=== PATIENT | female | born 1985 | race Caucasian/White ===

== ENCOUNTER 2017-02-27 21:19 | Emergency (ER) | payer OTHER, SELFPAY ==
[2017-02-27] MEDS ORDERED: TORAdol 30 mg Injection IM ONE (21:49)
[2017-02-27] MEDS ORDERED: TORAdol 30 mg Injection ONE (21:51)
[2017-02-27 22:20] VITALS: O2SAT 98
--- NOTE | 2017-02-27 22:25 | ERPHSYRPT ---
- History of Present Illness Time Seen by Provider: 02/27/17 22:00 Physician History: PATIENT WITH A HISTORY OF MIGRAINE HEADACHES FOR 20 YEARS COMPLAINS OF MIGRAINE HEADACHE FOR 4 WEEKS. DENIES BLURRED VISION, FEVER, NECK STIFFNESS. DENIES NAUSEA, EMESIS. Timing/Duration: week(s) Quality: aching Head Pain Location: temporal Severity of Pain-Max: moderate Severity of Pain-Current: moderate Recent Head Trauma: no recent headache/trauma Modifying Factors: Improves With: exposure to light Associated Symptoms: sensitive to light Previous symptoms: same symptoms as today Allergies/Adverse Reactions: latex Allergy (Verified 04/04/16 01:44) Sulfa (Sulfonamide Antibiotics) [Sulfa(Sulfonamide Antibiotics)] Allergy ( Verified 03/21/16 16:28) Hives NSAIDS (Non-Steroidal Anti-Inflamma Adverse Reaction (Verified 04/04/16 01:45) eggs Allergy (Uncoded 04/04/16 01:44) Home Medications: Bupropion HCl 150 mg Sr [Wellbutrin SR 150 MG] 150 mg PO BID 03/03/16 [ History] Escitalopram Oxalate 10 mg [Lexapro 10 MG] 20 mg PO DAILY 03/03/16 [History] Ferrous Sulfate [Iron] 325 mg PO DAILY 03/03/16 [History] Lorazepam [Ativan] 1 mg PO TID 03/03/16 [History] Pantoprazole Sodium [Protonix] 40 mg PO DAILY 03/03/16 [History] Norgestimate-Ethinyl Estradiol [Sprintec] 1 ea PO UD 03/11/16 [History] Hx Tetanus, Diphtheria Vaccination/Date Given: Yes (up top date) Hx Influenza Vaccination/Date Given: No Hx Pneumococcal Vaccination/Date Given: No - Review of Systems Constitutional: No Fever, No Chills Eyes: No Symptoms Ears, Nose, & Throat: No Symptoms Respiratory: No Symptoms, No Cough, No Dyspnea Cardiac: No Symptoms, No Chest Pain, No Edema, No Syncope Abdominal/Gastrointestinal: No Symptoms, No Abdominal Pain, No Nausea, No Vomiting, No Diarrhea Genitourinary Symptoms: No Symptoms, No Dysuria Musculoskeletal: No Back Pain, No Neck Pain Skin: No Rash Neurological: No Symptoms, No Dizziness, No Focal Weakness, No Sensory Changes Psychological: No Symptoms Endocrine: No Symptoms All Other Systems: Reviewed and Negative - Past Medical History Pertinent Past Medical History: Yes Neurological History: Migraines ENT History: No Pertinent History Cardiac History: No Pertinent History Respiratory History: No Pertinent History Endocrine Medical History: Hypothyroidism Musculoskeletal History: No Pertinent History GI Medical History: No Pertinent History, Other History: Other Psycho-Social History: No Pertinent History Female Reproductive Disorders: Abnormal Uterine Bleeding, Menstrual Problems Other Medical History: states "recurring UTI", "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 - Past Surgical History Past Surgical History: Yes Neuro Surgical History: No Pertinent History Cardiac: No Pertinent History Respiratory: No Pertinent History Gastrointestinal: Appendectomy, Cholecystectomy Genitourinary: No Pertinent History Female Surgical History: No Pertinent History Other Surgical History: gastric bypass, lap band placed and removed first, two D &C, EGD - 03/19/16 - results "stomach inflammed" - Social History Smoking Status: Current some day smoker Exposure to second hand smoke: No Drug Use: none Patient Lives Alone: No - Female History Hx Now: No - Nursing Vital Signs Nursing Vital Signs: Initial Vital Signs Pulse Rate 70 02/27/17 21:54 Respiratory Rate 18 02/27/17 21:54 Blood Pressure 131/83 02/27/17 21:54 O2 Sat by Pulse Oximetry 100 02/27/17 21:54 Pain Scale Pain Intensity 6 - Physical Exam General Appearance: no apparent distress Eye Exam: PERRL/EOMI Ears, Nose, Throat Exam: normal ENT inspection, moist mucous membranes Neck Exam: normal inspection, supple, full range of motion, No meningismus Respiratory Exam: normal breath sounds, lungs clear Cardiovascular Exam: regular rate/rhythm, normal heart sounds Gastrointestinal/Abdominal Exam: soft, No tenderness, No distention Back Exam: normal inspection, normal range of motion Mental Status Exam: alert, 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, cooperative healthcare technician Exam: normal speech, PERRL, No facial droop Coordination/Gait Exam: normal cerebellar function Motor/Sensory Exam: no motor deficit, no sensory deficit DTR Exam: bicep (R): 2+, bicep (L): 2+, tricep (R): 2+, tricep (L): 2+, knee (R) : 2+, knee (L): 2+, ankle (R): 2+ Skin Exam: normal color, warm, dry, No rash SpO2 Interpretation: normal SpO2: 98 Oxygen Delivery: Room Air Ordered Tests: Medication Summary Discontinued Medications Generic Name Dose Route Start Last Admin Trade Name Freq PRN Reason Stop Dose Admin Ketorolac Tromethamine 60 mg 02/27/17 21:49 02/27/17 21:53 Toradol 30 Mg Injection IM 02/27/17 21:50 60 mg STAT ONE Administration Ketorolac Tromethamine Confirm 02/27/17 21:51 Toradol 30 Mg Injection Administered 02/27/17 21:52 Dose 60 mg .ROUTE .STK-MED ONE - Progress Progress Note: 02/27/17 22:54 ADMINISTERED TORADOL 60MG IM Counseled pt/family regarding: diagnosis, need for follow-up - Departure Time of Disposition: 23:00 Departure Disposition: Home Clinical Impression: MIGRAINE CEPHALGIA Condition: Stable Critical Care Time: No Referrals: ADRIANO CROOKS [Primary Care Provider] - Additional Instructions: CALL YOUR PRIMARY CARE PROVIDER FOR APPOINTMENT EARLY NEXT WEEK AND REFERRAL TO NEUROLOGIST. ULTRAM 50MG EVERY 4 HOURS FOR PAIN. Prescriptions: Tramadol HCl 50 mg [Ultram 50 mg] 50 mg PO Q6H PRN PRN #12 tablet PRN Reason: Pain
[2017-02-27] MEDS ORDERED: ULTRAM 50 MG PO ONE (23:04)
[2017-02-27 23:06] VITALS: BP 137/95; PULSE 70
[2017-02-27] MEDS ORDERED: ULTRAM 50 MG ONE (23:07)
== END 2017-02-27 23:26 | disposition home or self-care (01) ==
LOC: ED 21:19
DX: G43.909 Migraine, unspecified, not intractable, without status migrainosus (principal)
CPT/HCPCS: 96372; 99284; J1885; A9270-GY

== ENCOUNTER 2017-09-27 21:03 | Emergency (ER) | payer OTHER ==
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
[2017-09-27] MEDS ORDERED: TORAdol 30 mg Injection IM ONE (22:22)
[2017-09-27] MEDS ORDERED: TORAdol 30 mg Injection ONE (22:24)
[2017-09-27 22:46] VITALS: BP 122/72; PULSE 82; O2SAT 96
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
== END 2017-09-27 22:45 | disposition home or self-care (01) ==
LOC: ED 21:03
DX: S16.1XXA Strain of muscle, fascia and tendon at neck level, initial encounter (principal); S39.012A Strain of muscle, fascia and tendon of lower back, initial encounter; M25.552 Pain in left hip; M25.551 Pain in right hip; V40.5XXA Car driver injured in collision with pedestrian or animal in traffic accident, initial encounter; Y93.9 Activity, unspecified; Z79.899 Other long term (current) drug therapy
CPT/HCPCS: 72040; 72100; 72170; 96372; 99284; J1885

== ENCOUNTER 2018-09-29 15:58 | Emergency (ER) | payer OTHER ==
[2018-09-29 16:13] VITALS: BP 127/93; PULSE 88; O2SAT 100
--- NOTE | 2018-09-29 16:36 | ERPHSYRPT ---
- History of Present Illness Time Seen by Provider: 09/29/18 16:25 Source: patient Exam Limitations: no limitations Patient Subjective Stated Complaint: Pt states "When I woke up I had a burning sensation in my left eye and I went to the eye doctor and he said I had a torn cornea and gave me two eye drops to use and now I have a migraine and I am vomiting." Triage Nursing Assessment: Pt presented alert and oriented X 3, skin pwd. PT ambulates with an upright steady gait, able to speak in clear full sentences. Pt in no apparent respiratory distress. Physician History: 33 y/o white female with h/o migraine headaches presents with a migraine headache after being dx earlier with a corneal abrasion of her eye. pt states pt given rx for eye drops but nothing for the pain. pt has assoc n/v and did not take her imitrex because she felt she could not hold down her meds. she also states she lost rx for eye drops from earlier today. headache is her typical migraine. Timing/Duration: today Quality: aching Head Pain Location: global Severity of Pain-Max: moderate Severity of Pain-Current: moderate Recent Head Trauma: no recent headache/trauma, chronic headaches Modifying Factors: Improves With: exposure to light, other (pt dx this am with corneal abrasion) Associated Symptoms: sensitive to light Allergies/Adverse Reactions: latex Allergy (Verified 09/27/17 21:33) Sulfa (Sulfonamide Antibiotics) [Sulfa(Sulfonamide Antibiotics)] Allergy ( Verified 09/27/17 21:33) Hives NSAIDS (Non-Steroidal Anti-Inflamma Adverse Reaction (Verified 09/27/17 21:33) can take IM but no oral med eggs Allergy (Uncoded 09/27/17 21:33) Home Medications: Bupropion HCl 150 mg Sr [Wellbutrin SR 150 MG] 150 mg PO BID 03/03/16 [ History] Pantoprazole Sodium [Protonix] 40 mg PO DAILY 03/03/16 [History] Sumatriptan Succinate 25 mg [Imitrex 25 MG] 25 mg SQ DAILY PRN 09/29/18 [History ] Topiramate [Topamax] 100 mg PO DAILY 09/29/18 [History] Hx Tetanus, Diphtheria Vaccination/Date Given: Yes Hx Influenza Vaccination/Date Given: No Hx Pneumococcal Vaccination/Date Given: No Immunizations Up to Date: Yes - Review of Systems Constitutional: No Symptoms Eyes: Eye Pain, Photophobia Ears, Nose, & Throat: No Symptoms Respiratory: No Symptoms Cardiac: No Symptoms Abdominal/Gastrointestinal: No Symptoms Genitourinary Symptoms: No Symptoms Musculoskeletal: No Symptoms Skin: No Symptoms Neurological: Headache Psychological: No Symptoms Endocrine: No Symptoms Hematologic/Lymphatic: No Symptoms Immunological/Allergic: No Symptoms All Other Systems: Reviewed and Negative - Past Medical History Pertinent Past Medical History: Yes Neurological History: Migraines ENT History: No Pertinent History Cardiac History: No Pertinent History Respiratory History: No Pertinent History Endocrine Medical History: Hypothyroidism Musculoskeletal History: No Pertinent History GI Medical History: No Pertinent History, Other History: Other Psycho-Social History: No Pertinent History Female Reproductive Disorders: Abnormal Uterine Bleeding, Menstrual Problems Other Medical History: states "recurring UTI", "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 - Past Surgical History Past Surgical History: Yes Neuro Surgical History: No Pertinent History Cardiac: No Pertinent History Respiratory: No Pertinent History Gastrointestinal: Appendectomy, Cholecystectomy Genitourinary: No Pertinent History Female Surgical History: No Pertinent History Other Surgical History: gastric bypass, lap band placed and removed first, two D &C, EGD - 03/19/16 - results "stomach inflammed" - Social History Smoking Status: Current every day smoker How long have you smoked: 2 years Exposure to second hand smoke: Yes Drug Use: none Patient Lives Alone: No - Female History Hx Last Menstrual Period: ablasion Hx Now: No - Nursing Vital Signs Nursing Vital Signs: Initial Vital Signs Temperature 98.8 F 09/29/18 16:06 Pulse Rate 88 09/29/18 16:06 Respiratory Rate 16 09/29/18 16:06 Blood Pressure 127/93 09/29/18 16:06 O2 Sat by Pulse Oximetry 100 09/29/18 16:06 Pain Scale Pain Intensity 8 - Physical Exam General Appearance: mild distress, alert, anxiety Eye Exam: PERRL/EOMI, photophobia Ears, Nose, Throat Exam: normal ENT inspection, moist mucous membranes Neck Exam: normal inspection, non-tender, supple, full range of motion Respiratory Exam: No chest tenderness, No respiratory distress Gastrointestinal/Abdominal Exam: No tenderness, No guarding, No rebound Back Exam: normal inspection, normal range of motion, No CVA tenderness, No vertebral tenderness Extremity Exam: normal inspection, normal range of motion, pelvis stable Mental Status Exam: alert, 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, cooperative facer operator Exam: normal hearing, normal speech, PERRL, tongue midline Coordination/Gait Exam: normal gait, normal cerebellar function Motor/Sensory Exam: no motor deficit, no sensory deficit Skin Exam: normal color, warm, dry Lymphatic Exam: No adenopathy SpO2 Interpretation: normal SpO2: 100 Ordered Tests: Medication Summary Discontinued Medications Generic Name Dose Route Start Last Admin Trade Name Freq PRN Reason Stop Dose Admin Hydromorphone HCl 1 mg 09/29/18 16:37 09/29/18 16:43 Hydromorphone 1 Mg/Ml Ampule IM 09/29/18 16:38 1 mg STAT ONE Administration Hydromorphone HCl Confirm 09/29/18 16:41 Hydromorphone 1 Mg/Ml Ampule Administered 09/29/18 16:42 Dose 1 mg .ROUTE .STK-MED ONE Ondansetron HCl 4 mg 09/29/18 16:37 09/29/18 16:43 Zofran Odt 4 Mg PO 09/29/18 16:38 4 mg STAT ONE Administration Ondansetron HCl Confirm 09/29/18 16:41 Zofran Odt 4 Mg Administered 09/29/18 16:42 Dose 4 mg .ROUTE .STK-MED ONE - Progress Progress: improved Air Movement: good Blood Culture(s) Obtained: No Antibiotics given: No Counseled pt/family regarding: diagnosis, need for follow-up - Departure Departure Disposition: Home Clinical Impression: Migraine, Vomiting Condition: Stable Critical Care Time: No Referrals: CHANTE PAGAN MD [Primary Care Provider] - Additional Instructions: drink plenty of fluids. follow up with eye doctor to call in your medication again. follow up with your primary doctor tomorrow for pain management. Prescriptions: Promethazine HCl 25 mg [Phenergan 25 mg] 25 mg PO Q8H PRN PRN #6 tablet MDD 3 PRN Reason: Nausea/Vomiting
[2018-09-29] MEDS ORDERED: Hydromorphone 1 mg/ml Ampule IM ONE (16:37)
[2018-09-29] MEDS ORDERED: ZOFRAN ODT 4 MG PO ONE (16:37)
[2018-09-29] MEDS ORDERED: Hydromorphone 1 mg/ml Ampule ONE (16:41)
[2018-09-29] MEDS ORDERED: ZOFRAN ODT 4 MG ONE (16:41)
== END 2018-09-29 17:25 | disposition home or self-care (01) ==
LOC: ED 15:58
DX: G43.909 Migraine, unspecified, not intractable, without status migrainosus (principal); R11.10 Vomiting, unspecified; F17.200 Nicotine dependence, unspecified, uncomplicated; Z79.899 Other long term (current) drug therapy
CPT/HCPCS: 96372; 99283; J1170; Q0162

== ENCOUNTER 2018-09-30 21:48 | Emergency (ER) | payer OTHER ==
[2018-09-30] MEDS ORDERED: ZOFRAN ODT 4 MG PO ONE (22:08)
[2018-09-30] MEDS ORDERED: TORAdol 30 mg Injection IM ONE (22:08)
[2018-09-30] MEDS ORDERED: TORAdol 30 mg Injection ONE (22:17)
[2018-09-30] MEDS ORDERED: ZOFRAN ODT 4 MG ONE (22:17)
--- NOTE | 2018-09-30 22:45 | ERPHSYRPT ---
- History of Present Illness Source: patient Exam Limitations: no limitations Patient Subjective Stated Complaint: pt states, "I was in ER here yesterday for laceration in my left eye and they gave me a pain shot. I went to see dr. Rojas today and saw Tanesha Ring NP instead. She gave me a shot of Toradol and a shot of Phenergan. Pt states, got some relief but not alot". Headache has came back with a vengenance. Triage Nursing Assessment: pt alert and oriented x3, pleasant. Pt c/o headache and lt eye burning, states, "I was in ER yesterday and have a laceration". Saw Tanesha Ring NP today and got a toradol and phenergan shot, not much relief. Lungs clear, heart tone reg, abd soft with active bs x4 quad,nontender. Lt eye sclera is pink, unable to see laceration with human eye. Physician History: Pt is a 33 y/o female with a h/o migraines, that presented to the ED with headache. Pt was in the ED yesterday and got Dilaudid and phenergan IV. She saw her PCP today and got Toradol and Phenergan IM. As she had a headache still , she came to the ER. Pt is taking Topamax and Imitrax, that is prescribed to her by her neurologist. Those meds do not help her. Pt denies F/C/S. She has photophobia. No SOB or cough. No sick contacts. No focality. Timing/Duration: day(s) Quality: throbbing Head Pain Location: frontal Severity of Pain-Max: moderate Severity of Pain-Current: moderate Recent Head Trauma: frequent headaches, chronic headaches Modifying Factors: Improves With: exposure to light Associated Symptoms: nausea/vomiting, sensitive to light Previous symptoms: same symptoms as today Allergies/Adverse Reactions: latex Allergy (Verified 09/27/17 21:33) Sulfa (Sulfonamide Antibiotics) [Sulfa(Sulfonamide Antibiotics)] Allergy ( Verified 09/27/17 21:33) Hives NSAIDS (Non-Steroidal Anti-Inflamma Adverse Reaction (Verified 09/27/17 21:33) can take IM but no oral med eggs Allergy (Uncoded 09/27/17 21:33) Home Medications: Pantoprazole Sodium [Protonix] 40 mg PO DAILY 03/03/16 [History] Sumatriptan Succinate 25 mg [Imitrex 25 MG] 25 mg PO Q4-6HPRN PRN 09/29/18 [ History] Topiramate [Topamax] 300 mg PO DAILY 09/29/18 [History] Ondansetron HCl [Zofran] 4 mg PO Q6H PRN PRN 09/30/18 [History] Rizatriptan Benzoate [Maxalt] 10 mg PO Q2H/PRN PRN 09/30/18 [History] Tobramycin Sulf/Dexamethasone [Tobradex Eye Ointment] 3.5 gm OP QID 09/30/18 [ History] Hx Tetanus, Diphtheria Vaccination/Date Given: Yes Hx Influenza Vaccination/Date Given: No Hx Pneumococcal Vaccination/Date Given: No Immunizations Up to Date: Yes - Review of Systems Constitutional: No Fever, No Chills Eyes: Eye Pain (on L from corneal abrasion two days ago) Ears, Nose, & Throat: No Symptoms Respiratory: No Cough, No Dyspnea Cardiac: No Chest Pain, No Edema, No Syncope Abdominal/Gastrointestinal: Nausea Genitourinary Symptoms: No Dysuria Musculoskeletal: No Back Pain, No Neck Pain Neurological: Headache Psychological: No Symptoms - Past Medical History Pertinent Past Medical History: Yes Neurological History: Migraines ENT History: No Pertinent History Cardiac History: No Pertinent History Respiratory History: No Pertinent History Endocrine Medical History: Hypothyroidism Musculoskeletal History: No Pertinent History GI Medical History: No Pertinent History, Other History: Other Psycho-Social History: No Pertinent History Female Reproductive Disorders: Abnormal Uterine Bleeding, Menstrual Problems Other Medical History: states "recurring UTI", "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 - Past Surgical History Past Surgical History: Yes Neuro Surgical History: No Pertinent History Cardiac: No Pertinent History Respiratory: No Pertinent History Gastrointestinal: Appendectomy, Cholecystectomy Genitourinary: No Pertinent History Female Surgical History: No Pertinent History Other Surgical History: gastric bypass, lap band placed and removed first, two D &C, EGD - 03/19/16 - results "stomach inflammed" - Social History Smoking Status: Former smoker How long have you smoked: 2 years Exposure to second hand smoke: No Drug Use: none Patient Lives Alone: No - Female History Hx Now: No - Nursing Vital Signs Nursing Vital Signs: Initial Vital Signs Temperature 98.2 F 09/30/18 22:04 Pulse Rate 88 09/30/18 22:04 Respiratory Rate 17 09/30/18 22:04 Blood Pressure 118/92 09/30/18 22:04 O2 Sat by Pulse Oximetry 100 09/30/18 22:04 Pain Scale Pain Intensity 5 - Physical Exam General Appearance: no apparent distress Eye Exam: PERRL/EOMI Ears, Nose, Throat Exam: normal ENT inspection, moist mucous membranes Neck Exam: normal inspection, supple, full range of motion, No meningismus Respiratory Exam: normal breath sounds, lungs clear Cardiovascular Exam: regular rate/rhythm, normal heart sounds Gastrointestinal/Abdominal Exam: soft, No tenderness, No distention Back Exam: normal inspection, normal range of motion Mental Status Exam: alert, 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, 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 Exam: normal speech, PERRL, No facial droop Coordination/Gait Exam: normal cerebellar function Motor/Sensory Exam: no motor deficit, no sensory deficit SpO2 Interpretation: normal SpO2: 100 O2 Delivery: Room Air - Course Nursing assessment & vital signs reviewed: Yes Ordered Tests: Medication Summary Discontinued Medications Generic Name Dose Route Start Last Admin Trade Name Rubén PRN Reason Stop Dose Admin Acetaminophen 1,000 mg 09/30/18 23:56 10/01/18 00:01 Tylenol Extra Strength 500 Mg PO 09/30/18 23:57 1,000 mg STAT STA Administration Acetaminophen Confirm 09/30/18 23:58 Tylenol Extra Strength 500 Mg Administered 09/30/18 23:59 Dose 1,000 mg .ROUTE .STK-MED ONE Ketorolac Tromethamine 60 mg 09/30/18 22:08 09/30/18 22:18 Toradol 30 Mg Injection IM 09/30/18 22:09 60 mg STAT ONE Administration Ketorolac Tromethamine Confirm 09/30/18 22:17 Toradol 30 Mg Injection Administered 09/30/18 22:18 Dose 60 mg .ROUTE .STK-MED ONE Ondansetron HCl 4 mg 09/30/18 22:08 09/30/18 22:21 Zofran Odt 4 Mg PO 09/30/18 22:09 4 mg STAT ONE Administration Ondansetron HCl Confirm 09/30/18 22:17 Zofran Odt 4 Mg Administered 09/30/18 22:18 Dose 4 mg .ROUTE .STK-MED ONE Tramadol HCl 100 mg 09/30/18 23:55 10/01/18 00:00 Ultram 50 Mg PO 09/30/18 23:56 100 mg STAT ONE Administration Tramadol HCl Confirm 09/30/18 23:59 Ultram 50 Mg Administered 10/01/18 00:00 Dose 100 mg .ROUTE .STK-MED ONE - Progress Progress: improved Air Movement: good Progress Note: 09/30/18 22:46 Pt was seen and examined. She got Toradol IM 60mg and Zofran ODT 4mg. I instructed the pt to f/u with her neurologist to adjust her preventative meds, and if needed, change meds. Pt was informed that her neurologist is the one she should contact for her frequent headaches. 10/01/18 01:35 Pt had still same headache post the meds. I gave her Tramadol 100mg and Tylenol 1gr PO. Pt's headache did improve and is now a 5/10. Pt is cleared for d/c to home. She should f/u with her Neurologist. Pt understands and will follow. Blood Culture(s) Obtained: No Antibiotics given: No Discussed with : Colt Will see patient in: office Counseled pt/family regarding: need for follow-up - Departure Departure Disposition: Home Clinical Impression: Migraine aura, persistent, intractable Condition: Stable Critical Care Time: No Referrals: CHANTE PAGAN MD [Primary Care Provider] - Additional Instructions: F/U with your PCP and Neurologist.
[2018-09-30] MEDS ORDERED: ULTRAM 50 MG PO ONE (23:55)
[2018-09-30] MEDS ORDERED: TYLENOL EXTRA STRENGTH 500 MG PO STA (23:56)
[2018-09-30] MEDS ORDERED: TYLENOL EXTRA STRENGTH 500 MG ONE (23:58)
[2018-09-30] MEDS ORDERED: ULTRAM 50 MG ONE (23:59)
[2018-10-01 01:52] VITALS: BP 97/55; PULSE 60; O2SAT 98
== END 2018-10-01 01:56 | disposition home or self-care (01) ==
LOC: ED 21:48
DX: G43.119 Migraine with aura, intractable, without status migrainosus (principal)
CPT/HCPCS: 96372; 99284; J1885; Q0162; A9270-GY

== ENCOUNTER 2019-05-16 05:34 | Observation (INO) | payer OTHER ==
--- NOTE | 2019-05-16 06:14 | ERPHSYRPT ---
- History of Present Illness Source: patient Exam Limitations: no limitations Patient Subjective Stated Complaint: pt states that she woke up at 3 with lower back pain, pt states that she began to cough deeply, pt states that she feels like she is going to pass out, pt states that she took her tempature and it was 105, pt states she had phenobarbitol block for migraines, pt states that she had some relief with heating pad but the heat made her cough Triage Nursing Assessment: pt ambulated into the er, axo x3, pale, tachycardic, hypotensive, febrile, unsteady gait, c/o of dizziness and light headed Timing/Duration: yesterday Severity: moderate Associated Symptoms: nausea, shortness of breath, cough, other (Back pain) Hx Tetanus, Diphtheria Vaccination/Date Given: Yes Hx Influenza Vaccination/Date Given: No Hx Pneumococcal Vaccination/Date Given: No <ROULA WEST - Last Filed: 05/16/19 06:40> <TEJAS ALCANTARA - Last Filed: 05/16/19 09:06> - History of Present Illness Time Seen by Provider: 05/16/19 06:13 Physician History: was seen yesterday. It does walk up this morning with CM with the back pain which was localized to ride to his scapular area. The patient said she coughed after that and not feeling well since then. Patient has a fever. The and looks pale. Blood pressure was low in the ER. (ROULA WEST) Allergies/Adverse Reactions: Fish Containing Products Allergy (Verified 05/16/19 05:56) latex Allergy (Verified 05/16/19 05:56) shellfish derived Allergy (Verified 05/16/19 05:56) Sulfa (Sulfonamide Antibiotics) [Sulfa(Sulfonamide Antibiotics)] Allergy ( Verified 05/16/19 05:56) Hives NSAIDS (Non-Steroidal Anti-Inflamma Adverse Reaction (Verified 05/16/19 05:56) can take IM but no oral med eggs Allergy (Uncoded 09/27/17 21:33) Home Medications: Pantoprazole Sodium [Protonix] 40 mg PO DAILY 03/03/16 [History] Topiramate [Topamax] 300 mg PO HS 09/29/18 [History] Baclofen 10 mg PO BID 05/16/19 [History] Gabapentin 900 mg PO HS 05/16/19 [History] Galcanezumab-Gnlm [Emgality Pen] 120 mg SQ UD 05/16/19 [History] OXcarbazepine [Oxcarbazepine] 300 mg PO TID 05/16/19 [History] Venlafaxine HCl [Effexor] 100 mg PO TID 05/16/19 [History] clonazePAM [Clonazepam] 0.5 mg PO TID 05/16/19 [History] - Review of Systems Constitutional: Fever, Chills Eyes: No Symptoms Ears, Nose, & Throat: No Symptoms Respiratory: Cough, No Dyspnea Cardiac: Other (Right Scapular area pain), No Chest Pain, No Edema, No Syncope Abdominal/Gastrointestinal: No Abdominal Pain, No Nausea, No Vomiting, No Diarrhea Genitourinary Symptoms: No Dysuria Musculoskeletal: No Back Pain, No Neck Pain Skin: No Rash Neurological: No Dizziness, No Focal Weakness, No Sensory Changes Psychological: No Symptoms Endocrine: No Symptoms All Other Systems: Reviewed and Negative <ROULA WEST - Last Filed: 05/16/19 06:40> - Past Medical History Pertinent Past Medical History: Yes Neurological History: Migraines ENT History: No Pertinent History Cardiac History: No Pertinent History Respiratory History: No Pertinent History Endocrine Medical History: Hypothyroidism Musculoskeletal History: No Pertinent History GI Medical History: No Pertinent History, Other History: Other Psycho-Social History: Depression Female Reproductive Disorders: Abnormal Uterine Bleeding, Menstrual Problems Other Medical History: states "recurring UTI", "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 - Past Surgical History Past Surgical History: Yes Neuro Surgical History: No Pertinent History Cardiac: No Pertinent History Respiratory: No Pertinent History Gastrointestinal: Appendectomy, Cholecystectomy Genitourinary: No Pertinent History Female Surgical History: Tubal Ligation, Other Other Surgical History: gastric bypass, lap band placed and removed first, two D &C, EGD - 03/19/16 - results "stomach inflammed" - Social History Smoking Status: Former smoker How long have you smoked: 2 years Exposure to second hand smoke: No Drug Use: none Patient Lives Alone: No - Female History Hx Now: No <ROULA WEST - Last Filed: 05/16/19 06:40> - Physical Exam General Appearance: no apparent distress, alert, other (Pale looking) Eye Exam: PERRL/EOMI, eyes nml inspection Ears, Nose, Throat Exam: normal ENT inspection, TMs normal, pharynx normal, moist mucous membranes Neck Exam: normal inspection, non-tender, supple, full range of motion Respiratory Exam: normal breath sounds, lungs clear, No respiratory distress Cardiovascular Exam: regular rate/rhythm, normal heart sounds, normal peripheral pulses Gastrointestinal/Abdomen Exam: soft, normal bowel sounds, No tenderness, No mass Back Exam: normal inspection, normal range of motion, other (Right Scapular area pain), No CVA tenderness, No vertebral tenderness Extremity Exam: normal inspection, normal range of motion, pelvis stable Neurologic Exam: alert, 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, cooperative, normal mood/affect, nml cerebellar function, nml station & gait, sensation nml, No motor deficits Skin Exam: normal color, warm, dry, No rash Lymphatic Exam: No adenopathy SpO2 Interpretation: normal SpO2: 96 O2 Delivery: Room Air <ROULA WEST - Last Filed: 05/16/19 06:40> - Nursing Vital Signs Nursing Vital Signs: Initial Vital Signs Temperature 100.2 F 05/16/19 05:40 Pulse Rate 122 H 05/16/19 05:40 Respiratory Rate 23 05/16/19 05:40 Blood Pressure 88/56 05/16/19 05:40 O2 Sat by Pulse Oximetry 96 05/16/19 05:40 Pain Scale Pain Intensity [Lower Back] 8 Pain Intensity 5 - Course Nursing assessment & vital signs reviewed: Yes <ROULA WEST Last Filed: 05/16/19 06:40> Ordered Tests: Active Orders 24 hr Category Date Time Status Analytics Director STAT Care 05/16/19 06:18 Active EKG-ER Only STAT Care 05/16/19 06:18 Active IV Insertion STAT Care 05/16/19 06:18 Active Pulse Oximetry (ED) STAT Care 05/16/19 06:18 Active CHEST 2 VIEWS (PA AND LAT) Stat Exams 05/16/19 06:19 Completed BLOOD CULTURE Stat Lab 05/16/19 06:45 Received CBC W DIFF Stat Lab 05/16/19 06:45 Completed CMP Stat Lab 05/16/19 06:45 Completed CULTURE,URINE Stat Lab 05/16/19 06:45 Received HCG QUALITATIVE,SERUM Stat Lab 05/16/19 06:45 Completed Lactic Acid Stat Lab 05/16/19 06:18 Completed PROTIME WITH INR Stat Lab 05/16/19 06:45 Completed PTT Stat Lab 05/16/19 06:45 Completed TROPONIN Stat Lab 05/16/19 06:45 Completed UA W/RFX UR CULTURE Stat Lab 05/16/19 06:45 Completed Urine Triage Profile Stat Lab 05/16/19 08:20 Completed Transfer Order Routine Transfer 05/16/19 Ordered Medication Summary Generic Name Dose Route Start Last Admin Trade Name Freq PRN Reason Stop Dose Admin Lactated Ringer's 1,000 mls @ 999 mls/hr 05/16/19 06:30 05/16/19 07:43 Lactated Ringers IV 05/16/19 09:30 Infused .Q1H1M ARMANDO Infusion Potassium Chloride 20 meq in 100 mls @ 50 mls/hr 05/16/19 07:10 05/16/19 07: 33 Potassium Chloride 20 Meq In Water 100ml IV 05/16/19 09:09 50 mls/hr STAT ONE Administration Discontinued Medications Generic Name Dose Route Start Last Admin Trade Name Freq PRN Reason Stop Dose Admin Acetaminophen 650 mg 05/16/19 06:20 05/16/19 06:35 Tylenol 325 Mg PO 05/16/19 06:21 650 mg STAT STA Administration Acetaminophen Confirm 05/16/19 06:32 Tylenol 325 Mg Administered 05/16/19 06:33 Dose 650 mg .ROUTE .STK-MED ONE Hydrocodone Bitart/Acetaminophen 1 tab 05/16/19 08:58 Parnell 5/325 Mg PO 05/16/19 08:59 STAT ONE Ceftriaxone Sodium/Dextrose 1 g in 50 mls @ 100 mls/hr 05/16/19 06:20 07:08 Rocephin 1 Gm-D5w 50 Ml Bag IV 05/16/19 06:49 Infused STAT STA Infusion Ceftriaxone Sodium/Dextrose Confirm 05/16/19 06:33 Rocephin 1 Gm-D5w 50 Ml Bag Administered 05/16/19 06:34 Dose 1 g in 50 mls @ ud IV .STK-MED ONE Sodium Chloride 1,000 mls @ 999 mls/hr 05/16/19 07:11 05/16/19 07:34 Sodium Chloride 0.9% 1000 Ml IV 05/16/19 08:11 999 mls/hr .Q1H1M STA Administration Sodium Chloride Confirm 05/16/19 07:27 Sodium Chloride 0.9% 1000 Ml Administered 05/16/19 07:28 Dose 1,000 mls @ ud .ROUTE .STK-MED ONE Potassium Chloride Confirm 05/16/19 07:27 Potassium Chloride 20 Meq In Water 100ml Administered 05/16/19 07:28 Dose 100 mls @ ud IV .STK-MED ONE Ondansetron HCl 4 mg 05/16/19 06:20 05/16/19 06:35 Zofran 4 Mg/2 Ml Vial IV 05/16/19 06:21 4 mg STAT ONE Administration Ondansetron HCl Confirm 05/16/19 06:32 Zofran 4 Mg/2 Ml Vial Administered 05/16/19 06:33 Dose 4 mg .ROUTE .STK-MED ONE Lab/Rad Data: Laboratory Result Diagrams 05/16/19 06:45 05/16/19 06:45 Laboratory Results 05/16/19 05/16/19 05/16/19 Range/Units 08:20 06:45 06:45 WBC (4.0-10.5) K/mm3 RBC (4.1-5.4) M/mm3 Hgb (12.0-16.0) gm/dl Hct (35-47) % MCV (78-100) fl MCH (26-32) pg MCHC (32-36) g/dl RDW (11.5-14.0) % Plt Count (150-450) K/mm3 MPV (7.5-11.0) fl Gran % (36.0-66.0) % Eos # (Auto) (0-0.5) Absolute Lymphs (auto) (1.0-4.6) Absolute Monos (auto) (0.0-1.3) Lymphocytes % (24.0-44.0) % Monocytes % (0.0-12.0) % Eosinophils % (0.00-5.0) % Basophils % (0.0-0.4) % Absolute Granulocytes (1.4-6.9) Basophils # (0-0.4) PT (9.95-12.35) SECONDS INR (0.8-3.0) APTT (25.3-37.0) SECONDS Sodium (137-145) mmol/L Potassium (3.5-5.1) mmol/L Chloride (98-107) mmol/L Carbon Dioxide (22-30) mmol/L Anion Gap (5-15) MEQ/L BUN (7-17) mg/dL Creatinine (0.52-1.04) mg/dL Estimated GFR ML/MIN Glucose (74-106) mg/dL Lactic Acid (0.4-2.0) Calcium (8.4-10.2) mg/dL Total Bilirubin (0.2-1.3) mg/dL AST (14-36) U/L ALT (0-35) U/L Alkaline Phosphatase (38-126) U/L Troponin I (0.000-0.034) ng/mL Serum Total Protein (6.3-8.2) g/dL Albumin (3.5-5.0) g/dL Serum , Qual (Negative) Urine Color YELLOW (YELLOW) Urine Appearance SLIGHTLY CLOUDY (CLEAR) Urine pH 5.0 (5-6) Ur Specific Irwin 1.013 (1.005-1.025) Urine Protein NEGATIVE (Negative) Urine Ketones NEGATIVE (NEGATIVE) Urine Blood NEGATIVE (0-5) Cas/ul Urine Nitrite NEGATIVE (NEGATIVE) Urine Bilirubin NEGATIVE (NEGATIVE) Urine Urobilinogen NEGATIVE (0-1) mg/dL Ur Leukocyte Esterase TRACE (NEGATIVE) Urine WBC (Auto) 3-5 (0-5) /HPF Urine RBC (Auto) 0-2 (0-2) /HPF U Epithel Cells (Auto) FEW (FEW) /HPF Urine Bacteria (Auto) MODERATE (NEGATIVE) /HPF Urine Mucus (Auto) SLIGHT (NEGATIVE) /HPF Urine Culture Reflexed YES (NO) Urine Glucose NEGATIVE (NEGATIVE) mg/dL Urine Opiates Level NEGATIVE (NEGATIVE) Ur Methadone NEGATIVE (NEGATIVE) Urine Barbiturates NEGATIVE (NEGATIVE) Ur Phencyclidine (PCP) NEGATIVE (NEGATIVE) Urine Amphetamine NEGATIVE (NEGATIVE) U Benzodiazepine Level NEGATIVE (NEGATIVE) Urine Cocaine NEGATIVE (NEGATIVE) Urine Marijuana (THC) NEGATIVE (NEGATIVE) Influenza Type A Ag NEGATIVE (NEGATIVE) Influenza Type B Ag NEGATIVE (NEGATIVE) RSV (PCR) NEGATIVE (Negative) Group A Strep Antibody NEGATIVE (NEGATIVE) 05/16/19 05/16/19 05/16/19 Range/Units 06:45 06:45 06:45 WBC (4.0-10.5) K/mm3 RBC (4.1-5.4) M/mm3 Hgb (12.0-16.0) gm/dl Hct (35-47) % MCV (78-100) fl MCH (26-32) pg MCHC (32-36) g/dl RDW (11.5-14.0) % Plt Count (150-450) K/mm3 MPV (7.5-11.0) fl Gran % (36.0-66.0) % Eos # (Auto) (0-0.5) Absolute Lymphs (auto) (1.0-4.6) Absolute Monos (auto) (0.0-1.3) Lymphocytes % (24.0-44.0) % Monocytes % (0.0-12.0) % Eosinophils % (0.00-5.0) % Basophils % (0.0-0.4) % Absolute Granulocytes (1.4-6.9) Basophils # (0-0.4) PT 14.1 H (9.95-12.35) SECONDS INR 1.24 (0.8-3.0) APTT 30.1 (25.3-37.0) SECONDS Sodium (137-145) mmol/L Potassium (3.5-5.1) mmol/L Chloride (98-107) mmol/L Carbon Dioxide (22-30) mmol/L Anion Gap (5-15) MEQ/L BUN (7-17) mg/dL Creatinine (0.52-1.04) mg/dL Estimated GFR ML/MIN Glucose (74-106) mg/dL Lactic Acid (0.4-2.0) Calcium (8.4-10.2) mg/dL Total Bilirubin (0.2-1.3) mg/dL AST (14-36) U/L ALT (0-35) U/L Alkaline Phosphatase (38-126) U/L Troponin I < 0.012 (0.000-0.034) ng/mL Serum Total Protein (6.3-8.2) g/dL Albumin (3.5-5.0) g/dL Serum , Qual NEGATIVE (Negative) Urine Color (YELLOW) Urine Appearance (CLEAR) Urine pH (5-6) Ur Specific Irwin (1.005-1.025) Urine Protein (Negative) Urine Ketones (NEGATIVE) Urine Blood (0-5) Cas/ul Urine Nitrite (NEGATIVE) Urine Bilirubin (NEGATIVE) Urine Urobilinogen (0-1) mg/dL Ur Leukocyte Esterase (NEGATIVE) Urine WBC (Auto) (0-5) /HPF Urine RBC (Auto) (0-2) /HPF U Epithel Cells (Auto) (FEW) /HPF Urine Bacteria (Auto) (NEGATIVE) /HPF Urine Mucus (Auto) (NEGATIVE) /HPF Urine Culture Reflexed (NO) Urine Glucose (NEGATIVE) mg/dL Urine Opiates Level (NEGATIVE) Ur Methadone (NEGATIVE) Urine Barbiturates (NEGATIVE) Ur Phencyclidine (PCP) (NEGATIVE) Urine Amphetamine (NEGATIVE) U Benzodiazepine Level (NEGATIVE) Urine Cocaine (NEGATIVE) Urine Marijuana (THC) (NEGATIVE) Influenza Type A Ag (NEGATIVE) Influenza Type B Ag (NEGATIVE) RSV (PCR) (Negative) Group A Strep Antibody (NEGATIVE) 05/16/19 05/16/19 05/16/19 Range/Units 06:45 06:45 06:18 WBC 13.4 H (4.0-10.5) K/mm3 RBC 3.41 L (4.1-5.4) M/mm3 Hgb 10.9 L (12.0-16.0) gm/dl Hct 32.7 L (35-47) % MCV 95.9 (78-100) fl MCH 32.0 (26-32) pg MCHC 33.3 (32-36) g/dl RDW 13.3 (11.5-14.0) % Plt Count 121 L (150-450) K/mm3 MPV 12.1 H (7.5-11.0) fl Gran % 86.9 H (36.0-66.0) % Eos # (Auto) 0.05 (0-0.5) Absolute Lymphs (auto) 0.98 L (1.0-4.6) Absolute Monos (auto) 0.71 (0.0-1.3) Lymphocytes % 7.3 L (24.0-44.0) % Monocytes % 5.3 (0.0-12.0) % Eosinophils % 0.4 (0.00-5.0) % Basophils % 0.1 (0.0-0.4) % Absolute Granulocytes 11.67 H (1.4-6.9) Basophils # 0.02 (0-0.4) PT (9.95-12.35) SECONDS INR (0.8-3.0) APTT (25.3-37.0) SECONDS Sodium 138 (137-145) mmol/L Potassium 2.9 L* (3.5-5.1) mmol/L Chloride 111 H (98-107) mmol/L Carbon Dioxide 21 L (22-30) mmol/L Anion Gap 8.6 (5-15) MEQ/L BUN 13 (7-17) mg/dL Creatinine 0.69 (0.52-1.04) mg/dL Estimated GFR > 60.0 ML/MIN Glucose 103 (74-106) mg/dL Lactic Acid 1.0 (0.4-2.0) Calcium 8.5 (8.4-10.2) mg/dL Total Bilirubin 0.50 (0.2-1.3) mg/dL AST 23 (14-36) U/L ALT 10 (0-35) U/L Alkaline Phosphatase 47 (38-126) U/L Troponin I (0.000-0.034) ng/mL Serum Total Protein 5.7 L (6.3-8.2) g/dL Albumin 3.2 L (3.5-5.0) g/dL Serum , Qual (Negative) Urine Color (YELLOW) Urine Appearance (CLEAR) Urine pH (5-6) Ur Specific Irwin (1.005-1.025) Urine Protein (Negative) Urine Ketones (NEGATIVE) Urine Blood (0-5) Cas/ul Urine Nitrite (NEGATIVE) Urine Bilirubin (NEGATIVE) Urine Urobilinogen (0-1) mg/dL Ur Leukocyte Esterase (NEGATIVE) Urine WBC (Auto) (0-5) /HPF Urine RBC (Auto) (0-2) /HPF U Epithel Cells (Auto) (FEW) /HPF Urine Bacteria (Auto) (NEGATIVE) /HPF Urine Mucus (Auto) (NEGATIVE) /HPF Urine Culture Reflexed (NO) Urine Glucose (NEGATIVE) mg/dL Urine Opiates Level (NEGATIVE) Ur Methadone (NEGATIVE) Urine Barbiturates (NEGATIVE) Ur Phencyclidine (PCP) (NEGATIVE) Urine Amphetamine (NEGATIVE) U Benzodiazepine Level (NEGATIVE) Urine Cocaine (NEGATIVE) Urine Marijuana (THC) (NEGATIVE) Influenza Type A Ag (NEGATIVE) Influenza Type B Ag (NEGATIVE) RSV (PCR) (Negative) Group A Strep Antibody (NEGATIVE) <ROULA WEST - Last Filed: 05/16/19 06:40> - Progress Progress: improved Counseled pt/family regarding: lab results, diagnosis, rad results <TEJAS ALCANTARA - Last Filed: 05/16/19 09:06> - Progress Progress Note: care of the patient transferred to Dr. Alcantara at 7 AM 05/16/19 (ROULA WEST) 05/16/19 08:59 cxr-no acute process spoke with dr. carrion. he agrees to place pt in obs. will give iv hydration, iv antibiotics and potassium (TEJAS ALCANTARA) <ROULA WEST - Last Filed: 05/16/19 06:40> - Departure Departure Disposition: Observation Critical Care Time: No <TEJAS ALCANTARA - Last Filed: 05/16/19 09:06> - Departure Clinical Impression: Hypokalemia, Leukocytosis, UTI (urinary tract infection), Hypotension Condition: Fair Referrals: CHANTE CARRION MD [Primary Care Provider] -
[2019-05-16] MEDS ORDERED: ROCEPHIN 1 Gm-D5w 50 ml Bag** 1 G/50 ML IVPB IV STA (06:20)
[2019-05-16] MEDS ORDERED: Zofran 4 MG/2 ML VIAL IV ONE (06:20)
[2019-05-16] MEDS ORDERED: TYLENOL 325 MG PO STA (06:20)
[2019-05-16] MEDS ORDERED: TYLENOL 325 MG ONE (06:32)
[2019-05-16] MEDS ORDERED: Lactated Ringers 1,000 ML IV ONE (06:32)
[2019-05-16] MEDS ORDERED: Zofran 4 MG/2 ML VIAL ONE (06:32)
[2019-05-16] MEDS ORDERED: ROCEPHIN 1 Gm-D5w 50 ml Bag** 1 G/50 ML IVPB IV ONE (06:33)
[2019-05-16] MEDS: Lactated Ringers 1,000 ML IV SCH ×2 (06:36→17:13)
[2019-05-16 06:52] LABS: Absolute Neutrophil Ct (ANC) 11.67 (1.4-6.9); BASOPHIL % 0.1 % (0.0-0.4); Basophil (Absolute #) 0.02 (0-0.4); Eosinophil % 0.4 % (0.00-5.0); Eosinophil (Absolute #) 0.05 (0-0.5); Hematocrit 32.7 % (35-47); Hemoglobin 10.9 gm/dl (12.0-16.0); Lymphocyte (Absolute #) 0.98 (1.0-4.6); Lymphocytes % 7.3 % (24.0-44.0); Mean Cell Volume 95.9 fl (78-100); Mean Corpuscular Hgb Concent. 33.3 g/dl (32-36); Mean Platelet Volume 12.1 fl (7.5-11.0); Monocyte (Absolute #) 0.71 (0.0-1.3); Monocytes % 5.3 % (0.0-12.0); Neutrophil % 86.9 % (36.0-66.0); Platelet Count 121 K/mm3 (150-450); Red Blood Count 3.41 M/mm3 (4.1-5.4); Red Cell Distribution Width 13.3 % (11.5-14.0); White Blood Count 13.4 K/mm3 (4.0-10.5)
[2019-05-16 07:00] LABS: INR 1.24 (0.8-3.0); PROTIME 14.1 SECONDS (9.95-12.35)
[2019-05-16 07:02] LABS: PTT 30.1 SECONDS (25.3-37.0)
[2019-05-16 07:04] LABS: ALBUMIN 3.2 g/dL (3.5-5.0); ALKALINE PHOSPHATASE 47 U/L (38-126); ANION GAP 8.6 MEQ/L (5-15); BLOOD UREA NITROGEN 13 mg/dL (7-17); CHLORIDE 111 mmol/L (98-107); Calcium 8.5 mg/dL (8.4-10.2); Carbon Dioxide 21 mmol/L (22-30); Creatinine 1 0.69 mg/dL (0.52-1.04); Glucose 103 mg/dL (74-106); SGOT/AST 23 U/L (14-36); SGPT/ALT 10 U/L (0-35); SODIUM 138 mmol/L (137-145); Total Protein 5.7 g/dL (6.3-8.2)
[2019-05-16 07:09] LABS: Potassium 2.9 mmol/L (3.5-5.1)
[2019-05-16 07:10] LABS: Appearance SLIGHTLY CLOUDY (CLEAR); Bacteria MODERATE /HPF (NEGATIVE); Bilirubin NEGATIVE (NEGATIVE); Blood NEGATIVE Ery/ul (0-5); Epithelial Cells FEW /HPF (FEW); Glucose NEGATIVE (NEGATIVE); Ketones NEGATIVE (NEGATIVE); Leukocyte Esterase TRACE (NEGATIVE); Mucus SLIGHT /HPF (NEGATIVE); Nitrite NEGATIVE (NEGATIVE); Protein,Urine Dip NEGATIVE (Negative); RBC 0-2 /HPF (0-2); Specific Gravity 1.013 (1.005-1.025); Urobilinogen NEGATIVE mg/dL (0-1)
[2019-05-16] MEDS ORDERED: POTASSIUM CHLORIDE 20 mEq IN WATER 100ML 20 MEQ/100 ML BAG IV ONE (07:10)
[2019-05-16] MEDS ORDERED: Sodium Chloride 0.9% 1000 ML 1,000 ML IV STA (07:11)
[2019-05-16 07:26] LABS: INFLUENZA A NEGATIVE (NEGATIVE); INFLUENZA B NEGATIVE (NEGATIVE); RESPIRATORY SYNCTIAL VIRUS NEGATIVE (Negative)
[2019-05-16] MEDS ORDERED: Sodium Chloride 0.9% 1000 ML 1,000 ML ONE (07:27)
[2019-05-16] MEDS ORDERED: POTASSIUM CHLORIDE 20 mEq IN WATER 100ML 100 ML IV ONE (07:27)
[2019-05-16 08:39] LABS: Amphetamine,Urine NEGATIVE (NEGATIVE); Barbiturate,Urine NEGATIVE (NEGATIVE); Benzodiazepine,Urine NEGATIVE (NEGATIVE); Cocaine,Urine NEGATIVE (NEGATIVE); Methadone,Urine NEGATIVE (NEGATIVE); Opiate,Urine NEGATIVE (NEGATIVE); PCP,Urine NEGATIVE (NEGATIVE); THC,Urine NEGATIVE (NEGATIVE)
[2019-05-16] MEDS ORDERED: NORCO 5/325 MG PO ONE (08:58)
--- NOTE | 2019-05-16 09:03 | XRAY ---
Indication: Fever, cough, congestion, and right chest pain. Comparison: February 24, 2010. PA/lateral chest demonstrates new right upper lobe infiltrate. Remaining heart, lungs, and bony thorax normal.
[2019-05-16] MEDS ORDERED: NORCO 5/325 MG ONE (09:10)
[2019-05-16] MEDS ORDERED: MORPHINE SULFATE 2 MG INJ IV PRN (10:14)
[2019-05-16] MEDS ORDERED: Sodium Chloride 0.9% 1000 ML 1,000 ML IV SCH (10:14)
[2019-05-16] MEDS: Klor Con 10 MEQ PO SCH ×2 (11:33→22:56)
[2019-05-16] MEDS: Zithromax 500 MG/ 250 ML NaCl Premix 500 MG/250 ML IVPB IV SCH (11:44)
[2019-05-16] MEDS ORDERED: Sodium Chloride 0.9% 500 ML 500 ML IV ONE ×2 (12:02→12:46)
[2019-05-16] MEDS: NORCO 5/325 MG PO PRN ×2 (13:37→19:58)
[2019-05-16] MEDS ORDERED: LIORESAL 10 MG PO SCH (14:00)
[2019-05-16] MEDS ORDERED: Protonix 40MG Tablet PO SCH (14:00)
[2019-05-16] MEDS ORDERED: MEDICATION INTERVENTION MC SCH (14:00)
[2019-05-16] MEDS: EFFEXOR 37.5 MG PO SCH ×2 (14:17→22:55)
[2019-05-16] MEDS: Klonopin 0.5 MG PO SCH ×2 (14:17→22:56)
[2019-05-16] MEDS: Trileptal 300 MG Tablet PO SCH ×2 (14:27→22:58)
--- NOTE | 2019-05-16 16:30 | PCM.HP ---
History of Present Illness - Chief Complaint Chief Complaint: hypokalemia, hypotension, pneumonia History of Present Illness: is a 34 year old female who arrived to the ER this morning, states she began feeling poorly last night, has cough, no known fever but felt very short of breath and felt pain in her right back radiating around to the front. She has had a headache and vomiting as well associated with her symptoms, has had an ulcer in the past but no blood in the stool or vomitus. - Review of Systems Constitutional: No Fever, No Chills Respiratory: Cough Cardiac: Chest Pain, No Edema, No Syncope Abdominal/Gastrointestinal: No Abdominal Pain, No Nausea, No Vomiting, No Diarrhea Genitourinary Symptoms: No Dysuria Skin: No Rash All Other Systems: Reviewed and Negative Medications & Allergies Home Medications: Home Medication List Pantoprazole Sodium [Protonix] 40 mg PO DAILY 03/03/16 [History Confirmed ] Promethazine HCl 25 mg [Phenergan 25 mg] 25 mg PO Q8H PRN PRN #6 tablet MDD 3 09/29/18 [Rx Confirmed 05/16/19] Topiramate [Topamax] 300 mg PO HS 09/29/18 [History Confirmed 05/16/19] Baclofen 10 mg PO BID 05/16/19 [History Confirmed 05/16/19] Brexpiprazole [Rexulti] 3 mg PO HS 05/16/19 [History Confirmed 05/16/19] OXcarbazepine [Oxcarbazepine] 300 mg PO TID 05/16/19 [History Confirmed 05/16/19 ] Venlafaxine HCl [Effexor] 100 mg PO TID 05/16/19 [History Confirmed 05/16/19] clonazePAM [Clonazepam] 0.5 mg PO TID 05/16/19 [History Confirmed 05/16/19] Allergies/Adverse Reactions: Allergies Allergy/AdvReac Type Severity Reaction Status Date / Time Fish Containing Products Allergy Verified 05/16/19 05:56 latex Allergy Verified 05/16/19 05:56 shellfish derived Allergy Verified 05/16/19 05:56 Sulfa (Sulfonamide Allergy Hives Verified 05/16/19 05:56 Antibiotics) [Sulfa(Sulfonamide Antibiotics)] NSAIDS (Non-Steroidal AdvReac Verified 05/16/19 05:56 Anti-Inflamma eggs Allergy Uncoded 09/27/17 21:33 - Past Medical History Past Medical History: Yes Neurological History: Migraines ENT History: No Pertinent History Cardiac History: No Pertinent History Respiratory History: No Pertinent History Endocrine Medical History: Hypothyroidism Musculoskelatal History: No Pertinent History GI Medical History: No Pertinent History, Other History: Other Pyscho-Social History: Depression Reproductive Disorders: Abnormal Uterine Bleeding, Menstrual Problems Comment: states "recurring UTI", "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 - Female History Hx Last Menstrual Period: 3 yrs ago Are you now?: No (tubal ligation and ablasion) - Past Surgical History Past Surgical History: Yes Neuro Surgical History: No Pertinent History Cardiac History: No Pertinent History Respiratory Surgery: No Pertinent History GI Surgical History: Appendectomy, Cholecystectomy Genitourinary Surgical Hx: No Pertinent History Female Surgical History: Tubal Ligation, Other Other Surgical History: gastric bypass, lap band placed and removed first, two D &C, EGD - 03/19/16 - results "stomach inflammed" - Social History Smoking Status: Former smoker How long have you smoked: 5 yrs Exposure to second hand smoke: No Alcohol: Occasionally Drug Use: none - Physical Exam Vital Signs: Vital Signs - 24 hr Temp Pulse Resp BP Pulse Ox 05/16/19 12:00 97.8 F 67 15 72/44 95 05/16/19 11:01 97 05/16/19 10:33 98.5 F 91 H 18 97/52 99 05/16/19 10:17 98.5 F 91 H 16 97/52 99 05/16/19 10:05 98.5 F 91 H 18 97/52 99 05/16/19 09:27 94 H 16 107/67 100 05/16/19 08:16 91 H 16 102/60 95 05/16/19 07:45 98 H 16 99/50 100 05/16/19 06:58 97 H 16 98/53 96 05/16/19 06:49 95 H 92/54 96 05/16/19 06:41 96 05/16/19 05:40 100.2 F 122 H 23 88/56 96 General Appearance: no apparent distress Neurologic Exam: alert, 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, cooperative Neck Exam: non-tender, supple, full range of motion Respiratory Exam: normal breath sounds, lungs clear, No respiratory distress Cardiovascular Exam: regular rate/rhythm, normal heart sounds, normal peripheral pulses Gastrointestinal/Abdomen Exam: soft, normal bowel sounds, No tenderness, No mass Extremity Exam: normal inspection, normal range of motion, pelvis stable Skin Exam: normal color, warm, dry, No rash Results - Labs Lab/Micro Results: Lab Results-Last 24 Hours 05/16/19 05/16/19 05/16/19 Range/Units 06:18 06:45 06:45 WBC 13.4 H (4.0-10.5) K/mm3 RBC 3.41 L (4.1-5.4) M/mm3 Hgb 10.9 L (12.0-16.0) gm/dl Hct 32.7 L (35-47) % MCV 95.9 (78-100) fl MCH 32.0 (26-32) pg MCHC 33.3 (32-36) g/dl RDW 13.3 (11.5-14.0) % Plt Count 121 L (150-450) K/mm3 MPV 12.1 H (7.5-11.0) fl Gran % 86.9 H (36.0-66.0) % Eos # (Auto) 0.05 (0-0.5) Absolute Lymphs (auto) 0.98 L (1.0-4.6) Absolute Monos (auto) 0.71 (0.0-1.3) Lymphocytes % 7.3 L (24.0-44.0) % Monocytes % 5.3 (0.0-12.0) % Eosinophils % 0.4 (0.00-5.0) % Basophils % 0.1 (0.0-0.4) % Absolute Granulocytes 11.67 H (1.4-6.9) Basophils # 0.02 (0-0.4) PT (9.95-12.35) SECONDS INR (0.8-3.0) APTT (25.3-37.0) SECONDS Sodium 138 (137-145) mmol/L Potassium 2.9 L* (3.5-5.1) mmol/L Chloride 111 H (98-107) mmol/L Carbon Dioxide 21 L (22-30) mmol/L Anion Gap 8.6 (5-15) MEQ/L BUN 13 (7-17) mg/dL Creatinine 0.69 (0.52-1.04) mg/dL Estimated GFR > 60.0 ML/MIN Glucose 103 (74-106) mg/dL Lactic Acid 1.0 (0.4-2.0) Calcium 8.5 (8.4-10.2) mg/dL Total Bilirubin 0.50 (0.2-1.3) mg/dL AST 23 (14-36) U/L ALT 10 (0-35) U/L Alkaline Phosphatase 47 (38-126) U/L Troponin I (0.000-0.034) ng/mL Serum Total Protein 5.7 L (6.3-8.2) g/dL Albumin 3.2 L (3.5-5.0) g/dL Serum , Qual (Negative) Urine Color (YELLOW) Urine Appearance (CLEAR) Urine pH (5-6) Ur Specific [place] (1.005-1.025) Urine Protein (Negative) Urine Ketones (NEGATIVE) Urine Blood (0-5) Cas/ul Urine Nitrite (NEGATIVE) Urine Bilirubin (NEGATIVE) Urine Urobilinogen (0-1) mg/dL Ur Leukocyte Esterase (NEGATIVE) Urine WBC (Auto) (0-5) /HPF Urine RBC (Auto) (0-2) /HPF U Epithel Cells (Auto) (FEW) /HPF Urine Bacteria (Auto) (NEGATIVE) /HPF Urine Mucus (Auto) (NEGATIVE) /HPF Urine Culture Reflexed (NO) Urine Glucose (NEGATIVE) mg/dL Urine Opiates Level (NEGATIVE) Ur Methadone (NEGATIVE) Urine Barbiturates (NEGATIVE) Ur Phencyclidine (PCP) (NEGATIVE) Urine Amphetamine (NEGATIVE) U Benzodiazepine Level (NEGATIVE) Urine Cocaine (NEGATIVE) Urine Marijuana (THC) (NEGATIVE) Influenza Type A Ag (NEGATIVE) Influenza Type B Ag (NEGATIVE) RSV (PCR) (Negative) Group A Strep Antibody (NEGATIVE) 05/16/19 05/16/19 05/16/19 Range/Units 06:45 06:45 06:45 WBC (4.0-10.5) K/mm3 RBC (4.1-5.4) M/mm3 Hgb (12.0-16.0) gm/dl Hct (35-47) % MCV (78-100) fl MCH (26-32) pg MCHC (32-36) g/dl RDW (11.5-14.0) % Plt Count (150-450) K/mm3 MPV (7.5-11.0) fl Gran % (36.0-66.0) % Eos # (Auto) (0-0.5) Absolute Lymphs (auto) (1.0-4.6) Absolute Monos (auto) (0.0-1.3) Lymphocytes % (24.0-44.0) % Monocytes % (0.0-12.0) % Eosinophils % (0.00-5.0) % Basophils % (0.0-0.4) % Absolute Granulocytes (1.4-6.9) Basophils # (0-0.4) PT 14.1 H (9.95-12.35) SECONDS INR 1.24 (0.8-3.0) APTT 30.1 (25.3-37.0) SECONDS Sodium (137-145) mmol/L Potassium (3.5-5.1) mmol/L Chloride (98-107) mmol/L Carbon Dioxide (22-30) mmol/L Anion Gap (5-15) MEQ/L BUN (7-17) mg/dL Creatinine (0.52-1.04) mg/dL Estimated GFR ML/MIN Glucose (74-106) mg/dL Lactic Acid (0.4-2.0) Calcium (8.4-10.2) mg/dL Total Bilirubin (0.2-1.3) mg/dL AST (14-36) U/L ALT (0-35) U/L Alkaline Phosphatase (38-126) U/L Troponin I < 0.012 (0.000-0.034) ng/mL Serum Total Protein (6.3-8.2) g/dL Albumin (3.5-5.0) g/dL Serum , Qual NEGATIVE (Negative) Urine Color (YELLOW) Urine Appearance (CLEAR) Urine pH (5-6) Ur Specific [place] (1.005-1.025) Urine Protein (Negative) Urine Ketones (NEGATIVE) Urine Blood (0-5) Cas/ul Urine Nitrite (NEGATIVE) Urine Bilirubin (NEGATIVE) Urine Urobilinogen (0-1) mg/dL Ur Leukocyte Esterase (NEGATIVE) Urine WBC (Auto) (0-5) /HPF Urine RBC (Auto) (0-2) /HPF U Epithel Cells (Auto) (FEW) /HPF Urine Bacteria (Auto) (NEGATIVE) /HPF Urine Mucus (Auto) (NEGATIVE) /HPF Urine Culture Reflexed (NO) Urine Glucose (NEGATIVE) mg/dL Urine Opiates Level (NEGATIVE) Ur Methadone (NEGATIVE) Urine Barbiturates (NEGATIVE) Ur Phencyclidine (PCP) (NEGATIVE) Urine Amphetamine (NEGATIVE) U Benzodiazepine Level (NEGATIVE) Urine Cocaine (NEGATIVE) Urine Marijuana (THC) (NEGATIVE) Influenza Type A Ag (NEGATIVE) Influenza Type B Ag (NEGATIVE) RSV (PCR) (Negative) Group A Strep Antibody (NEGATIVE) 05/16/19 05/16/19 05/16/19 Range/Units 06:45 06:45 08:20 WBC (4.0-10.5) K/mm3 RBC (4.1-5.4) M/mm3 Hgb (12.0-16.0) gm/dl Hct (35-47) % MCV (78-100) fl MCH (26-32) pg MCHC (32-36) g/dl RDW (11.5-14.0) % Plt Count (150-450) K/mm3 MPV (7.5-11.0) fl Gran % (36.0-66.0) % Eos # (Auto) (0-0.5) Absolute Lymphs (auto) (1.0-4.6) Absolute Monos (auto) (0.0-1.3) Lymphocytes % (24.0-44.0) % Monocytes % (0.0-12.0) % Eosinophils % (0.00-5.0) % Basophils % (0.0-0.4) % Absolute Granulocytes (1.4-6.9) Basophils # (0-0.4) PT (9.95-12.35) SECONDS INR (0.8-3.0) APTT (25.3-37.0) SECONDS Sodium (137-145) mmol/L Potassium (3.5-5.1) mmol/L Chloride (98-107) mmol/L Carbon Dioxide (22-30) mmol/L Anion Gap (5-15) MEQ/L BUN (7-17) mg/dL Creatinine (0.52-1.04) mg/dL Estimated GFR ML/MIN Glucose (74-106) mg/dL Lactic Acid (0.4-2.0) Calcium (8.4-10.2) mg/dL Total Bilirubin (0.2-1.3) mg/dL AST (14-36) U/L ALT (0-35) U/L Alkaline Phosphatase (38-126) U/L Troponin I (0.000-0.034) ng/mL Serum Total Protein (6.3-8.2) g/dL Albumin (3.5-5.0) g/dL Serum , Qual (Negative) Urine Color YELLOW (YELLOW) Urine Appearance SLIGHTLY CLOUDY (CLEAR) Urine pH 5.0 (5-6) Ur Specific [place] 1.013 (1.005-1.025) Urine Protein NEGATIVE (Negative) Urine Ketones NEGATIVE (NEGATIVE) Urine Blood NEGATIVE (0-5) Cas/ul Urine Nitrite NEGATIVE (NEGATIVE) Urine Bilirubin NEGATIVE (NEGATIVE) Urine Urobilinogen NEGATIVE (0-1) mg/dL Ur Leukocyte Esterase TRACE (NEGATIVE) Urine WBC (Auto) 3-5 (0-5) /HPF Urine RBC (Auto) 0-2 (0-2) /HPF U Epithel Cells (Auto) FEW (FEW) /HPF Urine Bacteria (Auto) MODERATE (NEGATIVE) /HPF Urine Mucus (Auto) SLIGHT (NEGATIVE) /HPF Urine Culture Reflexed YES (NO) Urine Glucose NEGATIVE (NEGATIVE) mg/dL Urine Opiates Level NEGATIVE (NEGATIVE) Ur Methadone NEGATIVE (NEGATIVE) Urine Barbiturates NEGATIVE (NEGATIVE) Ur Phencyclidine (PCP) NEGATIVE (NEGATIVE) Urine Amphetamine NEGATIVE (NEGATIVE) U Benzodiazepine Level NEGATIVE (NEGATIVE) Urine Cocaine NEGATIVE (NEGATIVE) Urine Marijuana (THC) NEGATIVE (NEGATIVE) Influenza Type A Ag NEGATIVE (NEGATIVE) Influenza Type B Ag NEGATIVE (NEGATIVE) RSV (PCR) NEGATIVE (Negative) Group A Strep Antibody NEGATIVE (NEGATIVE) - Radiology Impressions Radiology Exams & Impressions: Radiology Procedures Category Date Time Status CHEST 2 VIEWS (PA AND LAT) Stat Exams 05/16/19 06:19 Completed Assessment/Plan (1) Pneumonia Current Visit: Yes Status: Acute Assessment & Plan: on rocephin/zithromax, lactic acid normal but patient hypotensive, appears more volume related as opposed to sepsis Code(s): J18.9 - PNEUMONIA, UNSPECIFIED ORGANISM (2) Chest pain Current Visit: Yes Status: Acute Assessment & Plan: stat d-dimer ordered, need to r/o PE Code(s): R07.9 - CHEST PAIN, UNSPECIFIED (3) Hypotension Current Visit: Yes Status: Acute Assessment & Plan: replacing volume deficit Code(s): I95.9 - HYPOTENSION, UNSPECIFIED (4) Vomiting Current Visit: No Status: Acute Code(s): R11.10 - VOMITING, UNSPECIFIED
[2019-05-16] MEDS: PROTONIX 40 MG IV IV SCH (17:02)
[2019-05-16] MEDS: Sodium Chloride 0.9% W/ 20 mEq KCl/LITER 1,000 ML IV SCH (17:02)
[2019-05-16] MEDS: TYLENOL 325 MG PO PRN (17:11)
[2019-05-16] MEDS ORDERED: ENOXAPARIN SODIUM SQ ONE (19:29)
[2019-05-16] MEDS ORDERED: BREXPIPRAZOLE 3 MG PO SCH (22:00)
[2019-05-16] MEDS: TOPIRAMATE PO SCH (22:57)
[2019-05-17] MEDS: TYLENOL 325 MG PO PRN (00:38)
[2019-05-17] MEDS: Sodium Chloride 0.9% W/ 20 mEq KCl/LITER 1,000 ML IV SCH ×3 (00:44→16:19)
[2019-05-17] MEDS: NORCO 5/325 MG PO PRN (04:49)
[2019-05-17 04:55] LABS: Absolute Neutrophil Ct (ANC) 9.64 (1.4-6.9); BASOPHIL % 0.2 % (0.0-0.4); Basophil (Absolute #) 0.02 (0-0.4); Eosinophil % 0.8 % (0.00-5.0); Hematocrit 30.8 % (35-47); Hemoglobin 9.6 gm/dl (12.0-16.0); Lymphocyte (Absolute #) 2.39 (1.0-4.6); Lymphocytes % 18.8 % (24.0-44.0); Mean Cell Volume 99.4 fl (78-100); Mean Corpuscular Hgb Concent. 31.2 g/dl (32-36); Mean Platelet Volume 11.5 fl (7.5-11.0); Monocyte (Absolute #) 0.53 (0.0-1.3); Monocytes % 4.2 % (0.0-12.0); Platelet Count 97 K/mm3 (150-450); Red Cell Distribution Width 13.7 % (11.5-14.0); White Blood Count 12.7 K/mm3 (4.0-10.5)
[2019-05-17 05:16] LABS: ALBUMIN 2.7 g/dL (3.5-5.0); ALKALINE PHOSPHATASE 41 U/L (38-126); ANION GAP 8.2 MEQ/L (5-15); BLOOD UREA NITROGEN 11 mg/dL (7-17); CHLORIDE 115 mmol/L (98-107); Calcium 8.1 mg/dL (8.4-10.2); Carbon Dioxide 22 mmol/L (22-30); Creatinine 1 0.56 mg/dL (0.52-1.04); Glucose 96 mg/dL (74-106); Potassium 4.4 mmol/L (3.5-5.1); SGOT/AST 36 U/L (14-36); SGPT/ALT 23 U/L (0-35); SODIUM 141 mmol/L (137-145)
[2019-05-17 07:16] LABS: Slide Review 1 YES
[2019-05-17] MEDS ORDERED: ENOXAPARIN SODIUM SQ ONE (08:38)
[2019-05-17] MEDS ORDERED: BENADRYL 50 MG/ML IV ONE (08:39)
[2019-05-17] MEDS ORDERED: solu-MEDROL 40 MG IV ONE (08:39)
--- NOTE | 2019-05-17 08:43 | PCM.NOTE ---
Date and Time: 05/17/19 0840 Subjective Assessment: She is still c/o R mid back pain. Not feeling well. Says her shellfish allergy is rash. no anaphylaxis. - Review of Systems Constitutional: No Fever Respiratory: Cough, Short Of Breath Objective Exam General Appearance: mild distress, alert Neurologic Exam: 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, cooperative Skin Exam: normal color, warm, dry, No rash Ears, Nose, Throat Exam: moist mucous membranes Neck Exam: normal inspection Respiratory Exam: normal breath sounds, lungs clear, No crackles/rales, No rhonchi, No wheezing Cardiovascular Exam: regular rate/rhythm, normal heart sounds, No murmur Gastrointestinal/Abdomen Exam: soft, normal bowel sounds, No tenderness, No distention Extremity Exam: No pedal edema, No swelling Back Exam: normal inspection, No rash OBJECTIVE DATA Vital Signs: Vital Signs - 24 hr Temp Pulse Resp BP Pulse Ox 05/17/19 07:21 97.5 F 63 18 91/55 98 05/17/19 04:00 97.6 F 71 16 106/63 93 L 05/17/19 00:00 97.3 F 69 18 110/56 99 05/16/19 21:19 96 05/16/19 20:00 97.2 F 70 16 104/57 99 05/16/19 16:00 97.4 F 64 20 98/53 99 05/16/19 12:00 97.8 F 67 15 72/44 95 05/16/19 11:01 97 05/16/19 10:33 98.5 F 91 H 18 97/52 99 05/16/19 10:17 98.5 F 91 H 16 97/52 99 05/16/19 10:05 98.5 F 91 H 18 97/52 99 05/16/19 09:27 94 H 16 107/67 100 Pain Assessment - Last Documented Pain Intensity [Lower Back] 8 Pain Intensity 9 Pain Scale Used 0-10 Pain Scale Intake and Output: Intake & Output 05/14/19 05/15/19 05/16/19 05/17/19 11:59 11:59 11:59 11:59 Intake Total 4614 Output Total 725 Balance 3889 Weight 86.3 kg 86.5 kg Lab Results: Lab Results-Last 24 Hours 05/16/19 05/16/19 05/16/19 Range/Units 08:20 17:00 17:00 WBC (4.0-10.5) K/mm3 RBC (4.1-5.4) M/mm3 Hgb (12.0-16.0) gm/dl Hct (35-47) % MCV (78-100) fl MCH (26-32) pg MCHC (32-36) g/dl RDW (11.5-14.0) % Plt Count (150-450) K/mm3 MPV (7.5-11.0) fl Gran % (36.0-66.0) % Eos # (Auto) (0-0.5) Absolute Lymphs (auto) (1.0-4.6) Absolute Monos (auto) (0.0-1.3) Lymphocytes % (24.0-44.0) % Monocytes % (0.0-12.0) % Eosinophils % (0.00-5.0) % Basophils % (0.0-0.4) % Absolute Granulocytes (1.4-6.9) Basophils # (0-0.4) D-Dimer 799 H* (215-500) ng/mL Sodium (137-145) mmol/L Potassium 4.2 D (3.5-5.1) mmol/L Chloride (98-107) mmol/L Carbon Dioxide (22-30) mmol/L Anion Gap (5-15) MEQ/L BUN (7-17) mg/dL Creatinine (0.52-1.04) mg/dL Estimated GFR ML/MIN Glucose (74-106) mg/dL Calcium (8.4-10.2) mg/dL Total Bilirubin (0.2-1.3) mg/dL AST (14-36) U/L ALT (0-35) U/L Alkaline Phosphatase (38-126) U/L Serum Total Protein (6.3-8.2) g/dL Albumin (3.5-5.0) g/dL Urine Opiates Level NEGATIVE (NEGATIVE) Ur Methadone NEGATIVE (NEGATIVE) Urine Barbiturates NEGATIVE (NEGATIVE) Ur Phencyclidine (PCP) NEGATIVE (NEGATIVE) Urine Amphetamine NEGATIVE (NEGATIVE) U Benzodiazepine Level NEGATIVE (NEGATIVE) Urine Cocaine NEGATIVE (NEGATIVE) Urine Marijuana (THC) NEGATIVE (NEGATIVE) Slides for Path Review 01/28/20 01/28/20 Range/Units 04:40 04:40 WBC 12.7 H (4.0-10.5) K/mm3 RBC 3.10 L (4.1-5.4) M/mm3 Hgb 9.6 L (12.0-16.0) gm/dl Hct 30.8 L (35-47) % MCV 99.4 (78-100) fl MCH 31.0 (26-32) pg MCHC 31.2 L (32-36) g/dl RDW 13.7 (11.5-14.0) % Plt Count 97 L (150-450) K/mm3 MPV 11.5 H (7.5-11.0) fl Gran % 76.0 H (36.0-66.0) % Eos # (Auto) 0.10 (0-0.5) Absolute Lymphs (auto) 2.39 (1.0-4.6) Absolute Monos (auto) 0.53 (0.0-1.3) Lymphocytes % 18.8 L (24.0-44.0) % Monocytes % 4.2 (0.0-12.0) % Eosinophils % 0.8 (0.00-5.0) % Basophils % 0.2 (0.0-0.4) % Absolute Granulocytes 9.64 H (1.4-6.9) Basophils # 0.02 (0-0.4) D-Dimer (215-500) ng/mL Sodium 141 (137-145) mmol/L Potassium 4.4 (3.5-5.1) mmol/L Chloride 115 H (98-107) mmol/L Carbon Dioxide 22 (22-30) mmol/L Anion Gap 8.2 (5-15) MEQ/L BUN 11 (7-17) mg/dL Creatinine 0.56 (0.52-1.04) mg/dL Estimated GFR > 60.0 ML/MIN Glucose 96 (74-106) mg/dL Calcium 8.1 L (8.4-10.2) mg/dL Total Bilirubin 0.30 (0.2-1.3) mg/dL AST 36 (14-36) U/L ALT 23 (0-35) U/L Alkaline Phosphatase 41 (38-126) U/L Serum Total Protein 5.0 L (6.3-8.2) g/dL Albumin 2.7 L (3.5-5.0) g/dL Urine Opiates Level (NEGATIVE) Ur Methadone (NEGATIVE) Urine Barbiturates (NEGATIVE) Ur Phencyclidine (PCP) (NEGATIVE) Urine Amphetamine (NEGATIVE) U Benzodiazepine Level (NEGATIVE) Urine Cocaine (NEGATIVE) Urine Marijuana (THC) (NEGATIVE) Slides for Path Review YES Radiology Exams: Radiology Procedures Category Date Time Status CHEST 2 VIEWS (PA AND LAT) Stat Exams 05/16/19 06:19 Completed CHEST WITH CONTRAST [CT] Urgent Exams 05/17/19 08:39 Ordered Assessment/Plan (1) Pneumonia Current Visit: Yes Status: Acute Qualifiers: Pneumonia type: due to unspecified organism Laterality: right Lung location: upper lobe of lung Qualified Code(s): J18.9 - Pneumonia, unspecified organism Assessment & Plan: On rocephin and zithromax day #2 Code(s): J18.9 - PNEUMONIA, UNSPECIFIED ORGANISM (2) Chest pain Current Visit: Yes Status: Acute Qualifiers: Chest pain type: other chest pain Qualified Code(s): R07.89 - Other chest pain; R07.8 - Other chest pain Assessment & Plan: could be related to pneumonia but with elevated d-dimer will do ct chest after prep with steroid and benadryl to r/o pe. Code(s): R07.9 - CHEST PAIN, UNSPECIFIED (3) Hypotension Current Visit: Yes Status: Resolved Qualifiers: Hypotension type: hypotension due to hypovolemia Qualified Code(s): I95.89 - Other hypotension; E86.1 - Hypovolemia Code(s): I95.9 - HYPOTENSION, UNSPECIFIED (4) Thrombocytopenia Current Visit: Yes Status: Acute Assessment & Plan: recheck in a.m.
[2019-05-17] MEDS: Zofran 4 MG/2 ML VIAL IV PRN ×2 (09:53→22:34)
[2019-05-17] MEDS: ROCEPHIN 1 Gm-D5w 50 ml Bag** 1 G/50 ML IVPB IV SCH (10:01)
[2019-05-17] MEDS: EFFEXOR 37.5 MG PO SCH ×3 (10:04→21:44)
[2019-05-17] MEDS: Klor Con 10 MEQ PO SCH ×2 (10:04→21:45)
[2019-05-17] MEDS: Klonopin 0.5 MG PO SCH ×3 (10:04→21:45)
[2019-05-17] MEDS: Trileptal 300 MG Tablet PO SCH ×3 (10:07→21:50)
[2019-05-17] MEDS: Norco 10/325 MG Tablet PO PRN ×3 (10:57→22:31)
[2019-05-17] MEDS: Zithromax 500 MG/ 250 ML NaCl Premix 500 MG/250 ML IVPB IV SCH (11:00)
--- NOTE | 2019-05-17 12:00 | XRAY ---
Indication: Right-sided pain, fever, cough, short of breath. Elevated d-dimer. Multiple contiguous axial images obtained through the chest using 80 cc Isovue 370 contrast and PE protocol. Comparison: None There is good opacification of the pulmonary arteries to include the lobar and segmental branches. No filling defect or pulmonary embolus. Heart is not enlarged. Aorta is normal in course and caliber. Paratracheal/mediastinal/right hilar calcified lymph nodes. No pathologic mediastinal/hilar lymphadenopathy. Lungs demonstrates mild bilateral dependent atelectasis. Posterior right upper lobe and minimal right lower lobe demonstrates patchy airspace disease without effusion. Bony thorax intact. Limited upper abdomen demonstrates gastric bypass surgery, fatty liver, and 12 cm borderline splenomegaly. Impression: 1. Negative pulmonary embolus. 2. Right upper and lesser degree right lower lobe airspace disease. 3. Incidental fatty liver, borderline splenomegaly, and evidence for old granulomatous disease.
[2019-05-17] MEDS: PROTONIX 40 MG IV IV SCH (16:19)
[2019-05-17] MEDS ORDERED: DIFLUCAN PO SCH (16:30)
[2019-05-17] MEDS: TOPIRAMATE PO SCH (21:46)
[2019-05-17] MEDS: LIORESAL 10 MG PO SCH (21:46)
[2019-05-17] MEDS: PATIENT OWN MEDICATION PO SCH (21:48)
[2019-05-18] MEDS: Sodium Chloride 0.9% W/ 20 mEq KCl/LITER 1,000 ML IV SCH ×2 (00:35→09:38)
[2019-05-18] MEDS: Norco 10/325 MG Tablet PO PRN ×4 (03:52→21:34)
[2019-05-18 05:27] LABS: ANION GAP 7.9 MEQ/L (5-15); BLOOD UREA NITROGEN 7 mg/dL (7-17); CHLORIDE 117 mmol/L (98-107); Calcium 8.4 mg/dL (8.4-10.2); Carbon Dioxide 22 mmol/L (22-30); Creatinine 1 0.58 mg/dL (0.52-1.04); Glucose 100 mg/dL (74-106); SODIUM 141 mmol/L (137-145)
[2019-05-18 05:47] LABS: Hematocrit 30.8 % (35-47); Hemoglobin 9.7 gm/dl (12.0-16.0); Mean Cell Volume 101.7 fl (78-100); Mean Corpuscular Hgb Concent. 31.5 g/dl (32-36); Mean Platelet Volume 12.9 fl (7.5-11.0); Platelet Count 112 K/mm3 (150-450); Red Blood Count 3.03 M/mm3 (4.1-5.4); White Blood Count 9.7 K/mm3 (4.0-10.5)
[2019-05-18] MEDS: EFFEXOR 37.5 MG PO SCH ×3 (09:04→21:27)
[2019-05-18] MEDS: Klonopin 0.5 MG PO SCH ×3 (09:04→21:30)
[2019-05-18] MEDS: LIORESAL 10 MG PO SCH ×3 (09:04→21:31)
[2019-05-18] MEDS: PYRIDIUM 200 MG PO PRN ×3 (09:04→21:35)
[2019-05-18] MEDS: Trileptal 300 MG Tablet PO SCH ×3 (09:05→21:36)
[2019-05-18] MEDS: ROCEPHIN 1 Gm-D5w 50 ml Bag** 1 G/50 ML IVPB IV SCH (09:05)
[2019-05-18] MEDS: ENOXAPARIN SODIUM SQ SCH (09:06)
--- NOTE | 2019-05-18 09:06 | PCM.NOTE ---
Date and Time: 05/18/19904 Subjective Assessment: patient continues to complain of right chest wall pain, she is also still dizzy/ lightheaded with ambulation Objective Exam General Appearance: no apparent distress, other (flat affect) Respiratory Exam: normal breath sounds, lungs clear, No respiratory distress Cardiovascular Exam: regular rate/rhythm, normal heart sounds Gastrointestinal/Abdomen Exam: soft, No tenderness, No mass OBJECTIVE DATA Vital Signs: Vital Signs - 24 hr Temp Pulse Resp BP Pulse Ox 05/18/19 07:21 97.5 F 77 18 99/54 92 L 05/18/19 04:15 97.3 F 79 18 102/63 97 05/18/19 03:59 18 05/18/19 00:11 97.9 F 75 18 104/61 98 05/18/19 00:00 18 05/17/19 21:00 97.6 F 80 18 110/64 96 05/17/19 20:00 18 05/17/19 16:18 97.9 F 74 18 114/59 98 05/17/19 16:00 18 05/17/19 12:00 16 05/17/19 11:21 97.9 F 66 16 103/58 98 05/17/19 09:49 98/57 Pain Assessment - Last Documented Pain Intensity [Lower Back] 8 Pain Intensity 8 Pain Scale Used 0-10 Pain Scale Intake and Output: Intake & Output 05/15/19 05/16/19 05/17/19 05/18/19 11:59 11:59 11:59 11:59 Intake Total 5034 4490 Output Total 1225 2050 Balance 3809 2440 Weight 86.3 kg 86.5 kg 90.2 kg Lab Results: Lab Results-Last 24 Hours 05/18/19 05/18/19 Range/Units 04:56 04:56 WBC 9.7 (4.0-10.5) K/mm3 RBC 3.03 L (4.1-5.4) M/mm3 Hgb 9.7 L (12.0-16.0) gm/dl Hct 30.8 L (35-47) % MCV 101.7 H (78-100) fl MCH 32.0 (26-32) pg MCHC 31.5 L (32-36) g/dl RDW 14.0 (11.5-14.0) % Plt Count 112 L (150-450) K/mm3 MPV 12.9 H (7.5-11.0) fl Sodium 141 (137-145) mmol/L Potassium 5.0 (3.5-5.1) mmol/L Chloride 117 H (98-107) mmol/L Carbon Dioxide 22 (22-30) mmol/L Anion Gap 7.9 (5-15) MEQ/L BUN 7 (7-17) mg/dL Creatinine 0.58 (0.52-1.04) mg/dL Estimated GFR > 60.0 ML/MIN Glucose 100 (74-106) mg/dL Calcium 8.4 (8.4-10.2) mg/dL Radiology Exams: Radiology Procedures Category Date Time Status CHEST WITH CONTRAST [CT] Urgent Exams 05/17/19 08:39 Completed Multi-Disciplinary Progress Notes: Multi-Disciplinary Progress Notes 05/17/19 10:52 Case Management Note by Rosemarie Solitario NO CHANGE IN DC PLANS AT THIS TIME- PATIENT PLANS TO RETURN HOME TO HER PRIOR LEVEL OF FUNCTIONING. Initialized on 05/17/19 10:52 - END OF NOTE Assessment/Plan (1) Pneumonia Current Visit: Yes Status: Acute Qualifiers: Pneumonia type: due to unspecified organism Laterality: right Lung location: upper lobe of lung Qualified Code(s): J18.9 - Pneumonia, unspecified organism Assessment & Plan: on rocephin/zithromax, wbc normalized and bp has improved slightly Code(s): J18.9 - PNEUMONIA, UNSPECIFIED ORGANISM (2) Chest pain Current Visit: Yes Status: Acute Qualifiers: Chest pain type: other chest pain Qualified Code(s): R07.89 - Other chest pain; R07.8 - Other chest pain Code(s): R07.9 - CHEST PAIN, UNSPECIFIED (3) Hypotension Current Visit: Yes Status: Resolved Qualifiers: Hypotension type: hypotension due to hypovolemia Qualified Code(s): I95.89 - Other hypotension; E86.1 - Hypovolemia Assessment & Plan: improving, will encourage ambulation Code(s): I95.9 - HYPOTENSION, UNSPECIFIED (4) Vomiting Current Visit: No Status: Acute Code(s): R11.10 - VOMITING, UNSPECIFIED
[2019-05-18] MEDS: Zithromax 500 MG/ 250 ML NaCl Premix 500 MG/250 ML IVPB IV SCH (09:38)
[2019-05-18] MEDS: Klor Con 10 MEQ PO SCH ×2 (09:38→21:31)
[2019-05-18] MEDS: PROTONIX 40 MG IV IV SCH (17:16)
[2019-05-18] MEDS: PATIENT OWN MEDICATION PO SCH (21:31)
[2019-05-18] MEDS: TOPIRAMATE PO SCH (21:32)
[2019-05-19 05:16] LABS: Absolute Neutrophil Ct (ANC) 4.78 (1.4-6.9); BASOPHIL % 0.2 % (0.0-0.4); Basophil (Absolute #) 0.01 (0-0.4); Eosinophil % 1.4 % (0.00-5.0); Eosinophil (Absolute #) 0.09 (0-0.5); Hematocrit 29.8 % (35-47); Hemoglobin 9.1 gm/dl (12.0-16.0); Lymphocyte (Absolute #) 1.44 (1.0-4.6); Mean Cell Volume 102.4 fl (78-100); Mean Corpuscular Hemoglobin 31.3 pg (26-32); Mean Corpuscular Hgb Concent. 30.5 g/dl (32-36); Monocyte (Absolute #) 0.24 (0.0-1.3); Monocytes % 3.7 % (0.0-12.0); Neutrophil % 72.7 % (36.0-66.0); Platelet Count 110 K/mm3 (150-450); Red Blood Count 2.91 M/mm3 (4.1-5.4); Red Cell Distribution Width 14.3 % (11.5-14.0); White Blood Count 6.6 K/mm3 (4.0-10.5)
[2019-05-19 05:44] LABS: ALBUMIN 2.8 g/dL (3.5-5.0); ALKALINE PHOSPHATASE 58 U/L (38-126); ANION GAP 7.5 MEQ/L (5-15); BLOOD UREA NITROGEN 4 mg/dL (7-17); CHLORIDE 113 mmol/L (98-107); Calcium 8.3 mg/dL (8.4-10.2); Carbon Dioxide 23 mmol/L (22-30); Creatinine 1 0.56 mg/dL (0.52-1.04); Glucose 89 mg/dL (74-106); Potassium 4.2 mmol/L (3.5-5.1); SGOT/AST 42 U/L (14-36); SGPT/ALT 40 U/L (0-35); SODIUM 140 mmol/L (137-145); Total Protein 5.2 g/dL (6.3-8.2)
[2019-05-19] MEDS: Sodium Chloride 0.9% W/ 20 mEq KCl/LITER 1,000 ML IV SCH (08:22)
[2019-05-19] MEDS: Norco 10/325 MG Tablet PO PRN (08:27)
--- NOTE | 2019-05-19 08:40 | PCM.DS ---
Discharge Summary Date of Admission: 05/16/19 09:55 Admitting Physician: CHANTE PAGAN Primary Care Provider: CHANTE PAGAN Allergies Allergies Fish Containing Products Allergy (Verified 05/16/19 05:56) latex Allergy (Verified 05/16/19 05:56) shellfish derived Allergy (Verified 05/16/19 05:56) Sulfa (Sulfonamide Antibiotics) [Sulfa(Sulfonamide Antibiotics)] Allergy ( Verified 05/16/19 05:56) Hives NSAIDS (Non-Steroidal Anti-Inflamma Adverse Reaction (Verified 05/16/19 05:56) can take IM but no oral med eggs Allergy (Uncoded 09/27/17 21:33) Hospital Summary - Hospital Course Hospital Course: patient was admitted with pain in the right upper back region, had some mild cough. found to have a pneumonia and was treated with rocephin and zithromax. clinically improved but still feels dizzy, bp has been low at times. will start on florinef and send home on augmentin and zithromax. - Vitals & Intake/Output Vital Signs: Vital Signs Temperature 98.8 F 05/19/19 07:32 Pulse Rate 94 H 05/19/19 07:32 Respiratory Rate 16 05/19/19 07:32 Blood Pressure 110/56 05/19/19 07:32 O2 Sat by Pulse Oximetry 93 L 05/19/19 07:32 Intake & Output: Intake & Output 05/16/19 05/17/19 05/18/19 05/19/19 11:59 11:59 11:59 11:59 Intake Total 5038 4730 1699 Output Total 1220 4300 Balance 3809 2680 1699 Weight 86.3 kg 86.5 kg 90.2 kg 92.8 kg - Lab Result Diagrams: 05/19/19 05:14 05/19/19 05:14 Lab Results-Last 24 Hrs: Lab Results-Last 24 Hours 05/19/19 05/19/19 Range/Units 05:14 05:14 WBC 6.6 (4.0-10.5) K/mm3 RBC 2.91 L (4.1-5.4) M/mm3 Hgb 9.1 L (12.0-16.0) gm/dl Hct 29.8 L (35-47) % MCV 102.4 H (78-100) fl MCH 31.3 (26-32) pg MCHC 30.5 L (32-36) g/dl RDW 14.3 H (11.5-14.0) % Plt Count 110 L (150-450) K/mm3 MPV 12.0 H (7.5-11.0) fl Gran % 72.7 H (36.0-66.0) % Eos # (Auto) 0.09 (0-0.5) Absolute Lymphs (auto) 1.44 (1.0-4.6) Absolute Monos (auto) 0.24 (0.0-1.3) Lymphocytes % 22.0 L (24.0-44.0) % Monocytes % 3.7 (0.0-12.0) % Eosinophils % 1.4 (0.00-5.0) % Basophils % 0.2 (0.0-0.4) % Absolute Granulocytes 4.78 (1.4-6.9) Basophils # 0.01 (0-0.4) Sodium 140 (137-145) mmol/L Potassium 4.2 (3.5-5.1) mmol/L Chloride 113 H (98-107) mmol/L Carbon Dioxide 23 (22-30) mmol/L Anion Gap 7.5 (5-15) MEQ/L BUN 4 L (7-17) mg/dL Creatinine 0.56 (0.52-1.04) mg/dL Estimated GFR > 60.0 ML/MIN Glucose 89 (74-106) mg/dL Calcium 8.3 L (8.4-10.2) mg/dL Total Bilirubin 0.20 (0.2-1.3) mg/dL AST 42 H (14-36) U/L ALT 40 H (0-35) U/L Alkaline Phosphatase 58 (38-126) U/L Serum Total Protein 5.2 L (6.3-8.2) g/dL Albumin 2.8 L (3.5-5.0) g/dL Micro Results-Entire Visit: Microbiology 05/16/19 06:45 Blood Culture Gram Stain - Preliminary Blood Blood Culture - Preliminary NO GROWTH TO DATE 05/16/19 06:45 Blood Culture - Preliminary Blood NO GROWTH TO DATE 05/16/19 06:45 Urine Culture - Final Clean Catch Midstream NO GROWTH - Radiology Exams Ordered Rad Exams-Entire Visit: Radiology Procedures Category Date Time Status CHEST WITH CONTRAST [CT] Urgent Exams 05/17/19 08:39 Completed Discharge Exam General Appearance: no apparent distress, alert Respiratory Exam: normal breath sounds, lungs clear, No respiratory distress Cardiovascular Exam: regular rate/rhythm, normal heart sounds Gastrointestinal/Abdomen Exam: soft, No tenderness, No mass Extremity Exam: normal inspection, normal range of motion Skin Exam: normal color, warm, dry Final Diagnosis/Problem List - Final Discharge Diagnosis/Problem (1) Pneumonia Current Visit: Yes Status: Acute Assessment & Plan: improved, home on augmentin x 5 days and zithromax x 3 more days Code(s): J18.9 - PNEUMONIA, UNSPECIFIED ORGANISM (2) Chest pain Current Visit: Yes Status: Acute Assessment & Plan: r/t pneumonia Code(s): R07.9 - CHEST PAIN, UNSPECIFIED (3) Hypotension Current Visit: Yes Status: Resolved Assessment & Plan: blood cultures and urine cultures negative ,she does not have sepsis. will start on florinef, likely chronic with hx gastric bypass. encourage fluid intake Code(s): I95.9 - HYPOTENSION, UNSPECIFIED (4) Vomiting Current Visit: No Status: Acute Code(s): R11.10 - VOMITING, UNSPECIFIED - Discharge Disposition: Home, Self-Care Condition: Fair Prescriptions: New Amoxicillin/Potassium Clav [Augmentin 500-125 Tablet] 1 each PO TID #15 tablet Fludrocortisone Acetate [Florinef] 0.1 mg PO DAILY #30 tablet Codeine Phosphate/APAP #3 [Tylenol #3 Tablet] 1 tab PO Q6H PRN PRN #20 tablet PRN Reason: Pain Azithromycin 250 mg [Zithromax 250 MG TABLET] 250 mg PO DAILY #3 tablet Continue Pantoprazole Sodium [Protonix] 40 mg PO DAILY Topiramate [Topamax] 300 mg PO HS Promethazine HCl 25 mg [Phenergan 25 mg] 25 mg PO Q8H PRN PRN #6 tablet MDD 3 PRN Reason: Nausea/Vomiting Venlafaxine HCl [Effexor] 100 mg PO TID clonazePAM [Clonazepam] 0.5 mg PO TID OXcarbazepine [Oxcarbazepine] 300 mg PO TID Baclofen 10 mg PO BID Brexpiprazole [Rexulti] 3 mg PO HS Follow up with: CHANTE PAGAN MD [Primary Care Provider] - 1 Week
[2019-05-19] MEDS: LIORESAL 10 MG PO SCH (09:05)
[2019-05-19] MEDS: EFFEXOR 37.5 MG PO SCH (09:05)
[2019-05-19] MEDS: Klonopin 0.5 MG PO SCH (09:05)
[2019-05-19] MEDS: Klor Con 10 MEQ PO SCH (09:05)
[2019-05-19] MEDS: ENOXAPARIN SODIUM SQ SCH (09:05)
[2019-05-19] MEDS: ROCEPHIN 1 Gm-D5w 50 ml Bag** 1 G/50 ML IVPB IV SCH (09:06)
[2019-05-19] MEDS: Trileptal 300 MG Tablet PO SCH (09:06)
[2019-05-19 10:55] VITALS: BP 96/52; PULSE 89; O2SAT 94
== END 2019-05-19 13:30 | disposition home or self-care (01) ==
LOC: ED 05:34 → MED SURG 09:55 → ED 09:55
PROVIDERS: ADMIT Family Medicine; ATTEND Family Medicine
DX: J18.9 Pneumonia, unspecified organism (principal); R07.9 Chest pain, unspecified; I95.9 Hypotension, unspecified; R11.10 Vomiting, unspecified; R51 Headache; D69.6 Thrombocytopenia, unspecified; R42 Dizziness and giddiness; Z79.899 Other long term (current) drug therapy
CPT/HCPCS: 36000; 36415; 71046; 71260; 80048; 80053; 80307; 81001; 81025; 83605; 84132; 84484; 85025; 85027; 85379; 85610; 85730; 87040; 87077; 87086; 87631; 87651; 93005; 93041; 93268; 94760; 96360; 96361; 96365; 96366; 96374; 99285; G0378; J0456; J0696; J1200; J1650; J2405; J2920; J3480; A9270-GY

== ENCOUNTER 2019-07-12 07:33 | Inpatient (IN) | payer OTHER ==
[2019-07-12] MEDS ORDERED: Pepcid 20 MG VIAL IV ONE (07:55)
[2019-07-12] MEDS ORDERED: Reglan 10 MG/2 ML IV ONE (07:55)
[2019-07-12] MEDS ORDERED: Transderm Scop 1.5MG Patch TOP PRN (07:55)
[2019-07-12] MEDS ORDERED: Lactated Ringers 1,000 ML IV SCH (08:00)
[2019-07-12] MEDS ORDERED: CEFAZOLIN 2 GM-D5W BAG** 2 GM/50 ML ML IV ONE (08:16)
[2019-07-12 08:22] LABS: Hematocrit 35.3 % (35-47); Hemoglobin 11.3 gm/dl (12.0-16.0); Mean Cell Volume 94.9 fl (78-100); Mean Corpuscular Hemoglobin 30.4 pg (26-32); Platelet Count 212 K/mm3 (150-450); Red Blood Count 3.72 M/mm3 (4.1-5.4); Red Cell Distribution Width 13.5 % (11.5-14.0); White Blood Count 7.3 K/mm3 (4.0-10.5)
[2019-07-12] MEDS ORDERED: CEFAZOLIN 2 GM-D5W BAG** 2 GM/50 ML ML IV SCH (08:30)
[2019-07-12 08:56] LABS: ABO TYPING O; Antibody Screen NEGATIVE (NEGATIVE); RH TYPING POSITIVE
[2019-07-12] MEDS ORDERED: Sensorcaine 0.25% 10 ML ONE (09:23)
[2019-07-12] MEDS ORDERED: Lactated Ringers 1,000 ML IV ONE ×2 (09:23→12:42)
[2019-07-12] MEDS ORDERED: Zemuron 100 MG/10 ML ONE (09:40)
[2019-07-12] MEDS ORDERED: Decadron 4 MG INJ ONE ×2 (09:40→10:14)
[2019-07-12] MEDS ORDERED: DIPRIVAN 200 MG/20 ML IV ONE (09:40)
[2019-07-12] MEDS ORDERED: Zofran 4 MG/2 ML VIAL ONE ×2 (09:40→10:14)
[2019-07-12] MEDS ORDERED: SUBLIMAZE 250 MCG/5 ML ONE (09:40)
[2019-07-12] MEDS ORDERED: Versed 2 MG/2 ML Injection ONE (09:40)
[2019-07-12] MEDS ORDERED: Propofol 1000 mg/100 ml Bottle IV ONE (10:30)
[2019-07-12] MEDS ORDERED: Marcaine 0.5%/Epinephrine 10 ML ONE (11:10)
[2019-07-12] MEDS ORDERED: MARCAINE 0.5%-EPI 1:200,000 VL IJ ONE (11:10)
[2019-07-12] MEDS ORDERED: BRIDION 200MG/2ML IV ONE (11:34)
[2019-07-12] MEDS ORDERED: SUBLIMAZE 100 MCG/2 ML ONE (12:23)
[2019-07-12 12:46] LABS: Appearance CLEAR (CLEAR); Bilirubin NEGATIVE (NEGATIVE); Blood NEGATIVE Ery/ul (0-5); Epithelial Cells RARE /HPF (FEW); Glucose NEGATIVE (NEGATIVE); Ketones NEGATIVE (NEGATIVE); Leukocyte Esterase NEGATIVE (NEGATIVE); Mucus SLIGHT /HPF (NEGATIVE); Nitrite NEGATIVE (NEGATIVE); Protein,Urine Dip NEGATIVE (Negative); Specific Gravity 1.015 (1.005-1.025); Urobilinogen NEGATIVE mg/dL (0-1)
[2019-07-12] MEDS ORDERED: MORPHINE SULFATE 2 MG INJ IV PRN (14:07)
[2019-07-12] MEDS ORDERED: MORPHINE SULFATE 4 MG INJ IV PRN (14:07)
[2019-07-12] MEDS: Reglan 10 MG/2 ML IV SCH ×2 (14:24→22:24)
[2019-07-12] MEDS: Mylicon 80MG PO SCH ×2 (14:28→22:23)
[2019-07-12] MEDS: TYLENOL EXTRA STRENGTH 500 MG PO SCH ×2 (14:28→22:21)
[2019-07-12] MEDS ORDERED: HYDROXYZINE HCL 50 MG PO PRN (15:11)
[2019-07-12] MEDS ORDERED: PROVENTIL 2.5 MG/3 ML NEB IH PRN (15:11)
[2019-07-12] MEDS ORDERED: ATARAX 25 MG PO PRN (16:00)
[2019-07-12 18:20] LABS: Hematocrit 32.3 % (35-47); Hemoglobin 10.6 gm/dl (12.0-16.0); Mean Cell Volume 94.2 fl (78-100); Mean Corpuscular Hemoglobin 30.9 pg (26-32); Mean Corpuscular Hgb Concent. 32.8 g/dl (32-36); Mean Platelet Volume 11.3 fl (7.5-11.0); Platelet Count 190 K/mm3 (150-450); Red Blood Count 3.43 M/mm3 (4.1-5.4); Red Cell Distribution Width 13.2 % (11.5-14.0); White Blood Count 13.2 K/mm3 (4.0-10.5)
[2019-07-12] MEDS: Lactated Ringers 1,000 ML IV SCH (18:26)
[2019-07-12] MEDS: CEFAZOLIN 2 GM-D5W BAG** 2 GM/50 ML ML IV SCH (18:58)
[2019-07-12] MEDS: Zofran 4 MG/2 ML VIAL IV PRN (19:02)
[2019-07-12] MEDS: Valium 5 MG PO SCH ×2 (19:30→23:26)
[2019-07-12] MEDS: Zanaflex 4 MG PO SCH ×2 (19:30→23:26)
[2019-07-12] MEDS: MORPHINE SULFATE 4 MG INJ IV PRN (20:44)
[2019-07-12] MEDS ORDERED: TOPIRAMATE 300 MG PO SCH (22:00)
[2019-07-12] MEDS ORDERED: VENLAFAXINE HCL 300 MG PO SCH (22:00)
[2019-07-12] MEDS: COGENTIN 0.5 MG PO SCH (22:21)
[2019-07-12] MEDS: Colace 100 MG PO SCH (22:22)
[2019-07-12] MEDS: Effexor XR 75 MG PO SCH (22:22)
[2019-07-12] MEDS: zyPREXA 5MG TABLET PO SCH (22:22)
[2019-07-12] MEDS: TOPIRAMATE PO SCH (22:23)
[2019-07-12] MEDS ORDERED: ENOXAPARIN SODIUM SQ SCH (23:59)
[2019-07-13] MEDS: MORPHINE SULFATE 4 MG INJ IV PRN ×2 (00:37→06:06)
[2019-07-13] MEDS: Lactated Ringers 1,000 ML IV SCH (02:29)
[2019-07-13] MEDS: CEFAZOLIN 2 GM-D5W BAG** 2 GM/50 ML ML IV SCH (02:36)
[2019-07-13 05:21] LABS: Hematocrit 31.7 % (35-47); Mean Cell Volume 95.8 fl (78-100); Mean Corpuscular Hemoglobin 30.2 pg (26-32); Mean Corpuscular Hgb Concent. 31.5 g/dl (32-36); Mean Platelet Volume 11.8 fl (7.5-11.0); Platelet Count 207 K/mm3 (150-450); Red Blood Count 3.31 M/mm3 (4.1-5.4); Red Cell Distribution Width 13.4 % (11.5-14.0); White Blood Count 12.4 K/mm3 (4.0-10.5)
[2019-07-13 05:44] LABS: ALKALINE PHOSPHATASE 69 U/L (38-126); ANION GAP 9.2 MEQ/L (5-15); BLOOD UREA NITROGEN 9 mg/dL (7-17); CHLORIDE 114 mmol/L (98-107); Calcium 8.4 mg/dL (8.4-10.2); Carbon Dioxide 22 mmol/L (22-30); Creatinine 1 0.53 mg/dL (0.52-1.04); Glucose 66 mg/dL (74-106); Potassium 3.9 mmol/L (3.5-5.1); SGOT/AST 313 U/L (14-36); SGPT/ALT 186 U/L (0-35); SODIUM 141 mmol/L (137-145); Total Protein 5.5 g/dL (6.3-8.2)
[2019-07-13] MEDS: TYLENOL EXTRA STRENGTH 500 MG PO SCH (05:59)
[2019-07-13] MEDS: Mylicon 80MG PO SCH ×3 (05:59→21:42)
[2019-07-13] MEDS: Reglan 10 MG/2 ML IV SCH ×3 (06:00→21:43)
[2019-07-13] MEDS: Zofran 4 MG/2 ML VIAL IV PRN ×2 (07:49→20:16)
[2019-07-13] MEDS: Zanaflex 4 MG PO SCH ×3 (08:44→21:44)
--- NOTE | 2019-07-13 09:00 | OP ---
SURGERY DATE/TIME: 07/12/2019 1024 PREOPERATIVE DIAGNOSES: 1) Chronic pelvic pain. 2) Post-ablation syndrome. POSTOPERATIVE DIAGNOSES: 1) Chronic pelvic pain. 2) Post-ablation syndrome. 3) Right ovarian hemorrhagic cyst. PROCEDURES: 1) Laparotomy supracervical hysterectomy. 2) Drainage of right ovarian hemorrhagic cyst. SURGEON: Ray Rivas D.O. GIN CLERK: afshin Morrison tech. ANESTHESIA: General. ESTIMATED BLOOD LOSS: Minimal. COMPLICATIONS: None. INDICATIONS: The risks, benefits, indications and alternatives of the procedure were reviewed with the patient prior to procedure. The patient understood the risk of infection, bleeding, bowel injury, bladder injury, ureteral injury, uterine perforation, pelvic infection, thromboembolic disorder as well as decreased sex drive that can be associated with the surgery. However, desires to have this procedure as a possible need to alleviate her current medical condition. DESCRIPTION OF PROCEDURE AND FINDINGS: At this point the patient is taken to the operating room where she was placed in supine position, given general anesthesia, prepared and draped in usual sterile fashion. A Pfannenstiel incision was made approximately 2 cm above the symphysis pubis and extended sharply to the rectus fascia. The fascia was then incised bilaterally with curved Zamora scissors. The muscle of the anterior abdominal wall was in the midline by sharp and blunt dissection. The peritoneum was then grasped between two pickups elevated and entered sharply with Metzenbaum scissors. The pelvis is then examined and noted to have a small uterus approximately 10 week size. An O'Karson-O'Feng retractor was placed into the incision and bowel packed away with moist laparotomy sponges. Two Miguel clamps were placed and used for retraction. The round ligaments on both sides were clamped, transected and suture ligated with 0 Vicryl suture. The anterior lip of the broad ligament was then incised along the bladder reflection to the midline from both sides. The bladder was then gently dissected off the lower uterine segment and the cervix with a sponge stick. The utero-ovarian ligaments on both sides were doubly clamped, transected and suture ligated with 0 Vicryl suture. Again, hemostasis was visualized. The uterine arteries were skeletonized bilaterally, clamped with Rosa clamp, transected and suture ligated with 0 Vicryl suture. Again, hemostasis was assured. From this point the cautery was used to amputate the uterus from the endocervical stump region and was done so without complication. The cervical stump was closed with continuous stitch of 0 Vicryl suture. Hemostasis was obtained. The right adnexa and the right ovary appeared to have a small 2 x 2 cm what appeared to be a hemorrhagic cyst where cautery was used to incise along the surface of the cystic portion where bloody fluid is then removed. The remaining ovary appeared to be within normal limits. There appeared to be endometriotic implants located on the back surface of the uterus as well as bluish discoloration located on the right adnexa. From this point left adnexa appeared to be within normal limits. Again, the ovaries were not removed during the procedure. From this point the pelvis irrigated with copiously with warm normal saline. All sponge, lap, needle and instruments were then removed from the patient's abdomen and the fascia was closed with running 0 Vicryl. Hemostasis was assured. The skin was closed with absorbable called INSORB. Sponge, lap, needle and instrument counts were correct x2. The patient was then taken to the recovery room in stable condition.
[2019-07-13] MEDS: PATIENT OWN MEDICATION TOP SCH (09:25)
[2019-07-13] MEDS: Colace 100 MG PO SCH ×2 (09:25→21:41)
[2019-07-13] MEDS ORDERED: [UNRECOGNIZED DRUG - OTHER] SUBDERMAL SCH (10:00)
[2019-07-13] MEDS ORDERED: Protonix 40MG Tablet PO SCH (10:00)
[2019-07-13] MEDS: PERCOCET TABLET 5/325MG PO PRN ×3 (11:03→20:15)
[2019-07-13] MEDS: Valium 5 MG PO SCH ×3 (13:01→21:43)
[2019-07-13 18:56] LABS: ALBUMIN 3.1 g/dL (3.5-5.0); ALKALINE PHOSPHATASE 74 U/L (38-126); ANION GAP 9.8 MEQ/L (5-15); BLOOD UREA NITROGEN 9 mg/dL (7-17); CHLORIDE 116 mmol/L (98-107); Carbon Dioxide 20 mmol/L (22-30); Creatinine 1 0.44 mg/dL (0.52-1.04); Glucose 68 mg/dL (74-106); Potassium 3.4 mmol/L (3.5-5.1); SGOT/AST 152 U/L (14-36); SGPT/ALT 147 U/L (0-35); SODIUM 142 mmol/L (137-145); Total Protein 5.5 g/dL (6.3-8.2)
[2019-07-13] MEDS ORDERED: Klor Con 10 MEQ PO ONE (19:54)
[2019-07-13] MEDS: COGENTIN 0.5 MG PO SCH (21:41)
[2019-07-13] MEDS: Effexor XR 75 MG PO SCH (21:42)
[2019-07-13] MEDS: TOPIRAMATE PO SCH (21:43)
[2019-07-13] MEDS: zyPREXA 5MG TABLET PO SCH (21:44)
[2019-07-14] MEDS: PERCOCET TABLET 5/325MG PO PRN ×2 (03:38→08:05)
[2019-07-14 04:46] LABS: HEPATITIS A IGM Non Reactive (Non Reactive); HEPATITIS B VIRUS CORE TOT AB Non Reactive (Non Reactive); HEPATITIS C VIRUS ANTIBODY Non Reactive (Non Reactive); Hepatitis B Surface Ab.Quant. <3.50 mIU/mL (0.00-8.49); Hepatitis B Surface Antigen Non Reactive (Non Reactive)
[2019-07-14] MEDS: Reglan 10 MG/2 ML IV SCH (06:22)
[2019-07-14] MEDS: Mylicon 80MG PO SCH (06:22)
[2019-07-14 06:51] VITALS: PULSE 70; O2SAT 100
--- NOTE | 2019-07-14 08:15 | PCM.DS ---
Discharge Summary Date of Admission: 07/12/19 07:33 Date of Discharge: JULY 14, 2019 Admitting Physician: HELDER LINDSEY DO Primary Care Provider: CHANTE PAGAN ALIX Allergies Allergies Fish Containing Products Allergy (Intermediate, Verified 07/12/19 08:24) Nausea and Vomiting swelling everywhere shellfish derived Allergy (Intermediate, Verified 07/12/19 08:24) Nausea and Vomiting latex Allergy (Verified 07/12/19 08:24) Sulfa (Sulfonamide Antibiotics) [Sulfa(Sulfonamide Antibiotics)] Allergy ( Verified 07/12/19 08:24) Hives sulfamethoxazole [From Decra] Allergy (Verified 07/12/19 08:24) Rash trimethoprim [From ] Allergy (Verified 07/12/19 08:24) Rash NSAIDS (Non-Steroidal Anti-Inflamma Adverse Reaction (Verified 07/12/19 08:24) Rash can take IM but no oral med eggs Allergy (Uncoded 07/12/19 08:24) Rash nausea/vomiting Hospital Summary - Vitals & Intake/Output Vital Signs: Vital Signs Temperature 97.4 F 07/14/19 04:00 Pulse Rate 70 07/14/19 06:49 Respiratory Rate 16 07/14/19 06:49 Blood Pressure 104/63 07/14/19 04:00 O2 Sat by Pulse Oximetry 100 07/14/19 06:49 Intake & Output: Intake & Output 07/11/19 07/12/19 07/13/19 07/14/19 11:59 11:59 11:59 11:59 Intake Total 2519 1780 Output Total 1700 Balance 819 1780 Weight 81.5 kg 81.5 kg - Lab Result Diagrams: 07/13/19 04:50 07/13/19 18:20 Lab Results-Last 24 Hrs: Lab Results-Last 24 Hours 07/13/19 07/13/19 Range/Units 05:00 18:20 Sodium 142 (137-145) mmol/L Potassium 3.4 L (3.5-5.1) mmol/L Chloride 116 H (98-107) mmol/L Carbon Dioxide 20 L (22-30) mmol/L Anion Gap 9.8 (5-15) MEQ/L BUN 9 (7-17) mg/dL Creatinine 0.44 L (0.52-1.04) mg/dL Estimated GFR > 60.0 ML/MIN Glucose 68 L (74-106) mg/dL Calcium 8.0 L (8.4-10.2) mg/dL Total Bilirubin 0.40 (0.2-1.3) mg/dL AST 152 H (14-36) U/L ALT 147 H (0-35) U/L Alkaline Phosphatase 74 (38-126) U/L Serum Total Protein 5.5 L (6.3-8.2) g/dL Albumin 3.1 L (3.5-5.0) g/dL Hepatitis A IgM Ab Non Reactive (Non Reactive) Hep Bs Antigen Non Reactive (Non Reactive) Hep Bs Antibody, Quant <3.50 (0.00-8.49) mIU/mL Hep B Core Total Ab Non Reactive (Non Reactive) Hepatitis C Antibody Non Reactive (Non Reactive) Micro Results-Entire Visit: Microbiology 07/12/19 10:38 Urine Culture - Final Catherized NO GROWTH - Procedures and Test Procedures and Tests throughout Hospitalization: Therapy Orders & Screens 07/12/19 16:28 Incentive Spirometry TID Comment: Diagnosis: chronic pelvic pain, post ablation syndrome Respiratory Therapy Assessment DAILY Comment: Diagnosis: chronic pelvic pain, post ablation syndrome - Discharge Disposition: Home, Self-Care Condition: Stable Prescriptions: No Action Olanzapine 5 mg [zyPREXA 5MG TABLET] 10 mg PO HS Tizanidine HCl 4 mg [Zanaflex 4 MG] 4 mg PO UD Diazepam 5 mg [Valium 5 MG] 2.5 mg PO TID Topiramate [Topamax] 300 mg PO HS Venlafaxine HCl [Effexor] 300 mg PO HS PANTOPRAZOLE 40 mg Tablet [Protonix 40MG Tablet] 40 mg PO QAM hydrOXYzine HCL [Hydroxyzine HCl] 50 mg pe PO QID PRN PRN Reason: Anxiety Non-Formulary Drug [Non-Formulary Item] 1 unit SUBDERMAL DAILY Galcanezumab-Gnlm [Emgality] 120 mg SQ UD Cyanocobalamin 1000 Mcg/ml [Cyanocobalamin B-12 1000 MCG/ML] 1,000 mcg IJ UD Benztropine Mesylate 0.5 mg PO HS Albuterol 2.5 mg/3 ml Neb [Proventil 2.5 mg/3 ml Neb] 2.5 mg IH Q4H PRN PRN Reason: sob Follow up with: CHANTE PAGAN MD [Primary Care Provider] - 1 Week
[2019-07-14 09:22] VITALS: BP 103/61
[2019-07-14] MEDS: Colace 100 MG PO SCH (09:48)
[2019-07-14] MEDS: Valium 5 MG PO SCH (09:49)
[2019-07-14] MEDS: PATIENT OWN MEDICATION TOP SCH (09:50)
[2019-07-14] MEDS ORDERED: Klor Con 10 MEQ PO ONE (10:00)
[2019-07-14] MEDS: Zanaflex 4 MG PO SCH (10:52)
[2019-07-27] MEDS ORDERED: GALCANEZUMAB GNLM 120 MG SQ SCH (10:00)
[2019-08-10] MEDS ORDERED: Cyanocobalamin B-12 1000 MCG/ML IJ SCH (10:00)
== END 2019-07-14 10:25 | disposition home or self-care (01) | DRG 743 ==
LOC: MED SURG 07:33 → EDSTATUS 07:44
PROVIDERS: ADMIT Obstetrics & Gynecology; ATTEND Obstetrics & Gynecology
PROC: 0UT90ZL Resection of Uterus, Supracervical, Open Approach (ICD-10-PCS; principal; 2019-07-12)
PROC: 0U900ZZ Drainage of Right Ovary, Open Approach (ICD-10-PCS; 2019-07-12)
DX: N83.201 Unspecified ovarian cyst, right side (principal); R10.2 Pelvic and perineal pain; G89.29 Other chronic pain; Z79.899 Other long term (current) drug therapy
CPT/HCPCS: 36415; 58180; 58805; 64488; 76937; 76942; 80053; 80074; 81001; 84703; 85027; 86850; 86900; 86901; 87086; 94760; J0690; J1100; J1650; J2250; J2270; J2405; J2704; J3010; A9270-GY

== ENCOUNTER 2019-07-25 12:32 | Emergency (ER) | payer OTHER ==
[2019-07-25] MEDS ORDERED: Hydromorphone 1 mg/ml Ampule IV ONE (13:02)
[2019-07-25] MEDS ORDERED: Inapsine 5 MG/2 ML IV ONE (13:02)
[2019-07-25] MEDS ORDERED: Sodium Chloride 0.9% 1000 ML 1,000 ML IV STA (13:02)
[2019-07-25] MEDS ORDERED: BENADRYL 50 MG/ML IV ONE (13:04)
[2019-07-25] MEDS ORDERED: BENADRYL 50 MG/ML ONE (13:12)
[2019-07-25] MEDS ORDERED: Inapsine 5 MG/2 ML ONE (13:12)
--- NOTE | 2019-07-25 13:12 | ERPHSYRPT ---
- History of Present Illness Time Seen by Provider: 07/25/19 12:43 Historian: patient Exam Limitations: no limitations Patient Subjective Stated Complaint: pt here for abd pain to lower right side that radiates down leg, she states she has surgery on 07/12/19. for a partial hyster, Triage Nursing Assessment: pt alert, walked in , resp easy,skin w/d/p, abd soft , moves all ext well, she states b/b working well Physician History: Patient states that she had recent partial hysterectomy. She states that she had some continued right-sided abdominal pain. States that she has seen her injection operator. He does not know what is causing the pain. He sent her into the emergency department today. She has been taking Tylenol at home for the pain. Location: RLQ pain Quality: sharp Radiation: none Severity: moderate Duration: 2 weeks Timing: after surgery Modifying factors/associated signs and symptoms: none tried Allergies/Adverse Reactions: Fish Containing Products Allergy (Intermediate, Verified 07/25/19 13:06) Nausea and Vomiting swelling everywhere shellfish derived Allergy (Intermediate, Verified 07/25/19 13:06) Nausea and Vomiting latex Allergy (Verified 07/25/19 13:06) Sulfa (Sulfonamide Antibiotics) [Sulfa(Sulfonamide Antibiotics)] Allergy ( Verified 07/25/19 13:06) Hives sulfamethoxazole [From Septra] Allergy (Verified 07/25/19 13:06) Rash trimethoprim [From Septra] Allergy (Verified 07/25/19 13:06) Rash NSAIDS (Non-Steroidal Anti-Inflamma Adverse Reaction (Verified 07/25/19 13:06) Rash can take IM but no oral med eggs Allergy (Uncoded 07/25/19 13:06) Rash nausea/vomiting Home Medications: Diazepam 5 mg [Valium 5 MG] 2.5 mg PO TID 07/08/19 [History] Olanzapine 5 mg [zyPREXA 5MG TABLET] 10 mg PO HS 07/08/19 [History] Tizanidine HCl 4 mg [Zanaflex 4 MG] 4 mg PO UD 07/08/19 [History] Topiramate [Topamax] 300 mg PO HS 07/08/19 [History] Venlafaxine HCl [Effexor] 300 mg PO HS 07/08/19 [History] Albuterol 2.5 mg/3 ml Neb [Proventil 2.5 mg/3 ml Neb] 2.5 mg IH Q4H PRN [History] Benztropine Mesylate 0.5 mg PO HS 07/12/19 [History] Cyanocobalamin 1000 Mcg/ml [Cyanocobalamin B-12 1000 MCG/ML] 1,000 mcg IJ UD 07/12/19 [History] Galcanezumab-Gnlm [Emgality Pen] 120 mg SQ UD 07/12/19 [History] Non-Formulary Drug [Non-Formulary Item] 1 unit SUBDERMAL DAILY 07/12/19 [History ] PANTOPRAZOLE 40 mg Tablet [Protonix 40MG Tablet] 40 mg PO QAM 07/12/19 [ History] hydrOXYzine HCL [Hydroxyzine HCl] 50 mg pe PO QID PRN 07/12/19 [History] Hx Tetanus, Diphtheria Vaccination/Date Given: No Hx Influenza Vaccination/Date Given: No Hx Pneumococcal Vaccination/Date Given: No Immunizations Up to Date: Yes Travel Risk - International Travel Have you traveled outside of the country in past 3 weeks: No Have you or anyone close to you been diagnosed with or: No Do your reside in a community with a known COVID-19 case?: Yes If Yes where:: [place] - Coronavirus Screening Has patient experienced Coronavirus symptoms: No - Review of Systems Constitutional: No Fever, No Chills Eyes: No Symptoms Ears, Nose, & Throat: No Symptoms Respiratory: No Cough, No Dyspnea Cardiac: No Chest Pain, No Edema, No Syncope Abdominal/Gastrointestinal: Abdominal Pain, Nausea, No Vomiting, No Diarrhea Genitourinary Symptoms: No Dysuria Musculoskeletal: No Back Pain, No Neck Pain Skin: No Rash Neurological: No Dizziness, No Focal Weakness, No Sensory Changes Psychological: No Symptoms Endocrine: No Symptoms All Other Systems: Reviewed and Negative - Past Medical History Pertinent Past Medical History: Yes Neurological History: Migraines ENT History: No Pertinent History Cardiac History: No Pertinent History Respiratory History: No Pertinent History Endocrine Medical History: Hypothyroidism Musculoskeletal History: No Pertinent History GI Medical History: No Pertinent History, Other History: Other Psycho-Social History: Anxiety, Depression Female Reproductive Disorders: Abnormal Uterine Bleeding, Menstrual Problems Other Medical History: states "recurring UTI", "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 - Social History Smoking Status: Never smoker How long have you smoked: 3 years Exposure to second hand smoke: No Drug Use: none Patient Lives Alone: No - Female History Hx Last Menstrual Period: hyster Hx Now: No - Nursing Vital Signs Nursing Vital Signs: Initial Vital Signs Temperature 98.0 F 07/25/19 12:53 Pulse Rate 84 07/25/19 12:53 Respiratory Rate 18 07/25/19 12:53 Blood Pressure 97/67 07/25/19 12:53 O2 Sat by Pulse Oximetry 100 07/25/19 12:53 Pain Scale Pain Intensity 8 - Physical Exam General Appearance: no apparent distress, alert Eye Exam: PERRL/EOMI, eyes nml inspection Ears, Nose, Throat Exam: normal ENT inspection, pharynx normal, moist mucous membranes Neck Exam: normal inspection, non-tender, supple, full range of motion Respiratory Exam: normal breath sounds, lungs clear, No respiratory distress Cardiovascular Exam: regular rate/rhythm, normal heart sounds Gastrointestinal/Abdomen Exam: soft, tenderness (Right lower quadrant tenderness to palpation. No rebound no guarding. Surgical incision appears well. No redness or overlying skin changes.), No mass Back Exam: normal inspection, normal range of motion, No CVA tenderness, No vertebral tenderness Extremity Exam: normal inspection, normal range of motion, pelvis stable Neurologic Exam: alert, 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, cooperative, normal mood/affect, nml cerebellar function, sensation nml, No motor deficits Skin Exam: normal color, warm, dry SpO2: 100 Ordered Tests: Active Orders 24 hr Category Date Time Status IV Insertion STAT Care 07/25/19 13:02 Active Isolation, Initiate & Maintain Q4H Care 07/25/19 13:05 Active ABDOMEN AND PELVIS W CONTRAST [CT] Stat Exams 07/25/19 13:02 Completed CBC W DIFF Stat Lab 07/25/19 13:15 Completed CMP Stat Lab 07/25/19 13:15 Completed CULTURE,URINE Stat Lab 07/25/19 13:15 Received LIPASE Stat Lab 07/25/19 13:15 Completed Lactic Acid Stat Lab 07/25/19 14:04 Completed UA W/RFX UR CULTURE Stat Lab 07/25/19 13:15 Completed Medication Summary Discontinued Medications Generic Name Dose Route Start Last Admin Trade Name Freq PRN Reason Stop Dose Admin Dexamethasone Sodium Phosphate 10 mg 07/25/19 13:18 07/25/19 13:21 Decadron 10mg Inj. IV 07/25/19 13:19 10 mg STAT ONE Administration Dexamethasone Sodium Phosphate Confirm 07/25/19 13:19 Decadron 10mg Inj. Administered 07/25/19 13:20 Dose 10 mg .ROUTE .STK-MED ONE Diphenhydramine HCl 25 mg 07/25/19 13:04 07/25/19 13:15 Benadryl 50 Mg/Ml IV 07/25/19 13:05 25 mg STAT ONE Administration Diphenhydramine HCl Confirm 07/25/19 13:12 Benadryl 50 Mg/Ml Administered 07/25/19 13:13 Dose 50 mg .ROUTE .STK-MED ONE Droperidol 1.25 mg 07/25/19 13:02 07/25/19 13:15 Inapsine 5 Mg/2 Ml IV 07/25/19 13:03 1.25 mg STAT ONE Administration Droperidol Confirm 07/25/19 13:12 Inapsine 5 Mg/2 Ml Administered 07/25/19 13:13 Dose 5 mg .ROUTE .STK-MED ONE Hydromorphone HCl 1 mg 07/25/19 13:02 07/25/19 13:15 Hydromorphone 1 Mg/Ml Ampule IV 07/25/19 13:03 1 mg STAT ONE Administration Hydromorphone HCl Confirm 07/25/19 13:13 Hydromorphone 1 Mg/Ml Ampule Administered 07/25/19 13:14 Dose 1 mg .ROUTE .STK-MED ONE Sodium Chloride 1,000 mls @ 999 mls/hr 07/25/19 13:02 07/25/19 14:37 Sodium Chloride 0.9% 1000 Ml IV 07/25/19 14:02 Infused .Q1H1M STA Infusion Sodium Chloride Confirm 07/25/19 13:13 Sodium Chloride 0.9% 1000 Ml Administered 07/25/19 13:14 Dose 1,000 mls @ ud .ROUTE .STK-MED ONE Lab/Rad Data: Laboratory Result Diagrams 07/25/19 13:15 07/25/19 13:15 Laboratory Results 07/25/19 07/25/19 07/25/19 Range/Units 14:04 13:15 13:15 WBC (4.0-10.5) K/mm3 RBC (4.1-5.4) M/mm3 Hgb (12.0-16.0) gm/dl Hct (35-47) % MCV (78-100) fl MCH (26-32) pg MCHC (32-36) g/dl RDW (11.5-14.0) % Plt Count (150-450) K/mm3 MPV (7.5-11.0) fl Gran % (36.0-66.0) % Eos # (Auto) (0-0.5) Absolute Lymphs (auto) (1.0-4.6) Absolute Monos (auto) (0.0-1.3) Lymphocytes % (24.0-44.0) % Monocytes % (0.0-12.0) % Eosinophils % (0.00-5.0) % Basophils % (0.0-0.4) % Absolute Granulocytes (1.4-6.9) Basophils # (0-0.4) Sodium 143 (137-145) mmol/L Potassium 3.8 (3.5-5.1) mmol/L Chloride 111 H (98-107) mmol/L Carbon Dioxide 26 (22-30) mmol/L Anion Gap 10.2 (5-15) MEQ/L BUN 9 (7-17) mg/dL Creatinine 0.57 (0.52-1.04) mg/dL Estimated GFR > 60.0 ML/MIN Glucose 100 (74-106) mg/dL Lactic Acid 1.8 (0.4-2.0) Calcium 8.9 (8.4-10.2) mg/dL Total Bilirubin 0.50 (0.2-1.3) mg/dL AST 24 (14-36) U/L ALT 22 (0-35) U/L Alkaline Phosphatase 99 (38-126) U/L Serum Total Protein 6.8 (6.3-8.2) g/dL Albumin 3.9 (3.5-5.0) g/dL Lipase 125 (23-300) U/L Urine Color BETSY (YELLOW) Urine Appearance SLIGHTLY CLOUDY (CLEAR) Urine pH 6.0 (5-6) Ur Specific [place] 1.026 (1.005-1.025) Urine Protein NEGATIVE (Negative) Urine Ketones NEGATIVE (NEGATIVE) Urine Blood NEGATIVE (0-5) Cas/ul Urine Nitrite NEGATIVE (NEGATIVE) Urine Bilirubin NEGATIVE (NEGATIVE) Urine Urobilinogen 2 (0-1) mg/dL Ur Leukocyte Esterase TRACE (NEGATIVE) Urine WBC (Auto) 11-15 (0-5) /HPF Urine RBC (Auto) 6-10 (0-2) /HPF U Hyaline Cast (Auto) 0-2 (0-2) /LPF U Epithel Cells (Auto) RARE (FEW) /HPF Urine Bacteria (Auto) FEW (NEGATIVE) /HPF Urine Mucus (Auto) MANY (NEGATIVE) /HPF Urine Yeast (Budding) Moderate (NEGATIVE) /HPF Urine Culture Reflexed YES (NO) Urine Glucose NEGATIVE (NEGATIVE) mg/dL 07/25/19 Range/Units 13:15 WBC 10.1 (4.0-10.5) K/mm3 RBC 3.71 L (4.1-5.4) M/mm3 Hgb 11.3 L (12.0-16.0) gm/dl Hct 35.9 (35-47) % MCV 96.8 (78-100) fl MCH 30.5 (26-32) pg MCHC 31.5 L (32-36) g/dl RDW 13.7 (11.5-14.0) % Plt Count 253 (150-450) K/mm3 MPV 10.4 (7.5-11.0) fl Gran % 53.1 (36.0-66.0) % Eos # (Auto) 0.98 H (0-0.5) Absolute Lymphs (auto) 3.10 (1.0-4.6) Absolute Monos (auto) 0.53 (0.0-1.3) Lymphocytes % 30.7 (24.0-44.0) % Monocytes % 5.3 (0.0-12.0) % Eosinophils % 9.7 H (0.00-5.0) % Basophils % 1.2 (0.0-0.4) % Absolute Granulocytes 5.36 (1.4-6.9) Basophils # 0.12 (0-0.4) Sodium (137-145) mmol/L Potassium (3.5-5.1) mmol/L Chloride (98-107) mmol/L Carbon Dioxide (22-30) mmol/L Anion Gap (5-15) MEQ/L BUN (7-17) mg/dL Creatinine (0.52-1.04) mg/dL Estimated GFR ML/MIN Glucose (74-106) mg/dL Lactic Acid (0.4-2.0) Calcium (8.4-10.2) mg/dL Total Bilirubin (0.2-1.3) mg/dL AST (14-36) U/L ALT (0-35) U/L Alkaline Phosphatase (38-126) U/L Serum Total Protein (6.3-8.2) g/dL Albumin (3.5-5.0) g/dL Lipase (23-300) U/L Urine Color (YELLOW) Urine Appearance (CLEAR) Urine pH (5-6) Ur Specific [place] (1.005-1.025) Urine Protein (Negative) Urine Ketones (NEGATIVE) Urine Blood (0-5) Cas/ul Urine Nitrite (NEGATIVE) Urine Bilirubin (NEGATIVE) Urine Urobilinogen (0-1) mg/dL Ur Leukocyte Esterase (NEGATIVE) Urine WBC (Auto) (0-5) /HPF Urine RBC (Auto) (0-2) /HPF U Hyaline Cast (Auto) (0-2) /LPF U Epithel Cells (Auto) (FEW) /HPF Urine Bacteria (Auto) (NEGATIVE) /HPF Urine Mucus (Auto) (NEGATIVE) /HPF Urine Yeast (Budding) (NEGATIVE) /HPF Urine Culture Reflexed (NO) Urine Glucose (NEGATIVE) mg/dL - Progress Progress: improved Progress Note: 07/25/19 13:13 differential diagnosis includes kidney stone, compression fracture, infection, UTI, triple AAA, postop infection - basic labs including: CBC, lipase, CMP, UA - insert IV for fluids, pain meds, nausea control - consider imaging: CT ab/pelvis 07/25/19 14:49 Labs mostly unremarkable. Patient has no leukocytosis, UA does not appear overtly infected. Culture will be sent. CT scan demonstrated no obvious abscess, small bowel obstruction, other infection or issue dealing with her recent or previous gastric bypass. Patient feels improved with medication. She has no abdominal pain at this moment. I did reexamine her abdomen. This demonstrated no rebound or guarding. At this point time, we will discharge patient home. She will need abdominal reexam in 24 to 48 hours. She will return here for any new or changing symptoms. - Departure Departure Disposition: Home Clinical Impression: Postoperative pain Condition: Stable Critical Care Time: No Referrals: CHANTE PAGAN MD [Primary Care Provider] - Instructions: Acute Abdomen (Belly Pain), Adult (DC)
[2019-07-25] MEDS ORDERED: Sodium Chloride 0.9% 1000 ML 1,000 ML ONE (13:13)
[2019-07-25] MEDS ORDERED: Hydromorphone 1 mg/ml Ampule ONE (13:13)
[2019-07-25] MEDS ORDERED: DECADRON 10MG INJ. IV ONE (13:18)
[2019-07-25] MEDS ORDERED: DECADRON 10MG INJ. ONE (13:19)
[2019-07-25 13:27] LABS: Absolute Neutrophil Ct (ANC) 5.36 (1.4-6.9); BASOPHIL % 1.2 % (0.0-0.4); Basophil (Absolute #) 0.12 (0-0.4); Eosinophil % 9.7 % (0.00-5.0); Eosinophil (Absolute #) 0.98 (0-0.5); Hematocrit 35.9 % (35-47); Hemoglobin 11.3 gm/dl (12.0-16.0); Lymphocytes % 30.7 % (24.0-44.0); Mean Cell Volume 96.8 fl (78-100); Mean Corpuscular Hemoglobin 30.5 pg (26-32); Mean Corpuscular Hgb Concent. 31.5 g/dl (32-36); Mean Platelet Volume 10.4 fl (7.5-11.0); Monocyte (Absolute #) 0.53 (0.0-1.3); Monocytes % 5.3 % (0.0-12.0); Neutrophil % 53.1 % (36.0-66.0); Platelet Count 253 K/mm3 (150-450); Red Blood Count 3.71 M/mm3 (4.1-5.4); Red Cell Distribution Width 13.7 % (11.5-14.0); White Blood Count 10.1 K/mm3 (4.0-10.5)
[2019-07-25 13:33] LABS: Appearance SLIGHTLY CLOUDY (CLEAR); Bacteria FEW /HPF (NEGATIVE); Bilirubin NEGATIVE (NEGATIVE); Blood NEGATIVE Ery/ul (0-5); Epithelial Cells RARE /HPF (FEW); Glucose NEGATIVE (NEGATIVE); Hyaline Casts 0-2 /LPF (0-2); Ketones NEGATIVE (NEGATIVE); Leukocyte Esterase TRACE (NEGATIVE); Mucus MANY /HPF (NEGATIVE); Nitrite NEGATIVE (NEGATIVE); Protein,Urine Dip NEGATIVE (Negative); Specific Gravity 1.026 (1.005-1.025); Urobilinogen 2 mg/dL (0-1)
[2019-07-25 13:36] LABS: Budding Yeast Moderate /HPF (NEGATIVE)
[2019-07-25 13:39] LABS: ALBUMIN 3.9 g/dL (3.5-5.0); ALKALINE PHOSPHATASE 99 U/L (38-126); ANION GAP 10.2 MEQ/L (5-15); BLOOD UREA NITROGEN 9 mg/dL (7-17); CHLORIDE 111 mmol/L (98-107); Calcium 8.9 mg/dL (8.4-10.2); Carbon Dioxide 26 mmol/L (22-30); Creatinine 1 0.57 mg/dL (0.52-1.04); Glucose 100 mg/dL (74-106); LIPASE 125 U/L (23-300); Potassium 3.8 mmol/L (3.5-5.1); SGOT/AST 24 U/L (14-36); SGPT/ALT 22 U/L (0-35); SODIUM 143 mmol/L (137-145); Total Protein 6.8 g/dL (6.3-8.2)
--- NOTE | 2019-07-25 14:36 | XRAY ---
Indication: Abdomen pain and nausea. Status post partial hysterectomy July 12, 2019. Multiple contiguous axial images obtained through the abdomen and pelvis using 80 cc of Isovue-370 contrast only. Comparison: April 19, 2012. Lung bases demonstrates mild bibasilar dependent atelectasis. Stable right lower lobe calcified granuloma. Heart is not enlarged. Again previous gastric bypass surgery. Noncontrasted stomach and bowel loops appear nonobstructed. Uterus now surgically absent. There is now tiny pelvic free fluid presumed postoperative. No walled off fluid collection or free air. Again previous cholecystectomy. Remaining liver, pancreas, spleen, adrenal glands, kidneys, ureters, bladder, and aorta appear unremarkable. No pathologic retroperitoneal lymphadenopathy. Osseous structures intact. Abdominal wall at the level of the pelvis demonstrates cutaneous/subcutaneous postsurgical changes. Tiny 0.8 x 5.1 cm fluid collection anterior to rectus abdominous muscle presumed postoperative hematoma/seroma. Impression: 1. Status post partial hysterectomy with anterior abdominal wall postsurgical changes. Tiny abdominal wall and pelvic fluid presumed postoperative hematoma/seroma. 2. Stable gastric bypass surgery and right lower lobe calcified granuloma. 3. Remaining CT abdomen/pelvis with contrast exam is negative.
[2019-07-25 14:49] VITALS: BP 104/71; PULSE 76
[2019-07-25 14:50] VITALS: O2SAT 100
== END 2019-07-25 15:00 | disposition home or self-care (01) ==
LOC: ED 12:32
DX: G89.18 Other acute postprocedural pain (principal); F45.42 Pain disorder with related psychological factors
CPT/HCPCS: 36000; 36415; 74177; 80053; 81001; 83605; 83690; 85025; 87086; 96360; 96374; 96375; 99284; J1100; J1170; J1200

== ENCOUNTER 2019-07-30 21:28 | Emergency (ER) | payer OTHER ==
[2019-07-30 22:00] VITALS: O2SAT 100
[2019-07-30] MEDS ORDERED: SUBLIMAZE 100 MCG/2 ML IV ONE ×2 (22:02→23:37)
[2019-07-30] MEDS ORDERED: Sodium Chloride 0.9% 1000 ML 1,000 ML IV STA ×2 (22:02→23:47)
--- NOTE | 2019-07-30 22:15 | ERPHSYRPT ---
- History of Present Illness Time Seen by Provider: 07/30/19 22:13 Historian: patient Exam Limitations: no limitations Patient Subjective Stated Complaint: Patient states " I had a partial hysterectomy on 07/12/19. I have been having pretty bad pain in my lower ABD". Patient states " I have been having low back pain also". Patient states " My appetite and fluid intake has been poor last couple of days". Triage Nursing Assessment: Patient arrived to ER with her Dad driving. Patient A /O times 4. Patient answers questions appropriatley. Patient incision to lower ABD well approximated and appears almost healed. No S/S of infection noted. Patient did state tenderness upon palpitation of ABD. Patient states she does have some burning and pain upon urination frequently. Attempted to collect urine and patient unable to urinate upon arrival to ER. Lungs clear bilateral throughout A/P. + BS times 4 quads. ABD soft round non-distended. Last BM . Patient states she has had some nausea but no vomiting. Patient states that is normal for her since she had gastric bypass surgery. Physician History: Patient states " I had a partial hysterectomy on 07/12/19. I have been having pretty bad pain in my lower ABD". Patient states " I have been having low back pain also". Patient states " My appetite and fluid intake has been poor last couple of days". she has had some nausea but no vomiting. Patient states that is normal for her since she had gastric bypass surgery. Timing/Duration: week(s) Activities at Onset: none Quality: aching, cramping Pain Radiation: no radiation Severity of Pain-Max: moderate Severity of Pain-Current: moderate Modifying Factors: Improves With: nothing Associated Symptoms: back, loss of appetite, nausea Allergies/Adverse Reactions: Fish Containing Products Allergy (Intermediate, Verified 07/25/19 13:06) Nausea and Vomiting swelling everywhere shellfish derived Allergy (Intermediate, Verified 07/25/19 13:06) Nausea and Vomiting latex Allergy (Verified 07/25/19 13:06) Sulfa (Sulfonamide Antibiotics) [Sulfa(Sulfonamide Antibiotics)] Allergy ( Verified 07/25/19 13:06) Hives sulfamethoxazole [From Decra] Allergy (Verified 07/25/19 13:06) Rash trimethoprim [From Decra] Allergy (Verified 07/25/19 13:06) Rash NSAIDS (Non-Steroidal Anti-Inflamma Adverse Reaction (Verified 07/25/19 13:06) Rash can take IM but no oral med eggs Allergy (Uncoded 07/25/19 13:06) Rash nausea/vomiting Home Medications: Diazepam 5 mg [Valium 5 MG] 2.5 mg PO TID 07/08/19 [History] Olanzapine 5 mg [zyPREXA 5MG TABLET] 10 mg PO HS 07/08/19 [History] Tizanidine HCl 4 mg [Zanaflex 4 MG] 4 mg PO UD 07/08/19 [History] Topiramate [Topamax] 300 mg PO HS 07/08/19 [History] Venlafaxine HCl [Effexor] 300 mg PO HS 07/08/19 [History] Albuterol 2.5 mg/3 ml Neb [Proventil 2.5 mg/3 ml Neb] 2.5 mg IH Q4H PRN [History] Benztropine Mesylate 0.5 mg PO HS 07/12/19 [History] Cyanocobalamin 1000 Mcg/ml [Cyanocobalamin B-12 1000 MCG/ML] 1,000 mcg IJ UD 07/12/19 [History] Galcanezumab-Gnlm [Emgality Pen] 120 mg SQ UD 07/12/19 [History] Non-Formulary Drug [Non-Formulary Item] 1 unit SUBDERMAL DAILY 07/12/19 [History ] PANTOPRAZOLE 40 mg Tablet [Protonix 40MG Tablet] 40 mg PO QAM 07/12/19 [ History] hydrOXYzine HCL [Hydroxyzine HCl] 50 mg pe PO QID PRN 07/12/19 [History] Hx Tetanus, Diphtheria Vaccination/Date Given: Yes Hx Influenza Vaccination/Date Given: No Hx Pneumococcal Vaccination/Date Given: No Immunizations Up to Date: Yes Travel Risk - International Travel Have you traveled outside of the country in past 3 weeks: No Have you or anyone close to you been diagnosed with or: No Do your reside in a community with a known COVID-19 case?: Yes If Yes where:: [facility] - Coronavirus Screening Has patient experienced Coronavirus symptoms: No - Review of Systems Constitutional: No Fever, No Chills Eyes: No Symptoms Ears, Nose, & Throat: No Symptoms Respiratory: No Cough, No Dyspnea Cardiac: No Chest Pain, No Edema, No Syncope Abdominal/Gastrointestinal: Nausea, No Abdominal Pain, No Vomiting, No Diarrhea Genitourinary Symptoms: No Dysuria Musculoskeletal: Back Pain, No Neck Pain Skin: No Rash Neurological: No Dizziness, No Focal Weakness, No Sensory Changes Psychological: No Symptoms Endocrine: No Symptoms All Other Systems: Reviewed and Negative - Past Medical History Pertinent Past Medical History: Yes Neurological History: Migraines ENT History: No Pertinent History Cardiac History: No Pertinent History Respiratory History: No Pertinent History Endocrine Medical History: Hypothyroidism Musculoskeletal History: No Pertinent History GI Medical History: No Pertinent History, Other History: Other Psycho-Social History: Anxiety, Depression Female Reproductive Disorders: Abnormal Uterine Bleeding, Menstrual Problems Other Medical History: states "recurring UTI", "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 - Past Surgical History Past Surgical History: Yes Neuro Surgical History: No Pertinent History Cardiac: No Pertinent History Respiratory: No Pertinent History Gastrointestinal: Appendectomy, Cholecystectomy Genitourinary: No Pertinent History Musculoskeletal: No Pertinent History Female Surgical History: Hysterectomy, Tubal Ligation, Other Other Surgical History: gastric bypass, lap band placed and removed first, two D &C, EGD - 03/19/16 - results "stomach inflammed" ablation. - Social History Smoking Status: Former smoker How long have you smoked: 3 years Exposure to second hand smoke: No Drug Use: none Patient Lives Alone: No - Female History Hx Last Menstrual Period: Hysterectomy Hx Now: No - Nursing Vital Signs Nursing Vital Signs: Initial Vital Signs Temperature 98.0 F 07/30/19 21:58 Pulse Rate 82 07/30/19 21:58 Respiratory Rate 18 07/30/19 21:58 Blood Pressure 121/68 07/30/19 21:58 O2 Sat by Pulse Oximetry 100 07/30/19 21:58 Pain Scale Pain Intensity [Abdomen] 7 Pain Intensity 6 - Physical Exam General Appearance: no apparent distress, alert Eye Exam: PERRL/EOMI, eyes nml inspection Ears, Nose, Throat Exam: normal ENT inspection, pharynx normal, moist mucous membranes Neck Exam: normal inspection, non-tender, supple, full range of motion Respiratory Exam: normal breath sounds, lungs clear, No respiratory distress Cardiovascular Exam: regular rate/rhythm, normal heart sounds Gastrointestinal/Abdomen Exam: soft, No tenderness, No mass Back Exam: normal inspection, normal range of motion, No CVA tenderness, No vertebral tenderness Extremity Exam: normal inspection, normal range of motion, pelvis stable Neurologic Exam: alert, 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, cooperative, normal mood/affect, nml cerebellar function, sensation nml, No motor deficits Skin Exam: normal color, warm, dry SpO2: 100 - Course Nursing assessment & vital signs reviewed: Yes Ordered Tests: Active Orders 24 hr Category Date Time Status Isolation, Initiate & Maintain Q4H Care 07/30/19 22:10 Active AMYLASE Stat Lab 07/30/19 22:34 Completed CBC W DIFF Stat Lab 07/30/19 22:34 Completed CMP Stat Lab 07/30/19 22:34 Completed CULTURE,URINE Stat Lab 07/30/19 23:32 Received LIPASE Stat Lab 07/30/19 22:34 Completed UA W/RFX UR CULTURE Stat Lab 07/30/19 23:32 Completed Medication Summary Generic Name Dose Route Start Last Admin Trade Name Freq PRN Reason Stop Dose Admin Sodium Chloride 1,000 mls @ 999 mls/hr 07/30/19 23:47 07/30/19 23:49 Sodium Chloride 0.9% 1000 Ml IV 07/31/19 00:47 999 mls/hr .Q1H1M STA Administration Ceftriaxone Sodium 1,000 mg/ 100 mls @ 100 mls/hr 07/30/19 23:55 Sodium Chloride IV 07/31/19 00:54 STAT ONE Discontinued Medications Generic Name Dose Route Start Last Admin Trade Name Freq PRN Reason Stop Dose Admin Fentanyl Citrate 50 mcg 07/30/19 22:02 07/30/19 22:22 Sublimaze 100 Mcg/2 Ml IV 07/30/19 22:03 50 mcg STAT ONE Administration Fentanyl Citrate Confirm 07/30/19 22:18 Sublimaze 100 Mcg/2 Ml Administered 07/30/19 22:19 Dose 100 mcg .ROUTE .STK-MED ONE Fentanyl Citrate 50 mcg 07/30/19 23:37 07/30/19 23:48 Sublimaze 100 Mcg/2 Ml IV 07/30/19 23:38 50 mcg STAT ONE Administration Fentanyl Citrate Confirm 07/30/19 23:39 Sublimaze 100 Mcg/2 Ml Administered 07/30/19 23:40 Dose 100 mcg .ROUTE .STK-MED ONE Sodium Chloride 1,000 mls @ 999 mls/hr 07/30/19 22:02 07/30/19 22:21 Sodium Chloride 0.9% 1000 Ml IV 07/30/19 23:02 999 mls/hr .Q1H1M STA Administration Sodium Chloride Confirm 07/30/19 22:19 Sodium Chloride 0.9% 1000 Ml Administered 07/30/19 22:20 Dose 1,000 mls @ ud .ROUTE .STK-MED ONE Sodium Chloride Confirm 07/30/19 23:34 Sodium Chloride 0.9% 1000 Ml Administered 07/30/19 23:35 Dose 1,000 mls @ ud .ROUTE .STK-MED ONE Lab/Rad Data: Laboratory Result Diagrams 07/30/19 22:34 07/30/19 22:34 Laboratory Results 07/30/19 07/30/19 07/30/19 Range/Units 23:32 22:34 22:34 WBC 8.2 (4.0-10.5) K/mm3 RBC 3.83 L (4.1-5.4) M/mm3 Hgb 11.6 L (12.0-16.0) gm/dl Hct 36.2 (35-47) % MCV 94.5 (78-100) fl MCH 30.3 (26-32) pg MCHC 32.0 (32-36) g/dl RDW 13.4 (11.5-14.0) % Plt Count 258 (150-450) K/mm3 MPV 11.1 H (7.5-11.0) fl Gran % 55.0 (36.0-66.0) % Eos # (Auto) 0.41 (0-0.5) Absolute Lymphs (auto) 2.68 (1.0-4.6) Absolute Monos (auto) 0.53 (0.0-1.3) Lymphocytes % 32.6 (24.0-44.0) % Monocytes % 6.4 (0.0-12.0) % Eosinophils % 5.0 (0.00-5.0) % Basophils % 1.0 (0.0-0.4) % Absolute Granulocytes 4.52 (1.4-6.9) Basophils # 0.08 (0-0.4) Sodium 143 (137-145) mmol/L Potassium 4.0 (3.5-5.1) mmol/L Chloride 111 H (98-107) mmol/L Carbon Dioxide 25 (22-30) mmol/L Anion Gap 10.4 (5-15) MEQ/L BUN 11 (7-17) mg/dL Creatinine 0.62 (0.52-1.04) mg/dL Estimated GFR > 60.0 ML/MIN Glucose 93 (74-106) mg/dL Calcium 9.3 (8.4-10.2) mg/dL Total Bilirubin 0.40 (0.2-1.3) mg/dL AST 17 (14-36) U/L ALT 13 (0-35) U/L Alkaline Phosphatase 85 (38-126) U/L Serum Total Protein 6.9 (6.3-8.2) g/dL Albumin 3.8 (3.5-5.0) g/dL Amylase 68 (30-110) U/L Lipase 65 (23-300) U/L Urine Color BETSY (YELLOW) Urine Appearance SLIGHTLY CLOUDY (CLEAR) Urine pH 5.0 (5-6) Ur Specific [place] 1.028 (1.005-1.025) Urine Protein NEGATIVE (Negative) Urine Ketones NEGATIVE (NEGATIVE) Urine Blood NEGATIVE (0-5) Cas/ul Urine Nitrite NEGATIVE (NEGATIVE) Urine Bilirubin NEGATIVE (NEGATIVE) Urine Urobilinogen 2 (0-1) mg/dL Ur Leukocyte Esterase TRACE (NEGATIVE) Urine WBC (Auto) 6-10 (0-5) /HPF Urine RBC (Auto) 6-10 (0-2) /HPF U Epithel Cells (Auto) FEW (FEW) /HPF Urine Bacteria (Auto) FEW (NEGATIVE) /HPF Urine Mucus (Auto) MANY (NEGATIVE) /HPF Urine Yeast (Budding) Moderate (NEGATIVE) /HPF Urine Culture Reflexed YES (NO) Urine Glucose NEGATIVE (NEGATIVE) mg/dL - Progress Progress: improved Counseled pt/family regarding: lab results, diagnosis, need for follow-up - Departure Departure Disposition: Home Clinical Impression: Dehydration UTI (urinary tract infection) Qualifiers: Urinary tract infection type: site unspecified Hematuria presence: without hematuria Qualified Code(s): N39.0 - Urinary tract infection, site not specified Condition: Stable Critical Care Time: No Referrals: CHANTE PAGAN MD [Primary Care Provider] - Instructions: Urinary Tract Infection, Adult (DC) Additional Instructions: VICKI MYRICK was seen on 07/30/19 n the Emergency Room. At that time you were treated for an emergent condition, during your visit Laboratory, Radiology and/or other procedures may have been ordered. It is very important that you follow-up with your Primary Care Physician CHANTE PAGAN within the next 24-48 hours to review your Emergency Room visit and the final results of testing that was ordered. Some test results such as Urine Cultures, Blood Cultures, and other cultures if ordered will not be finalized for 24-48 hours. If you do not have a Primary Care Provider please call the medical records department at [phone] ext [phone] to obtain a copy of your results or you may sign into our patient portal to obtain these results by visiting us @ [email or web address] and completing the following steps: 1. Click on the Patient Portal link 2. Click the Patient Self Enrollment Link to complete the enrollment form and entering your 3. Once the enrollment form is completed you will receive an email with a temporary ID and password at the email address you provided. 4. Next choose a user name and password. Your user name must be at least 4 characters long and your password must be at least 4 characters long. 5. Choose a security question from the list and provide your answer to the question. If you already have signed into the Health Portal you may access your Health Care Information 10/11 by the following steps: 1. Login to our website @ [email or web address] 2. Enter your original user name and password. FAQS The [facility] Health Portal is an online tool that contains your Lab Results, Radiology Reports, Visit History, Discharge Instructions and Health Summary Lab and Radiology Results will not be available for 72 hours on the portal. The Portal is a secure site, passwords are encryted and URLs are re-written so they cannot be copied and pasted. You and authorized family members are the only ones who can access your Portal. Also there is a timeout feature that protects your information if you leave the Portal page open. If you have technical difficulty please use the Contact Us link on the page this will allow you to submit any questions you have regarding the Portal or you may contact the Medical Record Department at [phone] ext [phone]. Prescriptions: Ciprofloxacin [Cipro 500 MG] 500 mg PO BIDAC #20 tablet
[2019-07-30] MEDS ORDERED: SUBLIMAZE 100 MCG/2 ML ONE ×2 (22:18→23:39)
[2019-07-30] MEDS ORDERED: Sodium Chloride 0.9% 1000 ML 1,000 ML ONE ×2 (22:19→23:34)
[2019-07-30 22:34] LABS: Absolute Neutrophil Ct (ANC) 4.52 (1.4-6.9); Basophil (Absolute #) 0.08 (0-0.4); Eosinophil (Absolute #) 0.41 (0-0.5); Hematocrit 36.2 % (35-47); Hemoglobin 11.6 gm/dl (12.0-16.0); Lymphocyte (Absolute #) 2.68 (1.0-4.6); Lymphocytes % 32.6 % (24.0-44.0); Mean Cell Volume 94.5 fl (78-100); Mean Corpuscular Hemoglobin 30.3 pg (26-32); Mean Platelet Volume 11.1 fl (7.5-11.0); Monocyte (Absolute #) 0.53 (0.0-1.3); Monocytes % 6.4 % (0.0-12.0); Platelet Count 258 K/mm3 (150-450); Red Blood Count 3.83 M/mm3 (4.1-5.4); Red Cell Distribution Width 13.4 % (11.5-14.0); White Blood Count 8.2 K/mm3 (4.0-10.5)
[2019-07-30 22:46] LABS: ALBUMIN 3.8 g/dL (3.5-5.0); ALKALINE PHOSPHATASE 85 U/L (38-126); AMYLASE 68 U/L (30-110); ANION GAP 10.4 MEQ/L (5-15); BLOOD UREA NITROGEN 11 mg/dL (7-17); CHLORIDE 111 mmol/L (98-107); Calcium 9.3 mg/dL (8.4-10.2); Carbon Dioxide 25 mmol/L (22-30); Creatinine 1 0.62 mg/dL (0.52-1.04); Glucose 93 mg/dL (74-106); LIPASE 65 U/L (23-300); SGOT/AST 17 U/L (14-36); SGPT/ALT 13 U/L (0-35); SODIUM 143 mmol/L (137-145); Total Protein 6.9 g/dL (6.3-8.2)
[2019-07-30 23:50] LABS: Appearance SLIGHTLY CLOUDY (CLEAR); Bacteria FEW /HPF (NEGATIVE); Bilirubin NEGATIVE (NEGATIVE); Blood NEGATIVE Ery/ul (0-5); Epithelial Cells FEW /HPF (FEW); Glucose NEGATIVE (NEGATIVE); Ketones NEGATIVE (NEGATIVE); Leukocyte Esterase TRACE (NEGATIVE); Mucus MANY /HPF (NEGATIVE); Nitrite NEGATIVE (NEGATIVE); Protein,Urine Dip NEGATIVE (Negative); Specific Gravity 1.028 (1.005-1.025); Urobilinogen 2 mg/dL (0-1)
[2019-07-30 23:51] LABS: Budding Yeast Moderate /HPF (NEGATIVE)
[2019-07-30] MEDS ORDERED: Rocephin 1000 MG INJ** 1,000 MG in Sodium Chloride 0.9% 100 ML IVPB 100 ML IV ONE (23:55)
[2019-07-31 00:08] VITALS: BP 118/78; PULSE 75
[2019-07-31] MEDS ORDERED: ROCEPHIN 1 Gm-D5w 50 ml Bag** 1 G/50 ML IVPB IV ONE (00:08)
== END 2019-07-31 00:41 | disposition home or self-care (01) ==
LOC: ED 21:28
DX: E86.0 Dehydration (principal); E03.9 Hypothyroidism, unspecified; F41.9 Anxiety disorder, unspecified; F32.9 Major depressive disorder, single episode, unspecified; Z79.899 Other long term (current) drug therapy
CPT/HCPCS: 36000; 36415; 80053; 81001; 82150; 83690; 85025; 87086; 96360; 96361; 96365; 96374; 96376; 99284; J0696; J3010

== ENCOUNTER 2019-10-06 14:55 | Inpatient (IN) | payer OTHER ==
[2019-10-06] MEDS ORDERED: Phenergan 25 MG INJ IV PRN (15:56)
[2019-10-06] MEDS ORDERED: Sodium Chloride 0.9% 1000 ML 1,000 ML IV STA (15:57)
[2019-10-06 16:06] LABS: Hematocrit 37.1 % (35-47); Hemoglobin 13.1 gm/dl (12.0-16.0); Mean Cell Volume 92.5 fl (78-100); Mean Corpuscular Hemoglobin 32.7 pg (26-32); Mean Corpuscular Hgb Concent. 35.3 g/dl (32-36); Mean Platelet Volume 12.6 fl (7.5-11.0); Platelet Count 163 K/mm3 (150-450); Red Blood Count 4.01 M/mm3 (4.1-5.4); Red Cell Distribution Width 13.7 % (11.5-14.0); White Blood Count 6.9 K/mm3 (4.0-10.5)
[2019-10-06] MEDS: Sodium Chloride 0.9% 1000 ML 1,000 ML IV SCH (16:14)
[2019-10-06] MEDS: TORAdol 30 mg Injection IV PRN (16:15)
[2019-10-06] MEDS ORDERED: PROVENTIL 2.5 MG/3 ML NEB IH PRN (16:23)
[2019-10-06] MEDS ORDERED: HYDROXYZINE HCL 50 MG PO PRN (16:23)
[2019-10-06] MEDS ORDERED: ATARAX 25 MG PO PRN (16:33)
[2019-10-06] MEDS: Klonopin 0.5 MG PO SCH ×2 (16:44→21:56)
[2019-10-06] MEDS ORDERED: MEDICATION INTERVENTION MC SCH (16:45)
[2019-10-06] MEDS: Zofran 4 MG/2 ML VIAL IV PRN (17:57)
[2019-10-06 18:50] LABS: ANION GAP 12.8 MEQ/L (5-15); BLOOD UREA NITROGEN 9 mg/dL (7-17); CHLORIDE 109 mmol/L (98-107); Calcium 9.1 mg/dL (8.4-10.2); Carbon Dioxide 22 mmol/L (22-30); Creatinine 1 0.68 mg/dL (0.52-1.04); Glucose 96 mg/dL (74-106); PREALBUMIN 13.73 mg/dL (17.6-36.0); Potassium 3.2 mmol/L (3.5-5.1); SODIUM 141 mmol/L (137-145)
[2019-10-06] MEDS: EFFEXOR 37.5 MG PO SCH (21:55)
[2019-10-06] MEDS: TOPIRAMATE PO SCH (21:56)
[2019-10-06] MEDS: Desyrel 150 MG PO SCH (21:56)
[2019-10-06] MEDS: Keppra 250 MG PO SCH (21:57)
[2019-10-06] MEDS: Zanaflex 4 MG PO SCH (21:57)
[2019-10-06] MEDS ORDERED: VENLAFAXINE HCL 100 MG PO SCH (22:00)
[2019-10-06] MEDS ORDERED: NON-FORMULARY ITEM (Trazodone Hcl [Trazodone Hcl] 100 MG) PO SCH (22:00)
[2019-10-06] MEDS ORDERED: NON-FORMULARY ITEM (Topiramate [Topamax] 200 MG) PO SCH (22:00)
[2019-10-06] MEDS ORDERED: Transderm Scop 1.5MG Patch TOP ONE (22:19)
--- NOTE | 2019-10-06 22:25 | PCM.NOTE ---
Date and Time: 10/06/192219 Subjective Assessment: Pt is 34 yo female with chronic N/V and headache, pt of Dr. Law, who was seen by him in office today for N/V and intractable FERRIS and admitted directly with likely dehydration. See his office note for full details. She had gastric sleeve surgery years ago, but says in the past year she has lost 100 lb. She c/o vaginal bleeding recently - she had a hysterectomy in June 2019. Pt is waiting for a PA in order to have botox with Dr. Pike. - Review of Systems Constitutional: No Fever Abdominal/Gastrointestinal: Nausea, Vomiting Neurological: Headache Objective Exam General Appearance: mild distress, alert Neurologic Exam: 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, cooperative Skin Exam: normal color, warm, dry, No rash Ears, Nose, Throat Exam: moist mucous membranes Neck Exam: normal inspection Respiratory Exam: normal breath sounds, lungs clear, No crackles/rales, No rhonchi, No wheezing Cardiovascular Exam: regular rate/rhythm, normal heart sounds, No murmur Gastrointestinal/Abdomen Exam: soft, normal bowel sounds Extremity Exam: normal inspection, No pedal edema, No swelling Back Exam: normal inspection, No rash OBJECTIVE DATA Vital Signs: Vital Signs - 24 hr Temp Pulse Resp BP BP Pulse Ox 10/06/19 20:00 97.8 F 66 18 102/63 127/84 98 10/06/19 15:21 98.8 F 98 H 18 127/84 100 10/06/19 15:18 98.8 F 98 H 18 127/84 100 10/06/19 15:07 98.8 F 98 H 18 127/84 100 Pain Assessment - Last Documented Pain Intensity 7 Pain Scale Used 0-10 Pain Scale Intake and Output: Intake & Output 10/04/19 10/05/19 10/06/19 10/07/19 11:59 11:59 11:59 11:59 Intake Total 480 Balance 480 Weight 74.5 kg Lab Results: Lab Results-Last 24 Hours 10/06/19 10/06/19 Range/Units 15:45 15:45 WBC 6.9 (4.0-10.5) K/mm3 RBC 4.01 L (4.1-5.4) M/mm3 Hgb 13.1 (12.0-16.0) gm/dl Hct 37.1 (35-47) % MCV 92.5 (78-100) fl MCH 32.7 H (26-32) pg MCHC 35.3 (32-36) g/dl RDW 13.7 (11.5-14.0) % Plt Count 163 (150-450) K/mm3 MPV 12.6 H (7.5-11.0) fl Sodium 141 (137-145) mmol/L Potassium 3.2 L (3.5-5.1) mmol/L Chloride 109 H (98-107) mmol/L Carbon Dioxide 22 (22-30) mmol/L Anion Gap 12.8 (5-15) MEQ/L BUN 9 (7-17) mg/dL Creatinine 0.68 (0.52-1.04) mg/dL Estimated GFR > 60.0 ML/MIN Glucose 96 (74-106) mg/dL Calcium 9.1 (8.4-10.2) mg/dL Prealbumin 13.73 L (17.6-36.0) mg/dL Assessment/Plan (1) Intractable headache Current Visit: Yes Status: Acute Qualifiers: Headache type: unspecified Headache chronicity pattern: chronic headache Qualified Code(s): R51 - Headache Assessment & Plan: Will try some O2 per NC (10L for 15 min). Code(s): R51 - HEADACHE (2) Hypokalemia Current Visit: No Status: Acute Code(s): E87.6 - HYPOKALEMIA (3) Vomiting Current Visit: No Status: Acute Qualifiers: Vomiting type: unspecified Vomiting Intractability: non-intractable Nausea presence: with nausea Qualified Code(s): R11.2 - Nausea with vomiting, unspecified Assessment & Plan: try scopolamine transdermal. Code(s): R11.10 - VOMITING, UNSPECIFIED
[2019-10-07] MEDS: TORAdol 30 mg Injection IV PRN (00:23)
[2019-10-07] MEDS ORDERED: MORPHINE SULFATE 4 MG INJ IV PRN (03:38)
[2019-10-07] MEDS: Zofran 4 MG/2 ML VIAL IV PRN ×4 (03:44→21:23)
[2019-10-07] MEDS: Sodium Chloride 0.9% 1000 ML 1,000 ML IV SCH ×2 (05:44→12:22)
[2019-10-07] MEDS ORDERED: SUBLIMAZE 100 MCG/2 ML IV ONE (07:35)
[2019-10-07] MEDS ORDERED: Sodium Chloride 0.9% 500 ML 500 ML IV ONE (07:36)
[2019-10-07] MEDS: Zanaflex 4 MG PO SCH (09:28)
[2019-10-07] MEDS: Klonopin 0.5 MG PO SCH ×3 (09:28→21:25)
[2019-10-07] MEDS: Protonix 40MG Tablet PO SCH (09:28)
[2019-10-07] MEDS: Keppra 250 MG PO SCH ×2 (09:29→21:25)
[2019-10-07] MEDS: EFFEXOR 37.5 MG PO SCH ×3 (09:29→21:37)
[2019-10-07] MEDS ORDERED: [UNRECOGNIZED DRUG - OTHER] SUBDERMAL SCH (10:00)
[2019-10-07] MEDS: SUBLIMAZE 100 MCG/2 ML IV PRN ×6 (10:07→21:21)
[2019-10-07] MEDS: TOPIRAMATE PO SCH ×2 (10:08→21:26)
[2019-10-07] MEDS: Zanaflex 4 MG PO PRN (14:56)
--- NOTE | 2019-10-07 15:07 | XRAY ---
Indication: Abdomen pain, headache, cramping, and vaginal bleeding. Multiple contiguous axial images obtained through the abdomen and pelvis using oral contrast only as ordered. Comparison: July 25, 2019. Lung bases clear with stable tiny right lower lobe calcified granuloma. Heart is not enlarged. Again previous gastric bypass surgery. Contrasted stomach and bowel loops appear nonobstructed. Jejunal bowel loops now demonstrates mild wall thickening, possible enteritis in the right clinical setting. Small free fluid in the pelvis may be related to enteritis. No walled off fluid collection or free air. Again appendectomy, cholecystectomy, and partial hysterectomy. Remaining liver, pancreas, spleen, adrenal glands, kidneys, ureters, bladder, and aorta appear unremarkable for noncontrast exam. Osseous structures intact. Previous lower abdominal wall postsurgical changes have resolved. Stable bilateral gluteal calcified injection granulomas. Impression: 1. Mild jejunal bowel wall thickening. Rule out enteritis. Small pelvic free fluid possibly reactive. 2. Stable gastric bypass surgery and right lung calcified granuloma. 3. Remaining CT abdomen/pelvis without contrast exam is negative.
[2019-10-07] MEDS: FLAGYL 500 MG IVPB 500 MG/100 ML BAG IV SCH ×2 (16:03→21:27)
[2019-10-07] MEDS: Levofloxacin 500MG/100ML D5W 500 MG/100 ML BAG IV SCH (16:29)
--- NOTE | 2019-10-07 18:55 | PCM.NOTE ---
Date and Time: 10/07/191850 Subjective Assessment: Pt seen this morning, when she c/o FERRIS (fentanyl single dose did not help). She was trying to eat in the a.m. C/o LLQ pain. Pt says she feels something firm in her abdomen; said she has had 2 CTs at [facility] this year. - Review of Systems Constitutional: No Fever Abdominal/Gastrointestinal: Abdominal Pain, Nausea Neurological: Headache Objective Exam General Appearance: mild distress, alert Neurologic Exam: 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, cooperative Skin Exam: normal color, warm, dry, No rash Ears, Nose, Throat Exam: moist mucous membranes Respiratory Exam: normal breath sounds, lungs clear, No crackles/rales, No rhonchi, No wheezing Gastrointestinal/Abdomen Exam: soft, tenderness (LLQ), No normal bowel sounds (hypoactive but present), No distention, No mass, No guarding, No rebound Extremity Exam: No swelling, No tenderness OBJECTIVE DATA Vital Signs: Vital Signs - 24 hr Temp Pulse Resp BP BP Pulse Ox 10/07/19 16:00 97.6 F 46 L 16 104/58 95 10/07/19 12:00 97.6 F 48 L 14 88/55 94 L 10/07/19 08:39 50 L 86/53 10/07/19 07:39 97.6 F 55 L 16 72/39 96 10/07/19 03:58 97.7 F 45 L 16 93/57 82/50 97 10/06/19 23:58 97.5 F 54 L 12 82/50 98 10/06/19 22:40 97 10/06/19 20:00 97.8 F 66 18 102/63 127/84 98 Pain Assessment - Last Documented Pain Intensity 9 Pain Scale Used 0-10 Pain Scale Intake and Output: Intake & Output 10/05/19 10/06/19 10/07/19 10/08/19 11:59 11:59 11:59 11:59 Intake Total 3045 2357 Output Total 200 60 Balance 2845 2297 Weight 74.5 kg Lab Results: Lab Results-Last 24 Hours 10/06/19 Range/Units 15:45 Sodium 141 (137-145) mmol/L Potassium 3.2 L (3.5-5.1) mmol/L Chloride 109 H (98-107) mmol/L Carbon Dioxide 22 (22-30) mmol/L Anion Gap 12.8 (5-15) MEQ/L BUN 9 (7-17) mg/dL Creatinine 0.68 (0.52-1.04) mg/dL Estimated GFR > 60.0 ML/MIN Glucose 96 (74-106) mg/dL Calcium 9.1 (8.4-10.2) mg/dL Prealbumin 13.73 L (17.6-36.0) mg/dL Radiology Exams: Radiology Procedures Category Date Time Status ABDOMEN AND PELVIS W/0 CONTRAS [CT] Routine Exams 10/07/19 11:02 Completed Multi-Disciplinary Progress Notes: Multi-Disciplinary Progress Notes 10/07/19 15:54 Pharmacy Note by Carlos Judge Please be aware of possible drug interaction with Levaquin and Trazodone. May prolong QT interval. Initialized on 10/07/19 15:54 - END OF NOTE Assessment/Plan (1) Intractable headache Current Visit: Yes Status: Acute Qualifiers: Headache type: unspecified Headache chronicity pattern: chronic headache Qualified Code(s): R51 - Headache Assessment & Plan: Tried O2 without relief. Has tried multiple medications; supposed to be getting botox soon. Try increasing frequency of fentanyl. Code(s): R51 - HEADACHE (2) Enteritis Current Visit: Yes Status: Acute Assessment & Plan: After I saw pt this morning, ordered CT abd/pelvis (pt not able to oscar po contrast, secondary to vomiting, and is allergic to shellfish re: IV contrast). It showed some thickening of the small bowel wall. Started pt on levaquin and flagyl IV. Code(s): K52.9 - NONINFECTIVE GASTROENTERITIS AND COLITIS, UNSPECIFIED (3) Hypokalemia Current Visit: No Status: Acute Code(s): E87.6 - HYPOKALEMIA (4) Vomiting Current Visit: No Status: Resolved Qualifiers: Vomiting type: unspecified Vomiting Intractability: non-intractable Nausea presence: with nausea Qualified Code(s): R11.2 - Nausea with vomiting, unspecified Assessment & Plan: better with scopolamine transdermal. Code(s): R11.10 - VOMITING, UNSPECIFIED
[2019-10-07] MEDS: Desyrel 150 MG PO SCH (21:46)
[2019-10-08] MEDS: SUBLIMAZE 100 MCG/2 ML IV PRN ×9 (00:54→23:42)
[2019-10-08] MEDS: Zofran 4 MG/2 ML VIAL IV PRN ×4 (02:40→20:50)
[2019-10-08] MEDS: Sodium Chloride 0.9% 1000 ML 1,000 ML IV SCH ×2 (02:40→15:24)
[2019-10-08 09:21] LABS: Appearance SLIGHTLY CLOUDY (CLEAR); Bilirubin NEGATIVE (NEGATIVE); Blood NEGATIVE Ery/ul (0-5); Glucose NEGATIVE (NEGATIVE); Ketones NEGATIVE (NEGATIVE); Leukocyte Esterase NEGATIVE (NEGATIVE); Nitrite NEGATIVE (NEGATIVE); Protein,Urine Dip NEGATIVE (Negative); Specific Gravity 1.026 (1.005-1.025); Urobilinogen NORMAL mg/dL (0-1)
[2019-10-08 09:22] LABS: Bacteria RARE /HPF (NEGATIVE); Epithelial Cells RARE /HPF (FEW); RBC NONE SEEN /HPF (0-2)
[2019-10-08] MEDS: EFFEXOR 37.5 MG PO SCH ×3 (09:33→21:43)
[2019-10-08] MEDS: TOPIRAMATE PO SCH ×2 (09:33→21:43)
[2019-10-08] MEDS: Keppra 250 MG PO SCH ×2 (09:34→21:42)
[2019-10-08] MEDS: FLAGYL 500 MG IVPB 500 MG/100 ML BAG IV SCH ×3 (09:34→21:42)
[2019-10-08] MEDS: Protonix 40MG Tablet PO SCH (09:34)
[2019-10-08] MEDS: Klonopin 0.5 MG PO SCH ×3 (09:34→21:43)
--- NOTE | 2019-10-08 09:57 | PCM.HP.ADD ---
Addendum to History & Physical - History & Physical Addendum Addendum to History & Physical: This certifies that the History & Physical in the electronic chart reflects the current health status of the patient. If there are changes in the H&P these changes/exceptions are listed as follows. (Office visit done by Dr. Law on day of admission)
[2019-10-08 11:57] LABS: Hematocrit 35.5 % (35-47); Hemoglobin 11.3 gm/dl (12.0-16.0); Mean Cell Volume 95.7 fl (78-100); Mean Corpuscular Hemoglobin 30.5 pg (26-32); Mean Corpuscular Hgb Concent. 31.8 g/dl (32-36); Mean Platelet Volume 12.9 fl (7.5-11.0); Platelet Count 134 K/mm3 (150-450); Red Blood Count 3.71 M/mm3 (4.1-5.4); Red Cell Distribution Width 13.8 % (11.5-14.0); White Blood Count 4.9 K/mm3 (4.0-10.5)
[2019-10-08 12:08] LABS: ANION GAP 11.2 MEQ/L (5-15); BLOOD UREA NITROGEN 6 mg/dL (7-17); CHLORIDE 112 mmol/L (98-107); Calcium 8.2 mg/dL (8.4-10.2); Carbon Dioxide 19 mmol/L (22-30); Creatinine 1 0.55 mg/dL (0.52-1.04); Glucose 83 mg/dL (74-106); Potassium 3.5 mmol/L (3.5-5.1); SODIUM 139 mmol/L (137-145)
[2019-10-08] MEDS: Levofloxacin 500MG/100ML D5W 500 MG/100 ML BAG IV SCH (17:00)
[2019-10-08] MEDS ORDERED: TORAdol 30 mg Injection IV PRN (17:17)
--- NOTE | 2019-10-08 17:17 | PCM.NOTE ---
Date and Time: 10/08/191711 Subjective Assessment: She is still not feeling well, still haveing FERRIS, abd pain, and not eating well. 8/10 pain, the pain med helps a little. She only had 1/2 a jello yesterday and 1/2 today as well. She was not urinating well so straight cath done with 400cc out so santiago was anchored. 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 She was supposed to have a surgery repeated but states she has not needed it. - Review of Systems Abdominal/Gastrointestinal: Abdominal Pain, Nausea Neurological: Headache Objective Exam General Appearance: mild distress, alert Neurologic Exam: 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, cooperative Skin Exam: warm, dry, pale, No rash Eye Exam: eyes nml inspection Ears, Nose, Throat Exam: moist mucous membranes Neck Exam: normal inspection Respiratory Exam: normal breath sounds, lungs clear, No crackles/rales, No rhonchi, No wheezing Cardiovascular Exam: normal heart sounds, bradycardia, No murmur Gastrointestinal/Abdomen Exam: soft, tenderness (periumbilical/LLQ), No normal bowel sounds (hypoactive but present), No distention, No mass, No guarding, No rebound Extremity Exam: No swelling, No tenderness OBJECTIVE DATA Vital Signs: Vital Signs - 24 hr Temp Pulse Resp BP BP Pulse Ox 10/08/19 12:00 97.7 F 42 L 12 116/79 93 L 10/08/19 08:00 97.6 F 46 L 10 L 116/76 97 10/08/19 07:30 96 10/08/19 04:00 97.7 F 52 L 12 108/68 88/55 93 L 10/08/19 00:00 98.1 F 42 L 15 109/72 94 L 10/07/19 20:00 97.5 F 44 L 17 113/79 96 Pain Assessment - Last Documented Pain Intensity 8 Pain Scale Used 0-10 Pain Scale Intake and Output: Intake & Output 10/06/19 10/07/19 10/08/19 10/09/19 11:59 11:59 11:59 11:59 Intake Total 3044 4223 240 Output Total 030 685 5835 Balance 2845 6439 -1560 Weight 74.5 kg Lab Results: Lab Results-Last 24 Hours 10/08/19 10/08/19 10/08/19 Range/Units 07:00 09:51 10:40 WBC 4.9 (4.0-10.5) K/mm3 RBC 3.71 L (4.1-5.4) M/mm3 Hgb 11.3 L (12.0-16.0) gm/dl Hct 35.5 (35-47) % MCV 95.7 (78-100) fl MCH 30.5 (26-32) pg MCHC 31.8 L (32-36) g/dl RDW 13.8 (11.5-14.0) % Plt Count 134 L (150-450) K/mm3 MPV 12.9 H (7.5-11.0) fl Sodium 139 (137-145) mmol/L Potassium 3.5 (3.5-5.1) mmol/L Chloride 112 H (98-107) mmol/L Carbon Dioxide 19 L (22-30) mmol/L Anion Gap 11.2 (5-15) MEQ/L BUN 6 L (7-17) mg/dL Creatinine 0.55 (0.52-1.04) mg/dL Estimated GFR > 60.0 ML/MIN Glucose 83 (74-106) mg/dL Calcium 8.2 L (8.4-10.2) mg/dL Urine Color BETSY (YELLOW) Urine Appearance SLIGHTLY CLOUDY (CLEAR) Urine pH 5.0 (5-6) Ur Specific [place] 1.026 (1.005-1.025) Urine Protein NEGATIVE (Negative) Urine Ketones NEGATIVE (NEGATIVE) Urine Blood NEGATIVE (0-5) Cas/ul Urine Nitrite NEGATIVE (NEGATIVE) Urine Bilirubin NEGATIVE (NEGATIVE) Urine Urobilinogen NORMAL (0-1) mg/dL Ur Leukocyte Esterase NEGATIVE (NEGATIVE) Urine WBC (Auto) 3-5 (0-5) /HPF Urine RBC (Auto) NONE SEEN (0-2) /HPF U Epithel Cells (Auto) RARE (FEW) /HPF Urine Bacteria (Auto) RARE (NEGATIVE) /HPF Urine Culture Reflexed ORDERED SEPARATELY (NO) Urine Glucose NEGATIVE (NEGATIVE) mg/dL Radiology Exams: Radiology Procedures Category Date Time Status ABDOMEN AND PELVIS W/0 CONTRAS [CT] Routine Exams 10/07/19 11:02 Completed Assessment/Plan (1) Intractable headache Current Visit: Yes Status: Acute Qualifiers: Headache type: unspecified Headache chronicity pattern: chronic headache Qualified Code(s): R51 - Headache Assessment & Plan: ON IV fentanyl. Would like to alternate with po meds but she is not able to, as she is not tolerating much po at all. May increase fentanyl. Cannot give dilaudid or morphine due to hypotension and bradycardia. Code(s): R51 - HEADACHE (2) Enteritis Current Visit: Yes Status: Acute Assessment & Plan: on levaquin and flagyl day #2. Code(s): K52.9 - NONINFECTIVE GASTROENTERITIS AND COLITIS, UNSPECIFIED (3) Hypokalemia Current Visit: No Status: Resolved Code(s): E87.6 - HYPOKALEMIA (4) Vomiting Current Visit: No Status: Resolved Qualifiers: Vomiting type: unspecified Vomiting Intractability: non-intractable Nausea presence: with nausea Qualified Code(s): R11.2 - Nausea with vomiting, unspecified Code(s): R11.10 - VOMITING, UNSPECIFIED
[2019-10-08] MEDS: Desyrel 150 MG PO SCH (21:50)
[2019-10-09] MEDS: SUBLIMAZE 100 MCG/2 ML IV PRN ×4 (02:08→10:34)
[2019-10-09] MEDS: Zofran 4 MG/2 ML VIAL IV PRN ×4 (02:09→22:08)
[2019-10-09] MEDS: Sodium Chloride 0.9% 1000 ML 1,000 ML IV SCH ×3 (05:04→15:39)
[2019-10-09 08:24] LABS: Hematocrit 34.9 % (35-47); Hemoglobin 11.2 gm/dl (12.0-16.0); Mean Cell Volume 94.6 fl (78-100); Mean Corpuscular Hemoglobin 30.4 pg (26-32); Mean Corpuscular Hgb Concent. 32.1 g/dl (32-36); Mean Platelet Volume 11.7 fl (7.5-11.0); Platelet Count 126 K/mm3 (150-450); Red Blood Count 3.69 M/mm3 (4.1-5.4); Red Cell Distribution Width 13.5 % (11.5-14.0); White Blood Count 5.6 K/mm3 (4.0-10.5)
[2019-10-09 08:57] LABS: ANION GAP 9.1 MEQ/L (5-15); BLOOD UREA NITROGEN 4 mg/dL (7-17); CHLORIDE 112 mmol/L (98-107); Calcium 8.2 mg/dL (8.4-10.2); Carbon Dioxide 21 mmol/L (22-30); Creatinine 1 0.58 mg/dL (0.52-1.04); Glucose 80 mg/dL (74-106); MAGNESIUM 1.8 mg/dL (1.6-2.3); Potassium 3.7 mmol/L (3.5-5.1); SODIUM 138 mmol/L (137-145)
[2019-10-09] MEDS: TOPIRAMATE PO SCH ×2 (09:00→22:09)
[2019-10-09] MEDS: FLAGYL 500 MG IVPB 500 MG/100 ML BAG IV SCH ×3 (09:01→22:08)
[2019-10-09] MEDS: Klonopin 0.5 MG PO SCH ×3 (09:01→22:10)
[2019-10-09] MEDS: Protonix 40MG Tablet PO SCH (09:01)
[2019-10-09] MEDS: Keppra 250 MG PO SCH ×2 (09:01→22:10)
[2019-10-09] MEDS: EFFEXOR 37.5 MG PO SCH ×3 (09:01→22:09)
[2019-10-09] MEDS: MORPHINE SULFATE 4 MG INJ IV PRN ×3 (13:43→22:08)
[2019-10-09] MEDS: Levofloxacin 500MG/100ML D5W 500 MG/100 ML BAG IV SCH (15:39)
--- NOTE | 2019-10-09 19:26 | PCM.NOTE ---
Date and Time: 10/09/191920 Subjective Assessment: Pt says the toradol is not helping much. Morphine helped the most, but was unable to have it for some time due to low blood pressures. Feels her abd symptoms are not improving. c/o throat pain x 2d garcia on the L. FERRIS 8-12/28, abd pain 10/27 - Review of Systems Constitutional: No Fever Abdominal/Gastrointestinal: Abdominal Pain, Nausea Objective Exam General Appearance: mild distress, alert Neurologic Exam: 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, cooperative Skin Exam: normal color, warm, dry, No rash Eye Exam: eyes nml inspection Ears, Nose, Throat Exam: moist mucous membranes, pharyngeal erythema Respiratory Exam: normal breath sounds, lungs clear, No crackles/rales, No rhonchi, No wheezing Cardiovascular Exam: regular rate/rhythm, normal heart sounds, No murmur Gastrointestinal/Abdomen Exam: soft, normal bowel sounds, tenderness (generalize d), No distention, No mass, No guarding Extremity Exam: normal inspection Back Exam: normal inspection, No rash OBJECTIVE DATA Vital Signs: Vital Signs - 24 hr Temp Pulse Resp BP Pulse Ox 10/09/19 16:00 97.8 F 54 L 14 135/89 91 L 10/09/19 12:00 98.5 F 53 L 14 128/83 93 L 10/09/19 08:00 98 F 55 L 16 123/78 95 10/09/19 07:56 95 10/09/19 04:00 97.8 F 41 L 16 120/77 99 10/09/19 00:00 97.7 F 42 L 18 143/71 96 10/08/19 21:28 91 L 10/08/19 20:00 97.8 F 42 L 16 131/82 99 Oxygen-Last 24 hours Oxygen Flowrate (L/min)-RT 2 Pain Assessment - Last Documented Pain Intensity 10 Pain Scale Used 0-10 Pain Scale Intake and Output: Intake & Output 10/07/19 10/08/19 10/09/19 10/10/19 11:59 11:59 11:59 11:59 Intake Total 3045 4288 2866 1710 Output Total 905 775 0639 900 Balance 2845 3559 -34 810 Weight 74.5 kg Lab Results: Lab Results-Last 24 Hours 06/21/20 06/21/20 06/21/20 Range/Units 08:15 08:15 16:50 WBC 5.6 (4.0-10.5) K/mm3 RBC 3.69 L (4.1-5.4) M/mm3 Hgb 11.2 L (12.0-16.0) gm/dl Hct 34.9 L (35-47) % MCV 94.6 (78-100) fl MCH 30.4 (26-32) pg MCHC 32.1 (32-36) g/dl RDW 13.5 (11.5-14.0) % Plt Count 126 L (150-450) K/mm3 MPV 11.7 H (7.5-11.0) fl Sodium 138 (137-145) mmol/L Potassium 3.7 (3.5-5.1) mmol/L Chloride 112 H (98-107) mmol/L Carbon Dioxide 21 L (22-30) mmol/L Anion Gap 9.1 (5-15) MEQ/L BUN 4 L (7-17) mg/dL Creatinine 0.58 (0.52-1.04) mg/dL Estimated GFR > 60.0 ML/MIN Glucose 80 (74-106) mg/dL Calcium 8.2 L (8.4-10.2) mg/dL Magnesium 1.8 (1.6-2.3) mg/dL Group A Strep Antibody NOT DETECTED (NEGATIVE) Assessment/Plan (1) Intractable headache Current Visit: Yes Status: Acute Qualifiers: Headache type: unspecified Headache chronicity pattern: chronic headache Qualified Code(s): R51 - Headache Code(s): R51 - HEADACHE (2) Enteritis Current Visit: Yes Status: Acute Code(s): K52.9 - NONINFECTIVE GASTROENTERITIS AND COLITIS, UNSPECIFIED (3) Hypokalemia Current Visit: No Status: Resolved Code(s): E87.6 - HYPOKALEMIA (4) Vomiting Current Visit: No Status: Resolved Qualifiers: Vomiting type: unspecified Vomiting Intractability: non-intractable Nausea presence: with nausea Qualified Code(s): R11.2 - Nausea with vomiting, unspecified Assessment & Plan: Will try advancing to bland diet - if no improvement may need to consult surgery for their opinion on further diagnosis (understand pt is nonsurgical). Code(s): R11.10 - VOMITING, UNSPECIFIED (5) Pharyngitis Current Visit: Yes Status: Acute Qualifiers: Pharyngitis/tonsillitis etiology: unspecified etiology Qualified Code(s): J02.9 - Acute pharyngitis, unspecified Assessment & Plan: screen for strep Code(s): J02.9 - ACUTE PHARYNGITIS, UNSPECIFIED
[2019-10-10] MEDS: Desyrel 150 MG PO SCH ×2 (01:39→21:57)
[2019-10-10] MEDS: MORPHINE SULFATE 4 MG INJ IV PRN ×3 (02:39→13:08)
[2019-10-10] MEDS: Zofran 4 MG/2 ML VIAL IV PRN ×4 (02:40→17:42)
[2019-10-10] MEDS: Sodium Chloride 0.9% 1000 ML 1,000 ML IV SCH ×4 (03:08→21:50)
[2019-10-10 05:38] LABS: ANION GAP 9.3 MEQ/L (5-15); CHLORIDE 112 mmol/L (98-107); Carbon Dioxide 21 mmol/L (22-30); Creatinine 1 0.53 mg/dL (0.52-1.04); Glucose 87 mg/dL (74-106); Potassium 3.5 mmol/L (3.5-5.1); SODIUM 138 mmol/L (137-145)
[2019-10-10 05:39] LABS: BLOOD UREA NITROGEN 2 mg/dL (7-17)
[2019-10-10] MEDS ORDERED: VITAMIN D2 PO SCH (10:00)
[2019-10-10] MEDS: Protonix 40MG Tablet PO SCH (10:13)
[2019-10-10] MEDS: TOPIRAMATE PO SCH ×2 (10:13→21:54)
[2019-10-10] MEDS: Keppra 250 MG PO SCH ×2 (10:13→21:54)
[2019-10-10] MEDS: Klonopin 0.5 MG PO SCH ×3 (10:13→21:54)
[2019-10-10] MEDS: EFFEXOR 37.5 MG PO SCH ×3 (10:14→21:55)
[2019-10-10] MEDS: FLAGYL 500 MG IVPB 500 MG/100 ML BAG IV SCH ×3 (10:14→21:54)
[2019-10-10] MEDS ORDERED: Ketamine HCl 50 MG/ML ONE (14:42)
[2019-10-10] MEDS ORDERED: DIPRIVAN 200 MG/20 ML IV ONE (14:42)
[2019-10-10] MEDS: Levofloxacin 500MG/100ML D5W 500 MG/100 ML BAG IV SCH (15:44)
[2019-10-10] MEDS: Zanaflex 4 MG PO PRN (18:33)
--- NOTE | 2019-10-10 20:32 | PCM.NOTE ---
Date and Time: 10/10/192025 Subjective Assessment: 34 yr old female seen and examined this am. Patient is a limited historian and appears to be overmedicated as her eyes were unable to focus and track well. Patient was able to answer questions in regards to her headaches. She reports she sees Dr Polanco from neuro who prescribed her migraine injectable. Patient reports in a months time period she is only headache free for 1 week. She reports sensitivity to light and sound. Patient reports that she has been nauseated and had self reported to the other physician a 100 pound weight loss unintentional over the past year. She had reported to the nursing staff that she had vomited multiple times over the past two days however when discussing vomiting she stated she had only vomited twice and that was prior to be given the emesis bag. She states that she has had a lot of dry heeves however. She reports that she had weight loss surgery approx 16 years ago. No other reported concerns at this time. - Review of Systems Constitutional: Weight Loss (self reported 100 pounds unintentional over the past year) Eyes: Photophobia Ears, Nose, & Throat: No Symptoms Respiratory: No Symptoms Cardiac: No Symptoms Abdominal/Gastrointestinal: Abdominal Pain, Nausea, Vomiting, No Diarrhea, No Constipation Genitourinary Symptoms: No Symptoms Musculoskeletal: No Symptoms Neurological: Headache All Other Systems: Unable due to condition (limited due to possible overmedicating) Objective Exam General Appearance: mild distress Neurologic Exam: alert, depressed mood/affect, other Skin Exam: normal color, warm, dry, No rash Eye Exam: other (Patient's eyes were not tracking well), No pale conjunctivae Ears, Nose, Throat Exam: moist mucous membranes Neck Exam: normal inspection Respiratory Exam: normal breath sounds, lungs clear, No chest tenderness, No respiratory distress Cardiovascular Exam: regular rate/rhythm, normal heart sounds, No murmur, No friction rub, No gallop, No edema Gastrointestinal/Abdomen Exam: soft, normal bowel sounds, tenderness, No distention Extremity Exam: normal inspection OBJECTIVE DATA Vital Signs: Vital Signs - 24 hr Temp Pulse Resp BP BP Pulse Ox 10/10/19 19:02 94 L 10/10/19 16:00 98 F 70 14 118/76 96 10/10/19 13:13 97.7 F 72 17 117/77 99 10/10/19 12:24 97.7 F 72 17 117/77 99 10/10/19 12:00 97.7 F 72 17 117/73 99 10/10/19 07:36 97.9 F 67 16 123/80 100 10/10/19 05:58 98 10/10/19 04:00 97.7 F 73 16 112/77 88/55 97 10/10/19 00:00 97.9 F 72 14 113/78 97 Oxygen-Last 24 hours Oxygen Flowrate (L/min)-RT 2 Oxygen Flowrate (L/min)-RT 2 Oxygen Flowrate (L/min)-RT 2 Pain Assessment - Last Documented Pain Intensity 10 Pain Scale Used 0-10 Pain Scale Intake and Output: Intake & Output 10/08/19 10/09/19 10/10/19 10/11/19 11:59 11:59 11:59 11:59 Intake Total 4240 2866 2877 1179 Output Total 710 2900 2100 1750 Balance 3559 -34 777 -571 Weight 74.5 kg Lab Results: Lab Results-Last 24 Hours 10/10/19 Range/Units 04:53 Sodium 138 (137-145) mmol/L Potassium 3.5 (3.5-5.1) mmol/L Chloride 112 H (98-107) mmol/L Carbon Dioxide 21 L (22-30) mmol/L Anion Gap 9.3 (5-15) MEQ/L BUN 2 L (7-17) mg/dL Creatinine 0.53 (0.52-1.04) mg/dL Estimated GFR > 60.0 ML/MIN Glucose 87 (74-106) mg/dL Calcium 8.0 L (8.4-10.2) mg/dL Assessment/Plan (1) Intractable headache Current Visit: Yes Status: Acute Qualifiers: Headache type: unspecified Headache chronicity pattern: chronic headache Qualified Code(s): R51 - Headache Assessment & Plan: Chronic in nature. Patient reports that she is only headache free a few days out of every month. She sees a neurologist and is on 3 reported medications including an injectable for headaches. Will plan for DC tomorrow to follow up with her PCP and neurologist for her routine chronic FERRIS care. Code(s): R51 - HEADACHE (2) Nausea Current Visit: Yes Status: Acute Assessment & Plan: Patient on zofran for nausea. Patient also had EGD which showed possible esophagitis. Surgery recommended patient follow up with her bariatric surgeon for evaluation of some narrowing that may be causing patient's symptoms. Will get patient referred for follow up. Patient is also on protonix. Code(s): R11.0 - NAUSEA (3) Enteritis Current Visit: Yes Status: Acute Assessment & Plan: Patient does not have a elevated white count or fever or other signs to indicate enteritis caused by infectious process. She was started on antibiotics during this admission. She had an EGD with biopsies performed with follow up to see if IBD is present. Code(s): K52.9 - NONINFECTIVE GASTROENTERITIS AND COLITIS, UNSPECIFIED
[2019-10-11 05:37] LABS: Absolute Neutrophil Ct (ANC) 4.15 (1.4-6.9); BASOPHIL % 0.5 % (0.0-0.4); Basophil (Absolute #) 0.03 (0-0.4); Eosinophil (Absolute #) 0.18 (0-0.5); Hematocrit 32.6 % (35-47); Hemoglobin 10.5 gm/dl (12.0-16.0); Lymphocyte (Absolute #) 1.28 (1.0-4.6); Lymphocytes % 21.3 % (24.0-44.0); Mean Cell Volume 93.7 fl (78-100); Mean Corpuscular Hemoglobin 30.2 pg (26-32); Mean Corpuscular Hgb Concent. 32.2 g/dl (32-36); Mean Platelet Volume 12.2 fl (7.5-11.0); Monocyte (Absolute #) 0.36 (0.0-1.3); Neutrophil % 69.2 % (36.0-66.0); Platelet Count 126 K/mm3 (150-450); Red Blood Count 3.48 M/mm3 (4.1-5.4); Red Cell Distribution Width 13.4 % (11.5-14.0)
[2019-10-11 06:08] LABS: ANION GAP 6.3 MEQ/L (5-15); CHLORIDE 114 mmol/L (98-107); Calcium 7.8 mg/dL (8.4-10.2); Carbon Dioxide 22 mmol/L (22-30); Creatinine 1 0.48 mg/dL (0.52-1.04); Glucose 103 mg/dL (74-106); Potassium 3.2 mmol/L (3.5-5.1); SODIUM 140 mmol/L (137-145)
[2019-10-11 06:25] LABS: BLOOD UREA NITROGEN < 2 mg/dL (7-17)
[2019-10-11 07:52] VITALS: O2SAT 95
[2019-10-11 08:21] VITALS: BP 110/67; PULSE 70
--- NOTE | 2019-10-11 08:27 | CONS ---
CONSULT DATE: 10/10/2019 This patient was seen for Dr. Lex Enriquez who is on for our group today. HISTORY: The patient had intractable nausea, some vague upper abdominal pain over the past four or five days. She had problems with migraines prior to that. I was asked to see. She had a CT scan that showed maybe some slightly thickened jejunal wall possible enteritis otherwise no acute process. She had prior gastric bypass. PAST MEDICAL HISTORY: Idiopathic hypersomnia. History of pneumonia in the past. Endometriosis. Polycystic ovarian syndrome. She had some obesity, had some diabetes, hypertension, depression, anxiety and some pelvic inflammatory disease in the past, some bronchitis in the past as well as history of migraines. Prior history of bleeding ulcer back in 2015. PAST SURGICAL HISTORY: She had some ureteral and bladder surgery in the past. She had cholecystectomy, appendectomy. She had a lap band and lap band reversed. She had rian-en-Y. She said she had D&C in the past. Last gastric bypass was eight or nine years ago. She had endoscopy several years ago. MEDICATIONS: She has been on Albuterol, venlafaxine, pantoprazole, tizanidine, Levetiracetam, trazodone, Clonazepam, testosterone, Protonix, Topamax. She said she did not have any blood thinners today as reported to nurses. ALLERGIES: SEPTRA. MACRODANTIN. SULFA. AMITRIPTYLINE. FISH, EGG PRODUCTS (NAUSEA AND VOMITING). LATEX. RED DYE. FAMILY HISTORY: Hypertension, hyperlipidemia, sleep apnea and some thyroid issues. She has a sister with cervical cancer and ovarian cancer. SOCIAL HISTORY: Former smoker. No alcohol abuse. REVIEW OF SYSTEMS: Fourteen systems reviewed per admission history and physical. No current chest pain or palpitations. Chronic nausea and vomiting reported. History of migraines reported. She reports 100 pound weight loss over the past year. PHYSICAL EXAMINATION: Vital signs stable. GENERAL: No acute distress. HEENT: Sclera nonicteric. NECK: No JVD. CHEST: Equal excursion, nonlabored breathing. CVS: Regular rate and rhythm. ABDOMEN: Soft, mild tenderness epigastrium. No peritoneal signs. EXTREMITIES: No cyanosis. NEURO: Alert, moving extremities grossly symmetrically. IMPRESSION: The patient is seen for my partner who is Dr. Burnett or Derek Enriquez who is ethnographic materials conservator for our group today. They asked that I see the patient here. Unclear etiology of her intractable nausea, vomiting, vague ache and abdominal pain. CT scan did not report any specific obstruction. She may have had some plus or minus vague enteritis. Question whether she had some marginal ulcer, gastritis or other etiology. I offered to evaluate with upper endoscopy for further evaluation to see if she has gastritis or marginal ulcer as possible etiology of her symptoms. Otherwise general risk of bleeding, infection, risk of bowel injury or perforation, risk of missed or nondiagnosis or inability to diagnose the etiology of her symptoms. She understands if she kept having problems she may very well need opinion from her bariatric surgeon or GI at the facility to see what their thoughts are. She understands as well as general risk of aspiration, risk of sedation, bowel injury or perforation but not limited to, will proceed with EGD possible biopsy if she is agreeable at this point when OR time available later today and will be NPO at this point. If it fails to elicit any obvious source of her issues she may follow up with her bariatric surgeon or GI opinion.
[2019-10-11] MEDS: Protonix 40MG Tablet PO SCH (08:57)
[2019-10-11] MEDS: TOPIRAMATE PO SCH (08:57)
[2019-10-11] MEDS: EFFEXOR 37.5 MG PO SCH (08:57)
[2019-10-11] MEDS: Klonopin 0.5 MG PO SCH (08:57)
[2019-10-11] MEDS: Keppra 250 MG PO SCH (08:58)
[2019-10-11] MEDS: FLAGYL 500 MG IVPB 500 MG/100 ML BAG IV SCH (08:58)
--- NOTE | 2019-10-11 10:00 | PCM.DS ---
Discharge Summary Date of Admission: 10/08/19 17:12 Admitting Physician: MARCO SALVADOR Consults: Consults on Case 10/09/19 19:22 Consult Surgery ROUTINE Primary Care Provider: MARCO SALVADOR Allergies Allergies Fish Containing Products Allergy (Intermediate, Verified 07/25/19 13:06) Nausea and Vomiting swelling everywhere shellfish derived Allergy (Intermediate, Verified 07/25/19 13:06) Nausea and Vomiting latex Allergy (Verified 07/25/19 13:06) Sulfa (Sulfonamide Antibiotics) [Sulfa(Sulfonamide Antibiotics)] Allergy (Verified 07/25/19 13:06) Hives sulfamethoxazole [From Septra] Allergy (Verified 07/25/19 13:06) Rash trimethoprim [From Septra] Allergy (Verified 07/25/19 13:06) Rash NSAIDS (Non-Steroidal Anti-Inflamma Adverse Reaction (Verified 07/25/19 13:06) Rash can take IM but no oral med eggs Allergy (Uncoded 07/25/19 13:06) Rash nausea/vomiting Hospital Summary - Hospital Course Hospital Course: Pt is 34 yo female with chronic N/V and headache, pt of Dr. Salvador, who was seen by him in office for N/V and intractable FERRIS and admitted directly with likely dehydration. She had gastric sleeve surgery years ago, but says in the past year she has lost 100 lb. She c/o vaginal bleeding recently - she had a hysterectomy in June 2019. Pt is waiting for a PA in order to have botox with Dr. Pike. Patient was started on IV fluids and pain medication. She continued to complain about headache. She was reporting to the nursing staff that she was vomiting but there was no emesis in the toilet or emesis bags. Her labs did not reflect intractable vomiting as her CO2 remained 19-22 and her chloride was high. She did state that she was mainly having dry heaves. The pain medication was not helping her headaches. Surgery did a EGD and recommendation was given for patient to follow up with her surgeon that did her gastric bypass as the opening to her stomach was maybe too tight. Patient was at her baseline for chronic headache and she was not having anymore vomiting so plan was for d ischarge to follow up with her PCP, surgeon and pain management. Of note patient has poor health literacy as she stated she had two partial hysterectomies. She had a tubal and she had a DC. She then had a hysterectomy. Patient did not allude to any vaginal bleeding when I saw her but she may need to follow up with whoever performed her hysterectomy. Patient reports a hx of endometriosis so unsure if she is having vaginal bleeding due to ectopic tissue. Patient also believed that dry heaving was vomiting. - Vitals & Intake/Output Vital Signs: Vital Signs Temperature 98.5 F 10/11/19 08:00 Pulse Rate 70 10/11/19 08:00 Respiratory Rate 20 10/11/19 08:00 Blood Pressure 110/67 10/11/19 08:00 O2 Sat by Pulse Oximetry 95 10/11/19 08:00 Intake & Output: Intake & Output 10/08/19 10/09/19 10/10/19 10/11/19 11:59 11:59 11:59 11:59 Intake Total 4220 2866 2877 2522 Output Total 710 2900 2100 2950 Balance 3559 34 857 428 Weight 74.5 kg - Lab Result Diagrams: 10/11/19 05:05 10/11/19 05:20 Lab Results-Last 24 Hrs: Lab Results-Last 24 Hours 10/11/19 10/11/19 Range/Units 05:05 05:20 WBC 6.0 (4.0-10.5) K/mm3 RBC 3.48 L (4.1-5.4) M/mm3 Hgb 10.5 L (12.0-16.0) gm/dl Hct 32.6 L (35-47) % MCV 93.7 (78-100) fl MCH 30.2 (26-32) pg MCHC 32.2 (32-36) g/dl RDW 13.4 (11.5-14.0) % Plt Count 126 L (150-450) K/mm3 MPV 12.2 H (7.5-11.0) fl Gran % 69.2 H (36.0-66.0) % Eos # (Auto) 0.18 (0-0.5) Absolute Lymphs (auto) 1.28 (1.0-4.6) Absolute Monos (auto) 0.36 (0.0-1.3) Lymphocytes % 21.3 L (24.0-44.0) % Monocytes % 6.0 (0.0-12.0) % Eosinophils % 3.0 (0.00-5.0) % Basophils % 0.5 (0.0-0.4) % Absolute Granulocytes 4.15 (1.4-6.9) Basophils # 0.03 (0-0.4) Sodium 140 (137-145) mmol/L Potassium 3.2 L (3.5-5.1) mmol/L Chloride 114 H (98-107) mmol/L Carbon Dioxide 22 (22-30) mmol/L Anion Gap 6.3 (5-15) MEQ/L BUN < 2 L (7-17) mg/dL Creatinine 0.48 L (0.52-1.04) mg/dL Estimated GFR > 60.0 ML/MIN Glucose 103 (74-106) mg/dL Calcium 7.8 L (8.4-10.2) mg/dL Micro Results-Entire Visit: Microbiology 10/08/19 07:00 Urine Culture - Final Catherized NO GROWTH - Procedures and Test Procedures and Tests throughout Hospitalization: Therapy Orders & Screens 10/06/19 22:25 Oxygen Nasal Cannula 6 lpm Comment: for 15 min Diagnosis: n/v, headache Discharge Exam General Appearance: mild distress, other (Patient has a flat affect and appears depressed.) Neurologic Exam: alert, 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, depressed mood/affect, No cooperative, No normal mood/affect, No disoriented, No confusion Eye Exam: eyes nml inspection Ears, Nose, Throat Exam: moist mucous membranes Respiratory Exam: normal breath sounds, lungs clear, No respiratory distress, No diminished breath sounds, No wheezing Cardiovascular Exam: regular rate/rhythm, normal heart sounds, No murmur, No friction rub, No gallop Gastrointestinal/Abdomen Exam: soft, normal bowel sounds, tenderness, No distention, No mass, No guarding, No rebound Extremity Exam: normal inspection, No pedal edema, No swelling Skin Exam: normal color, warm, dry, No rash Final Diagnosis/Problem List - Final Discharge Diagnosis/Problem (1) Intractable headache Status: Acute Assessment & Plan: This is chronic for the patient. She did not improve with her symptoms and was admitted to the hospital for a week with no change. She will need to follow up with her pcp and her pain specialist to attempt to get her FERRIS pain better controlled. This appears to be a work in progress as patient is progressing to injectables for these headaches. She has no focal deficits or stroke like symptoms. Patient doesnt appear to have HTN Code(s): R51 - HEADACHE (2) Nausea Status: Acute Assessment & Plan: Patient was evaluated by surgery with EGD who recommended patient follow up with her surgeon that did gastric bypass to see if her the connections done during her surgery could be loosened as they may be too tight causing some of her nausea. Code(s): R11.0 - NAUSEA (3) Enteritis Status: Acute Assessment & Plan: Noted on imaging. Patient had no fever or elevated wbc and no reported diarrhea so this was not treated as infectious. Patient was not discharged on antibiotics. Code(s): K52.9 - NONINFECTIVE GASTROENTERITIS AND COLITIS, UNSPECIFIED - Discharge Disposition: Home, Self-Care Condition: Stable Prescriptions: Continue Tizanidine HCl 4 mg [Zanaflex 4 MG] 4 mg PO QID PRN PRN Reason: muscle relaxer Topiramate [Topamax] 200 mg PO BID Venlafaxine HCl [Effexor] 100 mg PO TID PANTOPRAZOLE 40 mg Tablet [Protonix 40MG Tablet] 40 mg PO QAM hydrOXYzine HCL [Hydroxyzine HCl] 50 mg pe PO QID PRN PRN Reason: Anxiety Non-Formulary Drug [Non-Formulary Item] 1 unit SUBDERMAL DAILY Galcanezumab-Gnlm [Emgality Pen] 120 mg SQ UD Cyanocobalamin 1000 Mcg/ml [Cyanocobalamin B-12 1000 MCG/ML] 1,000 mcg SQ UD Albuterol 2.5 mg/3 ml Neb [Proventil 2.5 mg/3 ml Neb] 2.5 mg IH Q4H PRN PRN Reason: sob clonazePAM [Clonazepam] 0.5 mg PO TID Ergocalciferol (Vitamin D2) [Vitamin D2] 1 cap PO WEEKLY Trazodone HCl 100 - 300 mg PO HS levETIRAcetam [Levetiracetam] 250 mg PO BID Instructions: Dehydration, Adult (DC) Additional Instructions: Patient may need to follow up with obgyn as she is reporting vaginal bleeding a nd two partial hysterectomies Follow up with: [facility] [NON-STAFF PHY W/O PRIVILEGES] - 1 Week (CALL FOR AN APPOINTMENT JENNIE WITH GASTRO SURGEON.) MARCO SALVADOR MD [Primary Care Provider] - 10/18/19 2:45 pm (at [facility]) Forms: Discharge Instructions
--- NOTE | 2019-10-11 10:31 | OP ---
SURGERY DATE/TIME: 10/10/2019 1442 PREOPERATIVE DIAGNOSIS: Increasing nausea and vomiting, epigastric pain, history of prior bariatric surgery, question of possible enteritis on CT scan. POSTOPERATIVE DIAGNOSES: 1) Some minimal gastritis. 2) Short segment distal esophagitis gastroesophageal junction. 3) Narrowing of her gastrojejunal anastomotic site but patent. No gross ulceration. PROCEDURES: 1) Esophagogastroenteroscopy with cold biopsy of small bowel for path. 2) Cold biopsy of antrum for H. pylori. 3) Cold biopsy distal esophagus. SURGEON: Dr. Buck Mejía. ANESTHESIA: MAC. ESTIMATED BLOOD LOSS: Minimal. INDICATIONS: As noted above. Risks and benefits explained in detail and not limited to and consent obtained. DESCRIPTION OF PROCEDURE AND FINDINGS: The patient is taken to the operating room. MAC anesthesia introduced. After official time out and no disagreement with planned procedure, a bite block positioned. Video gastroscope easily passed down the esophagus through the gastroesophageal junction at 40 cm into the stomach pouch through the patent but a little bit narrowed gastrojejunal anastomotic site down the jejunum 25 to 30 cm. Cold biopsy taken of small bowel to evaluate for celiac sprue and to rule out other etiology. Scope pulled back to the anastomotic area. Again it was patent but there was no visible gross ulceration just seemed a little narrowed than the average anastomotic area. There was suture and staple material visible but no gross ulceration and had a little bit of stomach erythema. Cold biopsy taken for path. Otherwise, cold biopsy has been taken in the short segment of distal esophagitis that may have been from the patient's history of emesis. Gastroesophageal junction 40 cm. The remainder of the esophagus grossly unremarkable. No obvious mucosal lesions on withdrawal of the scope. The patient tolerated the procedure well. There were no immediate complications. Findings discussed with a family member out in the waiting area. It is felt she should continue proton pump inhibitor in short term and then ultimately she would likely benefit from opinion from a bariatric surgeon. Whether this narrowing should be treated locally or whether if it failed to improve she will need revision or bariatric procedure. She definitely needs opinion from her bariatric surgeon and/or the GI service at their facility.
[2019-10-16] MEDS ORDERED: Cyanocobalamin B-12 1000 MCG/ML SQ SCH (10:00)
[2019-10-22] MEDS ORDERED: GALCANEZUMAB GNLM 120 MG SQ SCH (10:00)
== END 2019-10-11 11:15 | disposition home or self-care (01) | DRG 103 ==
LOC: MED SURG 15:05 → OBSVTOIN 10-08 17:12
PROVIDERS: ADMIT General Practice; ATTEND Family Medicine
PROC: 0DD38ZX Extraction of Lower Esophagus, Via Natural or Artificial Opening Endoscopic, Diagnostic (ICD-10-PCS; principal; 2019-10-10)
DX: R51 Headache (principal); K29.70 Gastritis, unspecified, without bleeding; K52.9 Noninfective gastroenteritis and colitis, unspecified; R11.2 Nausea with vomiting, unspecified; E87.6 Hypokalemia; J02.9 Acute pharyngitis, unspecified; K20.9 Esophagitis, unspecified; Z98.84 Bariatric surgery status; Z79.899 Other long term (current) drug therapy
CPT/HCPCS: 36415; 74176; 80048; 81001; 83735; 84134; 85025; 85027; 87086; 87651; 93268; 94760; 94762; G0378; J1885; J1956; J2270; J2405; J2550; J2704; J3010; A9270-GY

== ENCOUNTER 2020-02-10 09:03 | Emergency (ER) | payer OTHER ==
[2020-02-10] MEDS ORDERED: Sodium Chloride 0.9% 1000 ML 1,000 ML IV STA ×3 (10:04→14:55)
[2020-02-10 10:13] LABS: Absolute Neutrophil Ct (ANC) 3.89 (1.4-6.9); BASOPHIL % 0.6 % (0.0-0.4); Basophil (Absolute #) 0.04 (0-0.4); Eosinophil % 2.1 % (0.00-5.0); Eosinophil (Absolute #) 0.15 (0-0.5); Hematocrit 42.4 % (35-47); Hemoglobin 13.8 gm/dl (12.0-16.0); Lymphocyte (Absolute #) 2.53 (1.0-4.6); Lymphocytes % 35.6 % (24.0-44.0); Mean Corpuscular Hemoglobin 31.6 pg (26-32); Mean Corpuscular Hgb Concent. 32.5 g/dl (32-36); Mean Platelet Volume 11.4 fl (7.5-11.0); Monocyte (Absolute #) 0.49 (0.0-1.3); Monocytes % 6.9 % (0.0-12.0); Neutrophil % 54.8 % (36.0-66.0); Platelet Count 194 K/mm3 (150-450); Red Blood Count 4.37 M/mm3 (4.1-5.4); Red Cell Distribution Width 14.1 % (11.5-14.0); White Blood Count 7.1 K/mm3 (4.0-10.5)
[2020-02-10 10:14] LABS: INR 1.18 (0.8-3.0); PROTIME 13.3 SECONDS (9.95-12.35)
[2020-02-10 10:19] LABS: ALBUMIN 3.8 g/dL (3.5-5.0); ALKALINE PHOSPHATASE 84 U/L (38-126); ANION GAP 7.4 MEQ/L (5-15); BLOOD UREA NITROGEN 9 mg/dL (7-17); CHLORIDE 104 mmol/L (98-107); Calcium 9.2 mg/dL (8.4-10.2); Carbon Dioxide 30 mmol/L (22-30); Creatinine 1 0.51 mg/dL (0.52-1.04); EST GLOMERULAR FILTRATION RATE > 60.0 ML/MIN; Glucose 96 mg/dL (74-106); Potassium 3.7 mmol/L (3.5-5.1); SGOT/AST 35 U/L (14-36); SGPT/ALT 40 U/L (0-35); SODIUM 138 mmol/L (137-145); Total Protein 6.2 g/dL (6.3-8.2)
[2020-02-10 10:32] LABS: ETHYL ALCOHOL < 10 mg/dL (0-10)
[2020-02-10] MEDS ORDERED: Zofran 4 MG/2 ML VIAL IV ONE ×2 (10:59→16:28)
[2020-02-10] MEDS ORDERED: Sodium Chloride 0.9% 1000 ML 1,000 ML ONE ×3 (11:08→15:57)
[2020-02-10] MEDS ORDERED: Zofran 4 MG/2 ML VIAL ONE ×2 (11:12→16:29)
--- NOTE | 2020-02-10 12:44 | XRAY ---
Indication: Pain following fall. Comparison: May 16, 2019. PA/lateral chest demonstrates normal heart, lungs, and bony thorax with incidental hilar calcified nodes.
--- NOTE | 2020-02-10 12:46 | XRAY ---
Indication: Pain following fall. Comparison: None 3 view left shoulder obtained. No bony, articular, or soft tissue abnormalities.
--- NOTE | 2020-02-10 12:46 | XRAY ---
Indication: Pain following fall. Comparison: None 3 view sacrum/coccyx demonstrates mild bilateral lumbosacral junction degenerative facet arthropathy and right mid abdomen suture material. No other bony, articular, or soft tissue abnormalities.
--- NOTE | 2020-02-10 12:49 | XRAY ---
Indication: Left head injury following fall. Multiple contiguous axial images obtained through the head without contrast. Comparison: None Normal appearing brain parenchyma, ventricles, and bony calvarium. Visualized paranasal sinuses and mastoid air cells are clear. Impression: Normal CT head without contrast exam.
--- NOTE | 2020-02-10 12:51 | XRAY ---
Indication: Neck pain following fall. Multiple contiguous axial images obtained through the cervical spine. Sagittal and coronal reformatted images obtained. Comparison: None Axial images negative for acute fracture, suspicious bony lesions, or spinal canal stenosis. Sagittal and coronal reformatted images demonstrates normal alignment with vertebral body heights/disc spaces maintained. No acute compression fracture, subluxation, or jumped facet. Normal appearing craniocervical junction. Visualized noncontrasted soft tissues including lung apices are unremarkable. Impression: Normal CT cervical spine.
[2020-02-10 12:52] VITALS: O2SAT 98
[2020-02-10 13:38] LABS: Amphetamine,Urine NEGATIVE (NEGATIVE); Barbiturate,Urine NEGATIVE (NEGATIVE); Benzodiazepine,Urine POSITIVE (NEGATIVE); Cocaine,Urine NEGATIVE (NEGATIVE); Methadone,Urine NEGATIVE (NEGATIVE); Opiate,Urine NEGATIVE (NEGATIVE); PCP,Urine NEGATIVE (NEGATIVE); THC,Urine NEGATIVE (NEGATIVE)
[2020-02-10 13:57] LABS: Appearance CLOUDY (CLEAR); Bacteria FEW /HPF (NEGATIVE); Bilirubin NEGATIVE (NEGATIVE); Blood SMALL Ery/ul (0-5); Epithelial Cells FEW /HPF (FEW); Glucose NEGATIVE (NEGATIVE); Ketones NEGATIVE (NEGATIVE); Leukocyte Esterase MODERATE (NEGATIVE); Mucus MANY /HPF (NEGATIVE); Nitrite NEGATIVE (NEGATIVE); Protein,Urine Dip NEGATIVE (Negative); Specific Gravity 1.017 (1.005-1.025); Urobilinogen NEGATIVE mg/dL (0-1)
[2020-02-10] MEDS ORDERED: KEFLEX 500 MG PO ONE (14:07)
--- NOTE | 2020-02-10 14:19 | ERPHSYRPT ---
- History of Present Illness Source: patient Exam Limitations: no limitations Patient Subjective Stated Complaint: Pt states "I got dizzy this morning when I got up to get a glass of water and I woke up on the floor." Triage Nursing Assessment: Pt presented alert and oriente X 3, skin pwd Pt ambulates with a slow shakey gait, able to speak in clear full sentnces. Pt extr aneta pale, no apparent respiratory distress. PT had gastric bypass in 2010 and a revision in november, pt still has feeding tube in place. Witnessed: unwitnessed Prior Episodes: single episode today, recent history Timing/Duration: week(s) (3), intermittent Precipitating Factors: none Context: standing Loss of Consciousness: prolonged (minutes) Charcter of event(s): collapsed Allergies/Adverse Reactions: Fish Containing Products Allergy (Intermediate, Verified 07/25/19 13:06) Nausea and Vomiting swelling everywhere shellfish derived Allergy (Intermediate, Verified 07/25/19 13:06) Nausea and Vomiting latex Allergy (Verified 07/25/19 13:06) Sulfa (Sulfonamide Antibiotics) [Sulfa(Sulfonamide Antibiotics)] Allergy (Verified 07/25/19 13:06) Hives sulfamethoxazole [From Septra] Allergy (Verified 07/25/19 13:06) Rash trimethoprim [From Septra] Allergy (Verified 07/25/19 13:06) Rash NSAIDS (Non-Steroidal Anti-Inflamma Adverse Reaction (Verified 07/25/19 13:06) Rash can take IM but no oral med eggs Allergy (Uncoded 07/25/19 13:06) Rash nausea/vomiting Home Medications: Tizanidine HCl 4 mg [Zanaflex 4 MG] 4 mg PO QID PRN 07/08/19 [History] Topiramate [Topamax] 200 mg PO BID 07/08/19 [History] Venlafaxine HCl [Effexor] 150 mg PO BID 07/08/19 [History] Albuterol 2.5 mg/3 ml Neb [Proventil 2.5 mg/3 ml Neb] 2.5 mg IH Q4H PRN 07/12/19 [History] Cyanocobalamin 1000 Mcg/ml [Cyanocobalamin B-12 1000 MCG/ML] 1,000 mcg SQ UD 07/12/19 [History] Non-Formulary Drug [Non-Formulary Item] 1 unit SUBDERMAL DAILY 07/12/19 [History] PANTOPRAZOLE 40 mg Tablet [Protonix 40MG Tablet] 40 mg PO QAM 07/12/19 [History] hydrOXYzine HCL [Hydroxyzine HCl] 50 mg pe PO QID PRN 07/12/19 [History] Ergocalciferol (Vitamin D2) [Vitamin D2] 1 cap PO WEEKLY 10/06/19 [History] levETIRAcetam [Levetiracetam] 250 mg PO BID 10/06/19 [History] Hx Tetanus, Diphtheria Vaccination/Date Given: Yes Hx Influenza Vaccination/Date Given: No Hx Pneumococcal Vaccination/Date Given: No Immunizations Up to Date: Yes Travel Risk - International Travel Have you traveled outside of the country in past 3 weeks: No - Coronavirus Screening Are you exhibiting any of the following symptoms?: No Close contact with a COVID-19 positive Pt in past 14-21 Days: No - Past Medical History Pertinent Past Medical History: Yes Neurological History: Migraines ENT History: No Pertinent History Cardiac History: No Pertinent History Respiratory History: No Pertinent History Endocrine Medical History: Hypothyroidism Musculoskeletal History: No Pertinent History GI Medical History: No Pertinent History, Other History: Other Psycho-Social History: Anxiety, Depression Female Reproductive Disorders: Abnormal Uterine Bleeding, Menstrual Problems Other Medical History: states "recurring UTI", "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 - Past Surgical History Past Surgical History: Yes Neuro Surgical History: No Pertinent History Cardiac: No Pertinent History Respiratory: No Pertinent History Gastrointestinal: Appendectomy, Cholecystectomy Genitourinary: No Pertinent History Musculoskeletal: No Pertinent History Female Surgical History: Hysterectomy, Tubal Ligation, Other Other Surgical History: gastric bypass, lap band placed and removed first, two D&C, EGD - 03/19/16 - results "stomach inflammed" ablation. - Social History Smoking Status: Former smoker How long have you smoked: 3 years Exposure to second hand smoke: No Drug Use: none Patient Lives Alone: No - Female History Hx Last Menstrual Period: hysterectomy Hx Now: No - Review of Systems Constitutional: Malaise, No Fever, No Chills Eyes: No Symptoms Ears, Nose, & Throat: No Symptoms Respiratory: No Cough, No Dyspnea Cardiac: No Chest Pain, No Edema, No Syncope Abdominal/Gastrointestinal: Nausea, No Abdominal Pain, No Vomiting, No Diarrhea Genitourinary Symptoms: No Dysuria Musculoskeletal: Back Pain, Joint Pain, No Neck Pain Skin: No Rash Neurological: Dizziness, Headache, No Focal Weakness, No Sensory Changes Psychological: No Symptoms Endocrine: No Symptoms All Other Systems: Reviewed and Negative Physical Exam - Nursing Vital Signs Nursing Vital Signs: Initial Vital Signs Temperature 98.2 F 02/10/20 09:12 Pulse Rate 118 H 02/10/20 09:12 Respiratory Rate 20 02/10/20 09:12 Blood Pressure 136/88 02/10/20 09:12 O2 Sat by Pulse Oximetry 100 02/10/20 09:12 Pain Scale Pain Intensity 10 - Radha Coma Scale Best Eye Response (Radha): (4) open spontaneously Best Verbal Response (Radha): (5) oriented Best Motor Response (Radha): (6) obeys commands Radha Total: 15 - Physical Exam General Appearance: no apparent distress, alert Eye Exam: bilateral eye: PERRL, EOMI Ears, Nose, Throat Exam: normal ENT inspection, pharynx normal, dry mucous membranes Neck Exam: normal inspection, non-tender, supple, full range of motion Respiratory: normal breath sounds, lungs clear, No chest tenderness, No respiratory distress Cardiovascular: regular rate/rhythm, capillary refill <2 sec, No murmur, No pulse deficit Gastrointestinal: soft, No tenderness, No distention, No mass Pelvic Exam: deferred Rectal Exam: deferred Back Exam: normal inspection, normal range of motion, vertebral tenderness (low er sacrum area.), No CVA tenderness Extremity Exam: normal inspection, normal range of motion, pelvis stable, tenderness (Diffuse left shoulder.) Mental Status: alert, 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, 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 Exam: normal speech, PERRL, No facial droop Coordination/Gait: normal finger to nose Motor/Sensory: no motor deficit, no sensory deficit, no pronator drift Skin Exam: normal color, warm, dry, No rash SpO2: 98 Ordered Tests: Active Orders 24 hr Category Date Time Status Dumper Bulk System STAT Care 02/10/20 10:07 Active EKG-ER Only STAT Care 02/10/20 09:05 Active Orthostatic Vital Signs STAT Care 02/10/20 10:09 Active CERVICAL SPINE WO CONTRAST [CT] Stat Exams 02/10/20 10:06 Completed CHEST 2 VIEWS (PA AND LAT) Stat Exams 02/10/20 12:24 Completed HEAD WITHOUT CONTRAST [CT] Stat Exams 02/10/20 10:07 Completed SACRUM AND COCCYX Stat Exams 02/10/20 12:25 Completed SHOULDER Stat Exams 02/10/20 12:26 Completed CBC W DIFF Stat Lab 02/10/20 10:00 Completed CMP Stat Lab 02/10/20 10:00 Completed CULTURE,URINE Stat Lab 02/10/20 13:15 Received ETHYL ALCOHOL Stat Lab 02/10/20 10:00 Completed HCG,QUALITATIVE URINE Stat Lab 02/10/20 13:15 Completed PROTIME WITH INR Stat Lab 02/10/20 10:00 Completed UA W/RFX UR CULTURE Stat Lab 02/10/20 13:15 Completed Urine Triage Profile Stat Lab 02/10/20 13:15 Completed Medication Summary Generic Name Dose Route Start Last Admin Trade Name Freq PRN Reason Stop Dose Admin Sodium Chloride 1,000 mls @ 999 mls/hr 02/10/20 14:55 Sodium Chloride 0.9% 1000 Ml IV 02/10/20 15:55 .Q1H1M STA Discontinued Medications Generic Name Dose Route Start Last Admin Trade Name Freq PRN Reason Stop Dose Admin Cephalexin HCl 500 mg 02/10/20 14:07 02/10/20 14:24 Keflex 500 Mg PO 02/10/20 14:08 500 mg STAT ONE Administration Cephalexin HCl Confirm 02/10/20 14:21 Keflex 500 Mg Administered 02/10/20 14:22 Dose 500 mg .ROUTE .STK-MED ONE Sodium Chloride 1,000 mls @ 999 mls/hr 02/10/20 10:04 02/10/20 12:20 Sodium Chloride 0.9% 1000 Ml IV 02/10/20 11:04 Infused .Q1H1M STA Infusion Sodium Chloride Confirm 02/10/20 11:08 Sodium Chloride 0.9% 1000 Ml Administered 02/10/20 11:09 Dose 1,000 mls @ ud .ROUTE .STK-MED ONE Sodium Chloride 1,000 mls @ 999 mls/hr 02/10/20 14:03 02/10/20 14:25 Sodium Chloride 0.9% 1000 Ml IV 02/10/20 15:03 999 mls/hr .Q1H1M STA Administration Sodium Chloride Confirm 02/10/20 14:22 Sodium Chloride 0.9% 1000 Ml Administered 02/10/20 14:23 Dose 1,000 mls @ ud .ROUTE .STK-MED ONE Morphine Sulfate 2 mg 02/10/20 14:42 02/10/20 14:50 Morphine Sulfate 2 Mg Inj IV 02/10/20 14:43 2 mg STAT ONE Administration Morphine Sulfate Confirm 02/10/20 14:49 Morphine Sulfate 2 Mg Inj Administered 02/10/20 14:50 Dose 2 mg .ROUTE .STK-MED ONE Ondansetron HCl 4 mg 02/10/20 10:59 02/10/20 11:13 Zofran 4 Mg/2 Ml Vial IV 02/10/20 11:00 4 mg STAT ONE Administration Ondansetron HCl Confirm 02/10/20 11:12 Zofran 4 Mg/2 Ml Vial Administered 02/10/20 11:13 Dose 4 mg .ROUTE .STK-MED ONE Lab/Rad Data: Laboratory Result Diagrams 02/10/20 10:00 02/10/20 10:00 Laboratory Results 02/10/20 02/10/20 02/10/20 Range/Units 13:15 13:15 13:15 WBC (4.0-10.5) K/mm3 RBC (4.1-5.4) M/mm3 Hgb (12.0-16.0) gm/dl Hct (35-47) % MCV (78-100) fl MCH (26-32) pg MCHC (32-36) g/dl RDW (11.5-14.0) % Plt Count (150-450) K/mm3 MPV (7.5-11.0) fl Gran % (36.0-66.0) % Eos # (Auto) (0-0.5) Absolute Lymphs (auto) (1.0-4.6) Absolute Monos (auto) (0.0-1.3) Lymphocytes % (24.0-44.0) % Monocytes % (0.0-12.0) % Eosinophils % (0.00-5.0) % Basophils % (0.0-0.4) % Absolute Granulocytes (1.4-6.9) Basophils # (0-0.4) PT (9.95-12.35) SECONDS INR (0.8-3.0) Sodium (137-145) mmol/L Potassium (3.5-5.1) mmol/L Chloride (98-107) mmol/L Carbon Dioxide (22-30) mmol/L Anion Gap (5-15) MEQ/L BUN (7-17) mg/dL Creatinine (0.52-1.04) mg/dL Estimated GFR ML/MIN Glucose (74-106) mg/dL Calcium (8.4-10.2) mg/dL Total Bilirubin (0.2-1.3) mg/dL AST (14-36) U/L ALT (0-35) U/L Alkaline Phosphatase (38-126) U/L Serum Total Protein (6.3-8.2) g/dL Albumin (3.5-5.0) g/dL Urine Color YELLOW (YELLOW) Urine Appearance CLOUDY (CLEAR) Urine pH 5.0 (5-6) Ur Specific [place] 1.017 (1.005-1.025) Urine Protein NEGATIVE (Negative) Urine Ketones NEGATIVE (NEGATIVE) Urine Blood SMALL (0-5) Cas/ul Urine Nitrite NEGATIVE (NEGATIVE) Urine Bilirubin NEGATIVE (NEGATIVE) Urine Urobilinogen NEGATIVE (0-1) mg/dL Ur Leukocyte Esterase MODERATE (NEGATIVE) Urine WBC (Auto) 11-15 (0-5) /HPF Urine RBC (Auto) 3-5 (0-2) /HPF U Epithel Cells (Auto) FEW (FEW) /HPF Urine Bacteria (Auto) FEW (NEGATIVE) /HPF Urine Mucus (Auto) MANY (NEGATIVE) /HPF Urine Culture Reflexed YES (NO) Urine Glucose NEGATIVE (NEGATIVE) mg/dL Urine HCG, Qual NEGATIVE (Negative) Urine Opiates Level NEGATIVE (NEGATIVE) Ur Methadone NEGATIVE (NEGATIVE) Urine Barbiturates NEGATIVE (NEGATIVE) Ur Phencyclidine (PCP) NEGATIVE (NEGATIVE) Urine Amphetamine NEGATIVE (NEGATIVE) U Benzodiazepine Level POSITIVE (NEGATIVE) Urine Cocaine NEGATIVE (NEGATIVE) Urine Marijuana (THC) NEGATIVE (NEGATIVE) Ethyl Alcohol (0-10) mg/dL 02/10/20 02/10/20 02/10/20 Range/Units 10:00 10:00 10:00 WBC 7.1 (4.0-10.5) K/mm3 RBC 4.37 (4.1-5.4) M/mm3 Hgb 13.8 (12.0-16.0) gm/dl Hct 42.4 (35-47) % MCV 97.0 (78-100) fl MCH 31.6 (26-32) pg MCHC 32.5 (32-36) g/dl RDW 14.1 H (11.5-14.0) % Plt Count 194 (150-450) K/mm3 MPV 11.4 H (7.5-11.0) fl Gran % 54.8 (36.0-66.0) % Eos # (Auto) 0.15 (0-0.5) Absolute Lymphs (auto) 2.53 (1.0-4.6) Absolute Monos (auto) 0.49 (0.0-1.3) Lymphocytes % 35.6 (24.0-44.0) % Monocytes % 6.9 (0.0-12.0) % Eosinophils % 2.1 (0.00-5.0) % Basophils % 0.6 (0.0-0.4) % Absolute Granulocytes 3.89 (1.4-6.9) Basophils # 0.04 (0-0.4) PT 13.3 H (9.95-12.35) SECONDS INR 1.18 (0.8-3.0) Sodium 138 (137-145) mmol/L Potassium 3.7 (3.5-5.1) mmol/L Chloride 104 (98-107) mmol/L Carbon Dioxide 30 (22-30) mmol/L Anion Gap 7.4 (5-15) MEQ/L BUN 9 (7-17) mg/dL Creatinine 0.51 L (0.52-1.04) mg/dL Estimated GFR > 60.0 ML/MIN Glucose 96 (74-106) mg/dL Calcium 9.2 (8.4-10.2) mg/dL Total Bilirubin 0.50 (0.2-1.3) mg/dL AST 35 (14-36) U/L ALT 40 H (0-35) U/L Alkaline Phosphatase 84 (38-126) U/L Serum Total Protein 6.2 L (6.3-8.2) g/dL Albumin 3.8 (3.5-5.0) g/dL Urine Color (YELLOW) Urine Appearance (CLEAR) Urine pH (5-6) Ur Specific [place] (1.005-1.025) Urine Protein (Negative) Urine Ketones (NEGATIVE) Urine Blood (0-5) Cas/ul Urine Nitrite (NEGATIVE) Urine Bilirubin (NEGATIVE) Urine Urobilinogen (0-1) mg/dL Ur Leukocyte Esterase (NEGATIVE) Urine WBC (Auto) (0-5) /HPF Urine RBC (Auto) (0-2) /HPF U Epithel Cells (Auto) (FEW) /HPF Urine Bacteria (Auto) (NEGATIVE) /HPF Urine Mucus (Auto) (NEGATIVE) /HPF Urine Culture Reflexed (NO) Urine Glucose (NEGATIVE) mg/dL Urine HCG, Qual (Negative) Urine Opiates Level (NEGATIVE) Ur Methadone (NEGATIVE) Urine Barbiturates (NEGATIVE) Ur Phencyclidine (PCP) (NEGATIVE) Urine Amphetamine (NEGATIVE) U Benzodiazepine Level (NEGATIVE) Urine Cocaine (NEGATIVE) Urine Marijuana (THC) (NEGATIVE) Ethyl Alcohol < 10 (0-10) mg/dL - Departure Departure Disposition: Home Clinical Impression: Dehydration, UTI (urinary tract infection) Condition: Stable Critical Care Time: No Referrals: MARCO SALVADOR MD [Primary Care Provider] - Instructions: Dehydration, Adult (DC) Additional Instructions: MOnitor closely Drink more water. Take meds as prescribed. Hold onto something when getting up from sitting or lying position Follow up with PCP for further care. Return to ER if worse. Prescriptions: Ondansetron ODT 4 MG [Zofran Odt 4 mg] 4 mg PO Q6H PRN PRN #10 tab.rapdis PRN Reason: Vomiting Cephalexin Mh 500 mg [Keflex 500 mg] 500 mg PO TID #21 capsule
[2020-02-10] MEDS ORDERED: KEFLEX 500 MG ONE (14:21)
[2020-02-10] MEDS ORDERED: MORPHINE SULFATE 2 MG INJ IV ONE (14:42)
[2020-02-10] MEDS ORDERED: MORPHINE SULFATE 2 MG INJ ONE (14:49)
[2020-02-10 16:19] VITALS: BP 106/62; PULSE 61
== END 2020-02-10 17:17 | disposition home or self-care (01) ==
LOC: ED 09:03
DX: E86.0 Dehydration (principal); N39.0 Urinary tract infection, site not specified
CPT/HCPCS: 36415; 70450; 71046; 72125; 72220; 73030; 80053; 80307; 81001; 84703; 85025; 85610; 87086; 93005; 93041; 96360; 96374; 96375; 99285; G0480; J2270; J2405; A9270-GY

== ENCOUNTER 2021-06-15 07:16 | Emergency (ER) | payer OTHER ==
[2021-06-15] MEDS ORDERED: Inapsine 5 MG/2 ML IV ONE (07:54)
[2021-06-15] MEDS ORDERED: Sodium Chloride 0.9% 1000 ML 1,000 ML IV STA (07:54)
[2021-06-15] MEDS ORDERED: SUBLIMAZE 100 MCG/2 ML IV ONE (07:54)
[2021-06-15] MEDS ORDERED: Inapsine 5 MG/2 ML ONE (08:00)
[2021-06-15] MEDS ORDERED: SUBLIMAZE 100 MCG/2 ML ONE (08:00)
[2021-06-15] MEDS ORDERED: Sodium Chloride 0.9% 1000 ML 1,000 ML ONE (08:01)
--- NOTE | 2021-06-15 08:01 | ERPHSYRPT ---
- History of Present Illness Time Seen by Provider: 06/15/21 07:58 Source: patient Exam Limitations: no limitations Patient Subjective Stated Complaint: headache Triage Nursing Assessment: Patient ambulated back to ED and transferred self to bed. Patient A+O X3. Patient's skin pink, warm and dry. Patient complains of headache for one week that has gotten worse. Patient states she has abrasion to chanel eyes and has seen eye dr 4 times with no answers. Patient complains of constant headache 7/10. Physician History: Patient complains of headache for one week that has gotten worse. Patient states she has abrasion to chanel eyes and has seen eye dr 4 times with no answers. Patient complains of constant headache 7/10. Patient states she has abrasion to chanel eyes and has seen eye dr 4 times with no answers. Patient complains of constant headache 7/10. Timing/Duration: week(s) (one week) Quality: burning, itchy Severity: moderate Possible Causes: no cause identified Modifying Factors: Improves With: antihistamine Associated Symptoms: headache, other (nausea) Allergies/Adverse Reactions: Fish Containing Products Allergy (Intermediate, Verified 06/15/21 07:34) Nausea and Vomiting swelling everywhere shellfish derived Allergy (Intermediate, Verified 06/15/21 07:34) Nausea and Vomiting latex Allergy (Verified 06/15/21 07:34) Sulfa (Sulfonamide Antibiotics) [Sulfa(Sulfonamide Antibiotics)] Allergy (Verified 06/15/21 07:34) Hives sulfamethoxazole [From Septra] Allergy (Verified 06/15/21 07:34) Rash trimethoprim [From Septra] Allergy (Verified 06/15/21 07:34) Rash NSAIDS (Non-Steroidal Anti-Inflamma Adverse Reaction (Verified 06/15/21 07:34) Rash can take IM but no oral med eggs Allergy (Uncoded 06/15/21 07:34) Rash nausea/vomiting Home Medications: Tizanidine HCl 4 mg [Zanaflex 4 MG] 4 mg PO QID PRN 07/08/19 [History] Topiramate [Topamax] 200 mg PO BID 07/08/19 [History] Venlafaxine HCl [Effexor] 150 mg PO BID 07/08/19 [History] Cyanocobalamin 1000 Mcg/ml [Cyanocobalamin B-12 1000 MCG/ML] 1,000 mcg SQ UD 07/12/19 [History] PANTOPRAZOLE 40 mg Tablet [Protonix 40MG Tablet] 40 mg PO QPM 07/12/19 [History] hydrOXYzine HCL [Hydroxyzine HCl] 50 mg pe PO QID PRN 07/12/19 [History] Ergocalciferol (Vitamin D2) [Vitamin D2] 1 cap PO WEEKLY 10/06/19 [History] levETIRAcetam [Levetiracetam] 250 mg PO BID 10/06/19 [History] Lorazepam 0.5 mg [Ativan 0.5 MG] 0.5 mg PO TID PRN 02/27/20 [History] Hx Tetanus, Diphtheria Vaccination/Date Given: Yes Hx Influenza Vaccination/Date Given: No Hx Pneumococcal Vaccination/Date Given: No Immunizations Up to Date: Yes Travel Risk - International Travel Have you traveled outside of the country in past 3 weeks: No - Coronavirus Screening Are you exhibiting any of the following symptoms?: No Close contact with a COVID-19 positive Pt in past 14-21 Days: No - Vaccine Status Have you recieved a Covid-19 vaccination: Yes [employer]: Moderna - Vaccination Dates Date of 2cond Vaccination (if applicable): September 2020 - Review of Systems Constitutional: Weakness, No Fever, No Chills Eyes: No Symptoms Ears, Nose, & Throat: No Symptoms Respiratory: No Cough, No Dyspnea Cardiac: No Chest Pain, No Edema, No Syncope Abdominal/Gastrointestinal: Nausea, No Abdominal Pain, No Vomiting, No Diarrhea Genitourinary Symptoms: No Dysuria Musculoskeletal: No Back Pain, No Neck Pain Skin: No Rash Neurological: Headache, No Dizziness, No Focal Weakness, No Sensory Changes Psychological: No Symptoms Endocrine: No Symptoms All Other Systems: Reviewed and Negative - Past Medical History Pertinent Past Medical History: Yes Neurological History: Migraines, Seizures ENT History: No Pertinent History Cardiac History: No Pertinent History Respiratory History: Asthma Endocrine Medical History: Hypothyroidism Musculoskeletal History: No Pertinent History GI Medical History: No Pertinent History, Other History: Other Psycho-Social History: Anxiety, Depression Female Reproductive Disorders: Abnormal Uterine Bleeding, Menstrual Problems Other Medical History: PMYX: GERD, ANEMIA, ANXIETY, DEPRESSION, GASTRIC ULCER,. SX HX: CHOLECYSTECTOMY, BLADDER AND URETER REPAIR, TONSEILLECTOMY, GASTRIC LAP BAND AND REVISION, HYSTERECTOMY, - Past Surgical History Past Surgical History: Yes Neuro Surgical History: No Pertinent History Cardiac: No Pertinent History Respiratory: No Pertinent History Gastrointestinal: Appendectomy, Cholecystectomy Genitourinary: No Pertinent History Musculoskeletal: No Pertinent History Female Surgical History: Hysterectomy, Tubal Ligation, Other Other Surgical History: gastric bypass, lap band placed and removed first, two D&C, EGD - 03/19/16 - results "stomach inflammed" ablation. november 2019 bleeding ulcer surgery - was told it was like a revision to the gastric bypass. g- tube placement. - Social History Smoking Status: Former smoker How long have you smoked: 3 years Exposure to second hand smoke: No Drug Use: none Patient Lives Alone: No - Female History Hx Last Menstrual Period: hysterectomy Hx Now: No - Nursing Vital Signs Nursing Vital Signs: Initial Vital Signs Temperature 98.1 F 06/15/21 07:36 Pulse Rate 51 L 06/15/21 07:36 Respiratory Rate 18 06/15/21 07:36 Blood Pressure 103/66 06/15/21 07:36 O2 Sat by Pulse Oximetry 100 06/15/21 07:36 Pain Scale Pain Intensity 7 - Physical Exam General Appearance: no apparent distress, alert Eye Exam: PERRL/EOMI, eyes nml inspection, pale conjunctivae Ears, Nose, Throat Exam: normal ENT inspection, pharynx normal, moist mucous membranes Neck Exam: normal inspection, non-tender, supple, full range of motion Respiratory Exam: normal breath sounds, lungs clear, No respiratory distress Cardiovascular Exam: regular rate/rhythm, normal heart sounds Gastrointestinal/Abdomen Exam: soft, mass, No tenderness Back Exam: normal inspection, normal range of motion, No CVA tenderness, No vertebral tenderness Extremity Exam: normal inspection, normal range of motion Neurologic Exam: alert, 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, cooperative, normal mood/affect, sensation nml, No motor deficits Skin Exam: normal color, warm, dry SpO2: 100 - Course Nursing assessment & vital signs reviewed: Yes Ordered Tests: Active Orders 24 hr Category Date Time Status CBC W DIFF Stat Lab 06/15/21 08:15 Completed CMP Stat Lab 06/15/21 08:15 Completed CULTURE,URINE Stat Lab 06/15/21 08:14 Received Erythrocyte Sedimentation Rate Stat Lab 06/15/21 08:15 Completed UA W/RFX UR CULTURE Stat Lab 06/15/21 08:14 Completed Medication Summary Discontinued Medications Generic Name Dose Route Start Last Admin Trade Name Rubén MARMOLEJON Reason Stop Dose Admin Droperidol 1.25 mg 06/15/21 07:54 06/15/21 08:06 Droperidol 5 Mg/2 Ml Vial IV 06/15/21 07:55 1.25 mg STAT ONE Administration Droperidol Confirm 06/15/21 08:00 Droperidol 5 Mg/2 Ml Vial Administered 06/15/21 08:01 Dose 5 mg .ROUTE .STK-MED ONE Fentanyl Citrate 75 mcg 06/15/21 07:54 06/15/21 08:04 Fentanyl Citrate 100 Mcg/2 Ml* Vial IV 06/15/21 07:55 75 mcg STAT ONE Administration Fentanyl Citrate Confirm 06/15/21 08:00 Fentanyl Citrate 100 Mcg/2 Ml* Vial Administered 06/15/21 08:01 Dose 100 mcg .ROUTE .STK-MED ONE Sodium Chloride 1,000 mls @ 999 mls/hr 06/15/21 07:54 06/15/21 09:10 Sodium Chloride 0.9% 1000 Ml IV 06/15/21 08:54 Infused .Q1H1M STA Infusion Sodium Chloride Confirm 06/15/21 08:01 Sodium Chloride 0.9% 1000 Ml Administered 06/15/21 08:02 Dose 1,000 mls @ ud .ROUTE .STK-MED ONE Ceftriaxone Sodium/Dextrose 1 g in 50 mls @ 100 mls/hr 06/15/21 08:38 08:54 Rocephin 1 Gm-D5w 50 Ml Bag IV 06/15/21 09:07 100 mls/hr STAT STA 100 mls/hr Administration Ceftriaxone Sodium/Dextrose Confirm 06/15/21 08:53 Rocephin 1 Gm-D5w 50 Ml Bag Administered 06/15/21 08:54 Dose 1 g in 50 mls @ ud IV .STK-MED ONE Lab/Rad Data: Laboratory Result Diagrams 06/15/21 08:15 06/15/21 08:15 Laboratory Results 06/15/21 06/15/21 06/15/21 Range/Units 08:15 08:15 08:14 WBC 7.4 (4.0-10.5) K/mm3 RBC 3.65 L (4.1-5.4) M/mm3 Hgb 12.3 (12.0-16.0) gm/dl Hct 37.8 (35-47) % MCV 103.6 H (78-100) fl MCH 33.7 H (26-32) pg MCHC 32.5 (32-36) g/dl RDW 12.3 (11.5-14.0) % Plt Count 150 (150-450) K/mm3 MPV 12.0 H (7.5-11.0) fl Gran % 62.1 (36.0-66.0) % Eos # (Auto) 0.34 (0-0.5) Absolute Lymphs (auto) 1.88 (1.0-4.6) Absolute Monos (auto) 0.52 (0.0-1.3) Lymphocytes % 25.5 (24.0-44.0) % Monocytes % 7.1 (0.0-12.0) % Eosinophils % 4.6 (0.00-5.0) % Basophils % 0.7 (0.0-0.4) % Absolute Granulocytes 4.58 (1.4-6.9) Basophils # 0.05 (0-0.4) ESR 3 (0-20) mm/hr Sodium 138 (137-145) mmol/L Potassium 3.5 (3.5-5.1) mmol/L Chloride 109 H (98-107) mmol/L Carbon Dioxide 20 L (22-30) mmol/L Anion Gap 11.8 (5-15) MEQ/L BUN 7 (7-17) mg/dL Creatinine 0.75 (0.52-1.04) mg/dL Estimated GFR > 60.0 ML/MIN Glucose 96 (74-106) mg/dL Calcium 8.7 (8.4-10.2) mg/dL Total Bilirubin 0.60 (0.2-1.3) mg/dL AST 16 (14-36) U/L ALT 8 (0-35) U/L Alkaline Phosphatase 44 (38-126) U/L Serum Total Protein 6.1 L (6.3-8.2) g/dL Albumin 3.7 (3.5-5.0) g/dL Urine Color BETSY (YELLOW) Urine Appearance SLIGHTLY CLOUDY (CLEAR) Urine pH 6.0 (5-6) Ur Specific [place] 1.020 (1.005-1.025) Urine Protein 30 (Negative) Urine Ketones NEGATIVE (NEGATIVE) Urine Blood NEGATIVE (0-5) Cas/ul Urine Nitrite POSITIVE (NEGATIVE) Urine Bilirubin SMALL (NEGATIVE) Urine Urobilinogen NEGATIVE (0-1) mg/dL Ur Leukocyte Esterase TRACE (NEGATIVE) Urine WBC (Auto) 6-10 (0-5) /HPF Urine RBC (Auto) 0-2 (0-2) /HPF U Hyaline Cast (Auto) 3-5 (0-2) /LPF U Epithel Cells (Auto) RARE (FEW) /HPF Urine Bacteria (Auto) FEW (NEGATIVE) /HPF Urine Mucus (Auto) MODERATE (NEGATIVE) /HPF Urine Culture Reflexed YES (NO) Urine Glucose NEGATIVE (NEGATIVE) mg/dL - Progress Progress: improved, pain not gone completely Counseled pt/family regarding: lab results, diagnosis, need for follow-up - Departure Departure Disposition: Home Clinical Impression: Dehydration UTI (urinary tract infection) Qualifiers: Urinary tract infection type: site unspecified Hematuria presence: without hematuria Qualified Code(s): N39.0 - Urinary tract infection, site not specified Intractable headache Qualifiers: Headache type: unspecified Headache chronicity pattern: chronic headache Qualified Code(s): R51.9 - Headache, unspecified Condition: Stable Critical Care Time: No Referrals: MARCO SALVADOR MD [Primary Care Provider] - Follow up/PCP as directed Instructions: Urinary Tract Infection, Adult (DC), Headache, Adult (DC) Additional Instructions: Discharge/Care Plan ELENJULIANVICIKJUAN DIEGO BOSS was seen on 06/15/21 in the Emergency Room. The patient was counseled regarding Diagnosis,Lab results, Imaging studies, need for follow up and when to return to the Emergency Room. Prescriptions given: Discharge Note I have spoken with the patient and/or caregivers. I have explained the patient's condition, diagnosis and treatment plan based on the information available to me at this time. I have answered the patient's and/or caregiver's questions and addressed any concerns. The patient and/or caregivers have as good understanding of the patient's diagnosis, condition and treatment plan as can be expected at this point. The vital signs have been stable. The patient's condition is stable and appropriate for discharge from the emergency department. The patient will pursue further outpatient evaluation with the primary care physician or other designated or consulting physician as outlined in the discharge instructions. The patient and/or caregivers are agreeable to this plan of care and follow-up instructions have been explained in detail. The patient and/or caregivers have received these instruction. The patient/and or caregivers are aware that any significant change in condition or worsening of symptoms should prompt an immediate return to this or the closest emergency department or call 911. JULIAN MYRICKJUAN DIEGO BOSS was seen on 06/15/21 n the Emergency Room. At that time you were treated for an emergent condition, during your visit Laboratory, Radiology and/or other procedures may have been ordered. It is very important that you follow-up with your Primary Care Physician MARCO SALVADOR within the next 24-48 hours to review your Emergency Room visit and the final results of testing that was ordered. Some test results such as Urine Cultures, Blood Cultures, and other cultures if ordered will not be finalized for 24-48 hours. If you do not have a Primary Care Provider please call the medical records department at [phone] ext [phone] to obtain a copy of your results or you may sign into our patient portal to obtain these results by visiting us @ [email or web address] and completing the following steps: 1. Click on the Patient Portal link 2. Click the Patient Self Enrollment Link to complete the enrollment form and entering your 3. Once the enrollment form is completed you will receive an email with a temporary ID and password at the email address you provided. 4. Next choose a user name and password. Your user name must be at least 4 characters long and your password must be at least 4 characters long. 5. Choose a security question from the list and provide your answer to the question. If you already have signed into the Health Portal you may access your Health Care Information 10/11 by the following steps: 1. Login to our website @ [email or web address] 2. Enter your original user name and password. FAQS The [facility] Health Portal is an online tool that contains your Lab Results, Radiology Reports, Visit History, Discharge Instructions and Health Summary Lab and Radiology Results will not be available for 72 hours on the portal. The Portal is a secure site, passwords are encryted and URLs are re-written so they cannot be copied and pasted. You and authorized family members are the only ones who can access your Portal. Also there is a timeout feature that protects your information if you leave the Portal page open. If you have technical difficulty please use the Contact Us link on the page this will allow you to submit any questions you have regarding the Portal or you may contact the Medical Record Department at [phone] ext [phone]. Prescriptions: Ciprofloxacin [Cipro 500 MG] 500 mg PO BIDAC #20 tablet Oxycodone HCl 5 mg Ir [Oxy-IR 5 MG] 5 mg PO QID PRN 5 Days #20 tab MDD max 4 PRN Reason: Headache
[2021-06-15 08:24] LABS: Absolute Neutrophil Ct (ANC) 4.58 (1.4-6.9); Basophil (Absolute #) 0.05 (0-0.4); Eosinophil % 4.6 % (0.00-5.0); Eosinophil (Absolute #) 0.34 (0-0.5); Hematocrit 37.8 % (35-47); Hemoglobin 12.3 gm/dl (12.0-16.0); Lymphocyte (Absolute #) 1.88 (1.0-4.6); Lymphocytes % 25.5 % (24.0-44.0); Mean Cell Volume 103.6 fl (78-100); Mean Corpuscular Hemoglobin 33.7 pg (26-32); Mean Corpuscular Hgb Concent. 32.5 g/dl (32-36); Monocyte (Absolute #) 0.52 (0.0-1.3); Monocytes % 7.1 % (0.0-12.0); Neutrophil % 62.1 % (36.0-66.0); Platelet Count 150 K/mm3 (150-450); Red Blood Count 3.65 M/mm3 (4.1-5.4); Red Cell Distribution Width 12.3 % (11.5-14.0); White Blood Count 7.4 K/mm3 (4.0-10.5)
[2021-06-15 08:30] LABS: ALBUMIN 3.7 g/dL (3.5-5.0); ALKALINE PHOSPHATASE 44 U/L (38-126); ANION GAP 11.8 MEQ/L (5-15); BLOOD UREA NITROGEN 7 mg/dL (7-17); CHLORIDE 109 mmol/L (98-107); Calcium 8.7 mg/dL (8.4-10.2); Carbon Dioxide 20 mmol/L (22-30); Creatinine 1 0.75 mg/dL (0.52-1.04); EST GLOMERULAR FILTRATION RATE > 60.0 ML/MIN; Glucose 96 mg/dL (74-106); Potassium 3.5 mmol/L (3.5-5.1); SGOT/AST 16 U/L (14-36); SGPT/ALT 8 U/L (0-35); SODIUM 138 mmol/L (137-145); Total Protein 6.1 g/dL (6.3-8.2)
[2021-06-15 08:31] LABS: Appearance SLIGHTLY CLOUDY (CLEAR); Bacteria FEW /HPF (NEGATIVE); Bilirubin SMALL (NEGATIVE); Blood NEGATIVE Ery/ul (0-5); Epithelial Cells RARE /HPF (FEW); Glucose NEGATIVE (NEGATIVE); Ketones NEGATIVE (NEGATIVE); Leukocyte Esterase TRACE (NEGATIVE); Mucus MODERATE /HPF (NEGATIVE); Nitrite POSITIVE (NEGATIVE); Protein,Urine Dip 30 (Negative); RBC 0-2 /HPF (0-2); Urobilinogen NEGATIVE mg/dL (0-1)
[2021-06-15] MEDS ORDERED: ROCEPHIN 1 Gm-D5w 50 ml Bag** 1 G/50 ML IVPB IV STA (08:38)
[2021-06-15 08:52] LABS: Erythrocyte Sedimentation Rate 3 mm/hr (0-20)
[2021-06-15] MEDS ORDERED: ROCEPHIN 1 Gm-D5w 50 ml Bag** 1 G/50 ML IVPB IV ONE (08:53)
[2021-06-15 09:23] VITALS: BP 94/63; PULSE 45
[2021-06-15 09:24] VITALS: O2SAT 100
== END 2021-06-15 09:31 | disposition home or self-care (01) ==
LOC: ED 07:16
DX: N39.0 Urinary tract infection, site not specified (principal); R51.9 Headache, unspecified; E86.0 Dehydration; R11.0 Nausea; K21.9 Gastro-esophageal reflux disease without esophagitis; F41.9 Anxiety disorder, unspecified; Z79.899 Other long term (current) drug therapy; Z79.891 Long term (current) use of opiate analgesic
CPT/HCPCS: 36000; 36415; 80053; 81001; 85025; 85652; 87077; 87086; 87186; 96360; 96374; 96375; 99284; J0696; J3010

== ENCOUNTER 2021-06-24 12:05 | Emergency (ER) | payer OTHER ==
--- NOTE | 2021-06-24 12:55 | ERPHSYRPT ---
- History of Present Illness Historian: patient Exam Limitations: no limitations Patient Subjective Stated Complaint: Pt has a gtube in abdomen and yesterday her son was on her lap and later she noticed that her shirt was wet and she had a blood soaked bandaged from her gtube, pt is having pain when she flushes the tube Triage Nursing Assessment: Pt drove self to the ER, vitals wnl, rates pain as 7/10, gtube flushes well but pt states that she has pain that starts at the opening of the tube and goes to the lower quadrants, pt states that she feels like she is going to vomit but isn't able to, gtube is not bleeding today, site appears good and clean, pt doesn't appear to be in any distress Physician History: 36 yo wf s/p gastric bypass surgery Apr 09 and subsequent G-tube placement complains of pain around her G-tube after son sat on her lap yesterday. G-tube is still flushing well. She denies Fever/N/V/melena/hematochezia. Timing/Duration: yesterday Activities at Onset: rest Quality: aching Abdominal Pain Onset Location: other (Around G-tube) Severity of Pain-Max: moderate Severity of Pain-Current: moderate Modifying Factors: Improves With: nothing Associated Symptoms: loss of appetite, No back, No chest pain, No diaphoresis, No diarrhea, No fever/chills, No fatigue, No headache, No heartburn, No nausea, No neck pain, No rash, No shortness of breath, No syncope, No vomiting, No weakness Previous symptoms: same symptoms as today Allergies/Adverse Reactions: Fish Containing Products Allergy (Intermediate, Verified 06/24/21 12:24) Nausea and Vomiting swelling everywhere shellfish derived Allergy (Intermediate, Verified 06/24/21 12:24) Nausea and Vomiting latex Allergy (Verified 06/24/21 12:24) Sulfa (Sulfonamide Antibiotics) [Sulfa(Sulfonamide Antibiotics)] Allergy (Verified 06/24/21 12:24) Hives sulfamethoxazole [From Septra] Allergy (Verified 06/24/21 12:24) Rash trimethoprim [From Decra] Allergy (Verified 06/24/21 12:24) Rash NSAIDS (Non-Steroidal Anti-Inflamma Adverse Reaction (Verified 06/24/21 12:24) Rash can take IM but no oral med eggs Allergy (Uncoded 06/24/21 12:24) Rash nausea/vomiting Home Medications: Tizanidine HCl 4 mg [Zanaflex 4 MG] 4 mg PO QID PRN 07/08/19 [History] Topiramate [Topamax] 200 mg PO BID 07/08/19 [History] Venlafaxine HCl [Effexor] 150 mg PO BID 07/08/19 [History] Cyanocobalamin 1000 Mcg/ml [Cyanocobalamin B-12 1000 MCG/ML] 1,000 mcg SQ UD 07/12/19 [History] PANTOPRAZOLE 40 mg Tablet [Protonix 40MG Tablet] 40 mg PO QPM 07/12/19 [History] hydrOXYzine HCL [Hydroxyzine HCl] 50 mg pe PO QID PRN 07/12/19 [History] Ergocalciferol (Vitamin D2) [Vitamin D2] 1 cap PO WEEKLY 10/06/19 [History] levETIRAcetam [Levetiracetam] 250 mg PO BID 10/06/19 [History] Lorazepam 0.5 mg [Ativan 0.5 MG] 0.5 mg PO TID PRN 02/27/20 [History] Hx Tetanus, Diphtheria Vaccination/Date Given: Yes Hx Influenza Vaccination/Date Given: No Hx Pneumococcal Vaccination/Date Given: No Travel Risk - International Travel Have you traveled outside of the country in past 3 weeks: No - Coronavirus Screening Are you exhibiting any of the following symptoms?: No Close contact with a COVID-19 positive Pt in past 14-21 Days: No - Vaccine Status Have you recieved a Covid-19 vaccination: Yes [employer]: Moderna - Vaccination Dates Date of 2cond Vaccination (if applicable): September 2020 - Review of Systems Constitutional: No Symptoms Eyes: No Symptoms Ears, Nose, & Throat: No Symptoms Respiratory: No Symptoms Cardiac: No Symptoms Abdominal/Gastrointestinal: Abdominal Pain Genitourinary Symptoms: No Symptoms Musculoskeletal: No Symptoms Skin: No Symptoms Neurological: No Symptoms Psychological: No Symptoms Endocrine: No Symptoms Hematologic/Lymphatic: No Symptoms Immunological/Allergic: No Symptoms - Past Medical History Pertinent Past Medical History: Yes Neurological History: Migraines, Seizures ENT History: No Pertinent History Cardiac History: No Pertinent History Respiratory History: Asthma Endocrine Medical History: Hypothyroidism Musculoskeletal History: No Pertinent History GI Medical History: No Pertinent History, Other History: Other Psycho-Social History: Anxiety, Depression Female Reproductive Disorders: Abnormal Uterine Bleeding, Menstrual Problems Other Medical History: PMYX: GERD, ANEMIA, ANXIETY, DEPRESSION, GASTRIC ULCER,. SX HX: CHOLECYSTECTOMY, BLADDER AND URETER REPAIR, TONSEILLECTOMY, GASTRIC LAP BAND AND REVISION, HYSTERECTOMY, - Past Surgical History Past Surgical History: Yes Neuro Surgical History: No Pertinent History Cardiac: No Pertinent History Respiratory: No Pertinent History Gastrointestinal: Appendectomy, Cholecystectomy Genitourinary: No Pertinent History Musculoskeletal: No Pertinent History Female Surgical History: Hysterectomy, Tubal Ligation, Other Other Surgical History: gastric bypass, lap band placed and removed first, two D&C, EGD - 03/19/16 - results "stomach inflammed" ablation. november 2019 bleeding ulcer surgery - was told it was like a revision to the gastric bypass. g- tube placement. - Social History Smoking Status: Former smoker How long have you smoked: 3 years Exposure to second hand smoke: No Drug Use: none Patient Lives Alone: No Significant Family History: no pertinent family hx - Female History Hx Now: No (partial hysterectomy) - Nursing Vital Signs Nursing Vital Signs: Initial Vital Signs Temperature 98.0 F 06/24/21 12:15 Pulse Rate 89 06/24/21 12:15 Blood Pressure 127/88 06/24/21 12:15 O2 Sat by Pulse Oximetry 99 06/24/21 12:15 Pain Scale Pain Intensity [] 7 Pain Intensity 7 WNL - Physical Exam General Appearance: no apparent distress Eye Exam: PERRL/EOMI, eyes nml inspection Ears, Nose, Throat Exam: normal ENT inspection, TMs normal, pharynx normal, moist mucous membranes Neck Exam: normal inspection, non-tender, supple, full range of motion, No meni ngismus, No mass, No Brudzinski, No Kernig's Respiratory Exam: normal breath sounds, lungs clear, airway intact, No respiratory distress, No diminished breath sounds Cardiovascular Exam: regular rate/rhythm, normal heart sounds, normal peripheral pulses, capillary refill <2 sec, No murmur Gastrointestinal/Abdomen Exam: soft (G-tube in place/Flushes per nursing/No erythema/Diffuse TTP around G-tube) Back Exam: normal inspection, normal range of motion, No CVA tenderness Extremity Exam: normal inspection, normal range of motion Neurologic Exam: alert, 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, cooperative, chrome polisher II-XII nml as tested, normal mood/affect, nml cerebellar function, nml station & gait, sensation nml, No motor deficits, No sensory deficit Skin Exam: normal color, warm, dry Lymphatic Exam: No adenopathy SpO2 Interpretation: normal SpO2: 99 O2 Delivery: Room Air - CT Exams Abdomen/Pelvis CT Interpretation: Discussed w/radiologist (G-tube in stomach/abdominal wall subcutaneous fatty induration-infectious vs inflammatory) Ordered Tests: Active Orders 24 hr Category Date Time Status ABDOMEN AND PELVIS W/0 CONTRAS [CT] Stat Exams 06/24/21 12:34 Completed CBC W DIFF Stat Lab 06/24/21 14:01 Completed Lactic Acid Stat Lab 06/24/21 14:01 Completed Lab/Rad Data: Laboratory Result Diagrams 06/24/21 14:01 Laboratory Results 06/24/21 06/24/21 Range/Units 14:01 14:01 WBC 9.2 (4.0-10.5) K/mm3 RBC 3.75 L (4.1-5.4) M/mm3 Hgb 12.6 (12.0-16.0) gm/dl Hct 39.7 (35-47) % MCV 105.9 H (78-100) fl MCH 33.6 H (26-32) pg MCHC 31.7 L (32-36) g/dl RDW 12.7 (11.5-14.0) % Plt Count 159 (150-450) K/mm3 MPV 11.6 H (7.5-11.0) fl Gran % 76.9 H (36.0-66.0) % Eos # (Auto) 0.14 (0-0.5) Absolute Lymphs (auto) 1.37 (1.0-4.6) Absolute Monos (auto) 0.54 (0.0-1.3) Lymphocytes % 15.0 L (24.0-44.0) % Monocytes % 5.9 (0.0-12.0) % Eosinophils % 1.5 (0.00-5.0) % Basophils % 0.7 (0.0-0.4) % Absolute Granulocytes 7.05 H (1.4-6.9) Basophils # 0.06 (0-0.4) Lactic Acid 0.7 (0.4-2.0) - Progress Progress Note: 06/24/21 14:17 Pt driving and allergic to NSAIDS, so unable to treat w narcotics Counseled pt/family regarding: lab results, diagnosis, need for follow-up, rad results - Departure Departure Disposition: Home Clinical Impression: G-tube site cellulitis Condition: Stable Critical Care Time: No Referrals: MARCO SALVADOR MD [Primary Care Provider] - Follow up/PCP as directed Instructions: Acute Abdomen (Belly Pain), Adult (DC), Cellulitis (Skin Infection), Adult (DC) Additional Instructions: Start Doxycycline twice a day Follow up with your surgeon JENNIE Prescriptions: Doxycycline Monohydrate 100 mg PO BID #20 Hydrocodone/Acetaminophen [Hydrocodone-Acetamin 10-325 mg] 1 each PO Q4-6HPRN PRN #6 tablet MDD 4 tABS PRN Reason: Pain
--- NOTE | 2021-06-24 13:32 | XRAY ---
Indication: Pain at PEG tube site. Multiple contiguous os images obtained through the abdomen and pelvis without contrast. Comparison: October 22, 2020. Lung bases remain clear again with incidental right lower lobe calcified granuloma. Heart not enlarged. Left mid abdomen demonstrates new PEG tube with balloon tip in gastric lumen. Subcutaneous fat at PEG tube insertion site appears moderately indurated presumed inflammatory/infectious. No walled off fluid collection or subcutaneous emphysema. Noncontrasted stomach and bowel loops remain nonobstructed again with gastric bypass surgery. Again appendectomy, cholecystectomy, and hysterectomy. No free fluid/air. Remaining liver, pancreas, spleen, adrenal glands, kidneys, ureters, bladder, and aorta are unremarkable for noncontrast exam. Osseous structures intact. No ventral or inguinal hernias. Impression: 1. New PEG tube with balloon tip in stomach lumen. Abdominal wall subcutaneous fatty induration at PEG tube insertion presumed inflammatory/infectious. 2. Stable right lower lobe calcified granuloma and bariatric surgery. 3. Remaining CT abdomen/pelvis without contrast exam is negative.
[2021-06-24 14:08] VITALS: BP 100/65; PULSE 67
[2021-06-24 14:10] LABS: Absolute Neutrophil Ct (ANC) 7.05 (1.4-6.9); Basophil (Absolute #) 0.06 (0-0.4); Eosinophil % 1.5 % (0.00-5.0); Eosinophil (Absolute #) 0.14 (0-0.5); Hematocrit 39.7 % (35-47); Hemoglobin 12.6 gm/dl (12.0-16.0); Lymphocyte (Absolute #) 1.37 (1.0-4.6); Mean Cell Volume 105.9 fl (78-100); Mean Corpuscular Hemoglobin 33.6 pg (26-32); Mean Corpuscular Hgb Concent. 31.7 g/dl (32-36); Mean Platelet Volume 11.6 fl (7.5-11.0); Monocyte (Absolute #) 0.54 (0.0-1.3); Monocytes % 5.9 % (0.0-12.0); Neutrophil % 76.9 % (36.0-66.0); Platelet Count 159 K/mm3 (150-450); Red Blood Count 3.75 M/mm3 (4.1-5.4); Red Cell Distribution Width 12.7 % (11.5-14.0); White Blood Count 9.2 K/mm3 (4.0-10.5)
[2021-06-24 14:25] VITALS: O2SAT 99
== END 2021-06-24 14:24 | disposition home or self-care (01) ==
LOC: ED 12:05
DX: T85.79XA Infection and inflammatory reaction due to other internal prosthetic devices, implants and grafts, initial encounter (principal); K94.22 Gastrostomy infection; L03.311 Cellulitis of abdominal wall; K21.9 Gastro-esophageal reflux disease without esophagitis; Z98.84 Bariatric surgery status; Z79.891 Long term (current) use of opiate analgesic; Z79.899 Other long term (current) drug therapy
CPT/HCPCS: 36415; 74176; 83605; 85025; 99284

== ENCOUNTER 2021-07-13 14:52 | Emergency (ER) | payer OTHER ==
[2021-07-13] MEDS ORDERED: Hydromorphone 1 mg/ml Injection IV ONE (15:11)
[2021-07-13] MEDS ORDERED: Sodium Chloride 0.9% 1000 ML 1,000 ML IV STA (15:11)
[2021-07-13 15:30] VITALS: BP 127/77
[2021-07-13] MEDS ORDERED: Hydromorphone 1 mg/ml Injection ONE (15:30)
[2021-07-13] MEDS ORDERED: Sodium Chloride 0.9% 1000 ML 0 ML ONE (15:30)
[2021-07-13 15:33] LABS: Absolute Neutrophil Ct (ANC) 6.58 (1.4-6.9); Basophil (Absolute #) 0.04 (0-0.4); Eosinophil % 2.1 % (0.00-5.0); Eosinophil (Absolute #) 0.19 (0-0.5); Hematocrit 41.5 % (35-47); Hemoglobin 13.6 gm/dl (12.0-16.0); Lymphocyte (Absolute #) 1.67 (1.0-4.6); Lymphocytes % 18.6 % (24.0-44.0); Mean Cell Volume 103.2 fl (78-100); Mean Corpuscular Hemoglobin 33.8 pg (26-32); Mean Corpuscular Hgb Concent. 32.8 g/dl (32-36); Mean Platelet Volume 11.5 fl (7.5-11.0); Monocyte (Absolute #) 0.48 (0.0-1.3); Monocytes % 5.4 % (0.0-12.0); Neutrophil % 73.5 % (36.0-66.0); Platelet Count 192 K/mm3 (150-450); Red Blood Count 4.02 M/mm3 (4.1-5.4); Red Cell Distribution Width 12.7 % (11.5-14.0)
[2021-07-13 15:43] LABS: ALBUMIN 4.7 g/dL (3.5-5.0); ALKALINE PHOSPHATASE 58 U/L (38-126); ANION GAP 15.6 MEQ/L (5-15); BLOOD UREA NITROGEN 7 mg/dL (7-17); CHLORIDE 106 mmol/L (98-107); Calcium 9.4 mg/dL (8.4-10.2); Carbon Dioxide 21 mmol/L (22-30); Creatinine 1 0.58 mg/dL (0.52-1.04); EST GLOMERULAR FILTRATION RATE > 60.0 ML/MIN; Glucose 90 mg/dL (74-106); LIPASE 191 U/L (23-300); Potassium 3.4 mmol/L (3.5-5.1); SGOT/AST 19 U/L (14-36); SGPT/ALT 8 U/L (0-35); SODIUM 139 mmol/L (137-145); Total Protein 7.6 g/dL (6.3-8.2)
--- NOTE | 2021-07-13 15:55 | ERPHSYRPT ---
- History of Present Illness Time Seen by Provider: 07/13/21 15:52 Historian: patient Exam Limitations: no limitations Patient Subjective Stated Complaint: Abdominal pain Triage Nursing Assessment: Patient ambulated back to ED and transferred self to bed. Patient A+O X.3 Patient's skin pink, warm and dry. Patient complains of abdominal pain around her g tube site internally. Patient complains of pain 10/10. Patient's abdomen soft and round with BS. X 4. Patient complains of nausea, but denies vomiting or diarrhea. Physician History: Patient is 36-year-old female with significant past medical history of gastric bariatric surgery with complication for which patient has multiple times placement of the G-tube G-tube. She was recently placed another enteric tube and she started having some problem around the insertion site associated with abdominal pain and nausea. Timing/Duration: today Abdominal Pain Onset Location: generalized abdomen Severity of Pain-Max: moderate Severity of Pain-Current: moderate Modifying Factors: Improves With: nothing Associated Symptoms: denies symptoms Previous symptoms: different symptoms Allergies/Adverse Reactions: Fish Containing Products Allergy (Intermediate, Verified 07/13/21 15:10) Nausea and Vomiting swelling everywhere shellfish derived Allergy (Intermediate, Verified 07/13/21 15:10) Nausea and Vomiting latex Allergy (Verified 07/13/21 15:10) Sulfa (Sulfonamide Antibiotics) [Sulfa(Sulfonamide Antibiotics)] Allergy (Verified 07/13/21 15:10) Hives sulfamethoxazole [From Septra] Allergy (Verified 07/13/21 15:10) Rash trimethoprim [From Decra] Allergy (Verified 07/13/21 15:10) Rash NSAIDS (Non-Steroidal Anti-Inflamma Adverse Reaction (Verified 07/13/21 15:10) Rash can take IM but no oral med eggs Allergy (Uncoded 07/13/21 15:10) Rash nausea/vomiting Home Medications: Tizanidine HCl 4 mg [Zanaflex 4 MG] 4 mg PO QID PRN 07/08/19 [History] Topiramate [Topamax] 200 mg PO BID 07/08/19 [History] Venlafaxine HCl [Effexor] 150 mg PO BID 07/08/19 [History] Cyanocobalamin 1000 Mcg/ml [Cyanocobalamin B-12 1000 MCG/ML] 1,000 mcg SQ UD 07/12/19 [History] PANTOPRAZOLE 40 mg Tablet [Protonix 40MG Tablet] 40 mg PO QPM 07/12/19 [History] hydrOXYzine HCL [Hydroxyzine HCl] 50 mg pe PO QID PRN 07/12/19 [History] Ergocalciferol (Vitamin D2) [Vitamin D2] 1 cap PO WEEKLY 10/06/19 [History] levETIRAcetam [Levetiracetam] 250 mg PO BID 10/06/19 [History] Lorazepam 0.5 mg [Ativan 0.5 MG] 0.5 mg PO TID PRN 02/27/20 [History] Hx Tetanus, Diphtheria Vaccination/Date Given: Yes Hx Influenza Vaccination/Date Given: No Hx Pneumococcal Vaccination/Date Given: No Immunizations Up to Date: Yes Travel Risk - International Travel Have you traveled outside of the country in past 3 weeks: No (N) If Yes, where;: N - Coronavirus Screening Close contact with a COVID-19 positive Pt in past 14-21 Days: No - Vaccine Status Have you recieved a Covid-19 vaccination: Yes Crossing Tender: Moderna - Vaccination Dates Date of 2cond Vaccination (if applicable): September 2020 - Review of Systems Constitutional: No Fever, No Chills Eyes: No Symptoms Ears, Nose, & Throat: No Symptoms Respiratory: No Cough, No Dyspnea Cardiac: No Chest Pain, No Edema, No Syncope Abdominal/Gastrointestinal: Abdominal Pain, No Nausea, No Vomiting, No Diarrhea Genitourinary Symptoms: No Dysuria Musculoskeletal: No Back Pain, No Neck Pain Skin: No Rash Neurological: No Dizziness, No Focal Weakness, No Sensory Changes Psychological: No Symptoms Endocrine: No Symptoms All Other Systems: Reviewed and Negative - Past Medical History Pertinent Past Medical History: Yes Neurological History: Migraines, Seizures ENT History: No Pertinent History Cardiac History: No Pertinent History Respiratory History: Asthma Endocrine Medical History: Hypothyroidism Musculoskeletal History: No Pertinent History GI Medical History: No Pertinent History, Other History: Other Psycho-Social History: Anxiety, Depression Female Reproductive Disorders: Abnormal Uterine Bleeding, Menstrual Problems Other Medical History: PMYX: GERD, ANEMIA, ANXIETY, DEPRESSION, GASTRIC ULCER,. SX HX: CHOLECYSTECTOMY, BLADDER AND URETER REPAIR, TONSEILLECTOMY, GASTRIC LAP BAND AND REVISION, HYSTERECTOMY, - Past Surgical History Past Surgical History: Yes Neuro Surgical History: No Pertinent History Cardiac: No Pertinent History Respiratory: No Pertinent History Gastrointestinal: Appendectomy, Cholecystectomy Genitourinary: No Pertinent History Musculoskeletal: No Pertinent History Female Surgical History: Hysterectomy, Tubal Ligation, Other Other Surgical History: gastric bypass, lap band placed and removed first, two D&C, EGD - 03/19/16 - results "stomach inflammed" ablation. november 2019 bleeding ulcer surgery - was told it was like a revision to the gastric bypass. g- tube placement. - Social History Smoking Status: Former smoker How long have you smoked: 3 years Exposure to second hand smoke: No Drug Use: none Patient Lives Alone: No Significant Family History: no pertinent family hx - Female History Hx Last Menstrual Period: 2 partial hysterectomy Hx Now: No - Nursing Vital Signs Nursing Vital Signs: Initial Vital Signs Temperature 97.9 F 07/13/21 15:10 Blood Pressure 127/77 07/13/21 15:10 Pain Scale Pain Intensity 10 - Physical Exam General Appearance: no apparent distress, alert Eye Exam: PERRL/EOMI, eyes nml inspection Ears, Nose, Throat Exam: normal ENT inspection, pharynx normal, moist mucous membranes Neck Exam: normal inspection, non-tender, supple, full range of motion Respiratory Exam: normal breath sounds, lungs clear, No respiratory distress Cardiovascular Exam: regular rate/rhythm, normal heart sounds Gastrointestinal/Abdomen Exam: soft, tenderness (around G tube site), No mass Back Exam: normal inspection, normal range of motion, No CVA tenderness, No vertebral tenderness Extremity Exam: normal inspection, normal range of motion, pelvis stable Neurologic Exam: alert, 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, cooperative, normal mood/affect, nml cerebellar function, sensation nml, No motor deficits Skin Exam: normal color, warm, dry - Course Nursing assessment & vital signs reviewed: Yes - CT Exams Abdomen/Pelvis CT Interpretation: Tele-radiologist Report Ordered Tests: Active Orders 24 hr Category Date Time Status ABDOMEN AND PELVIS W/0 CONTRAS [CT] Stat Exams 07/13/21 15:11 Taken CBC W DIFF Stat Lab 07/13/21 15:25 Completed CMP Stat Lab 07/13/21 15:25 Completed LIPASE Stat Lab 07/13/21 15:25 Completed Medication Summary Generic Name Dose Route Start Last Admin Trade Name Freq PRN Reason Stop Dose Admin Hydromorphone HCl 1 mg 07/13/21 16:40 07/13/21 16:42 Hydromorphone 1 Mg/1ml Inj 1 Mg/Ml Syringe IM 07/18/21 16:39 1 mg Q4H PRN PRN Administration PAIN Discontinued Medications Generic Name Dose Route Start Last Admin Trade Name Freq PRN Reason Stop Dose Admin Hydromorphone HCl 1 mg 07/13/21 15:11 07/13/21 16:44 Hydromorphone 1 Mg/1ml Inj 1 Mg/Ml Syringe IV 07/13/21 15:12 Not Given STAT ONE Hydromorphone HCl Confirm 07/13/21 15:30 Hydromorphone 1 Mg/1ml Inj 1 Mg/Ml Syringe Administered 07/13/21 15:31 Dose 1 mg .ROUTE .STK-MED ONE Sodium Chloride 1,000 mls @ 999 mls/hr 07/13/21 15:11 Sodium Chloride 0.9% 1000 Ml IV 07/13/21 16:11 .Q1H1M STA Sodium Chloride Confirm 07/13/21 15:30 Sodium Chloride 0.9% 1000 Ml Administered 07/13/21 15:31 Dose 1,000 mls @ ud .ROUTE .STK-MED ONE Lab/Rad Data: Laboratory Result Diagrams 07/13/21 15:25 07/13/21 15:25 Laboratory Results 07/13/21 07/13/21 Range/Units 15:25 15:25 WBC 9.0 (4.0-10.5) K/mm3 RBC 4.02 L (4.1-5.4) M/mm3 Hgb 13.6 (12.0-16.0) gm/dl Hct 41.5 (35-47) % MCV 103.2 H (78-100) fl MCH 33.8 H (26-32) pg MCHC 32.8 (32-36) g/dl RDW 12.7 (11.5-14.0) % Plt Count 192 (150-450) K/mm3 MPV 11.5 H (7.5-11.0) fl Gran % 73.5 H (36.0-66.0) % Eos # (Auto) 0.19 (0-0.5) Absolute Lymphs (auto) 1.67 (1.0-4.6) Absolute Monos (auto) 0.48 (0.0-1.3) Lymphocytes % 18.6 L (24.0-44.0) % Monocytes % 5.4 (0.0-12.0) % Eosinophils % 2.1 (0.00-5.0) % Basophils % 0.4 (0.0-0.4) % Absolute Granulocytes 6.58 (1.4-6.9) Basophils # 0.04 (0-0.4) Sodium 139 (137-145) mmol/L Potassium 3.4 L (3.5-5.1) mmol/L Chloride 106 (98-107) mmol/L Carbon Dioxide 21 L (22-30) mmol/L Anion Gap 15.6 H (5-15) MEQ/L BUN 7 (7-17) mg/dL Creatinine 0.58 (0.52-1.04) mg/dL Estimated GFR > 60.0 ML/MIN Glucose 90 (74-106) mg/dL Calcium 9.4 (8.4-10.2) mg/dL Total Bilirubin 0.70 (0.2-1.3) mg/dL AST 19 (14-36) U/L ALT 8 (0-35) U/L Alkaline Phosphatase 58 (38-126) U/L Serum Total Protein 7.6 (6.3-8.2) g/dL Albumin 4.7 (3.5-5.0) g/dL Lipase 191 (23-300) U/L - Departure Departure Disposition: Home Clinical Impression: G-tube site cellulitis Condition: Stable Critical Care Time: No Referrals: MARCO SALVADOR MD [Primary Care Provider] - Follow up/PCP as directed Instructions: Acute Abdomen (Belly Pain), Adult (DC) Additional Instructions: Discharge/Care Plan ELEN,VICKI BOSS was seen on 07/13/21 in the Emergency Room. The patient was counseled regarding Diagnosis,Lab results, Imaging studies, need for follow up and when to return to the Emergency Room. Prescriptions given: Discharge Note I have spoken with the patient and/or caregivers. I have explained the patient's condition, diagnosis and treatment plan based on the information available to me at this time. I have answered the patient's and/or caregiver's questions and addressed any concerns. The patient and/or caregivers have as good understanding of the patient's diagnosis, condition and treatment plan as can be expected at this point. The vital signs have been stable. The patient's condition is stable and appropriate for discharge from the emergency department. The patient will pursue further outpatient evaluation with the primary care physician or other designated or consulting physician as outlined in the discharge instructions. The patient and/or caregivers are agreeable to this plan of care and follow-up instructions have been explained in detail. The patient and/or caregivers have received these instruction. The patient/and or caregivers are aware that any significant change in condition or worsening of symptoms should prompt an immediate return to this or the closest emergency department or call 911. VICKI MYRICK GERA was seen on 07/13/21 n the Emergency Room. At that time you were treated for an emergent condition, during your visit Laboratory, Radiology and/or other procedures may have been ordered. It is very important that you follow-up with your Primary Care Physician MARCO SALVADOR within the next 24-48 hours to review your Emergency Room visit and the final results of testing that was ordered. Some test results such as Urine Cultures, Blood Cultures, and other cultures if ordered will not be finalized for 24-48 hours. If you do not have a Primary Care Provider please call the medical records department at [phone] to obtain a copy of your results or you may sign into our patient portal to obtain these results by visiting us @ [email or web address] and completing the following steps: 1. Click on the Patient Portal link 2. Click the Patient Self Enrollment Link to complete the enrollment form and entering your 3. Once the enrollment form is completed you will receive an email with a temporary ID and password at the email address you provided. 4. Next choose a user name and password. Your user name must be at least 4 characters long and your password must be at least 4 characters long. 5. Choose a security question from the list and provide your answer to the question. If you already have signed into the Health Portal you may access your Health Care Information 10/11 by the following steps: 1. Login to our website @ [email or web address] 2. Enter your original user name and password. FAQS The [facility] Health Portal is an online tool that contains your Lab Results, Ra diology Reports, Visit History, Discharge Instructions and Health Summary Lab and Radiology Results will not be available for 72 hours on the portal. The Portal is a secure site, passwords are encryted and URLs are re-written so they cannot be copied and pasted. You and authorized family members are the only ones who can access your Portal. Also there is a timeout feature that protects your information if you leave the Portal page open. If you have technical difficulty please use the Contact Us link on the page this will allow you to submit any questions you have regarding the Portal or you may contact the Medical Record Department at [phone] ext [phone]. Prescriptions: Cephalexin Mh 500 mg [Keflex 500 mg] 500 mg PO Q6H #40 cap Oxycodone / APAP 10/325 mg [Oxycodone-Acetaminophen 10-325] 1 each PO QID #20 tablet MDD 4
[2021-07-13] MEDS ORDERED: Hydromorphone 1 mg/ml Injection IM PRN (16:40)
[2021-07-13 17:38] VITALS: PULSE 72
--- NOTE | 2021-07-13 20:18 | XRAY ---
Indication: Pain around G-tube 5 days. Multiple contiguous axial images obtained through the abdomen and pelvis without contrast. Comparison: June 24, 2021. Lung bases remain clear again with incidental right infrahilar calcified nodes. Heart not enlarged. Again left midabdomen PEG tube with balloon tip in gastric lumen. The abdominal wall soft tissues around the PEG tube have markedly diminished in induration favoring healing process. There is now a few tiny air bubbles present that may represent gas-forming infection. Noncontrasted stomach and bowel loops remain nonobstructed again with bariatric surgery. Again hepatectomy and cholecystectomy. No free fluid/air. Remaining liver, pancreas, spleen, adrenal glands, kidneys, ureters, bladder, uterus, and aorta are unremarkable for noncontrast exam. Impression: 1. Again PEG tube in situ with interval diminished abdominal wall induration. New tiny subcutaneous emphysema concerning for gas-forming infection. 2. Remaining CT abdomen/pelvis without contrast exam is negative. Comment: Preliminary interpretation made by [facility]. No critical discrepancy.
== END 2021-07-13 17:38 | disposition home or self-care (01) ==
LOC: ED 14:52
DX: K94.29 Other complications of gastrostomy (principal); L03.311 Cellulitis of abdominal wall; R10.84 Generalized abdominal pain; R11.0 Nausea; Z98.84 Bariatric surgery status; K21.9 Gastro-esophageal reflux disease without esophagitis; Z79.899 Other long term (current) drug therapy; Z79.891 Long term (current) use of opiate analgesic
CPT/HCPCS: 36415; 74176; 80053; 83690; 85025; 96372; 99284; J1170

== ENCOUNTER 2021-08-15 12:30 | Emergency (ER) | payer OTHER ==
[2021-08-15] MEDS ORDERED: Zofran 4 MG/2 ML VIAL IV ONE (13:00)
[2021-08-15] MEDS ORDERED: Hydromorphone 1 mg/ml Injection IV ONE (13:00)
[2021-08-15] MEDS ORDERED: Sodium Chloride 0.9% 1000 ML 1,000 ML IV STA ×2 (13:00→13:50)
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
[2021-08-15 13:18] LABS: Absolute Neutrophil Ct (ANC) 3.31 (1.4-6.9); Basophil (Absolute #) 0.04 (0-0.4); Eosinophil % 2.4 % (0.00-5.0); Eosinophil (Absolute #) 0.13 (0-0.5); Hemoglobin 13.4 gm/dl (12.0-16.0); Lymphocytes % 29.9 % (24.0-44.0); Mean Cell Volume 104.7 fl (78-100); Mean Corpuscular Hemoglobin 35.1 pg (26-32); Mean Corpuscular Hgb Concent. 33.5 g/dl (32-36); Mean Platelet Volume 11.2 fl (7.5-11.0); Monocyte (Absolute #) 0.27 (0.0-1.3); Platelet Count 167 K/mm3 (150-450); Red Blood Count 3.82 M/mm3 (4.1-5.4); Red Cell Distribution Width 13.6 % (11.5-14.0); White Blood Count 5.4 K/mm3 (4.0-10.5)
[2021-08-15] MEDS ORDERED: Zofran 4 MG/2 ML VIAL ONE (13:19)
[2021-08-15] MEDS ORDERED: Sodium Chloride 0.9% 1000 ML 1,000 ML ONE ×3 (13:19→14:35)
[2021-08-15] MEDS ORDERED: Hydromorphone 1 mg/ml Injection ONE (13:19)
[2021-08-15 13:30] LABS: ALBUMIN 3.8 g/dL (3.5-5.0); ALKALINE PHOSPHATASE 39 U/L (38-126); AMYLASE 101 U/L (30-110); ANION GAP 12.2 MEQ/L (5-15); BLOOD UREA NITROGEN 10 mg/dL (7-17); CHLORIDE 108 mmol/L (98-107); Calcium 8.9 mg/dL (8.4-10.2); Carbon Dioxide 21 mmol/L (22-30); Creatinine 1 0.53 mg/dL (0.52-1.04); EST GLOMERULAR FILTRATION RATE > 60.0 ML/MIN; Glucose 91 mg/dL (74-106); LIPASE 159 U/L (23-300); Potassium 3.7 mmol/L (3.5-5.1); SGOT/AST 23 U/L (14-36); SGPT/ALT 13 U/L (0-35); SODIUM 138 mmol/L (137-145); Total Protein 6.1 g/dL (6.3-8.2)
--- NOTE | 2021-08-15 14:07 | XRAY ---
Indication: Suprapubic/vaginal pain. Multiple contiguous axial images obtained through the abdomen and pelvis without contrast. Comparison: July 13, 2021. Lung bases again demonstrates right lower lobe calcified granuloma. Heart not enlarged. Stable left midabdomen percutaneous J tube with balloon tip in the jejunal lumen. Noncontrasted stomach and bowel loops remain nonobstructed again with bariatric surgery. Again partial hysterectomy, appendectomy, and cholecystectomy. No free fluid/air. Remaining liver, pancreas, spleen, adrenal glands, kidneys, ureters, bladder, and aorta are unremarkable for noncontrast exam. Osseous structures intact. Impression: Continued negative CT abdomen/pelvis without contrast exam with again incidental bariatric surgery, percutaneous J tube, and old granulomatous disease.
[2021-08-15 15:55] LABS: Bacteria RARE /HPF (NEGATIVE); Epithelial Cells RARE /HPF (FEW); Mucus SLIGHT /HPF (NEGATIVE); RBC 0-2 /HPF (0-2); WBC 0-2 /HPF (0-5)
[2021-08-15 15:56] LABS: Appearance CLEAR (CLEAR); Bilirubin NEGATIVE (NEGATIVE); Glucose NEGATIVE (NEGATIVE)
[2021-08-15 15:57] LABS: Ketones NEGATIVE (NEGATIVE); Nitrite NEGATIVE (NEGATIVE); Protein,Urine Dip NEGATIVE (Negative); RBC NEGATIVE Ery/ul (0-5); Urine Cultured Indicated? NO; Urobilinogen 0.2 mg/dL (0-1)
[2021-08-15 16:01] LABS: Dipstick done @ ? MAIN LAB
[2021-08-15 16:20] VITALS: BP 109/59; PULSE 78; O2SAT 96
== END 2021-08-15 16:21 | disposition home or self-care (01) ==
LOC: ED 12:30
DX: R10.2 Pelvic and perineal pain (principal); R10.30 Lower abdominal pain, unspecified; R11.2 Nausea with vomiting, unspecified; K21.9 Gastro-esophageal reflux disease without esophagitis; F41.9 Anxiety disorder, unspecified; Z79.899 Other long term (current) drug therapy
CPT/HCPCS: 36000; 36415; 74176; 80053; 81015; 82150; 83605; 83690; 85025; 96360; 96361; 96374; 96375; 99284; J1170; J2405

== ENCOUNTER 2021-09-30 12:19 | Emergency (ER) | payer OTHER ==
[2021-09-30] MEDS ORDERED: Sodium Chloride 0.9% 1000 ML 1,000 ML IV STA ×2 (12:51→13:51)
[2021-09-30] MEDS ORDERED: Hydromorphone 1 mg/ml Injection IV ONE ×3 (12:51→15:14)
[2021-09-30] MEDS ORDERED: Zofran 4 MG/2 ML VIAL IV ONE (12:51)
[2021-09-30] MEDS ORDERED: Hydromorphone 1 mg/ml Injection ONE ×3 (12:56→15:15)
--- NOTE | 2021-09-30 12:57 | ERPHSYRPT ---
- History of Present Illness Time Seen by Provider: 09/30/21 12:45 Historian: patient, family Exam Limitations: no limitations Physician History: This is a thin 36-year-old white female who has had a gastric bypass in the past and several postoperative complications requiring gastric tube placement and bypass revision. His primary care physician is Dr. Salvador. Patient had her surgery performed in [place]. Yesterday, the patient was having mild left lower abdominal pain but also had fever and some left flank pain as well. Her fever as high as 103 F. Patient arrives to emergency department afebrile but with the history of the fever and vomiting as well as left lower abdominal pain, she will need intravenous fluids, antiemetic, intravenous pain medicine and a CAT scan of the abdomen and pelvis. Patient denies shortness of breath. She denies chest pain. Timing/Duration: yesterday Abdominal Pain Onset Location: LLQ Pain Radiation: no radiation Severity of Pain-Max: moderate Severity of Pain-Current: mild (To moderate) Modifying Factors: Improves With: vomiting Associated Symptoms: loss of appetite, nausea, vomiting Previous symptoms: same symptoms as today Allergies/Adverse Reactions: Fish Containing Products Allergy (Intermediate, Verified 09/30/21 12:54) Nausea and Vomiting swelling everywhere shellfish derived Allergy (Intermediate, Verified 09/30/21 12:54) Nausea and Vomiting latex Allergy (Verified 09/30/21 12:54) nitrofurantoin [From Macrobid] Allergy (Verified 09/30/21 12:54) Sulfa (Sulfonamide Antibiotics) [Sulfa(Sulfonamide Antibiotics)] Allergy (Verified 09/30/21 12:54) Hives sulfamethoxazole [From Septra] Allergy (Verified 09/30/21 12:54) Rash trimethoprim [From Septra] Allergy (Verified 09/30/21 12:54) Rash NSAIDS (Non-Steroidal Anti-Inflamma Adverse Reaction (Verified 09/30/21 12:54) Rash can take IM but no oral med eggs Allergy (Uncoded 09/30/21 12:54) Rash nausea/vomiting Home Medications: Tizanidine HCl 4 mg [Zanaflex 4 MG] 4 mg PO TID 07/08/19 [History] Topiramate [Topamax] 200 mg PO BID 07/08/19 [History] Venlafaxine HCl [Effexor] 100 mg PO BID 07/08/19 [History] Cyanocobalamin 1000 Mcg/ml [Cyanocobalamin B-12 1000 MCG/ML] 1,000 mcg SQ UD 07/12/19 [History] PANTOPRAZOLE 40 mg Tablet [Protonix 40MG Tablet] 40 mg PO QPM 07/12/19 [History] hydrOXYzine HCL [Hydroxyzine HCl] 50 mg pe PO QID PRN 07/12/19 [History] Ergocalciferol (Vitamin D2) [Vitamin D2] 1 cap PO WEEKLY 10/06/19 [History] levETIRAcetam [Levetiracetam] 250 mg PO BID 10/06/19 [History] Lorazepam 0.5 mg [Ativan 0.5 MG] 1 mg PO TID PRN 02/27/20 [History] Hx Tetanus, Diphtheria Vaccination/Date Given: Yes Hx Influenza Vaccination/Date Given: No Hx Pneumococcal Vaccination/Date Given: No Travel Risk - International Travel Have you traveled outside of the country in past 3 weeks: No - Coronavirus Screening Are you exhibiting any of the following symptoms?: No Close contact with a COVID-19 positive Pt in past 14-21 Days: No - Vaccine Status Have you recieved a Covid-19 vaccination: Yes [employer]: Moderna - Vaccination Dates Date of 2cond Vaccination (if applicable): September 2020 - Review of Systems Constitutional: Fever Eyes: No Symptoms Ears, Nose, & Throat: No Symptoms Respiratory: No Symptoms Cardiac: No Symptoms Abdominal/Gastrointestinal: No Symptoms, Abdominal Pain (Left side), Nausea, Vomiting Genitourinary Symptoms: Flank Pain (Left) Musculoskeletal: No Symptoms Skin: No Symptoms Neurological: No Symptoms Psychological: No Symptoms Endocrine: No Symptoms Hematologic/Lymphatic: No Symptoms Immunological/Allergic: No Symptoms All Other Systems: Reviewed and Negative - Past Medical History Pertinent Past Medical History: Yes Neurological History: Migraines, Seizures ENT History: No Pertinent History Cardiac History: No Pertinent History Respiratory History: Asthma Endocrine Medical History: Hypothyroidism Musculoskeletal History: No Pertinent History GI Medical History: No Pertinent History, Other History: Other Psycho-Social History: Anxiety, Depression Female Reproductive Disorders: Abnormal Uterine Bleeding, Menstrual Problems Other Medical History: PMYX: GERD, ANEMIA, ANXIETY, DEPRESSION, GASTRIC ULCER,. SX HX: CHOLECYSTECTOMY, BLADDER AND URETER REPAIR, TONSEILLECTOMY, GASTRIC LAP BAND AND REVISION, HYSTERECTOMY, - Past Surgical History Past Surgical History: Yes Neuro Surgical History: No Pertinent History Cardiac: No Pertinent History Respiratory: No Pertinent History Gastrointestinal: Appendectomy, Cholecystectomy Genitourinary: No Pertinent History Musculoskeletal: No Pertinent History Female Surgical History: Hysterectomy, Tubal Ligation, Other Other Surgical History: gastric bypass, lap band placed and removed first, two D&C, EGD - 03/19/16 - results "stomach inflammed" ablation. november 2019 bleeding ulcer surgery - was told it was like a revision to the gastric bypass. g- tube placement. - Social History Smoking Status: Former smoker How long have you smoked: 3 years Exposure to second hand smoke: No Drug Use: none Patient Lives Alone: No Significant Family History: no pertinent family hx - Female History Hx Now: No - Nursing Vital Signs Nursing Vital Signs: Initial Vital Signs Pulse Rate 147 H 09/30/21 12:39 Respiratory Rate 18 09/30/21 12:39 Blood Pressure 141/91 09/30/21 12:39 O2 Sat by Pulse Oximetry 96 09/30/21 12:39 Pain Scale Pain Intensity 7 - Physical Exam General Appearance: no apparent distress, alert, anxiety, thin Eye Exam: PERRL/EOMI, eyes nml inspection Ears, Nose, Throat Exam: normal ENT inspection, moist mucous membranes Neck Exam: normal inspection, non-tender, supple, full range of motion Respiratory Exam: normal breath sounds, lungs clear, airway intact, No chest tenderness, No respiratory distress Cardiovascular Exam: tachycardia Gastrointestinal/Abdomen Exam: soft, normal bowel sounds, tenderness (Left-sided tenderness to palpation), guarding, No rebound Pelvic Exam: not done Rectal Exam: not done Back Exam: normal inspection, normal range of motion, No CVA tenderness, No vertebral tenderness Extremity Exam: normal inspection, normal range of motion, pelvis stable Neurologic Exam: alert, 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, cooperative, shirt closer II-XII nml as tested, normal mood/affect, nml cerebellar function, nml station & gait, sensation nml Skin Exam: normal color, warm, dry Lymphatic Exam: No adenopathy SpO2 Interpretation: normal SpO2: 96 O2 Delivery: Room Air - Course Nursing assessment & vital signs reviewed: Yes Ordered Tests: Active Orders 24 hr Category Date Time Status IV Insertion STAT Care 09/30/21 12:51 Active ABDOMEN AND PELVIS W/0 CONTRAS [CT] Stat Exams 09/30/21 12:51 Completed AMYLASE Stat Lab 09/30/21 12:51 Completed BLOOD CULTURE Stat Lab 09/30/21 13:10 Received CBC W DIFF Stat Lab 09/30/21 12:51 Completed CMP Stat Lab 09/30/21 12:51 Completed LIPASE Stat Lab 09/30/21 12:51 Completed Lactic Acid Stat Lab 09/30/21 13:13 Completed UA W/RFX CULTURE Stat Lab 09/30/21 13:20 Completed Medication Summary Generic Name Dose Route Start Last Admin Trade Name Freq PRN Reason Stop Dose Admin Sodium Chloride 1,000 mls @ 999 mls/hr 09/30/21 13:51 09/30/21 14:01 Sodium Chloride 0.9% 1000 Ml IV 09/30/21 14:51 999 mls/hr .Q1H1M STA Administration Discontinued Medications Generic Name Dose Route Start Last Admin Trade Name Freq PRN Reason Stop Dose Admin Hydromorphone HCl 0.5 mg 09/30/21 12:51 09/30/21 12:59 Hydromorphone 1 Mg/1ml Inj 1 Mg/Ml Syringe IV 09/30/21 12:52 0.5 mg STAT ONE Administration Hydromorphone HCl Confirm 09/30/21 12:56 Hydromorphone 1 Mg/1ml Inj 1 Mg/Ml Syringe Administered 09/30/21 12:57 Dose 1 mg .ROUTE .STK-MED ONE Hydromorphone HCl 1 mg 09/30/21 13:37 09/30/21 13:39 Hydromorphone 1 Mg/1ml Inj 1 Mg/Ml Syringe IV 09/30/21 13:38 1 mg STAT ONE Administration Hydromorphone HCl Confirm 09/30/21 13:38 Hydromorphone 1 Mg/1ml Inj 1 Mg/Ml Syringe Administered 09/30/21 13:39 Dose 1 mg .ROUTE .STK-MED ONE Sodium Chloride 1,000 mls @ 999 mls/hr 09/30/21 12:51 09/30/21 13:59 Sodium Chloride 0.9% 1000 Ml IV 09/30/21 13:51 Infused .Q1H1M STA Infusion Sodium Chloride Confirm 09/30/21 14:00 Sodium Chloride 0.9% 1000 Ml Administered 09/30/21 14:01 Dose 1,000 mls @ ud .ROUTE .STK-MED ONE Ondansetron HCl 4 mg 09/30/21 12:51 09/30/21 12:59 Ondansetron Hcl 4 Mg/2 Ml Vial IV 09/30/21 12:52 4 mg STAT ONE Administration Lab/Rad Data: Laboratory Result Diagrams 09/30/21 12:51 09/30/21 12:51 Laboratory Results 09/30/21 09/30/21 09/30/21 Range/Units 13:20 13:13 12:51 WBC (4.0-10.5) x10^3/uL RBC (4.1-5.4) x10^6/uL Hgb (12.0-16.0) g/dL Hct (35-47) % MCV (78-100) fL MCH (26-32) pg MCHC (32-36) g/dL RDW (11.5-14.0) % Plt Count (150-450) x10^3/uL MPV (7.5-11.0) fL Gran % (36.0-66.0) % Immature Gran % (Auto) (0.00-0.4) % Nucleat RBC Rel Count (0.00-0.1) % Eos # (Auto) (0-0.5) x10^3/uL Immature Gran # (Auto) (0.00-0.03) x10^3u/L Absolute Lymphs (auto) (1.0-4.6) x10^3/uL Absolute Monos (auto) (0.0-1.3) x10^3/uL Absolute Nucleated RBC (0.00-0.01) x10^3u/L Lymphocytes % (24.0-44.0) % Monocytes % (0.0-12.0) % Eosinophils % (0.00-5.0) % Basophils % (0.0-0.4) % Absolute Granulocytes (1.4-6.9) x10^3/uL Basophils # (0-0.4) x10^3/uL Sodium 137 (137-145) mmol/L Potassium 3.7 (3.5-5.1) mmol/L Chloride 106 (98-107) mmol/L Carbon Dioxide 19 L (22-30) mmol/L Anion Gap 16.6 H (5-15) MEQ/L BUN 7 (7-17) mg/dL Creatinine 0.56 (0.52-1.04) mg/dL Estimated GFR > 60.0 ML/MIN Glucose 101 (74-106) mg/dL Lactic Acid 1.1 (0.4-2.0) Calcium 8.9 (8.4-10.2) mg/dL Total Bilirubin 0.50 (0.2-1.3) mg/dL AST 20 (14-36) U/L ALT 10 (0-35) U/L Alkaline Phosphatase 65 (38-126) U/L Serum Total Protein 7.0 (6.3-8.2) g/dL Albumin 3.8 (3.5-5.0) g/dL Amylase 162 H (30-110) U/L Lipase 126 (23-300) U/L Urinalys Dipstick Clnc MAIN LAB Urine Color YELLOW (YELLOW) Urine Appearance CLEAR (CLEAR) Urine pH 7.0 (5-6) Ur Specific [place] 1.010 (1.005-1.025) POC Urine Protein Conf NEGATIVE (Negative) Urine Ketones NEGATIVE (NEGATIVE) Urine Nitrite NEGATIVE (NEGATIVE) Urine Bilirubin NEGATIVE (NEGATIVE) Urine Urobilinogen 0.2 (0-1) mg/dL Urine Leukocytes NEGATIVE (NEGATIVE) Urine WBC (Auto) 3-5 (0-5) /HPF Urine RBC (Auto) NONE SEEN (0-2) /HPF U Epithel Cells (Auto) RARE (FEW) /HPF Urine Bacteria (Auto) RARE (NEGATIVE) /HPF Urine RBC TRACE-LYSED (0-5) Cas/ul Urine Mucus (Auto) SLIGHT (NEGATIVE) /HPF Ur Culture Indicated? NO Urine Glucose NEGATIVE (NEGATIVE) mg/dL 09/30/21 Range/Units 12:51 WBC 8.3 (4.0-10.5) x10^3/uL RBC 4.11 (4.1-5.4) x10^6/uL Hgb 13.7 (12.0-16.0) g/dL Hct 41.3 (35-47) % MCV 100.5 H (78-100) fL MCH 33.3 H (26-32) pg MCHC 33.2 (32-36) g/dL RDW 13.1 (11.5-14.0) % Plt Count 200 (150-450) x10^3/uL MPV 10.9 (7.5-11.0) fL Gran % 64.8 (36.0-66.0) % Immature Gran % (Auto) 0.7 H (0.00-0.4) % Nucleat RBC Rel Count 0.0 (0.00-0.1) % Eos # (Auto) 0.23 (0-0.5) x10^3/uL Immature Gran # (Auto) 0.06 H (0.00-0.03) x10^3u/L Absolute Lymphs (auto) 1.95 (1.0-4.6) x10^3/uL Absolute Monos (auto) 0.65 (0.0-1.3) x10^3/uL Absolute Nucleated RBC 0.00 (0.00-0.01) x10^3u/L Lymphocytes % 23.4 L (24.0-44.0) % Monocytes % 7.8 (0.0-12.0) % Eosinophils % 2.8 (0.00-5.0) % Basophils % 0.5 (0.0-0.4) % Absolute Granulocytes 5.39 (1.4-6.9) x10^3/uL Basophils # 0.04 (0-0.4) x10^3/uL Sodium (137-145) mmol/L Potassium (3.5-5.1) mmol/L Chloride (98-107) mmol/L Carbon Dioxide (22-30) mmol/L Anion Gap (5-15) MEQ/L BUN (7-17) mg/dL Creatinine (0.52-1.04) mg/dL Estimated GFR ML/MIN Glucose (74-106) mg/dL Lactic Acid (0.4-2.0) Calcium (8.4-10.2) mg/dL Total Bilirubin (0.2-1.3) mg/dL AST (14-36) U/L ALT (0-35) U/L Alkaline Phosphatase (38-126) U/L Serum Total Protein (6.3-8.2) g/dL Albumin (3.5-5.0) g/dL Amylase (30-110) U/L Lipase (23-300) U/L Urinalys Dipstick Clnc Urine Color (YELLOW) Urine Appearance (CLEAR) Urine pH (5-6) Ur Specific [place] (1.005-1.025) POC Urine Protein Conf (Negative) Urine Ketones (NEGATIVE) Urine Nitrite (NEGATIVE) Urine Bilirubin (NEGATIVE) Urine Urobilinogen (0-1) mg/dL Urine Leukocytes (NEGATIVE) Urine WBC (Auto) (0-5) /HPF Urine RBC (Auto) (0-2) /HPF U Epithel Cells (Auto) (FEW) /HPF Urine Bacteria (Auto) (NEGATIVE) /HPF Urine RBC (0-5) Cas/ul Urine Mucus (Auto) (NEGATIVE) /HPF Ur Culture Indicated? Urine Glucose (NEGATIVE) mg/dL - Progress Progress: improved, pain not gone completely, re-examined Progress Note: 09/30/21 14:28 CAT scan of the abdomen and pelvis without contrast shows no acute intra-abd ominal or intrapelvic process. This is the fourth negative CAT scan without contrast of the abdomen and pelvis since June 24, 2021. Counseled pt/family regarding: lab results, diagnosis, need for follow-up, rad results - Departure Departure Disposition: Home Clinical Impression: Chronic abdominal pain, Vomiting Condition: Stable Critical Care Time: No Referrals: MARCO SALVADOR MD [Primary Care Provider] - Follow up/PCP as directed Additional Instructions: Drink plenty of clear liquids. Follow-up with your bariatric surgeon for further evaluation and management. Take your medication as prescribed Prescriptions: Ondansetron ODT 4 MG [Zofran Odt 4 mg] 4 mg PO Q6H PRN PRN #10 tablet PRN Reason: Vomiting
[2021-09-30 13:35] LABS: Absolute Neutrophil Ct (ANC) 5.39 x10^3/uL (1.4-6.9); Basophil (Absolute #) 0.04 x10^3/uL (0-0.4); Eosinophil % 2.8 % (0.00-5.0); Eosinophil (Absolute #) 0.23 x10^3/uL (0-0.5); Hematocrit 41.3 % (35-47); Hemoglobin 13.7 g/dL (12.0-16.0); Lymphocyte (Absolute #) 1.95 x10^3/uL (1.0-4.6); Lymphocytes % 23.4 % (24.0-44.0); Mean Cell Volume 100.5 fL (78-100); Mean Corpuscular Hemoglobin 33.3 pg (26-32); Mean Corpuscular Hgb Concent. 33.2 g/dL (32-36); Mean Platelet Volume 10.9 fL (7.5-11.0); Monocyte (Absolute #) 0.65 x10^3/uL (0.0-1.3); Monocytes % 7.8 % (0.0-12.0); Neutrophil % 64.8 % (36.0-66.0); Platelet Count 200 x10^3/uL (150-450); Red Blood Count 4.11 x10^6/uL (4.1-5.4); Red Cell Distribution Width 13.1 % (11.5-14.0); White Blood Count 8.3 x10^3/uL (4.0-10.5)
[2021-09-30 13:47] LABS: ALBUMIN 3.8 g/dL (3.5-5.0); ALKALINE PHOSPHATASE 65 U/L (38-126); AMYLASE 162 U/L (30-110); ANION GAP 16.6 MEQ/L (5-15); BLOOD UREA NITROGEN 7 mg/dL (7-17); CHLORIDE 106 mmol/L (98-107); Calcium 8.9 mg/dL (8.4-10.2); Carbon Dioxide 19 mmol/L (22-30); Creatinine 1 0.56 mg/dL (0.52-1.04); EST GLOMERULAR FILTRATION RATE > 60.0 ML/MIN; Glucose 101 mg/dL (74-106); LIPASE 126 U/L (23-300); Potassium 3.7 mmol/L (3.5-5.1); SGOT/AST 20 U/L (14-36); SGPT/ALT 10 U/L (0-35); SODIUM 137 mmol/L (137-145)
[2021-09-30 13:50] LABS: Bacteria RARE /HPF (NEGATIVE); Epithelial Cells RARE /HPF (FEW); Mucus SLIGHT /HPF (NEGATIVE)
[2021-09-30 14:00] LABS: Appearance CLEAR (CLEAR); Bilirubin NEGATIVE (NEGATIVE); Glucose NEGATIVE (NEGATIVE); Ketones NEGATIVE (NEGATIVE); RBC TRACE-LYSED Ery/ul (0-5)
[2021-09-30] MEDS ORDERED: Sodium Chloride 0.9% 1000 ML 1,000 ML ONE (14:00)
[2021-09-30 14:01] LABS: Dipstick done @ ? MAIN LAB; Nitrite NEGATIVE (NEGATIVE); Protein,Urine Dip NEGATIVE (Negative); Urobilinogen 0.2 mg/dL (0-1)
[2021-09-30 14:07] LABS: RBC NONE SEEN /HPF (0-2); Urine Cultured Indicated? NO
--- NOTE | 2021-09-30 14:26 | XRAY ---
Indication: Left abdomen pain 1 week. Multiple contiguous axial images obtained through the abdomen and pelvis without contrast. Comparison: August 15, 2021. Lung bases remain clear with incidental right base calcified granuloma. Heart not enlarged. Again bariatric surgery, left mid abdomen percutaneous J-tube with balloon tip in jejunal lumen, cholecystectomy, appendectomy, and hysterectomy. No free fluid/air. Noncontrasted stomach and bowel loops remain nonobstructed. Remaining liver, pancreas, spleen, adrenal glands, kidneys, ureters, bladder, and aorta appear unremarkable for noncontrast exam. Osseous structures intact. Impression: 1. Stable bariatric surgery, percutaneous J-tube in situ, and old granulomatous disease. 2. Continued negative CT abdomen/pelvis without contrast exam X 4 dating back to June 24, 2021.
[2021-09-30 15:01] VITALS: BP 109/69; PULSE 109; O2SAT 98
== END 2021-09-30 15:40 | disposition home or self-care (01) ==
LOC: ED 12:19
DX: G89.29 Other chronic pain (principal); R10.9 Unspecified abdominal pain; R11.2 Nausea with vomiting, unspecified; Z98.84 Bariatric surgery status; Z98.0 Intestinal bypass and anastomosis status; Z79.899 Other long term (current) drug therapy
CPT/HCPCS: 36000; 36415; 74176; 80053; 81015; 82150; 83605; 83690; 85025; 87040; 96374; 96375; 96376; 99284; J1170; J2405

== ENCOUNTER 2021-10-16 19:35 | Emergency (ER) | payer OTHER ==
--- NOTE | 2021-10-16 21:09 | ERPHSYRPT ---
- History of Present Illness Time Seen by Provider: 10/16/21 21:09 Historian: patient Exam Limitations: no limitations Physician History: This is a 36-year-old white female who has chronic recurring abdominal pain and presents to the emergency department because she was seen at outpatient [facility] who called her just before closing and told her that she needed to be seen because she has abnormal labs. Patient did not recall what labs they were except for iron storage levels, iron levels and vitamin D levels. She also had a CAT scan performed per her report. None of those test results do we have access to. Patient has been seen in our emergency department several times for similar complaints of abdominal pain. She has had 4 negative CAT scans of the abdomen pelvis since June 2021. She was just seen in approximately 2 weeks ago for similar symptoms. Patient has yet to see her gastric bypass surgeon and stated that she did try to call but they will call her once they have scheduled her surgery. Patient has history of seizure disorder, hypothyroidism, gastroesophageal reflux disease, anxiety issues, migraine headaches and asthma. She has a left lower quadrant ostomy in place. She has had several postoperative complications following a gastric bypass requiring gastric tube placement and bypass revision. She denies chest pain and she denies shortness of breath. Timing/Duration: other (Chronic recurrent) Activities at Onset: none Quality: aching Abdominal Pain Onset Location: generalized abdomen Pain Radiation: no radiation Severity of Pain-Max: moderate Severity of Pain-Current: mild Associated Symptoms: fatigue, No chest pain, No shortness of breath, No vomiting Previous symptoms: same symptoms as today, recently seen, recently treated Allergies/Adverse Reactions: Fish Containing Products Allergy (Intermediate, Verified 10/16/21 21:12) Nausea and Vomiting swelling everywhere shellfish derived Allergy (Intermediate, Verified 10/16/21 21:12) Nausea and Vomiting latex Allergy (Verified 10/16/21 21:12) nitrofurantoin [From Macrobid] Allergy (Verified 10/16/21 21:12) Sulfa (Sulfonamide Antibiotics) [Sulfa(Sulfonamide Antibiotics)] Allergy (Verified 10/16/21 21:12) Hives sulfamethoxazole [From Septra] Allergy (Verified 10/16/21 21:12) Rash trimethoprim [From Septra] Allergy (Verified 10/16/21 21:12) Rash NSAIDS (Non-Steroidal Anti-Inflamma Adverse Reaction (Verified 10/16/21 21:12) Rash can take IM but no oral med eggs Allergy (Uncoded 09/30/21 12:54) Rash nausea/vomiting Home Medications: Tizanidine HCl 4 mg [Zanaflex 4 MG] 4 mg PO TID 07/08/19 [History] Topiramate [Topamax] 200 mg PO BID 07/08/19 [History] Venlafaxine HCl [Effexor] 100 mg PO BID 07/08/19 [History] Cyanocobalamin 1000 Mcg/ml [Cyanocobalamin B-12 1000 MCG/ML] 1,000 mcg SQ UD 07/12/19 [History] PANTOPRAZOLE 40 mg Tablet [Protonix 40MG Tablet] 40 mg PO QPM 07/12/19 [History] hydrOXYzine HCL [Hydroxyzine HCl] 50 mg pe PO QID PRN 07/12/19 [History] Ergocalciferol (Vitamin D2) [Vitamin D2] 1 cap PO WEEKLY 10/06/19 [History] levETIRAcetam [Levetiracetam] 250 mg PO BID 10/06/19 [History] Lorazepam 0.5 mg [Ativan 0.5 MG] 1 mg PO TID PRN 02/27/20 [History] Hx Tetanus, Diphtheria Vaccination/Date Given: Yes Hx Influenza Vaccination/Date Given: No Hx Pneumococcal Vaccination/Date Given: No Travel Risk - International Travel Have you traveled outside of the country in past 3 weeks: No - Coronavirus Screening Are you exhibiting any of the following symptoms?: No Close contact with a COVID-19 positive Pt in past 14-21 Days: No - Vaccine Status Have you recieved a Covid-19 vaccination: Yes Survey Field Technician: Moderna - Vaccination Dates Date of 2cond Vaccination (if applicable): September 2020 - Review of Systems Constitutional: Fatigue Eyes: No Symptoms Ears, Nose, & Throat: No Symptoms Respiratory: No Symptoms Cardiac: No Symptoms Abdominal/Gastrointestinal: Abdominal Pain, No Nausea, No Vomiting, No Diarrhea Genitourinary Symptoms: No Symptoms Musculoskeletal: No Symptoms Skin: No Symptoms Neurological: No Symptoms Psychological: No Symptoms Endocrine: No Symptoms Hematologic/Lymphatic: No Symptoms Immunological/Allergic: No Symptoms All Other Systems: Reviewed and Negative - Past Medical History Pertinent Past Medical History: Yes Neurological History: Migraines, Seizures ENT History: No Pertinent History Cardiac History: No Pertinent History Respiratory History: Asthma Endocrine Medical History: Hypothyroidism Musculoskeletal History: No Pertinent History GI Medical History: No Pertinent History, Other History: Other Psycho-Social History: Anxiety, Depression Female Reproductive Disorders: Abnormal Uterine Bleeding, Menstrual Problems Other Medical History: PMYX: GERD, ANEMIA, ANXIETY, DEPRESSION, GASTRIC ULCER,. SX HX: CHOLECYSTECTOMY, BLADDER AND URETER REPAIR, TONSEILLECTOMY, GASTRIC LAP BAND AND REVISION, HYSTERECTOMY, - Past Surgical History Past Surgical History: Yes Neuro Surgical History: No Pertinent History Cardiac: No Pertinent History Respiratory: No Pertinent History Gastrointestinal: Appendectomy, Cholecystectomy Genitourinary: No Pertinent History Musculoskeletal: No Pertinent History Female Surgical History: Hysterectomy, Tubal Ligation, Other Other Surgical History: gastric bypass, lap band placed and removed first, two D&C, EGD - 03/19/16 - results "stomach inflammed" ablation. november 2019 bleeding ulcer surgery - was told it was like a revision to the gastric bypass. g- tube placement. - Social History Smoking Status: Former smoker How long have you smoked: 3 years Exposure to second hand smoke: No Drug Use: none Patient Lives Alone: No Significant Family History: no pertinent family hx - Nursing Vital Signs Nursing Vital Signs: Initial Vital Signs Temperature 98.7 F 10/16/21 21:16 Pulse Rate 121 H 10/16/21 21:16 Respiratory Rate 18 10/16/21 21:16 Blood Pressure 125/87 10/16/21 21:16 O2 Sat by Pulse Oximetry 100 10/16/21 21:16 Pain Scale Pain Intensity 8 - Physical Exam General Appearance: no apparent distress, alert, anxiety Eye Exam: PERRL/EOMI, eyes nml inspection Ears, Nose, Throat Exam: normal ENT inspection, moist mucous membranes Neck Exam: normal inspection, non-tender, supple, full range of motion Respiratory Exam: normal breath sounds, lungs clear, airway intact, No chest tenderness, No respiratory distress Cardiovascular Exam: tachycardia Gastrointestinal/Abdomen Exam: soft, normal bowel sounds, tenderness (Mild diffuse), No guarding, No rebound Pelvic Exam: not done Rectal Exam: not done Back Exam: normal inspection, normal range of motion, No CVA tenderness, No vertebral tenderness Extremity Exam: normal inspection, normal range of motion, pelvis stable Neurologic Exam: alert, 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, cooperative, electronic console display operator II-XII nml as tested, normal mood/affect, nml cerebellar function, nml station & gait, sensation nml Skin Exam: normal color, warm, dry Lymphatic Exam: No adenopathy SpO2 Interpretation: normal O2 Delivery: Room Air - Course Nursing assessment & vital signs reviewed: Yes Ordered Tests: Active Orders 24 hr Category Date Time Status IV Insertion STAT Care 10/16/21 21:45 Active AMYLASE Stat Lab 10/16/21 21:31 Completed CBC W DIFF Stat Lab 10/16/21 21:31 Completed CMP Stat Lab 10/16/21 21:31 Completed CULTURE,URINE Stat Lab 10/16/21 22:14 Received LIPASE Stat Lab 10/16/21 21:31 Completed Lactic Acid Stat Lab 10/16/21 22:02 Completed UA W/RFX CULTURE Stat Lab 10/16/21 22:14 Completed Medication Summary Discontinued Medications Generic Name Dose Route Start Last Admin Trade Name Freq PRN Reason Stop Dose Admin Hydrocodone Bitart/Acetaminophen 10 ml 10/16/21 22:41 Hydrocodone/Acetaminophen 5 Ml Udcup PO 10/16/21 22:42 STAT STA Hydromorphone HCl 1 mg 10/16/21 21:45 10/16/21 21:52 Hydromorphone 1 Mg/1ml Inj 1 Mg/Ml Syringe IV 10/16/21 21:46 1 mg STAT ONE Administration Hydromorphone HCl Confirm 10/16/21 21:50 Hydromorphone 1 Mg/1ml Inj 1 Mg/Ml Syringe Administered 10/16/21 21:51 Dose 1 mg .ROUTE .STK-MED ONE Sodium Chloride 1,000 mls @ 999 mls/hr 10/16/21 21:45 10/16/21 21:52 Sodium Chloride 0.9% 1000 Ml IV 10/16/21 22:45 999 mls/hr .Q1H1M STA Administration Sodium Chloride Confirm 10/16/21 21:51 Sodium Chloride 0.9% 1000 Ml Administered 10/16/21 21:52 Dose 1,000 mls @ ud .ROUTE .STK-MED ONE Ondansetron HCl 4 mg 10/16/21 21:45 10/16/21 21:52 Ondansetron Hcl 4 Mg/2 Ml Vial IV 10/16/21 21:46 4 mg STAT ONE Administration Ondansetron HCl Confirm 10/16/21 21:50 Ondansetron Hcl 4 Mg/2 Ml Vial Administered 10/16/21 21:51 Dose 4 mg .ROUTE .STK-MED ONE Lab/Rad Data: Laboratory Result Diagrams 10/16/21 21:31 10/16/21 21:31 Laboratory Results 10/16/21 10/16/21 10/16/21 Range/Units 22:14 22:02 21:31 WBC (4.0-10.5) x10^3/uL RBC (4.1-5.4) x10^6/uL Hgb (12.0-16.0) g/dL Hct (35-47) % MCV (78-100) fL MCH (26-32) pg MCHC (32-36) g/dL RDW (11.5-14.0) % Plt Count (150-450) x10^3/uL MPV (7.5-11.0) fL Gran % (36.0-66.0) % Immature Gran % (Auto) (0.00-0.4) % Nucleat RBC Rel Count (0.00-0.1) % Eos # (Auto) (0-0.5) x10^3/uL Immature Gran # (Auto) (0.00-0.03) x10^3u/L Absolute Lymphs (auto) (1.0-4.6) x10^3/uL Absolute Monos (auto) (0.0-1.3) x10^3/uL Absolute Nucleated RBC (0.00-0.01) x10^3u/L Lymphocytes % (24.0-44.0) % Monocytes % (0.0-12.0) % Eosinophils % (0.00-5.0) % Basophils % (0.0-0.4) % Absolute Granulocytes (1.4-6.9) x10^3/uL Basophils # (0-0.4) x10^3/uL Sodium 139 (137-145) mmol/L Potassium 4.9 (3.5-5.1) mmol/L Chloride 105 (98-107) mmol/L Carbon Dioxide 22 (22-30) mmol/L Anion Gap 16.5 H (5-15) MEQ/L BUN 11 (7-17) mg/dL Creatinine 0.60 (0.52-1.04) mg/dL Estimated GFR > 60.0 ML/MIN Glucose 88 (74-106) mg/dL Lactic Acid 1.5 (0.4-2.0) Calcium 8.8 (8.4-10.2) mg/dL Total Bilirubin 1.10 (0.2-1.3) mg/dL AST 32 (14-36) U/L ALT 10 (0-35) U/L Alkaline Phosphatase 84 (38-126) U/L Serum Total Protein 6.7 (6.3-8.2) g/dL Albumin 3.6 (3.5-5.0) g/dL Amylase 116 H (30-110) U/L Lipase 144 (23-300) U/L Urinalys Dipstick Clnc MAIN LAB Urine Color YELLOW (YELLOW) Urine Appearance SLIGHTLY CLOUDY (CLEAR) Urine pH 5.5 (5-6) Ur Specific [place] 1.025 (1.005-1.025) POC Urine Protein Conf NEGATIVE (Negative) Urine Ketones NEGATIVE (NEGATIVE) Urine Nitrite POSITIVE (NEGATIVE) Urine Bilirubin NEGATIVE (NEGATIVE) Urine Urobilinogen 0.2 (0-1) mg/dL Urine Leukocytes NEGATIVE (NEGATIVE) Urine WBC (Auto) 0-2 (0-5) /HPF Urine RBC (Auto) NONE (0-2) /HPF U Epithel Cells (Auto) NONE (FEW) /HPF Urine Bacteria (Auto) MANY (NEGATIVE) /HPF Urine RBC TRACE-INTACT (0-5) Cas/ul Urine Mucus (Auto) SLIGHT (NEGATIVE) /HPF Ur Culture Indicated? YES Urine Glucose NEGATIVE (NEGATIVE) mg/dL 10/16/21 Range/Units 21:31 WBC 11.5 H (4.0-10.5) x10^3/uL RBC 3.88 L (4.1-5.4) x10^6/uL Hgb 13.0 (12.0-16.0) g/dL Hct 41.8 (35-47) % MCV 107.7 H (78-100) fL MCH 33.5 H (26-32) pg MCHC 31.1 L (32-36) g/dL RDW 12.7 (11.5-14.0) % Plt Count 288 (150-450) x10^3/uL MPV 11.1 H (7.5-11.0) fL Gran % 69.6 H (36.0-66.0) % Immature Gran % (Auto) 1.0 H (0.00-0.4) % Nucleat RBC Rel Count 0.0 (0.00-0.1) % Eos # (Auto) 0.23 (0-0.5) x10^3/uL Immature Gran # (Auto) 0.12 H (0.00-0.03) x10^3u/L Absolute Lymphs (auto) 2.07 (1.0-4.6) x10^3/uL Absolute Monos (auto) 1.03 (0.0-1.3) x10^3/uL Absolute Nucleated RBC 0.00 (0.00-0.01) x10^3u/L Lymphocytes % 18.0 L (24.0-44.0) % Monocytes % 8.9 (0.0-12.0) % Eosinophils % 2.0 (0.00-5.0) % Basophils % 0.5 (0.0-0.4) % Absolute Granulocytes 8.00 H (1.4-6.9) x10^3/uL Basophils # 0.06 (0-0.4) x10^3/uL Sodium (137-145) mmol/L Potassium (3.5-5.1) mmol/L Chloride (98-107) mmol/L Carbon Dioxide (22-30) mmol/L Anion Gap (5-15) MEQ/L BUN (7-17) mg/dL Creatinine (0.52-1.04) mg/dL Estimated GFR ML/MIN Glucose (74-106) mg/dL Lactic Acid (0.4-2.0) Calcium (8.4-10.2) mg/dL Total Bilirubin (0.2-1.3) mg/dL AST (14-36) U/L ALT (0-35) U/L Alkaline Phosphatase (38-126) U/L Serum Total Protein (6.3-8.2) g/dL Albumin (3.5-5.0) g/dL Amylase (30-110) U/L Lipase (23-300) U/L Urinalys Dipstick Clnc Urine Color (YELLOW) Urine Appearance (CLEAR) Urine pH (5-6) Ur Specific [place] (1.005-1.025) POC Urine Protein Conf (Negative) Urine Ketones (NEGATIVE) Urine Nitrite (NEGATIVE) Urine Bilirubin (NEGATIVE) Urine Urobilinogen (0-1) mg/dL Urine Leukocytes (NEGATIVE) Urine WBC (Auto) (0-5) /HPF Urine RBC (Auto) (0-2) /HPF U Epithel Cells (Auto) (FEW) /HPF Urine Bacteria (Auto) (NEGATIVE) /HPF Urine RBC (0-5) Cas/ul Urine Mucus (Auto) (NEGATIVE) /HPF Ur Culture Indicated? Urine Glucose (NEGATIVE) mg/dL - Progress Progress: improved, pain not gone completely Counseled pt/family regarding: lab results, diagnosis, need for follow-up - Departure Departure Disposition: Home Clinical Impression: Chronic generalized abdominal pain Condition: Stable Critical Care Time: No Referrals: MARCO SALVADOR MD [Primary Care Provider] - Follow up/PCP as directed Additional Instructions: Drink plenty of clear liquids. Follow-up with your prescribing provider and your gastric bypass surgeon for further evaluation and management of your chronic abdominal pain issues.
[2021-10-16] MEDS ORDERED: Sodium Chloride 0.9% 1000 ML 1,000 ML IV STA (21:45)
[2021-10-16] MEDS ORDERED: Hydromorphone 1 mg/ml Injection IV ONE (21:45)
[2021-10-16] MEDS ORDERED: Zofran 4 MG/2 ML VIAL IV ONE (21:45)
[2021-10-16] MEDS ORDERED: Hydromorphone 1 mg/ml Injection ONE (21:50)
[2021-10-16] MEDS ORDERED: Zofran 4 MG/2 ML VIAL ONE (21:50)
[2021-10-16] MEDS ORDERED: Sodium Chloride 0.9% 1000 ML 1,000 ML ONE (21:51)
[2021-10-16 21:52] LABS: Basophil (Absolute #) 0.06 x10^3/uL (0-0.4); Eosinophil (Absolute #) 0.23 x10^3/uL (0-0.5); Hematocrit 41.8 % (35-47); Lymphocyte (Absolute #) 2.07 x10^3/uL (1.0-4.6); Mean Cell Volume 107.7 fL (78-100); Mean Corpuscular Hemoglobin 33.5 pg (26-32); Mean Corpuscular Hgb Concent. 31.1 g/dL (32-36); Mean Platelet Volume 11.1 fL (7.5-11.0); Monocyte (Absolute #) 1.03 x10^3/uL (0.0-1.3); Monocytes % 8.9 % (0.0-12.0); Neutrophil % 69.6 % (36.0-66.0); Platelet Count 288 x10^3/uL (150-450); Red Blood Count 3.88 x10^6/uL (4.1-5.4); Red Cell Distribution Width 12.7 % (11.5-14.0); White Blood Count 11.5 x10^3/uL (4.0-10.5)
[2021-10-16 22:01] LABS: ALBUMIN 3.6 g/dL (3.5-5.0); ALKALINE PHOSPHATASE 84 U/L (38-126); AMYLASE 116 U/L (30-110); ANION GAP 16.5 MEQ/L (5-15); BLOOD UREA NITROGEN 11 mg/dL (7-17); CHLORIDE 105 mmol/L (98-107); Calcium 8.8 mg/dL (8.4-10.2); Carbon Dioxide 22 mmol/L (22-30); EST GLOMERULAR FILTRATION RATE > 60.0 ML/MIN; Glucose 88 mg/dL (74-106); LIPASE 144 U/L (23-300); Potassium 4.9 mmol/L (3.5-5.1); SGOT/AST 32 U/L (14-36); SGPT/ALT 10 U/L (0-35); SODIUM 139 mmol/L (137-145); Total Protein 6.7 g/dL (6.3-8.2)
[2021-10-16 22:28] LABS: Appearance SLIGHTLY CLOUDY (CLEAR); Bilirubin NEGATIVE (NEGATIVE); Dipstick done @ ? MAIN LAB; Glucose NEGATIVE (NEGATIVE); Ketones NEGATIVE (NEGATIVE); Nitrite POSITIVE (NEGATIVE); Ph 5.5 (5-6); Protein,Urine Dip NEGATIVE (Negative); RBC TRACE-INTACT Ery/ul (0-5); Specific Gravity 1.025 (1.005-1.025); Urobilinogen 0.2 mg/dL (0-1)
[2021-10-16 22:31] LABS: Bacteria MANY /HPF (NEGATIVE); Mucus SLIGHT /HPF (NEGATIVE); WBC 0-2 /HPF (0-5)
[2021-10-16 22:33] LABS: Urine Cultured Indicated? YES
[2021-10-16] MEDS ORDERED: HYDROCODONE-ACETAMIN 2.5-108/5 ML SOLUTION PO STA (22:41)
[2021-10-16] MEDS ORDERED: HYDROCODONE-ACETAMIN 2.5-108/5 ML SOLUTION ONE (22:49)
[2021-10-16 23:20] VITALS: BP 127/76; PULSE 115; O2SAT 97
== END 2021-10-16 23:19 | disposition home or self-care (01) ==
LOC: ED 19:35
DX: G89.29 Other chronic pain (principal); R10.84 Generalized abdominal pain; Z98.84 Bariatric surgery status; Z98.0 Intestinal bypass and anastomosis status; Z79.899 Other long term (current) drug therapy
CPT/HCPCS: 36000; 36415; 80053; 81015; 82150; 83605; 83690; 85025; 87086; 96360; 96374; 96375; 99284; J1170; J2405; A9270-GY

== ENCOUNTER 2021-12-14 09:44 | Emergency (ER) | payer OTHER ==
[2021-12-14] MEDS ORDERED: Sodium Chloride 0.9% 1000 ML 1,000 ML IV STA (10:06)
[2021-12-14] MEDS ORDERED: Sodium Chloride 0.9% 1000 ML 1,000 ML ONE (10:09)
--- NOTE | 2021-12-14 10:10 | ERPHSYRPT ---
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 Patient Subjective Stated Complaint: Pt states that she thinks she is dehydrated and has been going on for about a month due to she has been getting dizzy, passed out, [place] when she urinates, bad smell in pelvic region, low abdominal pain, and night sweats Triage Nursing Assessment: Pt was brought to the ER by another person, hypotensive, bradycardic, rates abdominal pain as 5-6/10, pain in lower abdomen, nausea, feeding tube removed last month and lost 10 pounds, pulses normal, skin n/w/d Physician History: 36 years old female with history of bariatric surgery presented in the ER with chief complaint of lower abdominal pain with generalized weakness fatigue and tiredness. Patient has a little difficulty maintaining her weight and had feeding tube placed for a little while which was removed almost a month ago and since then she has lost almost 10 pounds. Patient reports she feels tired all the time and getting up/ambulating makes her feel dizzy lightheaded and has episodes when she is almost passed out with activities. She is also having night sweats. Reports dysuria on some suprapubic discomfort as well. No fever or sick contact. Timing/Duration: week(s) (4), intermittent, gradual onset, worse Quality: sharpness Abdominal Pain Onset Location: RLQ, LLQ, suprapubic Pain Radiation: no radiation Severity of Pain-Max: moderate Severity of Pain-Current: moderate Modifying Factors: Worsens With: movement, walking Associated Symptoms: fatigue, loss of appetite, weakness, No chest pain, No fever/chills, No neck pain Previous symptoms: same symptoms as today Allergies/Adverse Reactions: Fish Containing Products Allergy (Intermediate, Verified 12/14/21 10:05) Nausea and Vomiting swelling everywhere shellfish derived Allergy (Intermediate, Verified 12/14/21 10:05) Nausea and Vomiting latex Allergy (Verified 12/14/21 10:05) nitrofurantoin [From Macrobid] Allergy (Verified 12/14/21 10:05) Sulfa (Sulfonamide Antibiotics) [Sulfa(Sulfonamide Antibiotics)] Allergy (Verified 12/14/21 10:05) Hives sulfamethoxazole [From Septra] Allergy (Verified 12/14/21 10:05) Rash trimethoprim [From ] Allergy (Verified 12/14/21 10:05) Rash NSAIDS (Non-Steroidal Anti-Inflamma Adverse Reaction (Verified 12/14/21 10:05) Rash can take IM but no oral med eggs Allergy (Uncoded 12/14/21 10:05) Rash nausea/vomiting Home Medications: Tizanidine HCl 4 mg [Zanaflex 4 MG] 4 mg PO TID 07/08/19 [History] Topiramate [Topamax] 200 mg PO BID 07/08/19 [History] Venlafaxine HCl [Effexor] 100 mg PO BID 07/08/19 [History] Cyanocobalamin 1000 Mcg/ml [Cyanocobalamin B-12 1000 MCG/ML] 1,000 mcg SQ UD 07/12/19 [History] PANTOPRAZOLE 40 mg Tablet [Protonix 40MG Tablet] 40 mg PO QPM 07/12/19 [History] Ergocalciferol (Vitamin D2) [Vitamin D2] 1 cap PO WEEKLY 10/06/19 [History] Lorazepam 0.5 mg [Ativan 0.5 MG] 1 mg PO TID PRN 02/27/20 [History] Hx Tetanus, Diphtheria Vaccination/Date Given: Yes Hx Influenza Vaccination/Date Given: No Hx Pneumococcal Vaccination/Date Given: No Travel Risk - International Travel Have you traveled outside of the country in past 3 weeks: No - Coronavirus Screening Are you exhibiting any of the following symptoms?: No Close contact with a COVID-19 positive Pt in past 14-21 Days: No - Vaccine Status Have you recieved a Covid-19 vaccination: Yes Medical Scientific Officer: Moderna - Vaccination Dates Date of 2cond Vaccination (if applicable): September 2020 - Review of Systems Constitutional: Fatigue, Weakness Eyes: No Symptoms Ears, Nose, & Throat: No Symptoms Respiratory: No Symptoms Cardiac: No Symptoms Abdominal/Gastrointestinal: Abdominal Pain Genitourinary Symptoms: Dysuria Musculoskeletal: Myalgias Skin: No Symptoms Neurological: Dizziness Psychological: No Symptoms Endocrine: No Symptoms Hematologic/Lymphatic: No Symptoms Immunological/Allergic: No Symptoms - Past Medical History Pertinent Past Medical History: Yes Neurological History: Migraines, Seizures ENT History: No Pertinent History Cardiac History: No Pertinent History Respiratory History: Asthma Endocrine Medical History: Hypothyroidism Musculoskeletal History: No Pertinent History GI Medical History: No Pertinent History, Other History: Other Psycho-Social History: Anxiety, Depression Female Reproductive Disorders: Abnormal Uterine Bleeding, Menstrual Problems Other Medical History: PMYX: GERD, ANEMIA, ANXIETY, DEPRESSION, GASTRIC ULCER,. SX HX: CHOLECYSTECTOMY, BLADDER AND URETER REPAIR, TONSEILLECTOMY, GASTRIC LAP BAND AND REVISION, HYSTERECTOMY, - Past Surgical History Past Surgical History: Yes Neuro Surgical History: No Pertinent History Cardiac: No Pertinent History Respiratory: No Pertinent History Gastrointestinal: Appendectomy, Cholecystectomy Genitourinary: No Pertinent History Musculoskeletal: No Pertinent History Female Surgical History: Hysterectomy, Tubal Ligation, Other Other Surgical History: gastric bypass, lap band placed and removed first, two D&C, EGD - 03/19/16 - results "stomach inflammed" ablation. november 2019 bleeding ulcer surgery - was told it was like a revision to the gastric bypass. g- tube placement. - Social History Smoking Status: Former smoker How long have you smoked: 3 years Exposure to second hand smoke: No Drug Use: none Patient Lives Alone: No Significant Family History: no pertinent family hx - Female History Hx Now: No (partial hysterectomy) - Nursing Vital Signs Nursing Vital Signs: Initial Vital Signs Temperature 98.1 F 12/14/21 09:51 Pulse Rate 55 L 12/14/21 09:51 Blood Pressure 88/53 12/14/21 09:51 O2 Sat by Pulse Oximetry 97 12/14/21 09:51 Pain Scale Pain Intensity 6 - Physical Exam General Appearance: no apparent distress, alert Eye Exam: PERRL/EOMI Ears, Nose, Throat Exam: normal ENT inspection, pharynx normal Neck Exam: normal inspection, non-tender, supple, full range of motion Respiratory Exam: normal breath sounds, lungs clear Cardiovascular Exam: normal heart sounds, bradycardia Gastrointestinal/Abdomen Exam: soft, normal bowel sounds, tenderness (Lower abdomen bilaterally) Back Exam: normal inspection, normal range of motion Extremity Exam: normal inspection, normal range of motion Neurologic Exam: alert, 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, cooperative Skin Exam: normal color SpO2 Interpretation: normal SpO2: 97 O2 Delivery: Room Air Ordered Tests: Active Orders 24 hr Category Date Time Status IV Insertion STAT Care 12/14/21 10:05 Active NPO (ED) STAT Care 12/14/21 10:05 Active Orthostatic Vital Signs STAT Care 12/14/21 10:10 Active ABDOMEN AND PELVIS W/0 CONTRAS [CT] Stat Exams 12/14/21 10:06 Taken CBC W DIFF Stat Lab 12/14/21 10:19 Completed CMP Stat Lab 12/14/21 10:19 Completed CULTURE,URINE Stat Lab 12/14/21 11:25 Received LIPASE Stat Lab 12/14/21 10:19 Completed Lactic Acid Stat Lab 12/14/21 10:05 Completed MAGNESIUM Stat Lab 12/14/21 10:19 Completed UA W/RFX CULTURE Stat Lab 12/14/21 11:25 Completed Medication Summary Discontinued Medications Generic Name Dose Route Start Last Admin Trade Name Roryq PRN Reason Stop Dose Admin Sodium Chloride 1,000 mls @ 999 mls/hr 12/14/21 10:06 12/14/21 11:14 Sodium Chloride 0.9% 1000 Ml IV 12/14/21 11:06 Infused .Q1H1M STA Infusion Sodium Chloride Confirm 12/14/21 10:09 Sodium Chloride 0.9% 1000 Ml Administered 12/14/21 10:10 Dose 1,000 mls @ ud .ROUTE .STK-MED ONE Morphine Sulfate Confirm 12/14/21 11:30 Morphine Sulfate 2 Mg/Ml Inj Administered 12/14/21 11:31 Dose 2 mg .ROUTE .STK-MED ONE Morphine Sulfate 2 mg 12/14/21 11:36 12/14/21 11:46 Morphine Sulfate 2 Mg/Ml Inj IV 12/14/21 11:37 2 mg STAT ONE Administration Morphine Sulfate 2 mg 12/14/21 12:24 12/14/21 12:28 Morphine Sulfate 2 Mg/Ml Inj IV 12/14/21 12:25 2 mg STAT ONE Administration Morphine Sulfate Confirm 12/14/21 12:27 Morphine Sulfate 2 Mg/Ml Inj Administered 12/14/21 12:28 Dose 2 mg .ROUTE .STK-MED ONE Ondansetron HCl 4 mg 12/14/21 11:31 12/14/21 11:32 Ondansetron Hcl 4 Mg/2 Ml Vial IV 12/14/21 11:32 4 mg STAT ONE Administration Ondansetron HCl Confirm 12/14/21 11:30 Ondansetron Hcl 4 Mg/2 Ml Vial Administered 12/14/21 11:31 Dose 4 mg .ROUTE .STK-MED ONE Lab/Rad Data: Laboratory Result Diagrams 12/14/21 10:19 12/14/21 10:19 Laboratory Results 12/14/21 12/14/21 12/14/21 Range/Units 11:25 10:19 10:19 WBC (4.0-10.5) x10^3/uL RBC (4.1-5.4) x10^6/uL Hgb (12.0-16.0) g/dL Hct (35-47) % MCV (78-100) fL MCH (26-32) pg MCHC (32-36) g/dL RDW (11.5-14.0) % Plt Count (150-450) x10^3/uL MPV (7.5-11.0) fL Gran % (36.0-66.0) % Immature Gran % (Auto) (0.00-0.4) % Nucleat RBC Rel Count (0.00-0.1) % Eos # (Auto) (0-0.5) x10^3/uL Immature Gran # (Auto) (0.00-0.03) x10^3u/L Absolute Lymphs (auto) (1.0-4.6) x10^3/uL Absolute Monos (auto) (0.0-1.3) x10^3/uL Absolute Nucleated RBC (0.00-0.01) x10^3u/L Lymphocytes % (24.0-44.0) % Monocytes % (0.0-12.0) % Eosinophils % (0.00-5.0) % Basophils % (0.0-0.4) % Absolute Granulocytes (1.4-6.9) x10^3/uL Basophils # (0-0.4) x10^3/uL Sodium 138 (137-145) mmol/L Potassium 3.5 (3.5-5.1) mmol/L Chloride 111 H (98-107) mmol/L Carbon Dioxide 21 L (22-30) mmol/L Anion Gap 9.5 (5-15) MEQ/L BUN 6 L (7-17) mg/dL Creatinine 0.49 L (0.52-1.04) mg/dL Estimated GFR > 60.0 ML/MIN Glucose 97 (74-106) mg/dL Lactic Acid (0.4-2.0) Calcium 8.5 (8.4-10.2) mg/dL Magnesium 2.0 (1.6-2.3) mg/dL Total Bilirubin 0.40 (0.2-1.3) mg/dL AST 19 (14-36) U/L ALT 11 (0-35) U/L Alkaline Phosphatase 47 (38-126) U/L Serum Total Protein 5.7 L (6.3-8.2) g/dL Albumin 3.5 (3.5-5.0) g/dL Lipase 48 (23-300) U/L Urinalys Dipstick Clnc MAIN LAB Urine Color YELLOW (YELLOW) Urine Appearance CLEAR (CLEAR) Urine pH 6.0 (5-6) Ur Specific [place] 1.010 (1.005-1.025) POC Urine Protein Conf NEGATIVE (Negative) Urine Ketones NEGATIVE (NEGATIVE) Urine Nitrite POSITIVE (NEGATIVE) Urine Bilirubin NEGATIVE (NEGATIVE) Urine Urobilinogen 0.2 (0-1) mg/dL Urine Leukocytes NEGATIVE (NEGATIVE) Urine WBC (Auto) NONE (0-5) /HPF Urine RBC (Auto) NONE (0-2) /HPF U Epithel Cells (Auto) NONE (FEW) /HPF Urine Bacteria (Auto) RARE (NEGATIVE) /HPF Urine RBC NEGATIVE (0-5) Cas/ul Ur Culture Indicated? ORDERED SEPARATELY Urine Glucose NEGATIVE (NEGATIVE) mg/dL 12/14/21 12/14/21 Range/Units 10:19 10:05 WBC 4.4 (4.0-10.5) x10^3/uL RBC 3.50 L (4.1-5.4) x10^6/uL Hgb 11.8 L (12.0-16.0) g/dL Hct 36.0 (35-47) % MCV 102.9 H (78-100) fL MCH 33.7 H (26-32) pg MCHC 32.8 (32-36) g/dL RDW 14.2 H (11.5-14.0) % Plt Count 143 L (150-450) x10^3/uL MPV 11.6 H (7.5-11.0) fL Gran % 47.8 (36.0-66.0) % Immature Gran % (Auto) 0.2 (0.00-0.4) % Nucleat RBC Rel Count 0.0 (0.00-0.1) % Eos # (Auto) 0.17 (0-0.5) x10^3/uL Immature Gran # (Auto) 0.01 (0.00-0.03) x10^3u/L Absolute Lymphs (auto) 1.85 (1.0-4.6) x10^3/uL Absolute Monos (auto) 0.24 (0.0-1.3) x10^3/uL Absolute Nucleated RBC 0.00 (0.00-0.01) x10^3u/L Lymphocytes % 42.0 (24.0-44.0) % Monocytes % 5.4 (0.0-12.0) % Eosinophils % 3.9 (0.00-5.0) % Basophils % 0.7 (0.0-0.4) % Absolute Granulocytes 2.11 (1.4-6.9) x10^3/uL Basophils # 0.03 (0-0.4) x10^3/uL Sodium (137-145) mmol/L Potassium (3.5-5.1) mmol/L Chloride (98-107) mmol/L Carbon Dioxide (22-30) mmol/L Anion Gap (5-15) MEQ/L BUN (7-17) mg/dL Creatinine (0.52-1.04) mg/dL Estimated GFR ML/MIN Glucose (74-106) mg/dL Lactic Acid 0.8 (0.4-2.0) Calcium (8.4-10.2) mg/dL Magnesium (1.6-2.3) mg/dL Total Bilirubin (0.2-1.3) mg/dL AST (14-36) U/L ALT (0-35) U/L Alkaline Phosphatase (38-126) U/L Serum Total Protein (6.3-8.2) g/dL Albumin (3.5-5.0) g/dL Lipase (23-300) U/L Urinalys Dipstick Clnc Urine Color (YELLOW) Urine Appearance (CLEAR) Urine pH (5-6) Ur Specific [place] (1.005-1.025) POC Urine Protein Conf (Negative) Urine Ketones (NEGATIVE) Urine Nitrite (NEGATIVE) Urine Bilirubin (NEGATIVE) Urine Urobilinogen (0-1) mg/dL Urine Leukocytes (NEGATIVE) Urine WBC (Auto) (0-5) /HPF Urine RBC (Auto) (0-2) /HPF U Epithel Cells (Auto) (FEW) /HPF Urine Bacteria (Auto) (NEGATIVE) /HPF Urine RBC (0-5) Cas/ul Ur Culture Indicated? Urine Glucose (NEGATIVE) mg/dL - Progress Progress: improved, pain not gone completely, re-examined Progress Note: 12/14/21 13:22 36-year-old is evaluated for lower abdominal pain. She is given fluids and symptomatic treatment, on reevaluation feeling better but still not complete re solution of pain. She has a normal white count, no acute electrolyte imbalance, CT abdomen pelvis without contrast negative for any acute findings. No UTI. I do not know the exact cause of first pain but could be adhesions from previous multiple surgeries. No peritoneal signs on repeated evaluations. She is advised to follow-up with her primary care. Discussed signs symptoms of worsening needing return to ER which she seems understanding. Counseled pt/family regarding: lab results, diagnosis, need for follow-up, rad results - Departure Departure Disposition: Home Clinical Impression: Lower abdominal pain Condition: Stable Critical Care Time: No Referrals: MARCO SALVADOR MD [Primary Care Provider] - Follow up/PCP as directed (2 days for reevaluation) Instructions: Severe Abdominal Pain Additional Instructions: Take Tylenol as needed for pain. Follow-up with primary care for reevaluation. Return to ER for intractable pain/vomiting/fever chills etc.
[2021-12-14 10:28] LABS: Absolute Neutrophil Ct (ANC) 2.11 x10^3/uL (1.4-6.9); Basophil (Absolute #) 0.03 x10^3/uL (0-0.4); Eosinophil % 3.9 % (0.00-5.0); Eosinophil (Absolute #) 0.17 x10^3/uL (0-0.5); Hemoglobin 11.8 g/dL (12.0-16.0); Lymphocyte (Absolute #) 1.85 x10^3/uL (1.0-4.6); Mean Cell Volume 102.9 fL (78-100); Mean Corpuscular Hemoglobin 33.7 pg (26-32); Mean Corpuscular Hgb Concent. 32.8 g/dL (32-36); Mean Platelet Volume 11.6 fL (7.5-11.0); Monocyte (Absolute #) 0.24 x10^3/uL (0.0-1.3); Monocytes % 5.4 % (0.0-12.0); Neutrophil % 47.8 % (36.0-66.0); Platelet Count 143 x10^3/uL (150-450); Red Cell Distribution Width 14.2 % (11.5-14.0); White Blood Count 4.4 x10^3/uL (4.0-10.5)
[2021-12-14 11:16] LABS: ALBUMIN 3.5 g/dL (3.5-5.0); ALKALINE PHOSPHATASE 47 U/L (38-126); BLOOD UREA NITROGEN 6 mg/dL (7-17); CHLORIDE 111 mmol/L (98-107); Calcium 8.5 mg/dL (8.4-10.2); Carbon Dioxide 21 mmol/L (22-30); Creatinine 1 0.49 mg/dL (0.52-1.04); EST GLOMERULAR FILTRATION RATE > 60.0 ML/MIN; Glucose 97 mg/dL (74-106); Potassium 3.5 mmol/L (3.5-5.1); SGOT/AST 19 U/L (14-36); SGPT/ALT 11 U/L (0-35); SODIUM 138 mmol/L (137-145); Total Protein 5.7 g/dL (6.3-8.2)
[2021-12-14] MEDS ORDERED: Zofran 4 MG/2 ML VIAL ONE (11:30)
[2021-12-14] MEDS ORDERED: MORPHINE SULFATE 2 MG INJ ONE ×2 (11:30→12:27)
[2021-12-14] MEDS ORDERED: Zofran 4 MG/2 ML VIAL IV ONE (11:31)
[2021-12-14] MEDS ORDERED: MORPHINE SULFATE 2 MG INJ IV ONE ×2 (11:36→12:24)
[2021-12-14 11:39] LABS: ANION GAP 9.5 MEQ/L (5-15); LIPASE 48 U/L (23-300)
[2021-12-14 11:59] LABS: Appearance CLEAR (CLEAR); Bilirubin NEGATIVE (NEGATIVE); Glucose NEGATIVE (NEGATIVE); Ketones NEGATIVE (NEGATIVE); Nitrite POSITIVE (NEGATIVE); Protein,Urine Dip NEGATIVE (Negative); RBC NEGATIVE Ery/ul (0-5); Urobilinogen 0.2 mg/dL (0-1)
[2021-12-14 12:00] LABS: Dipstick done @ ? MAIN LAB
[2021-12-14 12:26] LABS: Bacteria RARE /HPF (NEGATIVE)
[2021-12-14 12:27] LABS: Urine Cultured Indicated? ORDERED SEPARATELY
[2021-12-14 13:23] VITALS: BP 106/72; PULSE 64
[2021-12-14 13:24] VITALS: O2SAT 97
--- NOTE | 2021-12-14 19:18 | XRAY ---
Indication: Abdomen pain 1 month. Nausea. Multiple contiguous axial images obtained through the abdomen and pelvis without contrast. Comparison: Multiple priors, most recent September 30, 2021. Lung bases remain clear again with incidental tiny right base calcified granuloma. Heart is not enlarged. Again bariatric surgery. Noncontrasted stomach and bowel loops appear nonobstructed. Previous percutaneous J-tube removed. Again cholecystectomy, appendectomy, and hysterotomy. No free fluid/air. Remaining liver, pancreas, spleen, adrenal glands, kidneys, ureters, bladder, uterus, and aorta are unremarkable for noncontrast exam. Impression: Again bariatric surgery and old granulomatous disease. Remaining CT abdomen/pelvis without contrast exam is again negative. Comment: Preliminary interpretation made by C. No critical discrepancy.
== END 2021-12-14 13:29 | disposition home or self-care (01) ==
LOC: ED 09:44
DX: R10.30 Lower abdominal pain, unspecified (principal); R53.1 Weakness; R53.83 Other fatigue; R42 Dizziness and giddiness; R30.0 Dysuria; Z98.84 Bariatric surgery status; Z79.899 Other long term (current) drug therapy
CPT/HCPCS: 36000; 36415; 74176; 80053; 81015; 83605; 83690; 83735; 85025; 87077; 87086; 87186; 96360; 96374; 96375; 99284; J2270; J2405

== ENCOUNTER 2021-12-15 19:58 | Emergency (ER) | payer OTHER ==
[2021-12-15 20:23] VITALS: O2SAT 100
[2021-12-15] MEDS ORDERED: ZOFRAN ODT 4 MG PO ONE (20:44)
[2021-12-15] MEDS ORDERED: ZOFRAN ODT 4 MG ONE (20:48)
--- NOTE | 2021-12-15 20:50 | ERPHSYRPT ---
- History of Present Illness Source: patient Exam Limitations: no limitations Patient Subjective Stated Complaint: pt states "I slid out of bed getting up from it and hit my R leg on the dresser." Triage Nursing Assessment: Pt presents to ED in wheelchair, pt c/o R lower leg pain from fall about an hour ago, pt denies hitting head or LOC, pt does have brusing on R lower leg, pt's bilateral pedal pulses +2, cap refill less than 2 seconds Physician History: 36 yo WF rolled out of bed injuring her R hip/R knee/R pre-tibail area. She denies head injury/LOC/C,T, or L-spine pain/chest pain/abdominal pain. She did hit her R humerus but states that pain is minimal and does not need an Xray. Occurred: just prior to arrival Reason for Fall: fell from standing pos (Rolled out of bed) Loss of Consciousness: no loss of consciousness Quality: sharpness Severity of Pain-Max: moderate Severity of Pain-Current: moderate Modifying Factors: Improves With: movement Associated Symptoms (Fall): extremity injury, trouble walking, No abdominal pain, No back pain, No confusion, No chest pain, No dizziness, No headache, No lightheadedness, No muscle spasms, No nausea, No neck pain, No ringing in ears, No seizures, No shortness of breath, No slurred speech, No vomiting, No vision changes Allergies/Adverse Reactions: Fish Containing Products Allergy (Intermediate, Verified 12/15/21 20:15) Nausea and Vomiting swelling everywhere shellfish derived Allergy (Intermediate, Verified 12/15/21 20:15) Nausea and Vomiting latex Allergy (Verified 12/15/21 20:15) nitrofurantoin [From Macrobid] Allergy (Verified 12/15/21 20:15) Sulfa (Sulfonamide Antibiotics) [Sulfa(Sulfonamide Antibiotics)] Allergy (Verified 12/15/21 20:15) Hives sulfamethoxazole [From Septra] Allergy (Verified 12/15/21 20:15) Rash trimethoprim [From Septra] Allergy (Verified 12/15/21 20:15) Rash NSAIDS (Non-Steroidal Anti-Inflamma Adverse Reaction (Verified 12/15/21 20:15) Rash can take IM but no oral med eggs Allergy (Uncoded 12/14/21 10:05) Rash nausea/vomiting Home Medications: Tizanidine HCl 4 mg [Zanaflex 4 MG] 4 mg PO TID 07/08/19 [History] Topiramate [Topamax] 200 mg PO BID 07/08/19 [History] Venlafaxine HCl [Effexor] 100 mg PO BID 07/08/19 [History] Cyanocobalamin 1000 Mcg/ml [Cyanocobalamin B-12 1000 MCG/ML] 1,000 mcg SQ UD 07/12/19 [History] PANTOPRAZOLE 40 mg Tablet [Protonix 40MG Tablet] 40 mg PO QPM 07/12/19 [History] Ergocalciferol (Vitamin D2) [Vitamin D2] 1 cap PO WEEKLY 10/06/19 [History] Lorazepam 0.5 mg [Ativan 0.5 MG] 1 mg PO TID PRN 02/27/20 [History] Hx Tetanus, Diphtheria Vaccination/Date Given: Yes Hx Influenza Vaccination/Date Given: No Hx Pneumococcal Vaccination/Date Given: No Immunizations Up to Date: Yes Travel Risk - International Travel Have you traveled outside of the country in past 3 weeks: No - Coronavirus Screening Are you exhibiting any of the following symptoms?: No Close contact with a COVID-19 positive Pt in past 14-21 Days: No - Vaccine Status Have you recieved a Covid-19 vaccination: Yes Mechanical Handyman: Moderna - Vaccination Dates Date of 2cond Vaccination (if applicable): September 2020 - Review of Systems Constitutional: No Symptoms Eyes: No Symptoms Ears, Nose, & Throat: No Symptoms Respiratory: No Symptoms Cardiac: No Symptoms Abdominal/Gastrointestinal: No Symptoms Genitourinary Symptoms: No Symptoms Musculoskeletal: No Symptoms, Arthralgias Skin: No Symptoms Neurological: No Symptoms Psychological: No Symptoms Endocrine: No Symptoms Hematologic/Lymphatic: No Symptoms Immunological/Allergic: No Symptoms - Past Medical History Pertinent Past Medical History: Yes Neurological History: Migraines, Seizures ENT History: No Pertinent History Cardiac History: No Pertinent History Respiratory History: Asthma Endocrine Medical History: Hypothyroidism Musculoskeletal History: No Pertinent History GI Medical History: No Pertinent History, Other History: Other Psycho-Social History: Anxiety, Depression Female Reproductive Disorders: Abnormal Uterine Bleeding, Menstrual Problems Other Medical History: PMYX: GERD, ANEMIA, ANXIETY, DEPRESSION, GASTRIC ULCER,. SX HX: CHOLECYSTECTOMY, BLADDER AND URETER REPAIR, TONSEILLECTOMY, GASTRIC LAP BAND AND REVISION, HYSTERECTOMY, - Past Surgical History Past Surgical History: Yes Neuro Surgical History: No Pertinent History Cardiac: No Pertinent History Respiratory: No Pertinent History Gastrointestinal: Appendectomy, Cholecystectomy Genitourinary: No Pertinent History Musculoskeletal: No Pertinent History Female Surgical History: Hysterectomy, Tubal Ligation, Other Other Surgical History: gastric bypass, lap band placed and removed first, two D&C, EGD - 03/19/16 - results "stomach inflammed" ablation. november 2019 bl eeding ulcer surgery - was told it was like a revision to the gastric bypass. g- tube placement. - Social History Smoking Status: Former smoker How long have you smoked: 3 years Exposure to second hand smoke: No Drug Use: none Patient Lives Alone: No Significant Family History: no pertinent family hx - Female History Hx Last Menstrual Period: patial hysterectomy Hx Now: No - Nursing Vital Signs Nursing Vital Signs: Initial Vital Signs Temperature 97.1 F 12/15/21 20:15 Pulse Rate 59 L 12/15/21 20:15 Respiratory Rate 18 12/15/21 20:15 Blood Pressure 92/60 12/15/21 20:15 O2 Sat by Pulse Oximetry 100 12/15/21 20:15 Pain Scale Pain Intensity 8 Borderline hypotension/Bradycardic - Tillson Coma Score Best Eye Response (Radha): (4) open spontaneously Best Verbal Response (Tillson): (5) oriented Best Motor Response (Tillson): (6) obeys commands Radha Total: 15 - Physical Exam General Appearance: no apparent distress Head Injury: no evidence of injury Eye Exam: PERRL/EOMI, eyes nml inspection ENT Exam: airway nml, No evidence of ENT injury, No dental injury, No clear fluid (ears), No clear fluid (nose), No hemotympanum Neck Exam: supple, trachea midline, full range of motion, normal inspection (C- spine NTTP) Respiratory/Chest Exam: chest tenderness, normal breath sounds, No respiratory distress Cardiovascular Exam: normal heart sounds, regular rate/rhythm, normal peripheral pulses, No murmur Gastrointestinal Exam: soft, normal bowel sounds, No tenderness Back Exam: normal inspection, normal range of motion, No CVA tenderness, No vertebral tenderness Extremity Exam: pelvis stable, other (TTP R greater trochanter area/TTP diffuse R knee/TTP R pre-tibial area/No deformities of RLE/Good pedal pulse, distal sensation, and capillary return), No deformities Neurologic Exam: alert, 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, cooperative, family resource coordinator II-XII nml as tested, normal mood/affect, sensation nml, No motor deficits, No sensory deficit Skin Exam: normal color, warm, dry SpO2 Interpretation: normal SpO2: 100 O2 Delivery: Room Air - Course Nursing assessment & vital signs reviewed: Yes - Radiology Exams Hip X-ray Interpretation: Interpreted by me (R hip neg per ER read/Frog leg somewhat inadequate, so CT of pelvis done) Knee X-ray Interpretation: Interpreted by me (R knee neg per ER read) Lower Leg X-ray Interpretation: Interpreted by me (R tib-fib neg per ER read) - CT Exams Pelvis CT Interpretation: Tele-radiologist Report (CT pelvis neg per telerad) Ordered Tests: Active Orders 24 hr Category Date Time Status [place] Bandage Application -[facility] STAT Care 12/15/21 22:51 Completed Crutches STAT Care 12/15/21 22:58 Completed HIP UNI (2V) INCL PEL IF DONE Stat Exams 12/15/21 21:15 Taken KNEE (3 VIEWS) Stat Exams 12/15/21 21:15 Taken LOWER LEG Stat Exams 12/15/21 21:15 Taken PELVIS WITHOUT CONTRAST [CT] Stat Exams 12/15/21 22:02 Taken Medication Summary Discontinued Medications Generic Name Dose Route Start Last Admin Trade Name Rubén PRN Reason Stop Dose Admin Hydrocodone Bitart/Acetaminophen 1 tablet 12/15/21 22:04 12/15/21 22:11 Hydrocodone/Acetamin 10-325 Mg Tablet PO 12/15/21 22:05 1 tablet STAT ONE Administration Hydrocodone Bitart/Acetaminophen 2 tab 12/15/21 22:58 12/15/21 23:02 Hydrocodone/Apap 5/325 Mg Tablet PO 12/15/21 22:59 2 tab SENT HOME W/ PATIENT ONE Administration Hydrocodone Bitart/Acetaminophen Confirm 12/15/21 22:59 Hydrocodone/Apap 5/325 Mg Tablet Administered 12/15/21 23:00 Dose 2 tab .ROUTE .STK-MED ONE Ondansetron HCl 4 mg 12/15/21 20:44 12/15/21 20:49 Zofran 4 Mg/Udtablet Orally Disintegrating PO 12/15/21 20:45 4 mg STAT ONE Administration Ondansetron HCl Confirm 12/15/21 20:48 Zofran 4 Mg/Udtablet Orally Disintegrating Administered 12/15/21 20:49 Dose 4 mg .ROUTE .STK-MED ONE - Progress Progress Note: 12/15/21 22:52 Norco10 po x1 Zofran 4mg ODT [place] wrap R knee per nursing/NVI 12/15/21 22:56 Inspect-90 1mg Ativan monthly/Oxycodone5 #15 11/16/21 12/15/21 22:58 Crutches/Teaching per nursing [id number] po take home x2 Counseled pt/family regarding: lab results, diagnosis, need for follow-up, rad results - Departure Departure Disposition: Home Clinical Impression: Contusion, hip, Contusion, knee, Contusion, lower leg Condition: Stable Critical Care Time: No Referrals: MARCO SALVADOR MD [Primary Care Provider] - Follow up/PCP as directed ORTHO - RAIZA WASSERMAN NP [NON-STAFF PHY W/O PRIVILEGES] - Follow up/PCP as directed Instructions: Hip Pain (DC), Knee Pain (DC) Additional Instructions: [place] wrap for 3-4 days Use crutches Follow up in Ortho clinic 8:00-10:00 tomorow Wash abrasions twice a day with soap/water Watch for signs of infection-redness/pain/pus/temperature greater than 100.5
[2021-12-15] MEDS ORDERED: HYDROCODONE-ACETAMIN 10-325 MG PO ONE (22:04)
[2021-12-15 22:08] VITALS: BP 100/68; PULSE 61
[2021-12-15] MEDS ORDERED: NORCO 5/325 MG PO ONE (22:58)
[2021-12-15] MEDS ORDERED: NORCO 5/325 MG ONE (22:59)
--- NOTE | 2021-12-16 08:46 | XRAY ---
Indication: Right hip pain following fall. Multiple contiguous axial images obtained through the pelvis with special attention to the osseous structures. Sagittal and coronal reformatted images obtained. Comparison: One day earlier Again no acute fracture, dislocation, or suspicious bony lesions. SI joints are bilaterally symmetric. Visualized noncontrasted soft tissues including bowel loops, bladder, and uterus are unremarkable. Major arteries and veins are normal in course and caliber. There remains numerous tiny subcutaneous gluteal calcified injection granulomas bilaterally. Impression: Continued negative CT pelvis without contrast exam compared to CT one day earlier. Comment: Preliminary interpretation made by [facility]. No critical discrepancy.
--- NOTE | 2021-12-16 08:47 | XRAY ---
Indication: Pain following fall. Comparison: None 2 view right hip demonstrates mild lower lumbar degenerative spondylosis and right gluteal calcified injection granulomas. No other bony, articular, or soft tissue abnormalities.
--- NOTE | 2021-12-16 08:48 | XRAY ---
Indication: Pain following fall. Comparison: None 2 view right lower leg demonstrates normal bones, articulation, and soft tissues. Knee reported separately.
--- NOTE | 2021-12-16 08:48 | XRAY ---
Indication: Pain following fall. Comparison: None 3 view right knee demonstrates tiny prepatella calcified granuloma. No other bony, articular, or soft tissue abnormalities.
== END 2021-12-15 23:13 | disposition home or self-care (01) ==
LOC: ED 19:58
DX: S80.01XA Contusion of right knee, initial encounter (principal); S70.01XA Contusion of right hip, initial encounter; S80.11XA Contusion of right lower leg, initial encounter; W06.XXXA Fall from bed, initial encounter; Y92.003 Bedroom of unspecified non-institutional (private) residence as the place of occurrence of the external cause; Z79.899 Other long term (current) drug therapy
CPT/HCPCS: 72192; 73502; 73562; 73590; 99284; Q0162; A9270-GY

== ENCOUNTER 2021-12-21 12:15 | Emergency (ER) | payer OTHER ==
--- NOTE | 2021-12-21 12:31 | ERPHSYRPT ---
- History of Present Illness Time Seen by Provider: 12/21/21 12:31 Source: patient Exam Limitations: no limitations Physician History: This is a 36-year-old white female patient of Dr. Salvador who presents with multiple complaints. She has persistent right lower extremity pain and bruising from a fall she sustained the end of November 2021. Patient has chronic nausea v omiting and dehydration issues. She feels she might be dehydrated because she been vomiting the last few days. Patient has had a gastric bypass procedure in the past. Patient also complains of some right elbow and right forearm pain from the fall that occurred several days ago. However, no x-rays were obtained that I can find. I reviewed the results of her radiographic studies. There is a negative right lower extremity venous Doppler performed on 12/19/2021. Patient had a negative CAT scan of the abdomen pelvis on 12/14/2021 without contrast. On [address] scan of the pelvis, negative right tib-fib x-ray, negative right knee x-ray and a negative right hip x-ray. Patient did follow-up in the interim between her last visit and today with her primary care physician and [facility] orthopedics. Occurred: days ago (8-10) Quality: aching Severity of Pain-Max: moderate Severity of Pain-Current: moderate Lower Extremities Pain: leg: right, knee: right, other: right (Now complains of right elbow and right forearm pain) Associated Symptoms: none Allergies/Adverse Reactions: Fish Containing Products Allergy (Intermediate, Verified 12/21/21 12:37) Nausea and Vomiting swelling everywhere shellfish derived Allergy (Intermediate, Verified 12/21/21 12:37) Nausea and Vomiting latex Allergy (Verified 12/21/21 12:37) nitrofurantoin [From Macrobid] Allergy (Verified 12/21/21 12:37) Sulfa (Sulfonamide Antibiotics) [Sulfa(Sulfonamide Antibiotics)] Allergy (Verified 12/21/21 12:37) Hives sulfamethoxazole [From Septra] Allergy (Verified 12/21/21 12:37) Rash trimethoprim [From Septra] Allergy (Verified 12/21/21 12:37) Rash NSAIDS (Non-Steroidal Anti-Inflamma Adverse Reaction (Verified 12/21/21 12:37) Rash can take IM but no oral med eggs Allergy (Uncoded 12/21/21 12:37) Rash nausea/vomiting Home Medications: Tizanidine HCl 4 mg [Zanaflex 4 MG] 4 mg PO TID 07/08/19 [History] Topiramate [Topamax] 200 mg PO BID 07/08/19 [History] Venlafaxine HCl [Effexor] 100 mg PO BID 07/08/19 [History] Cyanocobalamin 1000 Mcg/ml [Cyanocobalamin B-12 1000 MCG/ML] 1,000 mcg SQ UD 07/12/19 [History] PANTOPRAZOLE 40 mg Tablet [Protonix 40MG Tablet] 40 mg PO QPM 07/12/19 [History] Ergocalciferol (Vitamin D2) [Vitamin D2] 1 cap PO WEEKLY 10/06/19 [History] Lorazepam 0.5 mg [Ativan 0.5 MG] 1 mg PO TID PRN 02/27/20 [History] Hx Tetanus, Diphtheria Vaccination/Date Given: Yes Hx Influenza Vaccination/Date Given: No Hx Pneumococcal Vaccination/Date Given: No Travel Risk - International Travel Have you traveled outside of the country in past 3 weeks: No - Coronavirus Screening Are you exhibiting any of the following symptoms?: No Close contact with a COVID-19 positive Pt in past 14-21 Days: No - Vaccine Status Have you recieved a Covid-19 vaccination: Yes 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 - Vaccination Dates Date of 2cond Vaccination (if applicable): September 2020 - Review of Systems Constitutional: Weakness Eyes: No Symptoms Ears, Nose, & Throat: No Symptoms Respiratory: No Symptoms Cardiac: No Symptoms Abdominal/Gastrointestinal: Nausea, Vomiting Genitourinary Symptoms: No Symptoms Musculoskeletal: Fall, Injury (Right elbow and right forearm) Neurological: No Symptoms Psychological: No Symptoms Endocrine: No Symptoms Hematologic/Lymphatic: No Symptoms Immunological/Allergic: No Symptoms All Other Systems: Reviewed and Negative - Past Medical History Pertinent Past Medical History: Yes Neurological History: Migraines, Seizures ENT History: No Pertinent History Cardiac History: No Pertinent History Respiratory History: Asthma Endocrine Medical History: Hypothyroidism Musculoskeletal History: No Pertinent History GI Medical History: No Pertinent History, Other History: Other Psycho-Social History: Anxiety, Depression Female Reproductive Disorders: Abnormal Uterine Bleeding, Menstrual Problems Other Medical History: PMYX: GERD, ANEMIA, ANXIETY, DEPRESSION, GASTRIC ULCER,. SX HX: CHOLECYSTECTOMY, BLADDER AND URETER REPAIR, TONSEILLECTOMY, GASTRIC LAP BAND AND REVISION, HYSTERECTOMY, - Past Surgical History Past Surgical History: Yes Neuro Surgical History: No Pertinent History Cardiac: No Pertinent History Respiratory: No Pertinent History Gastrointestinal: Appendectomy, Cholecystectomy Genitourinary: No Pertinent History Musculoskeletal: No Pertinent History Female Surgical History: Hysterectomy, Tubal Ligation, Other Other Surgical History: gastric bypass, lap band placed and removed first, two D&C, EGD - 03/19/16 - results "stomach inflammed" ablation. november 2019 bleeding ulcer surgery - was told it was like a revision to the gastric bypass. g- tube placement. - Social History Smoking Status: Former smoker How long have you smoked: 3 years Exposure to second hand smoke: No Drug Use: none Patient Lives Alone: No Significant Family History: no pertinent family hx - Nursing Vital Signs Nursing Vital Signs: Initial Vital Signs Temperature 97.2 F 12/21/21 12:27 Pulse Rate 99 H 12/21/21 12:27 Blood Pressure 98/76 12/21/21 12:27 O2 Sat by Pulse Oximetry 100 12/21/21 12:27 Pain Scale Pain Intensity 4 - Physical Exam General Appearance: no apparent distress, alert, anxiety, thin Eyes, Ears, Nose, Throat Exam: normal ENT inspection, moist mucous membranes Neck Exam: normal inspection, non-tender, supple, full range of motion Cardiovascular/Respiratory Exam: chest non-tender, no respiratory distress Gastrointestinal/Abdominal Exam: non-tender Back Exam: normal inspection, normal range of motion, No CVA tenderness, No vertebral tenderness Hips Exam: bilateral: non-tender, normal inspection, normal range of motion, no evidence of injury Legs Exam: right leg: soft tissue tenderness, swelling (Right calf), left leg: non-tender, normal inspection, no evidence of injury, bilateral leg: normal range of motion Knees Exam: left knee: non-tender, bilateral knee: normal inspection, normal range of motion, no evidence of injury Ankle Exam: bilateral ankle: non-tender, normal inspection, normal range of motion, no evidence of injury Foot Exam: bilateral foot: non-tender, normal inspection, normal range of motion, no evidence of injury Neuro/Tendon Exam: normal sensation, normal motor functions, normal tendon functions Mental Status Exam: alert, 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, cooperative Skin Exam: pale (Chronic) SpO2 Interpretation: normal O2 Delivery: Room Air - Course Nursing assessment & vital signs reviewed: Yes Ordered Tests: Active Orders 24 hr Category Date Time Status IV Insertion STAT Care 12/21/21 12:48 Active ELBOW (MINIMUM 3 VIEWS) Stat Exams 12/21/21 12:50 Taken FOREARM Stat Exams 12/21/21 12:50 Taken BMP Stat Lab 12/21/21 13:00 Completed CBC W DIFF Stat Lab 12/21/21 13:00 Completed UA W/RFX CULTURE Stat Lab 12/21/21 14:46 Completed Medication Summary Discontinued Medications Generic Name Dose Route Start Last Admin Trade Name Freq PRN Reason Stop Dose Admin Hydromorphone HCl 1 mg 12/21/21 12:48 12/21/21 13:23 Hydromorphone 1 Mg/1ml Inj 1 Mg/Ml Syringe IV 12/21/21 12:49 1 mg STAT ONE Administration Hydromorphone HCl Confirm 12/21/21 13:17 Hydromorphone 1 Mg/1ml Inj 1 Mg/Ml Syringe Administered 12/21/21 13:18 Dose 1 mg .ROUTE .STK-MED ONE Sodium Chloride 1,000 mls @ 999 mls/hr 12/21/21 12:48 12/21/21 14:26 Sodium Chloride 0.9% 1000 Ml IV 12/21/21 13:48 Infused .Q1H1M STA Infusion Sodium Chloride Confirm 12/21/21 13:17 Sodium Chloride 0.9% 1000 Ml Administered 12/21/21 13:18 Dose 1,000 mls @ ud .ROUTE .STK-MED ONE Ondansetron HCl 4 mg 12/21/21 12:48 12/21/21 13:21 Ondansetron Hcl 4 Mg/2 Ml Vial IV 12/21/21 12:49 4 mg STAT ONE Administration Ondansetron HCl Confirm 12/21/21 13:16 Ondansetron Hcl 4 Mg/2 Ml Vial Administered 12/21/21 13:17 Dose 4 mg .ROUTE .STK-MED ONE Lab/Rad Data: Laboratory Result Diagrams 12/21/21 13:00 12/21/21 13:00 Laboratory Results 12/21/21 12/21/21 12/21/21 Range/Units 14:46 13:00 13:00 WBC 5.4 (4.0-10.5) x10^3/uL RBC 3.76 L (4.1-5.4) x10^6/uL Hgb 12.9 (12.0-16.0) g/dL Hct 39.8 (35-47) % MCV 105.9 H (78-100) fL MCH 34.3 H (26-32) pg MCHC 32.4 (32-36) g/dL RDW 14.2 H (11.5-14.0) % Plt Count 146 L (150-450) x10^3/uL MPV 11.1 H (7.5-11.0) fL Gran % 51.6 (36.0-66.0) % Immature Gran % (Auto) 0.4 (0.00-0.4) % Nucleat RBC Rel Count 0.0 (0.00-0.1) % Eos # (Auto) 0.16 (0-0.5) x10^3/uL Immature Gran # (Auto) 0.02 (0.00-0.03) x10^3u/L Absolute Lymphs (auto) 2.16 (1.0-4.6) x10^3/uL Absolute Monos (auto) 0.22 (0.0-1.3) x10^3/uL Absolute Nucleated RBC 0.00 (0.00-0.01) x10^3u/L Lymphocytes % 40.3 (24.0-44.0) % Monocytes % 4.1 (0.0-12.0) % Eosinophils % 3.0 (0.00-5.0) % Basophils % 0.6 (0.0-0.4) % Absolute Granulocytes 2.77 (1.4-6.9) x10^3/uL Basophils # 0.03 (0-0.4) x10^3/uL Sodium 140 (137-145) mmol/L Potassium 4.3 (3.5-5.1) mmol/L Chloride 112 H (98-107) mmol/L Carbon Dioxide 22 (22-30) mmol/L Anion Gap 10.4 (5-15) MEQ/L BUN 7 (7-17) mg/dL Creatinine 0.75 (0.52-1.04) mg/dL Estimated GFR > 60.0 ML/MIN Glucose 97 (74-106) mg/dL Calcium 8.3 L (8.4-10.2) mg/dL Urinalys Dipstick Clnc MAIN LAB Urine Color YELLOW (YELLOW) Urine Appearance CLEAR (CLEAR) Urine pH 7.0 (5-6) Ur Specific [place] 1.025 (1.005-1.025) POC Urine Protein Conf NEGATIVE (Negative) Urine Ketones NEGATIVE (NEGATIVE) Urine Nitrite NEGATIVE (NEGATIVE) Urine Bilirubin NEGATIVE (NEGATIVE) Urine Urobilinogen 0.2 (0-1) mg/dL Urine Leukocytes NEGATIVE (NEGATIVE) Urine WBC (Auto) 3-5 (0-5) /HPF Urine RBC (Auto) 0-2 (0-2) /HPF U Epithel Cells (Auto) RARE (FEW) /HPF Urine Bacteria (Auto) RARE (NEGATIVE) /HPF Urine RBC NEGATIVE (0-5) Cas/ul Urine Mucus (Auto) SLIGHT (NEGATIVE) /HPF Ur Culture Indicated? NO Urine Glucose NEGATIVE (NEGATIVE) mg/dL - Progress Progress: improved, pain not gone completely, re-examined Progress Note: 12/21/21 14:17 X-ray of right elbow shows no acute fracture or dislocation. X-ray of right forearm shows no acute fracture or dislocation. Counseled pt/family regarding: lab results, diagnosis, need for follow-up, rad results - Departure Departure Disposition: Home Clinical Impression: Pain of right upper extremity, Pain of right lower extremity, Chronic vomiting Condition: Stable Critical Care Time: No Referrals: MARCO SALVADOR MD [Primary Care Provider] - Follow up/PCP as directed Additional Instructions: Drink plenty of clear liquids. 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 You can always return return to the emergency department for reevaluation. However, there is no guarantee that you will receive pain medication other than nonsteroidal anti-inflammatory medications, Tylenol, or muscle relaxants (if indicated) to relieve your chronic pain.
[2021-12-21 12:37] VITALS: BP 98/76; PULSE 99; O2SAT 100
[2021-12-21] MEDS ORDERED: Zofran 4 MG/2 ML VIAL IV ONE (12:48)
[2021-12-21] MEDS ORDERED: Hydromorphone 1 mg/ml Injection IV ONE (12:48)
[2021-12-21] MEDS ORDERED: Sodium Chloride 0.9% 1000 ML 1,000 ML IV STA (12:48)
[2021-12-21 13:15] LABS: Absolute Neutrophil Ct (ANC) 2.77 x10^3/uL (1.4-6.9); Basophil (Absolute #) 0.03 x10^3/uL (0-0.4); Eosinophil (Absolute #) 0.16 x10^3/uL (0-0.5); Hematocrit 39.8 % (35-47); Hemoglobin 12.9 g/dL (12.0-16.0); Lymphocyte (Absolute #) 2.16 x10^3/uL (1.0-4.6); Lymphocytes % 40.3 % (24.0-44.0); Mean Cell Volume 105.9 fL (78-100); Mean Corpuscular Hemoglobin 34.3 pg (26-32); Mean Corpuscular Hgb Concent. 32.4 g/dL (32-36); Mean Platelet Volume 11.1 fL (7.5-11.0); Monocyte (Absolute #) 0.22 x10^3/uL (0.0-1.3); Monocytes % 4.1 % (0.0-12.0); Neutrophil % 51.6 % (36.0-66.0); Platelet Count 146 x10^3/uL (150-450); Red Blood Count 3.76 x10^6/uL (4.1-5.4); Red Cell Distribution Width 14.2 % (11.5-14.0); White Blood Count 5.4 x10^3/uL (4.0-10.5)
[2021-12-21] MEDS ORDERED: Zofran 4 MG/2 ML VIAL ONE (13:16)
[2021-12-21] MEDS ORDERED: Sodium Chloride 0.9% 1000 ML 1,000 ML ONE (13:17)
[2021-12-21] MEDS ORDERED: Hydromorphone 1 mg/ml Injection ONE (13:17)
[2021-12-21 13:50] LABS: ANION GAP 10.4 MEQ/L (5-15); BLOOD UREA NITROGEN 7 mg/dL (7-17); CHLORIDE 112 mmol/L (98-107); Calcium 8.3 mg/dL (8.4-10.2); Carbon Dioxide 22 mmol/L (22-30); Creatinine 1 0.75 mg/dL (0.52-1.04); EST GLOMERULAR FILTRATION RATE > 60.0 ML/MIN; Glucose 97 mg/dL (74-106); Potassium 4.3 mmol/L (3.5-5.1); SODIUM 140 mmol/L (137-145)
[2021-12-21 15:42] LABS: Bacteria RARE /HPF (NEGATIVE); Epithelial Cells RARE /HPF (FEW); Mucus SLIGHT /HPF (NEGATIVE); RBC 0-2 /HPF (0-2)
[2021-12-21 15:43] LABS: Appearance CLEAR (CLEAR); Bilirubin NEGATIVE (NEGATIVE); Glucose NEGATIVE (NEGATIVE); Ketones NEGATIVE (NEGATIVE); RBC NEGATIVE Ery/ul (0-5); Specific Gravity 1.025 (1.005-1.025)
[2021-12-21 15:44] LABS: Dipstick done @ ? MAIN LAB; Nitrite NEGATIVE (NEGATIVE); Protein,Urine Dip NEGATIVE (Negative); Urine Cultured Indicated? NO; Urobilinogen 0.2 mg/dL (0-1)
--- NOTE | 2021-12-21 21:37 | XRAY ---
Indication: Pain following fall 1 week ago. Comparison: March 22, 2016 2 view right forearm obtained. Again no bony, articular, or soft tissue abnormalities.
--- NOTE | 2021-12-21 21:39 | XRAY ---
Indication: Pain following fall 1 week ago. Comparison: None 3 view right elbow demonstrates normal bones, articulation, and soft tissues.
== END 2021-12-21 16:36 | disposition home or self-care (01) ==
LOC: ED 12:15
DX: M79.604 Pain in right leg (principal); M79.601 Pain in right arm; R11.2 Nausea with vomiting, unspecified; Z98.84 Bariatric surgery status; Z79.899 Other long term (current) drug therapy
CPT/HCPCS: 36415; 73080; 73090; 80048; 81015; 85025; 96360; 96374; 96375; 99284; J1170; J2405

== ENCOUNTER 2022-04-10 08:13 | Emergency (ER) | payer OTHER ==
[2022-04-10 08:29] VITALS: O2SAT 99
[2022-04-10] MEDS ORDERED: Zofran 4 MG/2 ML VIAL IV ONE (08:45)
[2022-04-10] MEDS ORDERED: MORPHINE SULFATE 4 MG INJ IV ONE (08:45)
[2022-04-10] MEDS ORDERED: Sodium Chloride 0.9% 1000 ML 1,000 ML IV STA (08:45)
[2022-04-10 09:08] LABS: Appearance SLIGHTLY (CLEAR); Bilirubin NEGATIVE (NEGATIVE); Dipstick done @ ? MAIN LAB; Glucose NEGATIVE (NEGATIVE); Ketones NEGATIVE (NEGATIVE); Nitrite POSITIVE (NEGATIVE); Ph 5.5 (5-6); Protein,Urine Dip NEGATIVE (Negative); RBC TRACE-LYSED Ery/ul (0-5); Specific Gravity 1.025 (1.005-1.025); Urobilinogen 0.2 mg/dL (0-1)
[2022-04-10] MEDS ORDERED: Zofran 4 MG/2 ML VIAL ONE (09:09)
[2022-04-10] MEDS ORDERED: MORPHINE SULFATE 4 MG INJ ONE (09:09)
[2022-04-10] MEDS ORDERED: Sodium Chloride 0.9% 1000 ML 1,000 ML ONE (09:09)
[2022-04-10 09:10] LABS: Bacteria FEW /HPF (NEGATIVE); Mucus SLIGHT /HPF (NEGATIVE); Urine Cultured Indicated? YES
[2022-04-10 09:11] LABS: Absolute Neutrophil Ct (ANC) 5.38 x10^3/uL (1.4-6.9); Basophil (Absolute #) 0.06 x10^3/uL (0-0.4); Eosinophil % 2.5 % (0.00-5.0); Eosinophil (Absolute #) 0.21 x10^3/uL (0-0.5); Hematocrit 41.6 % (35-47); Hemoglobin 13.5 g/dL (12.0-16.0); Lymphocyte (Absolute #) 2.28 x10^3/uL (1.0-4.6); Lymphocytes % 27.1 % (24.0-44.0); Mean Cell Volume 111.5 fL (78-100); Mean Corpuscular Hemoglobin 36.2 pg (26-32); Mean Corpuscular Hgb Concent. 32.5 g/dL (32-36); Mean Platelet Volume 11.1 fL (7.5-11.0); Monocyte (Absolute #) 0.46 x10^3/uL (0.0-1.3); Monocytes % 5.5 % (0.0-12.0); Neutrophil % 63.8 % (36.0-66.0); Platelet Count 169 x10^3/uL (150-450); Red Blood Count 3.73 x10^6/uL (4.1-5.4); Red Cell Distribution Width 12.4 % (11.5-14.0); White Blood Count 8.4 x10^3/uL (4.0-10.5)
--- NOTE | 2022-04-10 09:16 | ERPHSYRPT ---
- History of Present Illness Time Seen by Provider: 04/10/22 08:17 Historian: patient Exam Limitations: no limitations Patient Subjective Stated Complaint: sore throat- pain Triage Nursing Assessment: Patient ambulated back to ED and transferred self to bed. Patient A+O x3. Patient's skin pink, warm and dry. Patient complains of sore throat 10/27. Patient states she was dx with UTI and Strep yesterday by her Dr. Patient complains of pain and unable to eat or drink due to the pain. Physician History: 37 years old female with history of bariatric surgery with positive strep and UTI, started on Levaquin by yesterday presented in the ER with worsening pain lower abdomen, called primary care who recommended to be seen in the ER. Patient denies any fever or chills but because of sore throat she is not able to eat or drink anything. Abdominal pain is moderate to severe sharp without any significant aggravating or relieving factors. She is taking Tylenol which is not controlling her pain and wants some narcotic pain medications Timing/Duration: day(s) (3), constant, gradual onset, worse Activities at Onset: rest Quality: sharpness Abdominal Pain Onset Location: RLQ, LLQ, periumbilical, suprapubic Pain Radiation: back Severity of Pain-Max: severe Severity of Pain-Current: severe Modifying Factors: Improves With: nothing Associated Symptoms: nausea Previous symptoms: same symptoms as today Allergies/Adverse Reactions: Fish Containing Products Allergy (Intermediate, Verified 04/10/22 08:20) Nausea and Vomiting swelling everywhere shellfish derived Allergy (Intermediate, Verified 04/10/22 08:20) Nausea and Vomiting latex Allergy (Verified 04/10/22 08:20) nitrofurantoin [From Macrobid] Allergy (Verified 04/10/22 08:20) Sulfa (Sulfonamide Antibiotics) [Sulfa(Sulfonamide Antibiotics)] Allergy (Verified 04/10/22 08:20) Hives sulfamethoxazole [From Septra] Allergy (Verified 04/10/22 08:20) Rash trimethoprim [From Septra] Allergy (Verified 04/10/22 08:20) Rash furosemide [From Lasix] Adverse Reaction (Verified 04/10/22 08:20) Hives NSAIDS (Non-Steroidal Anti-Inflamma Adverse Reaction (Verified 04/10/22 08:20) Rash can take IM but no oral med eggs Allergy (Uncoded 04/10/22 08:20) Rash nausea/vomiting Home Medications: Tizanidine HCl 4 mg [Zanaflex 4 MG] 4 mg PO TID 07/08/19 [History] Topiramate [Topamax] 200 mg PO BID 07/08/19 [History] Venlafaxine HCl [Effexor] 100 mg PO BID 07/08/19 [History] Cyanocobalamin 1000 Mcg/ml [Cyanocobalamin B-12 1000 MCG/ML] 1,000 mcg SQ UD 07/12/19 [History] PANTOPRAZOLE 40 mg Tablet [Protonix 40MG Tablet] 40 mg PO QPM 07/12/19 [History] Ergocalciferol (Vitamin D2) [Vitamin D2] 1 cap PO WEEKLY 10/06/19 [History] Lorazepam 0.5 mg [Ativan 0.5 MG] 1 mg PO TID PRN 02/27/20 [History] Hx Tetanus, Diphtheria Vaccination/Date Given: Yes Hx Influenza Vaccination/Date Given: No Hx Pneumococcal Vaccination/Date Given: No Immunizations Up to Date: Yes Travel Risk - International Travel Have you traveled outside of the country in past 3 weeks: No - Coronavirus Screening Are you exhibiting any of the following symptoms?: No Close contact with a COVID-19 positive Pt in past 14-21 Days: No - Vaccine Status Have you recieved a Covid-19 vaccination: Yes Lifter/Driver: Moderna - Vaccination Dates Date of 2cond Vaccination (if applicable): September 2020 - Review of Systems Constitutional: Fatigue, Weakness Eyes: No Symptoms Ears, Nose, & Throat: Throat Pain, Throat Swelling Respiratory: No Symptoms Cardiac: No Symptoms Abdominal/Gastrointestinal: Abdominal Pain, Nausea Genitourinary Symptoms: No Symptoms Musculoskeletal: Back Pain Skin: No Symptoms Neurological: No Symptoms Psychological: No Symptoms Endocrine: No Symptoms Hematologic/Lymphatic: No Symptoms Immunological/Allergic: No Symptoms - Past Medical History Pertinent Past Medical History: Yes Neurological History: Migraines, Seizures ENT History: No Pertinent History Cardiac History: No Pertinent History Respiratory History: Asthma Endocrine Medical History: Hypothyroidism Musculoskeletal History: No Pertinent History GI Medical History: No Pertinent History, Other History: Other Psycho-Social History: Anxiety, Depression Female Reproductive Disorders: Abnormal Uterine Bleeding, Menstrual Problems Other Medical History: PMYX: GERD, ANEMIA, ANXIETY, DEPRESSION, GASTRIC ULCER,. SX HX: CHOLECYSTECTOMY, BLADDER AND URETER REPAIR, TONSEILLECTOMY, GASTRIC LAP BAND AND REVISION, HYSTERECTOMY, - Past Surgical History Past Surgical History: Yes Neuro Surgical History: No Pertinent History Cardiac: No Pertinent History Respiratory: No Pertinent History Gastrointestinal: Appendectomy, Cholecystectomy Genitourinary: No Pertinent History Musculoskeletal: No Pertinent History Female Surgical History: Hysterectomy, Tubal Ligation, Other Other Surgical History: gastric bypass, lap band placed and removed first, two D&C, EGD - 03/19/16 - results "stomach inflammed" ablation. november 2019 bleeding ulcer surgery - was told it was like a revision to the gastric bypass. g- tube placement. - Social History Smoking Status: Former smoker How long have you smoked: 3 years Exposure to second hand smoke: No Drug Use: none Patient Lives Alone: No Significant Family History: no pertinent family hx - Female History Hx Last Menstrual Period: partial hysterectomy Hx Now: No - Nursing Vital Signs Nursing Vital Signs: Initial Vital Signs Temperature 98.5 F 04/10/22 08:20 Pulse Rate 91 H 04/10/22 08:20 Respiratory Rate 18 04/10/22 08:20 Blood Pressure 106/74 04/10/22 08:20 O2 Sat by Pulse Oximetry 99 04/10/22 08:20 Pain Scale Pain Intensity 5 - Physical Exam General Appearance: no apparent distress, alert Eye Exam: PERRL/EOMI Ears, Nose, Throat Exam: pharyngeal erythema Neck Exam: normal inspection, non-tender, supple, full range of motion Respiratory Exam: normal breath sounds, lungs clear Cardiovascular Exam: regular rate/rhythm, normal heart sounds Gastrointestinal/Abdomen Exam: soft, normal bowel sounds, tenderness (Lower abdomen bilaterally) Back Exam: normal inspection, normal range of motion Extremity Exam: normal inspection, normal range of motion Neurologic Exam: alert, 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, cooperative Skin Exam: normal color SpO2 Interpretation: normal SpO2: 99 O2 Delivery: Room Air Ordered Tests: Active Orders 24 hr Category Date Time Status IV Insertion STAT Care 04/10/22 08:45 Active NPO (ED) STAT Care 04/10/22 08:45 Active ABDOMEN AND PELVIS W/0 CONTRAS [CT] Stat Exams 04/10/22 08:46 Completed CBC W DIFF Stat Lab 04/10/22 09:00 Completed CMP Stat Lab 04/10/22 09:00 Completed CULTURE,URINE Stat Lab 04/10/22 09:04 Received LIPASE Stat Lab 04/10/22 09:00 Completed Lactic Acid Stat Lab 04/10/22 08:45 Completed UA W/RFX CULTURE Stat Lab 04/10/22 09:04 Completed Medication Summary Discontinued Medications Generic Name Dose Route Start Last Admin Trade Name Rubén PRN Reason Stop Dose Admin Sodium Chloride 1,000 mls @ 999 mls/hr 04/10/22 08:45 04/10/22 09:10 Sodium Chloride 0.9% 1000 Ml IV 04/10/22 09:45 999 mls/hr .Q1H1M STA Administration Sodium Chloride Confirm 04/10/22 09:09 Sodium Chloride 0.9% 1000 Ml Administered 04/10/22 09:10 Dose 1,000 mls @ ud .ROUTE .STK-MED ONE Morphine Sulfate 4 mg 04/10/22 08:45 04/10/22 09:10 Morphine Sulfate 4 Mg/Ml Injection IV 04/10/22 08:46 4 mg STAT ONE Administration Morphine Sulfate Confirm 04/10/22 09:09 Morphine Sulfate 4 Mg/Ml Injection Administered 04/10/22 09:10 Dose 4 mg .ROUTE .STK-MED ONE Ondansetron HCl 4 mg 04/10/22 08:45 04/10/22 09:10 Ondansetron Hcl 4 Mg/2 Ml Vial IV 04/10/22 08:46 4 mg STAT ONE Administration Ondansetron HCl Confirm 04/10/22 09:09 Ondansetron Hcl 4 Mg/2 Ml Vial Administered 04/10/22 09:10 Dose 4 mg .ROUTE .STK-MED ONE Lab/Rad Data: Laboratory Result Diagrams 04/10/22 09:00 04/10/22 09:00 Laboratory Results 04/10/22 04/10/22 04/10/22 Range/Units 09:04 09:00 09:00 WBC 8.4 (4.0-10.5) x10^3/uL RBC 3.73 L (4.1-5.4) x10^6/uL Hgb 13.5 (12.0-16.0) g/dL Hct 41.6 (35-47) % MCV 111.5 H (78-100) fL MCH 36.2 H (26-32) pg MCHC 32.5 (32-36) g/dL RDW 12.4 (11.5-14.0) % Plt Count 169 (150-450) x10^3/uL MPV 11.1 H (7.5-11.0) fL Gran % 63.8 (36.0-66.0) % Immature Gran % (Auto) 0.4 (0.00-0.4) % Nucleat RBC Rel Count 0.0 (0.00-0.1) % Eos # (Auto) 0.21 (0-0.5) x10^3/uL Immature Gran # (Auto) 0.03 (0.00-0.03) x10^3u/L Absolute Lymphs (auto) 2.28 (1.0-4.6) x10^3/uL Absolute Monos (auto) 0.46 (0.0-1.3) x10^3/uL Absolute Nucleated RBC 0.00 (0.00-0.01) x10^3u/L Lymphocytes % 27.1 (24.0-44.0) % Monocytes % 5.5 (0.0-12.0) % Eosinophils % 2.5 (0.00-5.0) % Basophils % 0.7 (0.0-0.4) % Absolute Granulocytes 5.38 (1.4-6.9) x10^3/uL Basophils # 0.06 (0-0.4) x10^3/uL Sodium 139 (137-145) mmol/L Potassium 4.1 (3.5-5.1) mmol/L Chloride 111 H (98-107) mmol/L Carbon Dioxide 22 (22-30) mmol/L Anion Gap 10.0 (5-15) MEQ/L BUN 12 (7-17) mg/dL Creatinine 0.55 (0.52-1.04) mg/dL Estimated GFR > 60.0 ML/MIN Glucose 97 (74-106) mg/dL Lactic Acid (0.4-2.0) Calcium 8.7 (8.4-10.2) mg/dL Total Bilirubin 0.40 (0.2-1.3) mg/dL AST 22 (14-36) U/L ALT 14 (0-35) U/L Alkaline Phosphatase 76 (38-126) U/L Serum Total Protein 7.1 (6.3-8.2) g/dL Albumin 4.5 (3.5-5.0) g/dL Lipase 99 (23-300) U/L Urinalys Dipstick Clnc MAIN LAB Urine Color YELLOW (YELLOW) Urine Appearance SLIGHTLY (CLEAR) Urine pH 5.5 (5-6) Ur Specific [place] 1.025 (1.005-1.025) POC Urine Protein Conf NEGATIVE (Negative) Urine Ketones NEGATIVE (NEGATIVE) Urine Nitrite POSITIVE A (NEGATIVE) Urine Bilirubin NEGATIVE (NEGATIVE) Urine Urobilinogen 0.2 (0-1) mg/dL Urine Leukocytes NEGATIVE (NEGATIVE) Urine WBC (Auto) NONE (0-5) /HPF Urine RBC (Auto) NONE (0-2) /HPF U Epithel Cells (Auto) NONE (FEW) /HPF Urine Bacteria (Auto) FEW A (NEGATIVE) /HPF Urine RBC TRACE-LYSED A (0-5) Cas/ul Urine Mucus (Auto) SLIGHT A (NEGATIVE) /HPF Ur Culture Indicated? YES Urine Glucose NEGATIVE (NEGATIVE) mg/dL 04/10/22 Range/Units 08:45 WBC (4.0-10.5) x10^3/uL RBC (4.1-5.4) x10^6/uL Hgb (12.0-16.0) g/dL Hct (35-47) % MCV (78-100) fL MCH (26-32) pg MCHC (32-36) g/dL RDW (11.5-14.0) % Plt Count (150-450) x10^3/uL MPV (7.5-11.0) fL Gran % (36.0-66.0) % Immature Gran % (Auto) (0.00-0.4) % Nucleat RBC Rel Count (0.00-0.1) % Eos # (Auto) (0-0.5) x10^3/uL Immature Gran # (Auto) (0.00-0.03) x10^3u/L Absolute Lymphs (auto) (1.0-4.6) x10^3/uL Absolute Monos (auto) (0.0-1.3) x10^3/uL Absolute Nucleated RBC (0.00-0.01) x10^3u/L Lymphocytes % (24.0-44.0) % Monocytes % (0.0-12.0) % Eosinophils % (0.00-5.0) % Basophils % (0.0-0.4) % Absolute Granulocytes (1.4-6.9) x10^3/uL Basophils # (0-0.4) x10^3/uL Sodium (137-145) mmol/L Potassium (3.5-5.1) mmol/L Chloride (98-107) mmol/L Carbon Dioxide (22-30) mmol/L Anion Gap (5-15) MEQ/L BUN (7-17) mg/dL Creatinine (0.52-1.04) mg/dL Estimated GFR ML/MIN Glucose (74-106) mg/dL Lactic Acid 1.0 (0.4-2.0) Calcium (8.4-10.2) mg/dL Total Bilirubin (0.2-1.3) mg/dL AST (14-36) U/L ALT (0-35) U/L Alkaline Phosphatase (38-126) U/L Serum Total Protein (6.3-8.2) g/dL Albumin (3.5-5.0) g/dL Lipase (23-300) U/L Urinalys Dipstick Clnc Urine Color (YELLOW) Urine Appearance (CLEAR) Urine pH (5-6) Ur Specific [place] (1.005-1.025) POC Urine Protein Conf (Negative) Urine Ketones (NEGATIVE) Urine Nitrite (NEGATIVE) Urine Bilirubin (NEGATIVE) Urine Urobilinogen (0-1) mg/dL Urine Leukocytes (NEGATIVE) Urine WBC (Auto) (0-5) /HPF Urine RBC (Auto) (0-2) /HPF U Epithel Cells (Auto) (FEW) /HPF Urine Bacteria (Auto) (NEGATIVE) /HPF Urine RBC (0-5) Cas/ul Urine Mucus (Auto) (NEGATIVE) /HPF Ur Culture Indicated? Urine Glucose (NEGATIVE) mg/dL - Progress Progress: improved Progress Note: 04/10/22 10:38 37 years old treated for abdominal pain, sore throat with questionable dehydration. She is given fluid bolus and symptomatic treatment for pain, on reevaluation feeling much better. Work-up showed normal white count, unr emarkable chemistries, does have UTI and is taking Levaquin. I have obtained CT abdomen pelvis which is negative for any acute findings. Patient has chronic issues with abdominal pain from previous surgeries. I have discussed with her primary care , do not think patient needs any other work-up in the ER on admission and recommended discharge to continue current management. I would not discharge any narcotic pain medications and have her follow-up with her primary care as patient problem is chronic. Discussed signs symptoms of worsening needing return to ER which she seems understanding. Stable for discharge. Discussed with Dr.: Aron Counseled pt/family regarding: lab results, diagnosis, need for follow-up, rad results - Departure Departure Disposition: Home Clinical Impression: Lower abdominal pain, UTI (urinary tract infection) Condition: Stable Critical Care Time: No Referrals: MARCO SALVADOR MD [Primary Care Provider] - Follow up/PCP as directed (1-2 days for reevaluation) Instructions: Severe Abdominal Pain, Adult (DC) Additional Instructions: Tylenol as needed. Follow-up with your primary care for reevaluation. Continue with antibiotic. Increase fluid intake. Return to ER for intractable pain, vomiting, fever chills Etc.
[2022-04-10 09:28] LABS: ALBUMIN 4.5 g/dL (3.5-5.0); ALKALINE PHOSPHATASE 76 U/L (38-126); BLOOD UREA NITROGEN 12 mg/dL (7-17); CHLORIDE 111 mmol/L (98-107); Calcium 8.7 mg/dL (8.4-10.2); Carbon Dioxide 22 mmol/L (22-30); Creatinine 1 0.55 mg/dL (0.52-1.04); EST GLOMERULAR FILTRATION RATE > 60.0 ML/MIN; Glucose 97 mg/dL (74-106); LIPASE 99 U/L (23-300); Potassium 4.1 mmol/L (3.5-5.1); SGOT/AST 22 U/L (14-36); SGPT/ALT 14 U/L (0-35); SODIUM 139 mmol/L (137-145); Total Protein 7.1 g/dL (6.3-8.2)
--- NOTE | 2022-04-10 09:48 | XRAY ---
Indication: Left flank pain 3 weeks. Multiple contiguous axial images obtained through the abdomen and pelvis without contrast using renal stone protocol. Comparison: December 14, 2021 Lung bases remain clear again with incidental tiny right base calcified granuloma. Heart not enlarged. New nonobstructing left lower renal punctate calculus. No other renal calculus or evidence for obstructive uropathy in either system. Again gastric bypass surgery, cholecystectomy, appendectomy, and hysterectomy. Noncontrasted stomach and bowel loops nonobstructed. No free fluid/air. There remains a few tiny hepatic calcified granulomas. Remaining liver, pancreas, spleen, adrenal glands, kidneys, ureters, bladder, uterus, and aorta are unremarkable for noncontrast exam. Osseous structures intact. Impression: 1. Nonobstructing left renal punctate calculus. 2. Again incidental old granulomatous disease. 3. Remaining CT abdomen/pelvis without contrast exam is again negative.
[2022-04-10 09:53] VITALS: BP 110/70; PULSE 84
== END 2022-04-10 11:21 | disposition home or self-care (01) ==
LOC: ED 08:13
DX: N39.0 Urinary tract infection, site not specified (principal); R10.30 Lower abdominal pain, unspecified; J02.9 Acute pharyngitis, unspecified; Z79.899 Other long term (current) drug therapy
CPT/HCPCS: 36000; 36415; 74176; 80053; 81015; 83605; 83690; 85025; 87077; 87086; 87186; 96374; 96375; 99284; J2270; J2405

== ENCOUNTER 2022-07-12 18:46 | Emergency (ER) | payer MEDICARE ==
--- NOTE | 2022-07-12 19:19 | ERPHSYRPT ---
- History of Present Illness Time Seen by Provider: 07/12/22 19:19 Historian: patient Exam Limitations: no limitations Patient Subjective Stated Complaint: C/O FLANK PAIN FOR WEEKS. It is getting increasingly worse. States she was on an antibiotic for UTI about a month ago and is unsure if it ever resolved. Triage Nursing Assessment: Patient ambulated back to ER without difficulties. NO SOB. She is alert and oriented. Skin is loose. WALKER WNL. Physician History: Patient presents w/ right sided flank pain that radiates to lower abdomen. Patient also reports a 1 day hx of dysuria and dark colored urine w/o bennett hematuria. She denies fever, chills, but has nausea w/o vomiting. Patient has a hx of gastric bypass, last normal BM 1 day ago. She denies CP, palpitations, SOB or swelling. No blood in stool reported. Timing/Duration: today Activities at Onset: rest Quality: sharpness, stabbing Abdominal Pain Onset Location: flank Pain Radiation: RLQ, LLQ Severity of Pain-Max: severe Severity of Pain-Current: severe Modifying Factors: Improves With: nothing. Worsens With: movement Associated Symptoms: back, diaphoresis, loss of appetite, nausea, No chest pain, No diarrhea, No fever/chills, No vomiting Previous symptoms: same symptoms as today Allergies/Adverse Reactions: Fish Containing Products Allergy (Intermediate, Verified 07/12/22 19:00) Nausea and Vomiting swelling everywhere shellfish derived Allergy (Intermediate, Verified 07/12/22 19:00) Nausea and Vomiting latex Allergy (Verified 07/12/22 19:00) nitrofurantoin [From Macrobid] Allergy (Verified 07/12/22 19:00) Sulfa (Sulfonamide Antibiotics) [Sulfa(Sulfonamide Antibiotics)] Allergy (Verified 07/12/22 19:00) Hives sulfamethoxazole [From Septra] Allergy (Verified 07/12/22 19:00) Rash trimethoprim [From Septra] Allergy (Verified 07/12/22 19:00) Rash furosemide [From Lasix] Adverse Reaction (Verified 07/12/22 19:00) Hives NSAIDS (Non-Steroidal Anti-Inflamma Adverse Reaction (Verified 07/12/22 19:00) Rash can take IM but no oral med eggs Allergy (Uncoded 07/12/22 19:00) Rash nausea/vomiting Home Medications: Tizanidine HCl 4 mg [Zanaflex 4 MG] 4 mg PO TID 07/08/19 [History] Topiramate [Topamax] 200 mg PO BID 07/08/19 [History] Venlafaxine HCl [Effexor] 100 mg PO BID 07/08/19 [History] Cyanocobalamin 1000 Mcg/ml [Cyanocobalamin B-12 1000 MCG/ML] 1,000 mcg SQ UD 07/12/19 [History] PANTOPRAZOLE 40 mg Tablet [Protonix 40MG Tablet] 40 mg PO QPM 07/12/19 [History] Ergocalciferol (Vitamin D2) [Vitamin D2] 1 cap PO WEEKLY 10/06/19 [History] Lorazepam 0.5 mg [Ativan 0.5 MG] 1 mg PO TID PRN 02/27/20 [History] Hx Tetanus, Diphtheria Vaccination/Date Given: Yes Hx Influenza Vaccination/Date Given: No (egg allergy) Hx Pneumococcal Vaccination/Date Given: No Immunizations Up to Date: Yes Travel Risk - International Travel Have you traveled outside of the country in past 3 weeks: No - Coronavirus Screening Are you exhibiting any of the following symptoms?: No Close contact with a COVID-19 positive Pt in past 14-21 Days: No - Vaccine Status Have you recieved a Covid-19 vaccination: Yes Bender Machine: Moderna - Vaccination Dates Date of 2cond Vaccination (if applicable): September 2020 - Review of Systems Constitutional: Weakness, No Fever, No Chills Eyes: No Symptoms Ears, Nose, & Throat: No Symptoms Respiratory: No Symptoms Cardiac: No Chest Pain, No Palpitations Abdominal/Gastrointestinal: Abdominal Pain, Nausea, Appetite Changes, No Vomiting, No Diarrhea, No Constipation, No Hematemesis, No Hematochezia, No Melena Genitourinary Symptoms: Dysuria, Urgency, Flank Pain, No Frequency, No Hematuria Musculoskeletal: No Symptoms Skin: No Symptoms Neurological: No Symptoms Psychological: No Symptoms Endocrine: No Symptoms Hematologic/Lymphatic: No Symptoms Immunological/Allergic: No Symptoms - Past Medical History Pertinent Past Medical History: Yes Neurological History: Migraines, Seizures ENT History: No Pertinent History Cardiac History: No Pertinent History Respiratory History: Asthma Endocrine Medical History: Hypothyroidism Musculoskeletal History: No Pertinent History GI Medical History: GERD, Gallbladder Disease, Other History: Other Psycho-Social History: Anxiety, Depression Female Reproductive Disorders: Abnormal Uterine Bleeding, Menstrual Problems Other Medical History: ANEMIA, GASTRIC ULCER, - Past Surgical History Past Surgical History: Yes Neuro Surgical History: No Pertinent History Cardiac: No Pertinent History Respiratory: No Pertinent History Gastrointestinal: Appendectomy, Cholecystectomy Genitourinary: No Pertinent History Musculoskeletal: No Pertinent History Female Surgical History: Hysterectomy, Tubal Ligation, Other Other Surgical History: gastric bypass, lap band placed and removed first, g- tube placement and removal, BLADDER AND URETER REPAIR - Social History Smoking Status: Former smoker How long have you smoked: 3 years Exposure to second hand smoke: No Drug Use: none Patient Lives Alone: No Significant Family History: no pertinent family hx - Female History Hx Now: No - Nursing Vital Signs Nursing Vital Signs: Initial Vital Signs Temperature 98 F 07/12/22 19:00 Pulse Rate 72 07/12/22 19:00 Respiratory Rate 18 07/12/22 19:00 Blood Pressure 125/77 07/12/22 19:00 O2 Sat by Pulse Oximetry 94 L 07/12/22 19:00 Pain Scale Pain Intensity 7 - Physical Exam General Appearance: mild distress Eye Exam: eyes nml inspection Ears, Nose, Throat Exam: normal ENT inspection Neck Exam: normal inspection, non-tender, supple, full range of motion Respiratory Exam: normal breath sounds, lungs clear, airway intact, No respiratory distress Cardiovascular Exam: regular rate/rhythm, normal heart sounds, capillary refill <2 sec, No edema Gastrointestinal/Abdomen Exam: soft, normal bowel sounds, tenderness (generalized), No distention, No mass, No guarding, No rebound Back Exam: CVA tenderness (right) Extremity Exam: normal inspection, No swelling, No tenderness Neurologic Exam: alert, 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, cooperative Skin Exam: warm, dry, pale SpO2 Interpretation: normal SpO2: 94 O2 Delivery: Room Air - Course Nursing assessment & vital signs reviewed: Yes - CT Exams Abdomen/Pelvis CT Interpretation: Tele-radiologist Report, Other (no abd/oelvic mass, no acute inflammation, s/p gastric bypass w/ no evidence of obstruction or leak) Ordered Tests: Active Orders 24 hr Category Date Time Status EKG-ER Only STAT Care 07/12/22 20:31 Active IV Insertion STAT Care 07/12/22 19:32 Active ABDOMEN AND PELVIS W CONTRAST [CT] Stat Exams 07/12/22 19:33 Taken CBC W DIFF Stat Lab 07/12/22 19:35 Completed CMP Routine Lab 07/12/22 21:14 Completed CULTURE,URINE Stat Lab 07/12/22 19:43 Received Direct Bilirubin Stat Lab 07/12/22 18:20 Completed FECAL OCCULT BLOOD - SCREENING Stat Lab 07/12/22 19:32 Ordered Folate (Folic Acid) Stat Lab 07/12/22 18:20 Received LIPASE Routine Lab 07/12/22 21:14 Completed Lactic Acid Stat Lab 07/12/22 19:45 Completed Lactic Acid Stat Lab 07/12/22 21:54 Received UA W/RFX UR CULTURE Stat Lab 07/12/22 19:35 Completed Vitamin B12 Stat Lab 07/12/22 18:20 Received Medication Summary Discontinued Medications Generic Name Dose Route Start Last Admin Trade Name Freq PRN Reason Stop Dose Admin Droperidol 1.25 mg 07/12/22 19:32 07/12/22 19:38 Droperidol 5 Mg/2 Ml Vial IV 07/12/22 19:33 1.25 mg STAT ONE Administration Droperidol Confirm 07/12/22 19:36 Droperidol 5 Mg/2 Ml Vial Administered 07/12/22 19:37 Dose 5 mg .ROUTE .STK-MED ONE Sodium Chloride 1,000 mls @ 999 mls/hr 07/12/22 19:32 07/12/22 20:39 Sodium Chloride 0.9% 1000 Ml IV 07/12/22 20:32 Infused .Q1H1M STA Infusion Sodium Chloride Confirm 07/12/22 19:36 Sodium Chloride 0.9% 1000 Ml Administered 07/12/22 19:37 Dose 1,000 mls @ ud .ROUTE .STK-MED ONE Ceftriaxone Sodium/Dextrose 1 g in 50 mls @ 100 mls/hr 07/12/22 20:15 07/12/22 20:49 Rocephin 1 Gm-D5w 50 Ml Bag IV 07/12/22 20:44 Infused STAT STA Infusion Ceftriaxone Sodium/Dextrose Confirm 07/12/22 20:15 Rocephin 1 Gm-D5w 50 Ml Bag Administered 07/12/22 20:16 Dose 1 g in 50 mls @ ud IV .STK-MED ONE Morphine Sulfate 2 mg 07/12/22 21:10 07/12/22 21:16 Morphine Sulfate 2 Mg/Ml Inj IV 07/12/22 21:11 2 mg STAT ONE Administration Morphine Sulfate Confirm 07/12/22 21:14 Morphine Sulfate 2 Mg/Ml Inj Administered 07/12/22 21:15 Dose 2 mg .ROUTE .STK-MED ONE Patiromer 16.8 gm 07/12/22 20:29 07/12/22 21:38 Patiromer Calcium Sorbitex 8.4 Gm Powd.Pack PO 07/12/22 20:30 Not Given STAT STA Lab/Rad Data: Laboratory Result Diagrams 07/12/22 19:35 07/12/22 21:14 Laboratory Results 07/12/22 07/12/22 07/12/22 Range/Units 21:14 19:45 19:35 WBC (4.0-10.5) x10^3/uL RBC (4.1-5.4) x10^6/uL Hgb (12.0-16.0) g/dL Hct (35-47) % MCV (78-100) fL MCH (26-32) pg MCHC (32-36) g/dL RDW (11.5-14.0) % Plt Count (150-450) x10^3/uL MPV (7.5-11.0) fL Gran % (36.0-66.0) % Immature Gran % (Auto) (0.00-0.4) % Nucleat RBC Rel Count (0.00-0.1) % Eos # (Auto) (0-0.5) x10^3/uL Immature Gran # (Auto) (0.00-0.03) x10^3u/L Absolute Lymphs (auto) (1.0-4.6) x10^3/uL Absolute Monos (auto) (0.0-1.3) x10^3/uL Absolute Nucleated RBC (0.00-0.01) x10^3u/L Lymphocytes % (24.0-44.0) % Monocytes % (0.0-12.0) % Eosinophils % (0.00-5.0) % Basophils % (0.0-0.4) % Absolute Granulocytes (1.4-6.9) x10^3/uL Basophils # (0-0.4) x10^3/uL Sodium 141 Cancelled Potassium 3.9 Cancelled Chloride 112 H Cancelled Carbon Dioxide 20 L Cancelled Anion Gap 11.8 Cancelled BUN 10 Cancelled Creatinine 0.49 L Cancelled Estimated GFR > 60.0 Cancelled Glucose 85 Cancelled Lactic Acid 2.0 (0.4-2.0) Calcium 8.2 L Cancelled Total Bilirubin 0.40 Cancelled Direct Bilirubin (0.0-0.4) mg/dL AST 16 Cancelled ALT 11 Cancelled Alkaline Phosphatase 64 Cancelled Serum Total Protein 5.5 L Cancelled Albumin 3.4 L Cancelled Lipase 66 Cancelled Urine Color (Yellow) Urine Appearance (Clear) Urine pH (4.6-8.0) Ur Specific [place] (1.005-1.030) Urine Protein (Negative) Urine Glucose (UA) (Negative) mg/dL Urine Ketones (Negative) Urine Blood (Negative) Urine Nitrite (Negative) Urine Bilirubin (Negative) Urine Urobilinogen (0.2) mg/dL Ur Leukocyte Esterase (Negative) U Hyaline Cast (Auto) (0-2) /LPF Urine Microscopic RBC (0-5) /HPF Urine Microscopic WBC (0-5) /HPF Ur Epithelial Cells (None Seen) /HPF Urine Bacteria (None Seen) /HPF Urine Culture Reflexed (NO) 07/12/22 07/12/22 07/12/22 Range/Units 19:35 19:35 18:20 WBC 9.4 (4.0-10.5) x10^3/uL RBC 3.87 L (4.1-5.4) x10^6/uL Hgb 13.5 (12.0-16.0) g/dL Hct 42.2 (35-47) % MCV 109.0 H (78-100) fL MCH 34.9 H (26-32) pg MCHC 32.0 (32-36) g/dL RDW 13.2 (11.5-14.0) % Plt Count 145 L (150-450) x10^3/uL MPV 11.6 H (7.5-11.0) fL Gran % 73.3 H (36.0-66.0) % Immature Gran % (Auto) 0.4 (0.00-0.4) % Nucleat RBC Rel Count 0.0 (0.00-0.1) % Eos # (Auto) 0.11 (0-0.5) x10^3/uL Immature Gran # (Auto) 0.04 H (0.00-0.03) x10^3u/L Absolute Lymphs (auto) 1.84 (1.0-4.6) x10^3/uL Absolute Monos (auto) 0.49 (0.0-1.3) x10^3/uL Absolute Nucleated RBC 0.00 (0.00-0.01) x10^3u/L Lymphocytes % 19.5 L (24.0-44.0) % Monocytes % 5.2 (0.0-12.0) % Eosinophils % 1.2 (0.00-5.0) % Basophils % 0.4 (0.0-0.4) % Absolute Granulocytes 6.90 (1.4-6.9) x10^3/uL Basophils # 0.04 (0-0.4) x10^3/uL Sodium Potassium Chloride Carbon Dioxide Anion Gap BUN Creatinine Estimated GFR Glucose Lactic Acid (0.4-2.0) Calcium Total Bilirubin Direct Bilirubin 0 (0.0-0.4) mg/dL AST ALT Alkaline Phosphatase Serum Total Protein Albumin Lipase Urine Color Yellow (Yellow) Urine Appearance Turbid A (Clear) Urine pH 5.5 (4.6-8.0) Ur Specific [place] 1.020 (1.005-1.030) Urine Protein Negative (Negative) Urine Glucose (UA) Negative (Negative) mg/dL Urine Ketones Negative (Negative) Urine Blood Negative (Negative) Urine Nitrite Positive A (Negative) Urine Bilirubin Negative (Negative) Urine Urobilinogen 1.0 A (0.2) mg/dL Ur Leukocyte Esterase Moderate A (Negative) U Hyaline Cast (Auto) NONE SEEN (0-2) /LPF Urine Microscopic RBC 3-5 (0-5) /HPF Urine Microscopic WBC 21-50 A (0-5) /HPF Ur Epithelial Cells Moderate A (None Seen) /HPF Urine Bacteria Many A (None Seen) /HPF Urine Culture Reflexed ORDERED SEPARATELY (NO) - Progress Progress: improved Progress Note: UA showed UTI, recent Ucx from 04/10 showed klebsiella sensitive to Rocephin, so Rocephin was started. Patient was given Droperidol and Morhpine for nausea and pain control. CT abd/pelvis neg for acute pathology. Will d/c home w/ Keflex and Pyridium. Counseled pt/family regarding: lab results, diagnosis, rad results Medical Desision Making - Diagnostic Testing Diagnostic test were ordered, analyzed, and reviewed by me: Yes Radiological Interpretation: Reviewed by me, Teleradiologist Report - Risk of complications The pt has a mod risk of morbidity or mortality based on: Need for prescription drug management - Departure Departure Disposition: Home Clinical Impression: UTI (urinary tract infection), Nausea, Lower abdominal pain Condition: Stable Critical Care Time: No Referrals: MARCO SALVADOR MD [Primary Care Provider] - Follow up/PCP as directed Instructions: Urinary Tract Infection, Adult (DC) Prescriptions: Cephalexin Mh 500 mg [Keflex 500 mg] 500 mg PO TID 7 Days #21 cap Phenazopyridine HCl [Pyridium] 200 mg PO TID 2 Days #6 tablet
[2022-07-12] MEDS ORDERED: Sodium Chloride 0.9% 1000 ML 1,000 ML IV STA (19:32)
[2022-07-12] MEDS ORDERED: Sodium Chloride 0.9% 1000 ML 1,000 ML ONE (19:36)
[2022-07-12 19:50] LABS: BASOPHIL % 0.4 % (0.0-0.4); Basophil (Absolute #) 0.04 x10^3/uL (0-0.4); Eosinophil % 1.2 % (0.00-5.0); Eosinophil (Absolute #) 0.11 x10^3/uL (0-0.5); Hematocrit 42.2 % (35-47); Hemoglobin 13.5 g/dL (12.0-16.0); IMMATURE GRAN # 0.04 x10^3u/L (0.00-0.03); IMMATURE GRAN % 0.4 % (0.00-0.4); Lymphocyte (Absolute #) 1.84 x10^3/uL (1.0-4.6); Lymphocytes % 19.5 % (24.0-44.0); Mean Corpuscular Hemoglobin 34.9 pg (26-32); Mean Platelet Volume 11.6 fL (7.5-11.0); Monocyte (Absolute #) 0.49 x10^3/uL (0.0-1.3); Monocytes % 5.2 % (0.0-12.0); Neutrophil % 73.3 % (36.0-66.0); Platelet Count 145 x10^3/uL (150-450); Red Blood Count 3.87 x10^6/uL (4.1-5.4); Red Cell Distribution Width 13.2 % (11.5-14.0); White Blood Count 9.4 x10^3/uL (4.0-10.5)
[2022-07-12 20:00] LABS: Appearance Turbid (Clear); Bacteria Many /HPF (None Seen); Bilirubin Negative (Negative); Blood Negative (Negative); Epithelial Cells Moderate /HPF (None Seen); Glucose, Urine Negative (Negative); Hyaline Casts NONE SEEN /LPF (0-2); Ketones Negative (Negative); Leukocyte Esterase Moderate (Negative); Nitrite Positive (Negative); Ph 5.5 (4.6-8.0); Protein,Urine Dip Negative (Negative); WBC 21-50 /HPF (0-5)
[2022-07-12 20:01] LABS: ADD URINE CULTURE? ORDERED SEPARATELY (NO)
[2022-07-12] MEDS ORDERED: ROCEPHIN 1 Gm-D5w 50 ml Bag** 1 G/50 ML IVPB IV STA (20:15)
[2022-07-12] MEDS ORDERED: ROCEPHIN 1 Gm-D5w 50 ml Bag** 1 G/50 ML IVPB IV ONE (20:15)
[2022-07-12] MEDS ORDERED: VELTASSA PO STA (20:29)
[2022-07-12] MEDS ORDERED: MORPHINE SULFATE 2 MG INJ IV ONE (21:10)
[2022-07-12] MEDS ORDERED: MORPHINE SULFATE 2 MG INJ ONE (21:14)
[2022-07-12 21:29] LABS: ALBUMIN 3.4 g/dL (3.5-5.0); ALKALINE PHOSPHATASE 64 U/L (38-126); ANION GAP 11.8 MEQ/L (5-15); BLOOD UREA NITROGEN 10 mg/dL (7-17); CHLORIDE 112 mmol/L (98-107); Calcium 8.2 mg/dL (8.4-10.2); Carbon Dioxide 20 mmol/L (22-30); Creatinine 1 0.49 mg/dL (0.52-1.04); EST GLOMERULAR FILTRATION RATE > 60.0 ML/MIN; Glucose 85 mg/dL (74-106); LIPASE 66 U/L (23-300); Potassium 3.9 mmol/L (3.5-5.1); SGOT/AST 16 U/L (14-36); SGPT/ALT 11 U/L (0-35); SODIUM 141 mmol/L (137-145); Total Protein 5.5 g/dL (6.3-8.2)
[2022-07-12 22:04] VITALS: BP 93/65; PULSE 72; O2SAT 100
[2022-07-12 22:32] LABS: Folate (Folic Acid) 3.45 ng/mL (2.76 - >20)
--- NOTE | 2022-07-13 08:16 | XRAY ---
Indication: Bilateral lower quadrant pain. Multiple contiguous axial images obtained through the abdomen and pelvis without contrast. Comparison: April 10, 2022 Lung bases again demonstrates right base calcified granuloma. No infiltrate or effusion. Heart not enlarged. Again gastric bypass surgery, cholecystectomy, appendectomy, and hysterectomy. Noncontrasted stomach and bowel loops nonobstructed. There is now mild diffuse scattered colonic fecal debris throughout including rectum. No free fluid/air. Remaining liver, pancreas, spleen, adrenal glands, kidneys, ureters, bladder, and aorta are unremarkable for noncontrast exam. Osseous structures intact. Impression: 1. New mild diffuse fecal stasis. 2. Again lung base calcified granuloma. 3. Remaining CT abdomen/pelvis without contrast exam is negative. Comment: Preliminary interpretation made by C. No critical discrepancy.
== END 2022-07-12 22:14 | disposition home or self-care (01) ==
LOC: ED 18:46
DX: N39.0 Urinary tract infection, site not specified (principal); R11.0 Nausea; R10.30 Lower abdominal pain, unspecified; R30.0 Dysuria; Z79.899 Other long term (current) drug therapy
CPT/HCPCS: 36000; 36415; 74177; 80053; 81001; 82248; 82607; 82746; 83605; 83690; 85025; 87077; 87086; 87186; 96374; 96375; 99284; J0696; J2270

== ENCOUNTER 2022-11-16 14:08 | Emergency (ER) | payer MEDICARE ==
[2022-11-16 14:44] VITALS: TEMP 98.5; O2SAT 100
[2022-11-16] MEDS ORDERED: Lactated Ringers 1,000 ML IV ONE ×2 (14:46→15:24)
--- NOTE | 2022-11-16 14:48 | ERPHSYRPT ---
- History of Present Illness Time Seen by Provider: 11/16/22 14:47 Source: patient Exam Limitations: no limitations Patient Subjective Stated Complaint: C/O hematuria and vomiting. States vomiting for a few days and hematuria started today. Triage Nursing Assessment: Patient ambulated back to ER. She is alert and oriented. No SOB. Indicates pain in right lower abdomen (cramping). Area is not tender. WALKER WNL. Physician History: C/O hematuria and vomiting. States vomiting for a few days and hematuria started today. Timing/Duration: today Associated Symptoms: nausea, vomiting, abdominal pain, loss of appetite, malaise, weakness, No shortness of breath, No heartburn, No cough, No chills, No chest pain, No fever, No syncope, No seizure Allergies/Adverse Reactions: Fish Containing Products Allergy (Intermediate, Verified 11/16/22 14:24) Nausea and Vomiting swelling everywhere shellfish derived Allergy (Intermediate, Verified 11/16/22 14:24) Nausea and Vomiting latex Allergy (Verified 11/16/22 14:24) nitrofurantoin [From Macrobid] Allergy (Verified 11/16/22 14:24) Sulfa (Sulfonamide Antibiotics) [Sulfa(Sulfonamide Antibiotics)] Allergy (Verified 11/16/22 14:24) Hives sulfamethoxazole [From Septra] Allergy (Verified 11/16/22 14:24) Rash trimethoprim [From Septra] Allergy (Verified 11/16/22 14:24) Rash furosemide [From Lasix] Adverse Reaction (Verified 11/16/22 14:24) Hives NSAIDS (Non-Steroidal Anti-Inflamma Adverse Reaction (Verified 11/16/22 14:24) Rash can take IM but no oral med eggs Allergy (Uncoded 11/16/22 14:24) Rash nausea/vomiting Home Medications: Tizanidine HCl 4 mg [Zanaflex 4 MG] 4 mg PO QID 07/08/19 [History] Topiramate [Topamax] 200 mg PO BID 07/08/19 [History] Cyanocobalamin 1000 Mcg/ml [Cyanocobalamin B-12 1000 MCG/ML] 1,000 mcg SQ UD 07/12/19 [History] PANTOPRAZOLE 40 mg Tablet [Protonix 40MG Tablet] 40 mg PO QPM 07/12/19 [History] Ergocalciferol (Vitamin D2) [Vitamin D2] 1 cap PO WEEKLY 10/06/19 [History] Mirtazapine 30 mg [Remeron 30 mg] 1 tab PO HS 11/16/22 [History] Prazosin HCl 1 cap PO HS 11/16/22 [History] Sertraline HCl [Zoloft] 1 tab PO DAILY 11/16/22 [History] clonazePAM [Klonopin] 1 tab PO BID PRN 11/16/22 [History] Hx Tetanus, Diphtheria Vaccination/Date Given: Yes Hx Influenza Vaccination/Date Given: No (egg allergy) Hx Pneumococcal Vaccination/Date Given: No Travel Risk - International Travel Have you traveled outside of the country in past 3 weeks: No - Coronavirus Screening Are you exhibiting any of the following symptoms?: No Close contact with a COVID-19 positive Pt in past 14-21 Days: No - Vaccine Status Have you recieved a Covid-19 vaccination: Yes [employer]: [employer] - Vaccination Dates Date of 2cond Vaccination (if applicable): September 2020 - Review of Systems Constitutional: Lethargy, Weakness, No Fever, No Chills Eyes: No Symptoms Ears, Nose, & Throat: No Symptoms Respiratory: No Cough, No Dyspnea Cardiac: No Chest Pain, No Edema, No Syncope Abdominal/Gastrointestinal: Abdominal Pain, No Nausea, No Vomiting, No Diarrhea Genitourinary Symptoms: Hematuria, No Dysuria Musculoskeletal: No Back Pain, No Neck Pain Skin: No Rash Neurological: No Dizziness, No Focal Weakness, No Sensory Changes Psychological: No Symptoms Endocrine: No Symptoms All Other Systems: Reviewed and Negative - Past Medical History Pertinent Past Medical History: Yes Neurological History: Migraines, Seizures ENT History: No Pertinent History Cardiac History: No Pertinent History Respiratory History: Asthma Endocrine Medical History: Hypothyroidism Musculoskeletal History: No Pertinent History GI Medical History: GERD, Gallbladder Disease, Other History: Other Psycho-Social History: Anxiety, Depression Female Reproductive Disorders: Abnormal Uterine Bleeding, Menstrual Problems Other Medical History: ANEMIA, GASTRIC ULCER, - Past Surgical History Past Surgical History: Yes Neuro Surgical History: No Pertinent History Cardiac: No Pertinent History Respiratory: No Pertinent History Gastrointestinal: Appendectomy, Cholecystectomy Genitourinary: No Pertinent History Musculoskeletal: No Pertinent History Female Surgical History: Hysterectomy, Tubal Ligation, Other Other Surgical History: gastric bypass, lap band placed and removed first, g- tube placement and removal, BLADDER AND URETER REPAIR - Social History Smoking Status: Former smoker How long have you smoked: 3 years Exposure to second hand smoke: No Drug Use: none Patient Lives Alone: No Significant Family History: no pertinent family hx - Female History Hx Last Menstrual Period: No longer has them Hx Now: No (partial hysterectomy) - Nursing Vital Signs Nursing Vital Signs: Initial Vital Signs Temperature 98.5 F 11/16/22 14:08 Pulse Rate 83 11/16/22 14:08 Respiratory Rate 17 11/16/22 14:08 Blood Pressure 104/73 11/16/22 14:08 O2 Sat by Pulse Oximetry 100 11/16/22 14:08 Pain Scale Pain Intensity 0 - Physical Exam General Appearance: no apparent distress, alert Eye Exam: PERRL/EOMI, eyes nml inspection Ears, Nose, Throat Exam: normal ENT inspection, TMs normal, pharynx normal, moist mucous membranes Neck Exam: normal inspection, non-tender, supple, full range of motion Respiratory Exam: normal breath sounds, lungs clear, No respiratory distress Cardiovascular Exam: regular rate/rhythm, normal heart sounds, normal peripheral pulses Gastrointestinal/Abdomen Exam: soft, normal bowel sounds, No tenderness, No mass Back Exam: normal inspection, normal range of motion, No CVA tenderness, No vertebral tenderness Extremity Exam: normal inspection, normal range of motion, pelvis stable Neurologic Exam: alert, 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, cooperative, normal mood/affect, nml cerebellar function, nml station & gait, sensation nml, No motor deficits Skin Exam: normal color, warm, dry, No rash Lymphatic Exam: No adenopathy SpO2: 100 - Course Nursing assessment & vital signs reviewed: Yes Ordered Tests: Active Orders 24 hr Category Date Time Status AMYLASE Stat Lab 11/16/22 14:55 Completed CBC W DIFF Stat Lab 11/16/22 14:55 Completed CMP Stat Lab 11/16/22 14:55 Completed CULTURE,URINE Stat Lab 11/16/22 16:51 Received LIPASE Stat Lab 11/16/22 14:55 Completed POCT GLUCOSE Stat Lab 11/16/22 15:38 Completed POCT GLUCOSE Stat Lab 11/16/22 16:52 Completed UA W/RFX UR CULTURE Stat Lab 11/16/22 16:51 Completed Medication Summary Generic Name Dose Route Start Last Admin Trade Name Freq PRN Reason Stop Dose Admin Hydromorphone HCl 1 mg 11/16/22 17:32 Hydromorphone 1 Mg/1ml Inj IV 11/16/22 17:33 STAT ONE Ceftriaxone Sodium/Dextrose 1 g in 50 mls @ 100 mls/hr 11/16/22 17:16 Rocephin 1 Gm-D5w 50 Ml Bag IV 11/16/22 17:45 STAT STA Discontinued Medications Generic Name Dose Route Start Last Admin Trade Name Rubén PRN Reason Stop Dose Admin Dextrose 50 ml 11/16/22 15:22 11/16/22 15:25 Dextrose 50%-Water 50 Ml Abboject IV 11/16/22 15:23 50 ml STAT ONE Administration Dextrose Confirm 11/16/22 15:25 Dextrose 50%-Water 50 Ml Abboject Administered 11/16/22 15:26 Dose 50 ml IV .STK-MED ONE Lactated Ringer's 1,000 mls @ 999 mls/hr 11/16/22 14:46 11/16/22 16:47 Lactated Ringers IV 11/16/22 15:46 Infused .Q1H1M ONE Infusion Lactated Ringer's Confirm 11/16/22 15:24 Lactated Ringers Administered 11/16/22 15:25 Dose 1,000 mls @ ud IV .STK-MED ONE Potassium Chloride 40 meq 11/16/22 16:51 Potassium Chloride Tab 10 Meq Tab PO 11/16/22 16:52 STAT ONE Lab/Rad Data: Laboratory Result Diagrams 11/16/22 14:55 11/16/22 14:55 Laboratory Results 11/16/22 11/16/22 11/16/22 Range/Units 16:52 16:51 15:38 WBC (4.0-10.5) x10^3/uL RBC (4.1-5.4) x10^6/uL Hgb (12.0-16.0) g/dL Hct (35-47) % MCV (78-100) fL MCH (26-32) pg MCHC (32-36) g/dL RDW (11.5-14.0) % Plt Count (150-450) x10^3/uL MPV (7.5-11.0) fL Gran % (36.0-66.0) % Immature Gran % (Auto) (0.00-0.4) % Nucleat RBC Rel Count (0.00-0.1) % Eos # (Auto) (0-0.5) x10^3/uL Immature Gran # (Auto) (0.00-0.03) x10^3u/L Absolute Lymphs (auto) (1.0-4.6) x10^3/uL Absolute Monos (auto) (0.0-1.3) x10^3/uL Absolute Nucleated RBC (0.00-0.01) x10^3u/L Lymphocytes % (24.0-44.0) % Monocytes % (0.0-12.0) % Eosinophils % (0.00-5.0) % Basophils % (0.0-0.4) % Absolute Granulocytes (1.4-6.9) x10^3/uL Basophils # (0-0.4) x10^3/uL Sodium (137-145) mmol/L Potassium (3.5-5.1) mmol/L Chloride (98-107) mmol/L Carbon Dioxide (22-30) mmol/L Anion Gap (5-15) MEQ/L BUN (7-17) mg/dL Creatinine (0.52-1.04) mg/dL Estimated GFR ML/MIN Glucose (74-106) mg/dL POC Glucometer 97 46 L* (50 to 500) mg/dL Calcium (8.4-10.2) mg/dL Total Bilirubin (0.2-1.3) mg/dL AST (14-36) U/L ALT (0-35) U/L Alkaline Phosphatase (38-126) U/L Serum Total Protein (6.3-8.2) g/dL Albumin (3.5-5.0) g/dL Amylase (30-110) U/L Lipase (23-300) U/L Urine Color Yellow (Yellow) Urine Appearance Cloudy A (Clear) Urine pH 6.5 (4.6-8.0) Ur Specific Shafer 1.025 (1.005-1.030) Urine Protein Negative (Negative) Urine Glucose (UA) 100 A (Negative) mg/dL Urine Ketones Trace A (Negative) Urine Blood Negative (Negative) Urine Nitrite Positive A (Negative) Urine Bilirubin Negative (Negative) Urine Urobilinogen 1.0 A (0.2) mg/dL Ur Leukocyte Esterase Trace A (Negative) U Hyaline Cast (Auto) NONE SEEN (0-2) /LPF Urine Microscopic RBC 3-5 (0-5) /HPF Urine Microscopic WBC 6-10 A (0-5) /HPF Ur Epithelial Cells Few (None Seen) /HPF Urine Bacteria Many A (None Seen) /HPF Urine Culture Reflexed YES (NO) 11/16/22 11/16/22 Range/Units 14:55 14:55 WBC 4.6 (4.0-10.5) x10^3/uL RBC 3.23 L (4.1-5.4) x10^6/uL Hgb 11.6 L (12.0-16.0) g/dL Hct 35.9 (35-47) % MCV 111.1 H (78-100) fL MCH 35.9 H (26-32) pg MCHC 32.3 (32-36) g/dL RDW 12.0 (11.5-14.0) % Plt Count 132 L (150-450) x10^3/uL MPV 11.0 (7.5-11.0) fL Gran % 51.3 (36.0-66.0) % Immature Gran % (Auto) 0.2 (0.00-0.4) % Nucleat RBC Rel Count 0.0 (0.00-0.1) % Eos # (Auto) 0.21 (0-0.5) x10^3/uL Immature Gran # (Auto) 0.01 (0.00-0.03) x10^3u/L Absolute Lymphs (auto) 1.74 (1.0-4.6) x10^3/uL Absolute Monos (auto) 0.28 (0.0-1.3) x10^3/uL Absolute Nucleated RBC 0.00 (0.00-0.01) x10^3u/L Lymphocytes % 37.6 (24.0-44.0) % Monocytes % 6.0 (0.0-12.0) % Eosinophils % 4.5 (0.00-5.0) % Basophils % 0.4 (0.0-0.4) % Absolute Granulocytes 2.37 (1.4-6.9) x10^3/uL Basophils # 0.02 (0-0.4) x10^3/uL Sodium 142 (137-145) mmol/L Potassium 3.3 L (3.5-5.1) mmol/L Chloride 115 H (98-107) mmol/L Carbon Dioxide 22 (22-30) mmol/L Anion Gap 8.6 (5-15) MEQ/L BUN 11 (7-17) mg/dL Creatinine 0.62 (0.52-1.04) mg/dL Estimated GFR > 60.0 ML/MIN Glucose 26 L* (74-106) mg/dL POC Glucometer (50 to 500) mg/dL Calcium 8.1 L (8.4-10.2) mg/dL Total Bilirubin 0.40 (0.2-1.3) mg/dL AST 22 (14-36) U/L ALT 15 (0-35) U/L Alkaline Phosphatase 51 (38-126) U/L Serum Total Protein 5.6 L (6.3-8.2) g/dL Albumin 3.3 L (3.5-5.0) g/dL Amylase 85 (30-110) U/L Lipase 57 (23-300) U/L Urine Color (Yellow) Urine Appearance (Clear) Urine pH (4.6-8.0) Ur Specific Shafer (1.005-1.030) Urine Protein (Negative) Urine Glucose (UA) (Negative) mg/dL Urine Ketones (Negative) Urine Blood (Negative) Urine Nitrite (Negative) Urine Bilirubin (Negative) Urine Urobilinogen (0.2) mg/dL Ur Leukocyte Esterase (Negative) U Hyaline Cast (Auto) (0-2) /LPF Urine Microscopic RBC (0-5) /HPF Urine Microscopic WBC (0-5) /HPF Ur Epithelial Cells (None Seen) /HPF Urine Bacteria (None Seen) /HPF Urine Culture Reflexed (NO) - Progress Progress: improved, pain not gone completely Counseled pt/family regarding: lab results, diagnosis, need for follow-up, rad results Medical Desision Making - Diagnostic Testing Diagnostic test were ordered, analyzed, and reviewed by me: Yes - Risk of complications Low Risk: Low risk of morbidity from additional dx testing or treatment - Departure Departure Disposition: Home Clinical Impression: UTI (urinary tract infection) Qualifiers: Urinary tract infection type: site unspecified Hematuria presence: with hematuria Qualified Code(s): N39.0 - Urinary tract infection, site not specified; R31.9 - Hematuria, unspecified Condition: Stable Critical Care Time: No Referrals: MARCO SALVADOR MD [Primary Care Provider] - Follow up/PCP as directed Instructions: Blood in the urine (hematuria) in adults, Urinary Tract Infection, Adult (DC) Additional Instructions: URINARY TRACT INFECTION 1. You will need to drink plenty of fluids in order to keep your urinary system flushed. These fluids should mainly consist of water and juices. 2. Take medications as directed. You need to completely finish any antiobiotic prescription given. 3. Try to avoid coffee, tea, alcohol, and seasoned foods as they may cause bladder irritation. 4. If signs and symptoms persist after 3-4 days, you will need to follow up with your family physician. 5. Female Patients: A. Avoid intercourse for 3-4 days. B. Empty bladder before and after intercourse to reduce risk of re- infection. C. After emptying bladder, wipe from front to back to reduce the risk of re-infection. Discharge/Care Plan ELENVICKI BOSS was seen on 11/16/22 in the Emergency Room. The patient was counseled regarding Diagnosis,Lab results, Imaging studies, need for follow up and when to return to the Emergency Room. Prescriptions given: Discharge Note I have spoken with the patient and/or caregivers. I have explained the patient's condition, diagnosis and treatment plan based on the information available to me at this time. I have answered the patient's and/or caregiver's questions and addressed any concerns. The patient and/or caregivers have as good understanding of the patient's diagnosis, condition and treatment plan as can be expected at this point. The vital signs have been stable. The patient's condition is stable and appropriate for discharge from the emergency department. The patient will pursue further outpatient evaluation with the primary care physician or other designated or consulting physician as outlined in the discharge instructions. The patient and/or caregivers are agreeable to this plan of care and follow-up instructions have been explained in detail. The patient and/or caregivers have received these instruction. The patient/and or caregivers are aware that any significant change in condition or worsening of symptoms should prompt an immediate return to this or the closest emergency department or call 911. VICKI MYRICK was seen on 11/16/22 n the Emergency Room. At that time you were treated for an emergent condition, during your visit Laboratory, Radiology and/or other procedures may have been ordered. It is very important that you follow-up with your Primary Care Physician MARCO SALVADOR within the next 24-48 hours to review your Emergency Room visit and the final results of testing that was ordered. Some test results such as Urine Cultures, Blood Cultures, and other cultures if ordered will not be finalized for 24-48 hours. If you do not have a Primary Care Provider please call the medical records department at [phone] ext [phone] to obtain a copy of your results or you may sign into our patient portal to obtain these results by visiting us @ [email or web address] and completing the following steps: 1. Click on the Patient Portal link 2. Click the Patient Self Enrollment Link to complete the enrollment form and entering your 3. Once the enrollment form is completed you will receive an email with a temporary ID and password at the email address you provided. 4. Next choose a user name and password. Your user name must be at least 4 characters long and your password must be at least 4 characters long. 5. Choose a security question from the list and provide your answer to the question. If you already have signed into the Health Portal you may access your Health Care Information 10/11 by the following steps: 1. Login to our website @ [email or web address] 2. Enter your original user name and password. FAQS The [facility] Health Portal is an online tool that contains your Lab Results, Radiology Reports, Visit History, Discharge Instructions and Health Summary Lab and Radiology Results will not be available for 72 hours on the portal. The Portal is a secure site, passwords are encryted and URLs are re-written so they cannot be copied and pasted. You and authorized family members are the only ones who can access your Portal. Also there is a timeout feature that protects your information if you leave the Portal page open. If you have technical difficulty please use the Contact Us link on the page this will allow you to submit any questions you have regarding the Portal or you may contact the Medical Record Department at [phone]. Prescriptions: Cephalexin Mh 500 mg [Keflex 500 mg] 500 mg PO Q6H #28 cap
[2022-11-16 15:03] LABS: Absolute Neutrophil Ct (ANC) 2.37 x10^3/uL (1.4-6.9); BASOPHIL % 0.4 % (0.0-0.4); Basophil (Absolute #) 0.02 x10^3/uL (0-0.4); Eosinophil % 4.5 % (0.00-5.0); Eosinophil (Absolute #) 0.21 x10^3/uL (0-0.5); Hematocrit 35.9 % (35-47); Hemoglobin 11.6 g/dL (12.0-16.0); IMMATURE GRAN # 0.01 x10^3u/L (0.00-0.03); IMMATURE GRAN % 0.2 % (0.00-0.4); Lymphocyte (Absolute #) 1.74 x10^3/uL (1.0-4.6); Lymphocytes % 37.6 % (24.0-44.0); Mean Cell Volume 111.1 fL (78-100); Mean Corpuscular Hemoglobin 35.9 pg (26-32); Mean Corpuscular Hgb Concent. 32.3 g/dL (32-36); Monocyte (Absolute #) 0.28 x10^3/uL (0.0-1.3); Neutrophil % 51.3 % (36.0-66.0); Platelet Count 132 x10^3/uL (150-450); Red Blood Count 3.23 x10^6/uL (4.1-5.4); White Blood Count 4.6 x10^3/uL (4.0-10.5)
[2022-11-16 15:13] LABS: ALBUMIN 3.3 g/dL (3.5-5.0); ALKALINE PHOSPHATASE 51 U/L (38-126); AMYLASE 85 U/L (30-110); ANION GAP 8.6 MEQ/L (5-15); BLOOD UREA NITROGEN 11 mg/dL (7-17); CHLORIDE 115 mmol/L (98-107); Calcium 8.1 mg/dL (8.4-10.2); Carbon Dioxide 22 mmol/L (22-30); Creatinine 1 0.62 mg/dL (0.52-1.04); EST GLOMERULAR FILTRATION RATE > 60.0 ML/MIN; LIPASE 57 U/L (23-300); Potassium 3.3 mmol/L (3.5-5.1); SGOT/AST 22 U/L (14-36); SGPT/ALT 15 U/L (0-35); SODIUM 142 mmol/L (137-145); Total Protein 5.6 g/dL (6.3-8.2)
[2022-11-16 15:21] LABS: Glucose 26 mg/dL (74-106)
[2022-11-16] MEDS ORDERED: D50W 50 ml Abboject IV ONE ×2 (15:22→15:25)
[2022-11-16] MEDS ORDERED: Klor Con PO ONE ×2 (16:51→17:36)
[2022-11-16 17:04] LABS: Appearance Cloudy (Clear); Bacteria Many /HPF (None Seen); Bilirubin Negative (Negative); Blood Negative (Negative); Epithelial Cells Few /HPF (None Seen); Glucose, Urine 100 mg/dL (Negative); Hyaline Casts NONE SEEN /LPF (0-2); Ketones Trace (Negative); Leukocyte Esterase Trace (Negative); Nitrite Positive (Negative); Ph 6.5 (4.6-8.0); Protein,Urine Dip Negative (Negative); Specific Gravity 1.025 (1.005-1.030)
[2022-11-16 17:09] LABS: ADD URINE CULTURE? YES (NO)
[2022-11-16] MEDS ORDERED: ROCEPHIN 1 Gm-D5w 50 ml Bag** 1 G/50 ML IVPB IV STA (17:16)
[2022-11-16] MEDS ORDERED: Hydromorphone 1 mg/ml Injection IV ONE (17:32)
[2022-11-16] MEDS ORDERED: Hydromorphone 1 mg/ml Injection ONE (17:36)
[2022-11-16] MEDS ORDERED: ROCEPHIN 1 Gm-D5w 50 ml Bag** 1 G/50 ML IVPB IV ONE (17:36)
[2022-11-16 17:52] VITALS: BP 97/69; PULSE 63; RESP 18
[2022-11-16] MEDS ORDERED: Zofran 4 MG/2 ML VIAL ONE (17:52)
[2022-11-16] MEDS ORDERED: Zofran 4 MG/2 ML VIAL IV ONE (17:56)
== END 2022-11-16 19:49 | disposition home or self-care (01) ==
LOC: ED 14:08
DX: N39.0 Urinary tract infection, site not specified (principal); R31.9 Hematuria, unspecified; R11.2 Nausea with vomiting, unspecified; Z79.899 Other long term (current) drug therapy
CPT/HCPCS: 36415; 80053; 81001; 82150; 82947; 83690; 85025; 87077; 87086; 87186; 96360; 96365; 96374; 96375; 99284; J0696; J1170; J2405; A9270-GY

== ENCOUNTER 2023-03-28 10:05 | Emergency (ER) | payer MEDICARE ==
[2023-03-28 10:39] VITALS: TEMP 97.1
[2023-03-28] MEDS ORDERED: Pepcid 20 MG VIAL IV ONE ×2 (10:41→10:50)
[2023-03-28] MEDS ORDERED: Sodium Chloride 0.9% 1000 ML 1,000 ML IV STA (10:41)
[2023-03-28] MEDS ORDERED: Zofran 4 MG/2 ML VIAL IV ONE (10:41)
[2023-03-28] MEDS ORDERED: Hydromorphone 1 mg/ml Injection IV ONE (10:41)
[2023-03-28 10:50] LABS: Absolute Neutrophil Ct (ANC) 3.28 x10^3/uL (1.4-6.9); BASOPHIL % 0.8 % (0.0-0.4); Basophil (Absolute #) 0.04 x10^3/uL (0-0.4); Eosinophil % 1.6 % (0.00-5.0); Eosinophil (Absolute #) 0.08 x10^3/uL (0-0.5); Hematocrit 35.7 % (35-47); Hemoglobin 11.5 g/dL (12.0-16.0); IMMATURE GRAN # 0.01 x10^3u/L (0.00-0.03); IMMATURE GRAN % 0.2 % (0.00-0.4); Lymphocyte (Absolute #) 1.39 x10^3/uL (1.0-4.6); Lymphocytes % 27.2 % (24.0-44.0); Mean Cell Volume 104.4 fL (78-100); Mean Corpuscular Hemoglobin 33.6 pg (26-32); Mean Corpuscular Hgb Concent. 32.2 g/dL (32-36); Mean Platelet Volume 10.9 fL (7.5-11.0); Monocyte (Absolute #) 0.31 x10^3/uL (0.0-1.3); Monocytes % 6.1 % (0.0-12.0); Neutrophil % 64.1 % (36.0-66.0); Platelet Count 132 x10^3/uL (150-450); Red Blood Count 3.42 x10^6/uL (4.1-5.4); White Blood Count 5.1 x10^3/uL (4.0-10.5)
[2023-03-28] MEDS ORDERED: Sodium Chloride 0.9% 1000 ML 1,000 ML ONE (10:50)
[2023-03-28] MEDS ORDERED: Hydromorphone 1 mg/ml Injection ONE ×2 (10:50→10:52)
[2023-03-28] MEDS ORDERED: Zofran 4 MG/2 ML VIAL ONE (10:50)
--- NOTE | 2023-03-28 11:03 | ERPHSYRPT ---
- History of Present Illness Time Seen by Provider: 03/28/23 10:58 Historian: patient Exam Limitations: no limitations Patient Subjective Stated Complaint: Pt c/o of a migraine for 4 days and left flank pain for 3 days with N&V Triage Nursing Assessment: Pt brought self to the ER, hypotensive, bradycardic, rates pain as 7/10, lethargic, pt reports burning when urinating and states that it is orange, pulses normal, skin pale/w/d, pt walked into the ER stumbling Physician History: Pt c/o of a migraine for 4 days and left flank pain for 3 days with N&V Patient is 37-year-old old female with multiple medical problems in the past including gastric bypass surgery afterwards multiple complication related to gastric bypass surgery including abdominal ideations anastomotic take ulcer at the gastric bypass incision site also end up with enterostomy tube for feeding purposes, also have a 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 Patient has a multiple ER visits for multiple different reason including multiple times with abdominal pain nausea and vomiting and migraine. Patient started having migraine for last 4 days and started having a left flank pain with nausea and vomiting for last 3 days. Timing/Duration: day(s) (3-4 days) Activities at Onset: none Quality: cramping Abdominal Pain Onset Location: flank (left flank) Pain Radiation: no radiation Severity of Pain-Max: moderate Severity of Pain-Current: moderate Associated Symptoms: headache, nausea, No fever/chills Allergies/Adverse Reactions: Fish Containing Products Allergy (Intermediate, Verified 03/28/23 10:38) Nausea and Vomiting swelling everywhere shellfish derived Allergy (Intermediate, Verified 03/28/23 10:38) Nausea and Vomiting latex Allergy (Verified 03/28/23 10:38) nitrofurantoin [From Macrobid] Allergy (Verified 03/28/23 10:38) Sulfa (Sulfonamide Antibiotics) [Sulfa(Sulfonamide Antibiotics)] Allergy (Verified 03/28/23 10:38) Hives sulfamethoxazole [From Septra] Allergy (Verified 03/28/23 10:38) Rash trimethoprim [From Septra] Allergy (Verified 03/28/23 10:38) Rash furosemide [From Lasix] Adverse Reaction (Verified 03/28/23 10:38) Hives NSAIDS (Non-Steroidal Anti-Inflamma Adverse Reaction (Verified 03/28/23 10:38) Rash can take IM but no oral med eggs Allergy (Uncoded 03/28/23 10:38) Rash nausea/vomiting Home Medications: Tizanidine HCl 4 mg [Zanaflex 4 MG] 4 mg PO QID 07/08/19 [History] Topiramate [Topamax] 200 mg PO BID 07/08/19 [History] Cyanocobalamin 1000 Mcg/ml [Cyanocobalamin B-12 1000 MCG/ML] 1,000 mcg SQ UD 07/12/19 [History] PANTOPRAZOLE 40 mg Tablet [Protonix 40MG Tablet] 40 mg PO QPM 07/12/19 [History] Ergocalciferol (Vitamin D2) [Vitamin D2] 1 cap PO WEEKLY 10/06/19 [History] Mirtazapine 30 mg [Remeron 30 mg] 1 tab PO HS 11/16/22 [History] Prazosin HCl 1 cap PO HS 11/16/22 [History] Sertraline HCl [Zoloft] 2 tab PO DAILY 11/16/22 [History] clonazePAM [Klonopin] 1 tab PO TID 11/16/22 [History] Hydroxyzine HCl 25 mg [Atarax 25 mg] 25 mg PO DAILY 03/28/23 [History] Levetiracetam 250 MG [Keppra 250 MG] 250 mg PO BID 03/28/23 [History] Levothyroxine Sodium 25 mcg PO DAILY 03/28/23 [History] Hx Tetanus, Diphtheria Vaccination/Date Given: Yes Hx Influenza Vaccination/Date Given: No (egg allergy) Hx Pneumococcal Vaccination/Date Given: No Travel Risk - International Travel Have you traveled outside of the country in past 3 weeks: No - Coronavirus Screening Are you exhibiting any of the following symptoms?: No Close contact with a COVID-19 positive Pt in past 14-21 Days: No - Vaccine Status Have you recieved a Covid-19 vaccination: Yes Web Applications Developer: Moderna - Vaccination Dates Date of 2cond Vaccination (if applicable): September 2020 - Review of Systems Constitutional: No Fever, No Chills Eyes: No Symptoms Ears, Nose, & Throat: No Symptoms Respiratory: No Cough, No Dyspnea Cardiac: No Chest Pain, No Edema, No Syncope Abdominal/Gastrointestinal: Abdominal Pain, No Nausea, No Vomiting, No Diarrhea Genitourinary Symptoms: No Dysuria Musculoskeletal: No Back Pain, No Neck Pain Skin: No Rash Neurological: Headache, No Dizziness, No Focal Weakness, No Sensory Changes Psychological: No Symptoms Endocrine: No Symptoms All Other Systems: Reviewed and Negative - Past Medical History Pertinent Past Medical History: Yes Neurological History: Migraines, Seizures ENT History: No Pertinent History Cardiac History: No Pertinent History Respiratory History: Asthma Endocrine Medical History: Hypothyroidism Musculoskeletal History: No Pertinent History GI Medical History: GERD, Gallbladder Disease, Other History: Other Psycho-Social History: Anxiety, Depression Female Reproductive Disorders: Abnormal Uterine Bleeding, Menstrual Problems Other Medical History: ANEMIA, GASTRIC ULCER, - Past Surgical History Past Surgical History: Yes Neuro Surgical History: No Pertinent History Cardiac: No Pertinent History Respiratory: No Pertinent History Gastrointestinal: Appendectomy, Cholecystectomy Genitourinary: No Pertinent History Musculoskeletal: No Pertinent History Female Surgical History: Hysterectomy, Tubal Ligation, Other Other Surgical History: gastric bypass, lap band placed and removed first, g- tube placement and removal, BLADDER AND URETER REPAIR - Social History Smoking Status: Former smoker How long have you smoked: 3 years Exposure to second hand smoke: No Drug Use: none Patient Lives Alone: No Significant Family History: no pertinent family hx - Female History Hx Now: No (2 partial hysterectomies) - Nursing Vital Signs Nursing Vital Signs: Initial Vital Signs Temperature 97.1 F 03/28/23 10:23 Pulse Rate 52 L 03/28/23 10:23 Blood Pressure 96/49 03/28/23 10:23 O2 Sat by Pulse Oximetry 96 03/28/23 10:23 Pain Scale Pain Intensity 7 - Physical Exam General Appearance: no apparent distress, alert Eye Exam: PERRL/EOMI, eyes nml inspection Ears, Nose, Throat Exam: normal ENT inspection, pharynx normal, moist mucous membranes Neck Exam: normal inspection, non-tender, supple, full range of motion Respiratory Exam: normal breath sounds, lungs clear, No respiratory distress Cardiovascular Exam: regular rate/rhythm, normal heart sounds Gastrointestinal/Abdomen Exam: soft, No tenderness, No mass Back Exam: normal inspection, normal range of motion, No CVA tenderness, No vertebral tenderness Extremity Exam: normal inspection, normal range of motion, pelvis stable Neurologic Exam: alert, 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, cooperative, normal mood/affect, nml cerebellar function, sensation nml, No motor deficits Skin Exam: normal color, warm, dry SpO2: 96 - Course Nursing assessment & vital signs reviewed: Yes - CT Exams Abdomen/Pelvis CT Interpretation: Tele-radiologist Report Ordered Tests: Active Orders 24 hr Category Date Time Status ABDOMEN AND PELVIS W/0 CONTRAS [CT] Stat Exams 03/28/23 10:41 Completed AMYLASE Stat Lab 03/28/23 10:40 Completed CBC W DIFF Stat Lab 03/28/23 10:40 Completed CMP Stat Lab 03/28/23 10:40 Completed LIPASE Stat Lab 03/28/23 10:40 Completed UA W/RFX UR CULTURE Stat Lab 03/28/23 10:41 Ordered Medication Summary Discontinued Medications Generic Name Dose Route Start Last Admin Trade Name Freq PRN Reason Stop Dose Admin Famotidine 20 mg 03/28/23 10:41 03/28/23 11:02 Famotidine 20 Mg/1 Vial IV 03/28/23 10:42 20 mg STAT ONE Administration Famotidine Confirm 03/28/23 10:50 Famotidine 20 Mg/1 Vial Administered 03/28/23 10:51 Dose 20 mg IV .STK-MED ONE Hydromorphone HCl 2 mg 03/28/23 10:41 03/28/23 11:02 Hydromorphone 1 Mg/1ml Inj IV 03/28/23 10:42 2 mg STAT ONE Administration Hydromorphone HCl Confirm 03/28/23 10:50 Hydromorphone 1 Mg/1ml Inj Administered 03/28/23 10:51 Dose 1 mg .ROUTE .STK-MED ONE Hydromorphone HCl Confirm 03/28/23 10:52 Hydromorphone 1 Mg/1ml Inj Administered 03/28/23 10:53 Dose 1 mg .ROUTE .STK-MED ONE Sodium Chloride 1,000 mls @ 999 mls/hr 03/28/23 10:41 03/28/23 12:09 Sodium Chloride 0.9% 1000 Ml IV 03/28/23 11:41 Infused .Q1H1M STA Infusion Sodium Chloride Confirm 03/28/23 10:50 Sodium Chloride 0.9% 1000 Ml Administered 03/28/23 10:51 Dose 1,000 mls @ ud .ROUTE .STK-MED ONE Ondansetron HCl 4 mg 03/28/23 10:41 03/28/23 11:01 Ondansetron Hcl 4 Mg/2 Ml Vial IV 03/28/23 10:42 4 mg STAT ONE Administration Ondansetron HCl Confirm 03/28/23 10:50 Ondansetron Hcl 4 Mg/2 Ml Vial Administered 03/28/23 10:51 Dose 4 mg .ROUTE .STK-MED ONE Lab/Rad Data: Laboratory Result Diagrams 03/28/23 10:40 03/28/23 10:40 Laboratory Results 03/28/23 03/28/23 Range/Units 10:40 10:40 WBC 5.1 (4.0-10.5) x10^3/uL RBC 3.42 L (4.1-5.4) x10^6/uL Hgb 11.5 L (12.0-16.0) g/dL Hct 35.7 (35-47) % MCV 104.4 H (78-100) fL MCH 33.6 H (26-32) pg MCHC 32.2 (32-36) g/dL RDW 13.0 (11.5-14.0) % Plt Count 132 L (150-450) x10^3/uL MPV 10.9 (7.5-11.0) fL Gran % 64.1 (36.0-66.0) % Immature Gran % (Auto) 0.2 (0.00-0.4) % Nucleat RBC Rel Count 0.0 (0.00-0.1) % Eos # (Auto) 0.08 (0-0.5) x10^3/uL Immature Gran # (Auto) 0.01 (0.00-0.03) x10^3u/L Absolute Lymphs (auto) 1.39 (1.0-4.6) x10^3/uL Absolute Monos (auto) 0.31 (0.0-1.3) x10^3/uL Absolute Nucleated RBC 0.00 (0.00-0.01) x10^3u/L Lymphocytes % 27.2 (24.0-44.0) % Monocytes % 6.1 (0.0-12.0) % Eosinophils % 1.6 (0.00-5.0) % Basophils % 0.8 (0.0-0.4) % Absolute Granulocytes 3.28 (1.4-6.9) x10^3/uL Basophils # 0.04 (0-0.4) x10^3/uL Sodium 138 (137-145) mmol/L Potassium 4.0 (3.5-5.1) mmol/L Chloride 110 H (98-107) mmol/L Carbon Dioxide 19 L (22-30) mmol/L Anion Gap 12.8 (5-15) MEQ/L BUN 14 (7-17) mg/dL Creatinine 0.59 (0.52-1.04) mg/dL Estimated GFR 119.7 ML/MIN Glucose 101 (74-106) mg/dL Calcium 8.2 L (8.4-10.2) mg/dL Total Bilirubin 0.50 (0.2-1.3) mg/dL AST 18 (14-36) U/L ALT 10 (0-35) U/L Alkaline Phosphatase 49 (38-126) U/L Serum Total Protein 5.7 L (6.3-8.2) g/dL Albumin 3.5 (3.5-5.0) g/dL Amylase 102 (30-110) U/L Lipase 57 (23-300) U/L CT/ABDOMEN AND PELVIS W/0 CONTRAS CLINICAL HISTORY:left flank pain COMPARISON:None TECHNIQUE:Direct contiguous axial CT images were acquired through the abdomen and pelvis without contrast using soft tissue and bone windows. Reformatted images were performed. FINDINGS: Limitations: Lack of intravenous contrast limits evaluation of solid viscera. Lack of oral contrast limits the evaluation of the bowel loops. Liver: Unremarkable size and contour. No evidence of mass. No evidence of dilated ducts. Gallbladder fossa: surgical verona status post-surgery. Spleen: Grossly unremarkable. Pancreas: Grossly unremarkable apart from mild atrophic changes. Adrenal glands: Grossly unremarkable in size, contour, and density. Kidneys: In anatomic position. Grossly unremarkable renal size, contour, and density. No renal or ureteral calculi. No hydronephrosis. Perinephric space is unremarkable. The bladder appears normal with no evident calculus. Retroperitoneum: No retroperitoneal lymphadenopathy. Unremarkable abdominal aorta. Peritoneal cavity: No evidence of free air or ascites. Gastrointestinal tract: Surgical verona noted in the upper left abdominal region representing previous intervention. No evidence of pneumoperitoneum. No evidence of obstruction. Appendix: Surgical verona are noted in the posterior to caecum consistent with history of appendectomy. Pelvis: Uterus appears unremarkable the left ovary is not visualized and two cysts are seen in the right adnexum measuring 5.0 x 4.6cm showing fluid-fluid level with another measures 2.4x2.1 cm seen posterior to the above-described cyst , differential include hemorrhagic or endometriotic cysts, would recommend MRI for further evaluation. Osseous structures: No acute or destructive bony process was identified. Injection granulomas are noted in bilateral gluteal regions. Soft tissue thickening is seen at the region of the umbilicus, likely post intervention changes. Lung bases: Small diffusely calcified nodule is noted in the right lung base measuring 5mm representing granuloma-benign finding. Rest of both lung bases are grossly clear. IMPRESSION: No obstructing calculus or hydronephrosis noted bilaterally. Two cysts are seen in the right adnexum measuring 5.0 x 4.6cm showing fluid-fluid level with another measures 2.4x2.1 cm seen posterior to the above-described cyst , differential include hemorrhagic or endometriotic cysts, would recommend MRI for further evaluation. Rest of the scan appears grossly unremarkable. - Progress Progress: pain not gone completely Counseled pt/family regarding: lab results, diagnosis, need for follow-up, rad results Medical Desision Making - Diagnostic Testing Diagnostic test were ordered, analyzed, and reviewed by me: Yes Radiological Interpretation: Reviewed by me - Risk of complications Low Risk: Low risk of morbidity from additional dx testing or treatment - Departure Departure Disposition: Home Clinical Impression: Chronic generalized abdominal pain Migraine headache Qualifiers: Migraine type: migraine (< 15 days per month) without aura Condition: Stable Critical Care Time: No Referrals: MARCO SALVADOR MD [Primary Care Provider] - Follow up/PCP as directed Instructions: Flank Pain, Migraines (DC) Additional Instructions: Discharge/Care Plan ELENVICKI BOSS was seen on 03/28/23 in the Emergency Room. The patient was counseled regarding Diagnosis,Lab results, Imaging studies, need for follow up and when to return to the Emergency Room. Prescriptions given: Discharge Note I have spoken with the patient and/or caregivers. I have explained the patient's condition, diagnosis and treatment plan based on the information available to me at this time. I have answered the patient's and/or caregiver's questions and addressed any concerns. The patient and/or caregivers have as good understanding of the patient's diagnosis, condition and treatment plan as can be expected at this point. The vital signs have been stable. The patient's condition is stable and appropriate for discharge from the emergency department. The patient will pursue further outpatient evaluation with the primary care physician or other designated or consulting physician as outlined in the discharge instructions. The patient and/or caregivers are agreeable to this plan of care and follow-up instructions have been explained in detail. The patient and/or caregivers have received these instruction. The patient/and or caregivers are aware that any significant change in condition or worsening of symptoms should prompt an immediate return to this or the closest emergency department or call 911. VICKI MYRICK GERA was seen on 03/28/23 n the Emergency Room. At that time you were treated for an emergent condition, during your visit Laboratory, Radiology and/or other procedures may have been ordered. It is very important that you follow-up with your Primary Care Physician MARCO SALVADOR within the next 24-48 hours to review your Emergency Room visit and the final results of testing that was ordered. Some test results such as Urine Cultures, Blood Cultures, and other cultures if ordered will not be finalized for 24-48 hours. If you do not have a Primary Care Provider please call the medical records department at [phone] to obtain a copy of your results or you may sign into our patient portal to obtain these results by visiting us @ [email or web address] and completing the following steps: 1. Click on the Patient Portal link 2. Click the Patient Self Enrollment Link to complete the enrollment form and entering your 3. Once the enrollment form is completed you will receive an email with a temporary ID and password at the email address you provided. 4. Next choose a user name and password. Your user name must be at least 4 characters long and your password must be at least 4 characters long. 5. Choose a security question from the list and provide your answer to the question. If you already have signed into the Health Portal you may access your Health Care Information 10/11 by the following steps: 1. Login to our website @ [email or web address] 2. Enter your original user name and password. FAQS The [facility] Health Portal is an online tool that contains your Lab Results, Radiology Reports, Visit History, Discharge Instructions and Health Summary Lab and Radiology Results will not be available for 72 hours on the portal. The Portal is a secure site, passwords are encryted and URLs are re-written so they cannot be copied and pasted. You and authorized family members are the only ones who can access your Portal. Also there is a timeout feature that protects your information if you leave the Portal page open. If you have technical difficulty please use the Contact Us link on the page this will allow you to submit any questions you have regarding the Portal or you may contact the Medical Record Department at [phone].
[2023-03-28 11:04] LABS: ALBUMIN 3.5 g/dL (3.5-5.0); ANION GAP 12.8 MEQ/L (5-15); BILIRUBIN,TOTAL 0.5 mg/dL (0.2-1.3); Calcium 8.2 mg/dL (8.4-10.2); Creatinine 1 0.59 mg/dL (0.52-1.04); EST GLOMERULAR FILTRATION RATE 119.7 ML/MIN; Total Protein 5.7 g/dL (6.3-8.2)
[2023-03-28 11:51] VITALS: PULSE 59
--- NOTE | 2023-03-28 12:05 | XRAY ---
CLINICAL HISTORY:left flank pain COMPARISON:None TECHNIQUE:Direct contiguous axial CT images were acquired through the abdomen and pelvis without contrast using soft tissue and bone windows. Reformatted images were performed. FINDINGS: Limitations: Lack of intravenous contrast limits evaluation of solid viscera. Lack of oral contrast limits the evaluation of the bowel loops. Liver: Unremarkable size and contour. No evidence of mass. No evidence of dilated ducts. Gallbladder fossa: surgical verona status post-surgery. Spleen: Grossly unremarkable. Pancreas: Grossly unremarkable apart from mild atrophic changes. Adrenal glands: Grossly unremarkable in size, contour, and density. Kidneys: In anatomic position. Grossly unremarkable renal size, contour, and density. No renal or ureteral calculi. No hydronephrosis. Perinephric space is unremarkable. The bladder appears normal with no evident calculus. Retroperitoneum: No retroperitoneal lymphadenopathy. Unremarkable abdominal aorta. Peritoneal cavity: No evidence of free air or ascites. Gastrointestinal tract: Surgical verona noted in the upper left abdominal region representing previous intervention. No evidence of pneumoperitoneum. No evidence of obstruction. Appendix: Surgical verona are noted in the posterior to caecum consistent with history of appendectomy. Pelvis: Uterus appears unremarkable the left ovary is not visualized and two cysts are seen in the right adnexum measuring 5.0 x 4.6cm showing fluid-fluid level with another measures 2.4x2.1 cm seen posterior to the above-described cyst , differential include hemorrhagic or endometriotic cysts, would recommend MRI for further evaluation. Osseous structures: No acute or destructive bony process was identified. Injection granulomas are noted in bilateral gluteal regions. Soft tissue thickening is seen at the region of the umbilicus, likely post intervention changes. Lung bases: Small diffusely calcified nodule is noted in the right lung base measuring 5mm representing granuloma-benign finding. Rest of both lung bases are grossly clear. IMPRESSION: No obstructing calculus or hydronephrosis noted bilaterally. Two cysts are seen in the right adnexum measuring 5.0 x 4.6cm showing fluid-fluid level with another measures 2.4x2.1 cm seen posterior to the above-described cyst , differential include hemorrhagic or endometriotic cysts, would recommend MRI for further evaluation. Rest of the scan appears grossly unremarkable. Electronically Signed by: Randy Gutierrez MD. (03/28/2023 12:00:53 EST)
[2023-03-28 12:18] VITALS: O2SAT 96
[2023-03-28 13:48] VITALS: BP 104/53
== END 2023-03-28 14:17 | disposition home or self-care (01) ==
LOC: ED 10:05
DX: G89.29 Other chronic pain (principal); R10.84 Generalized abdominal pain; G43.009 Migraine without aura, not intractable, without status migrainosus; R11.2 Nausea with vomiting, unspecified; Z79.899 Other long term (current) drug therapy
CPT/HCPCS: 36415; 74176; 80053; 82150; 83690; 85025; 96360; 96374; 96375; 99284; J1170; J2405

== ENCOUNTER 2023-03-28 22:50 | Emergency (ER) | payer MEDICARE ==
--- NOTE | 2023-03-28 22:59 | ERPHSYRPT ---
- History of Present Illness Time Seen by Provider: 03/28/23 22:58 Source: patient, family Exam Limitations: no limitations Physician History: Pt has re[ported Hx of migraines and was seen earlier today for this headache also here. No Hx trauma. No blood thinners. Pt has been worked up by Neuro for this and had recent MRI. Pt reports similar headache in characteristics and this is within her normal range for headache pain and not the worst or even at upper end today. Fundi benign. Normal neuro exam. Normal mental status. PERRL. Visual russell intact. EOM full . No facial assymetry. ENT normal without signs of infection. CHest clear . Ht reg without M. Abs soft nontender without peritoneal signs or masses. Discussed risks/benefits of testing including, CBC, Sed Rate, CMP, IVF , Decadron, Mag IV, Metaclopromide, Benadryl with pt and she wishes to proceed. Ordered and results later discussed. Timing/Duration: day(s) Quality: fullness, pressure, throbbing, tightness Head Pain Location: frontal, temporal Severity of Pain-Max: moderate Severity of Pain-Current: moderate Recent Head Trauma: no recent headache/trauma, frequent headaches, chronic headaches Modifying Factors: Improves With: medication Associated Symptoms: nausea/vomiting Previous symptoms: same symptoms as today, recently seen, recently treated Allergies/Adverse Reactions: Fish Containing Products Allergy (Intermediate, Verified 03/28/23 23:12) Nausea and Vomiting swelling everywhere shellfish derived Allergy (Intermediate, Verified 03/28/23 23:12) Nausea and Vomiting latex Allergy (Verified 03/28/23 23:12) nitrofurantoin [From Macrobid] Allergy (Verified 03/28/23 23:12) Sulfa (Sulfonamide Antibiotics) [Sulfa(Sulfonamide Antibiotics)] Allergy (Verified 03/28/23 23:12) Hives sulfamethoxazole [From Septra] Allergy (Verified 03/28/23 23:12) Rash trimethoprim [From Septra] Allergy (Verified 03/28/23 23:12) Rash furosemide [From Lasix] Adverse Reaction (Verified 03/28/23 23:12) Hives NSAIDS (Non-Steroidal Anti-Inflamma Adverse Reaction (Verified 03/28/23 23:12) Rash can take IM but no oral med eggs Allergy (Uncoded 03/28/23 23:12) Rash nausea/vomiting Home Medications: Tizanidine HCl 4 mg [Zanaflex 4 MG] 4 mg PO QID 07/08/19 [History] Topiramate [Topamax] 200 mg PO BID 07/08/19 [History] PANTOPRAZOLE 40 mg Tablet [Protonix 40MG Tablet] 40 mg PO QPM 07/12/19 [History] Ergocalciferol (Vitamin D2) [Vitamin D2] 1 cap PO WEEKLY 10/06/19 [History] Mirtazapine 30 mg [Remeron 30 mg] 1 tab PO HS 11/16/22 [History] Prazosin HCl 1 cap PO HS 11/16/22 [History] Sertraline HCl [Zoloft] 2 tab PO DAILY 11/16/22 [History] clonazePAM [Klonopin] 1 tab PO TID PRN 11/16/22 [History] Hydroxyzine HCl 25 mg [Atarax 25 mg] 25 mg PO DAILY 03/28/23 [History] Levetiracetam 250 MG [Keppra 250 MG] 250 mg PO BID 03/28/23 [History] Levothyroxine Sodium 25 mcg PO DAILY 03/28/23 [History] Hx Tetanus, Diphtheria Vaccination/Date Given: Yes Hx Influenza Vaccination/Date Given: No (egg allergy) Hx Pneumococcal Vaccination/Date Given: No Travel Risk - Vaccine Status Have you recieved a Covid-19 vaccination: Yes 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 - Vaccination Dates Date of 2cond Vaccination (if applicable): September 2020 - Review of Systems Constitutional: No Fever, No Chills Eyes: No Symptoms Ears, Nose, & Throat: No Symptoms Respiratory: No Cough, No Dyspnea Cardiac: No Chest Pain, No Edema, No Syncope Abdominal/Gastrointestinal: Nausea, Vomiting, No Abdominal Pain, No Diarrhea Genitourinary Symptoms: No Dysuria Musculoskeletal: No Back Pain, No Neck Pain Skin: No Rash Neurological: Headache, No Dizziness, No Focal Weakness, No Sensory Changes Psychological: No Symptoms Endocrine: No Symptoms Hematologic/Lymphatic: No Symptoms Immunological/Allergic: No Symptoms All Other Systems: Reviewed and Negative - Past Medical History Pertinent Past Medical History: Yes Neurological History: Migraines, Seizures ENT History: No Pertinent History Cardiac History: No Pertinent History Respiratory History: Asthma Endocrine Medical History: Hypothyroidism Musculoskeletal History: No Pertinent History GI Medical History: GERD, Gallbladder Disease, Other History: Other Psycho-Social History: Anxiety, Depression Female Reproductive Disorders: Abnormal Uterine Bleeding, Menstrual Problems Other Medical History: ANEMIA, GASTRIC ULCER, - Past Surgical History Past Surgical History: Yes Neuro Surgical History: No Pertinent History Cardiac: No Pertinent History Respiratory: No Pertinent History Gastrointestinal: Appendectomy, Cholecystectomy Genitourinary: No Pertinent History Musculoskeletal: No Pertinent History Female Surgical History: Hysterectomy, Tubal Ligation, Other Other Surgical History: gastric bypass, lap band placed and removed first, g- tube placement and removal, BLADDER AND URETER REPAIR - Social History Smoking Status: Former smoker How long have you smoked: 3 years Exposure to second hand smoke: No Drug Use: none Patient Lives Alone: No Significant Family History: no pertinent family hx - Nursing Vital Signs Nursing Vital Signs: Initial Vital Signs O2 Sat by Pulse Oximetry 98 03/28/23 23:02 Pain Scale Pain Intensity 4 - Physical Exam General Appearance: mild distress Eye Exam: PERRL/EOMI Ears, Nose, Throat Exam: normal ENT inspection, TMs normal, pharynx normal, moist mucous membranes Neck Exam: normal inspection, non-tender, supple, full range of motion, No meningismus Respiratory Exam: normal breath sounds, lungs clear, airway intact Cardiovascular Exam: regular rate/rhythm, normal heart sounds Gastrointestinal/Abdominal Exam: soft, No tenderness, No distention Back Exam: normal inspection, normal range of motion Extremity Exam: normal inspection, normal range of motion Mental Status Exam: alert, 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, 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 Exam: normal speech, PERRL, No facial droop Coordination/Gait Exam: normal cerebellar function Motor/Sensory Exam: no motor deficit, no sensory deficit, no pronator drift DTR Exam: bicep (R): 2+, bicep (L): 2+, tricep (R): 2+, tricep (L): 2+, knee (R): 2+, knee (L): 2+, ankle (R): 2+, ankle (L): 2+ Skin Exam: normal color, warm, dry, No rash SpO2 Interpretation: normal SpO2: 98 O2 Delivery: Room Air - Course Nursing assessment & vital signs reviewed: Yes Ordered Tests: Active Orders 24 hr Category Date Time Status EKG-ER Only STAT Care 03/29/23 03:47 Active IV Insertion STAT Care 03/28/23 23:02 Active Pulse Oximetry (ED) STAT Care 03/28/23 23:02 Active CBC W DIFF Stat Lab 03/28/23 23:50 Completed CMP Stat Lab 03/28/23 23:50 Completed Erythrocyte Sedimentation Rate Stat Lab 03/28/23 23:50 Completed Medication Summary Generic Name Dose Route Start Last Admin Trade Name Rubén PRN Reason Stop Dose Admin Magnesium Sulfate/Dextrose 100 mls @ 100 mls/hr 03/28/23 23:15 03/29/23 00:46 Magnesium 1 Gm / 100 Ml D5w IV 03/29/23 01:14 100 mls/hr Q1H ARMANDO Administration Discontinued Medications Generic Name Dose Route Start Last Admin Trade Name Rubén PRN Reason Stop Dose Admin Butorphanol Tartrate 1 mg 03/29/23 01:54 03/29/23 02:28 Butorphanol Tartrate 2 Mg/Ml Vial IV 03/29/23 01:55 1 mg STAT ONE Administration Butorphanol Tartrate Confirm 03/29/23 02:27 Butorphanol Tartrate 2 Mg/Ml Vial Administered 03/29/23 02:28 Dose 2 mg .ROUTE .STK-MED ONE Dexamethasone Sodium Phosphate 10 mg 03/28/23 23:05 03/28/23 23:32 Dexamethasone Sod Phosphate 10 Mg/Ml IV 03/28/23 23:06 10 mg STAT ONE Administration Dexamethasone Sodium Phosphate Confirm 03/28/23 23:15 Dexamethasone Sod Phosphate 10 Mg/Ml Administered 03/28/23 23:16 Dose 10 mg .ROUTE .STK-MED ONE Diphenhydramine HCl 25 mg 03/28/23 23:06 03/28/23 23:33 Diphenhydramine Hcl 50 Mg/Ml Vial IV 03/28/23 23:07 25 mg STAT ONE Administration Diphenhydramine HCl Confirm 03/28/23 23:15 Diphenhydramine Hcl 50 Mg/Ml Vial Administered 03/28/23 23:16 Dose 50 mg .ROUTE .STK-MED ONE Sodium Chloride 1,000 mls @ 999 mls/hr 03/28/23 23:02 03/29/23 02:07 Sodium Chloride 0.9% 1000 Ml IV 03/29/23 00:02 Infused .Q1H1M STA Infusion Sodium Chloride Confirm 03/28/23 23:16 Sodium Chloride 0.9% 1000 Ml Administered 03/28/23 23:17 Dose 1,000 mls @ ud .ROUTE .STK-MED ONE Ketamine HCl 7 mg 03/29/23 04:13 03/29/23 04:34 Ketamine Hcl 50 Mg/Ml IV 03/29/23 04:14 7 mg STAT ONE Administration Ketamine HCl Confirm 03/29/23 04:33 Ketamine Hcl 50 Mg/Ml Administered 03/29/23 04:34 Dose 50 mg .ROUTE .STK-MED ONE Metoclopramide HCl 5 mg 03/28/23 23:08 03/28/23 23:33 Metoclopramide Hcl 10 Mg/2 Ml Vial IV 03/28/23 23:09 5 mg STAT ONE Administration Metoclopramide HCl Confirm 03/28/23 23:15 Metoclopramide Hcl 10 Mg/2 Ml Vial Administered 03/28/23 23:16 Dose 10 mg .ROUTE .STK-MED ONE Lab/Rad Data: Laboratory Result Diagrams 03/28/23 23:50 03/28/23 23:50 Laboratory Results 03/28/23 03/28/23 Range/Units 23:50 23:50 WBC 5.1 (4.0-10.5) x10^3/uL RBC 3.17 L (4.1-5.4) x10^6/uL Hgb 10.9 L (12.0-16.0) g/dL Hct 33.7 L (35-47) % MCV 106.3 H (78-100) fL MCH 34.4 H (26-32) pg MCHC 32.3 (32-36) g/dL RDW 12.9 (11.5-14.0) % Plt Count 113 L (150-450) x10^3/uL MPV 11.9 H (7.5-11.0) fL Gran % 78.4 H (36.0-66.0) % Immature Gran % (Auto) 0.2 (0.00-0.4) % Nucleat RBC Rel Count 0.0 (0.00-0.1) % Eos # (Auto) 0.08 (0-0.5) x10^3/uL Immature Gran # (Auto) 0.01 (0.00-0.03) x10^3u/L Absolute Lymphs (auto) 0.73 L (1.0-4.6) x10^3/uL Absolute Monos (auto) 0.27 (0.0-1.3) x10^3/uL Absolute Nucleated RBC 0.00 (0.00-0.01) x10^3u/L Lymphocytes % 14.3 L (24.0-44.0) % Monocytes % 5.3 (0.0-12.0) % Eosinophils % 1.6 (0.00-5.0) % Basophils % 0.2 (0.0-0.4) % Absolute Granulocytes 4.01 (1.4-6.9) x10^3/uL Basophils # 0.01 (0-0.4) x10^3/uL ESR < 1 (0-20) mm/hr Sodium 136 L (137-145) mmol/L Potassium 3.9 (3.5-5.1) mmol/L Chloride 110 H (98-107) mmol/L Carbon Dioxide 20 L (22-30) mmol/L Anion Gap 9.7 (5-15) MEQ/L BUN 13 (7-17) mg/dL Creatinine 0.54 (0.52-1.04) mg/dL Estimated GFR 122.3 ML/MIN Glucose 122 H (74-106) mg/dL Calcium 8.3 L (8.4-10.2) mg/dL Total Bilirubin 0.60 (0.2-1.3) mg/dL AST 258 H (14-36) U/L ALT 157 H (0-35) U/L Alkaline Phosphatase 60 (38-126) U/L Serum Total Protein 5.5 L (6.3-8.2) g/dL Albumin 3.2 L (3.5-5.0) g/dL - Progress Progress: improved, re-examined Air Movement: good Progress Note: 03/29/23 02:39 pt improved but still having headache. neuro remains normal. discussed risks/benefits and pt wishes to try stadol. 03/29/23 03:32 pt feels better now as headache is resolving and wishes DC with oupt f/u rather than furhter Tx in ER or hospital after discussion of risks and benefits and that although the headahce appears as migraine there could be other pathology evolving undetected and has the capacity to make this choice. 03/29/23 03:48 The nurses confirm that the pt has a chronic bradycardia when she has been in the ER before. THis seems to be without symptoms. we will check EKG anyway to be sure. This confirms sinus ramesh , some low voltage but otherwise normal EKG in appearance. 03/29/23 04:14 Pt still has pain. SO we discussed risks/benefits of low dose ketamine in ER and she wishes to proceed and understands will have to have family member observe 24 hours and no transactions ro decisions. 03/29/23 05:18 Headache was improved after ketamine Blood Culture(s) Obtained: No Antibiotics given: No Counseled pt/family regarding: lab results, diagnosis, need for follow-up Medical Desision Making - Independent Historian Additional History obtained from: Mother - Discussion of managment Reviewed:: Test results, Need for additional workup Agreed on:: Treatment plan, need for follow-up - Diagnostic Testing Diagnostic test were ordered, analyzed, and reviewed by me: Yes Radiological Interpretation: Reviewed by me - Risk of complications The pt has a mod risk of morbidity or mortality based on: Need for prescription drug management The pt has a high risk of morbidity or mortality based on: Decision regarding hospitilization or escalation of hosp level of care - Departure Departure Disposition: Home Clinical Impression: Migraine headache, Headache, Intractable headache, sinus bradycardia assymptomatic, Elevated liver enzymes Condition: Good Critical Care Time: No Referrals: MARCO SALVADOR MD [Primary Care Provider] - Follow up/PCP as directed Instructions: Migraines (DC), Headache, Adult (DC) Additional Instructions: Followup with your Dr. for your headaches including your neurologist, and also for your anemia, low platelets, elevated liver tests, and low heart rate. return meantime if not improving or any additional symptoms of concern. Your insurance plan may be able to help you with referrals to a headache clinic as well. After the ketamine med we gave , you should have a relative stay with you and not make any decisions or transactions for 24 hours .
[2023-03-28] MEDS ORDERED: Sodium Chloride 0.9% 1000 ML 1,000 ML IV STA (23:02)
[2023-03-28] MEDS ORDERED: DECADRON 10MG INJ. IV ONE (23:05)
[2023-03-28] MEDS ORDERED: BENADRYL 50 MG/ML IV ONE (23:06)
[2023-03-28] MEDS ORDERED: Reglan 10 MG/2 ML IV ONE (23:08)
[2023-03-28 23:14] VITALS: TEMP 98.5
[2023-03-28] MEDS ORDERED: DECADRON 10MG INJ. ONE (23:15)
[2023-03-28] MEDS ORDERED: BENADRYL 50 MG/ML ONE (23:15)
[2023-03-28] MEDS ORDERED: Magnesium 1 Gm / 100 Ml D5W*** 100 ML IV ONE (23:15)
[2023-03-28] MEDS ORDERED: Reglan 10 MG/2 ML ONE (23:15)
[2023-03-28] MEDS ORDERED: Sodium Chloride 0.9% 1000 ML 1,000 ML ONE (23:16)
[2023-03-28] MEDS: Magnesium 1 Gm / 100 Ml D5W*** 100 ML IV SCH (23:33)
[2023-03-28 23:52] LABS: Absolute Neutrophil Ct (ANC) 4.01 x10^3/uL (1.4-6.9); BASOPHIL % 0.2 % (0.0-0.4); Basophil (Absolute #) 0.01 x10^3/uL (0-0.4); Eosinophil % 1.6 % (0.00-5.0); Eosinophil (Absolute #) 0.08 x10^3/uL (0-0.5); Hematocrit 33.7 % (35-47); Hemoglobin 10.9 g/dL (12.0-16.0); IMMATURE GRAN # 0.01 x10^3u/L (0.00-0.03); IMMATURE GRAN % 0.2 % (0.00-0.4); Lymphocyte (Absolute #) 0.73 x10^3/uL (1.0-4.6); Lymphocytes % 14.3 % (24.0-44.0); Mean Cell Volume 106.3 fL (78-100); Mean Corpuscular Hemoglobin 34.4 pg (26-32); Mean Corpuscular Hgb Concent. 32.3 g/dL (32-36); Mean Platelet Volume 11.9 fL (7.5-11.0); Monocyte (Absolute #) 0.27 x10^3/uL (0.0-1.3); Monocytes % 5.3 % (0.0-12.0); Neutrophil % 78.4 % (36.0-66.0); Platelet Count 113 x10^3/uL (150-450); Red Blood Count 3.17 x10^6/uL (4.1-5.4); Red Cell Distribution Width 12.9 % (11.5-14.0); White Blood Count 5.1 x10^3/uL (4.0-10.5)
[2023-03-29 00:04] LABS: Erythrocyte Sedimentation Rate < 1 mm/hr (0-20)
[2023-03-29 00:08] LABS: ALBUMIN 3.2 g/dL (3.5-5.0); ANION GAP 9.7 MEQ/L (5-15); BILIRUBIN,TOTAL 0.6 mg/dL (0.2-1.3); Calcium 8.3 mg/dL (8.4-10.2); Creatinine 1 0.54 mg/dL (0.52-1.04); EST GLOMERULAR FILTRATION RATE 122.3 ML/MIN; Potassium 3.9 mmol/L (3.5-5.1); Total Protein 5.5 g/dL (6.3-8.2)
[2023-03-29] MEDS ORDERED: Magnesium 1 Gm / 100 Ml D5W*** 100 ML IV ONE (00:36)
[2023-03-29] MEDS: Magnesium 1 Gm / 100 Ml D5W*** 100 ML IV SCH (00:46)
[2023-03-29] MEDS ORDERED: STADOL 2 MG IV ONE (01:54)
[2023-03-29] MEDS ORDERED: STADOL 2 MG ONE (02:27)
[2023-03-29] MEDS ORDERED: Ketamine HCl 50 MG/ML IV ONE (04:13)
[2023-03-29] MEDS ORDERED: Ketamine HCl 50 MG/ML ONE (04:33)
[2023-03-29 05:08] VITALS: BP 91/57; PULSE 54; RESP 17
[2023-03-29 05:21] VITALS: O2SAT 98
== END 2023-03-29 05:44 | disposition home or self-care (01) ==
LOC: ED 22:50
DX: G43.919 Migraine, unspecified, intractable, without status migrainosus (principal); R00.1 Bradycardia, unspecified; R74.8 Abnormal levels of other serum enzymes; Z79.899 Other long term (current) drug therapy
CPT/HCPCS: 36000; 36415; 80053; 85025; 85652; 93005; 94760; 96360; 96365; 96374; 96375; 99284; J0595; J1100; J1200; J3475

== ENCOUNTER 2023-04-04 14:51 | Emergency (ER) | payer MEDICARE ==
[2023-04-04 15:17] VITALS: BP 106/81; PULSE 63; RESP 18; TEMP 98; O2SAT 100
[2023-04-04] MEDS ORDERED: Ativan 1 MG PO ONE (15:50)
[2023-04-04] MEDS ORDERED: Ativan 1 MG ONE (16:28)
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
== END 2023-04-04 17:50 | disposition home or self-care (01) ==
LOC: ED 14:51
DX: F41.9 Anxiety disorder, unspecified (principal); Z79.899 Other long term (current) drug therapy
CPT/HCPCS: 99281; A9270-GY

== ENCOUNTER 2023-04-06 20:28 | Emergency (ER) | payer MEDICARE ==
--- NOTE | 2023-04-06 20:42 | ERPHSYRPT ---
- History of Present Illness Time Seen by Provider: 04/06/23 20:41 Source: patient Exam Limitations: no limitations Physician History: This is a 38-year-old white female patient who presents to the emergency department complaints of anxiety that is worsening since there was a change in her medication from Ativan to Klonopin at least 2 to 3 months ago. Approximately 2 weeks ago, the patient had a "trigger" that brought on PTSD and anxiety even worse. She missed an appointment with her psychiatrist/psychologist that she was not aware of. She was seen in our emerge ncy department on 04/04/2023 with the same symptoms as today. Patient also complains of a headache which she states that she has a history of migraines and that when her anxiety worsens she gets a headache. It is no different than usual migraine headaches. She denies trauma to her head. Patient has no chest pain. She denies shortness of breath. She has no abdominal pain. She has no fevers or chills. Patient has a history of hypothyroidism, migraine headaches, seizure disorder, asthma, PTSD, anxiety, depression and gastroesophageal reflux disease. Patient denies being suicidal. Patient denies being homicidal. Timing/Duration: week(s) (Symptoms worsening over the last several weeks), worse Severity of Symptoms-Max: mild (Moderate) Severity of Symptoms-Current: mild (To moderate) Context related to: other (Medical condition of PTSD and anxiety) Associated Symptoms: anxiety, depressed, other (PTSD), No angry, No agitated, No confused, No hallucinating, No impaired concentration, No insomnia, No paranoid, No suicidal ideation Previous symptoms: same symptoms as today, recently seen, recently treated Allergies/Adverse Reactions: Fish Containing Products Allergy (Intermediate, Verified 04/06/23 20:42) Nausea and Vomiting swelling everywhere shellfish derived Allergy (Intermediate, Verified 04/06/23 20:42) Nausea and Vomiting latex Allergy (Verified 04/06/23 20:42) nitrofurantoin [From Macrobid] Allergy (Verified 04/06/23 20:42) Sulfa (Sulfonamide Antibiotics) [Sulfa(Sulfonamide Antibiotics)] Allergy (Verified 04/06/23 20:42) Hives sulfamethoxazole [From Septra] Allergy (Verified 04/06/23 20:42) Rash trimethoprim [From Septra] Allergy (Verified 04/06/23 20:42) Rash furosemide [From Lasix] Adverse Reaction (Verified 04/06/23 20:42) Hives NSAIDS (Non-Steroidal Anti-Inflamma Adverse Reaction (Verified 04/06/23 20:42) Rash can take IM but no oral med eggs Allergy (Uncoded 04/06/23 20:42) Rash nausea/vomiting Home Medications: Tizanidine HCl 4 mg [Zanaflex 4 MG] 4 mg PO QID 07/08/19 [History] Topiramate [Topamax] 200 mg PO BID 07/08/19 [History] PANTOPRAZOLE 40 mg Tablet [Protonix 40MG Tablet] 40 mg PO QPM 07/12/19 [History] Ergocalciferol (Vitamin D2) [Vitamin D2] 1 cap PO WEEKLY 10/06/19 [History] Mirtazapine 30 mg [Remeron 30 mg] 1 tab PO HS 11/16/22 [History] Prazosin HCl 1 cap PO HS 11/16/22 [History] Sertraline HCl [Zoloft] 2 tab PO DAILY 11/16/22 [History] clonazePAM [Klonopin] 1 tab PO TID 11/16/22 [History] Hydroxyzine HCl 25 mg [Atarax 25 mg] 25 mg PO DAILY 03/28/23 [History] Levetiracetam 250 MG [Keppra 250 MG] 500 mg PO BID 03/28/23 [History] Levothyroxine Sodium 25 mcg PO DAILY 03/28/23 [History] Hydroxyzine HCl 25 mg [Atarax 25 mg] 1 tab PO TID PRN 04/04/23 [History] Hx Tetanus, Diphtheria Vaccination/Date Given: Yes Hx Influenza Vaccination/Date Given: No (egg allergy) Hx Pneumococcal Vaccination/Date Given: No Travel Risk - International Travel Have you traveled outside of the country in past 3 weeks: No - Coronavirus Screening Are you exhibiting any of the following symptoms?: No Close contact with a COVID-19 positive Pt in past 14-21 Days: No - Vaccine Status Have you recieved a Covid-19 vaccination: Yes Statistical Assistant: Moderna - Vaccination Dates Date of 2cond Vaccination (if applicable): September 2020 - Past Medical History Pertinent Past Medical History: Yes Neurological History: Migraines, Seizures ENT History: No Pertinent History Cardiac History: No Pertinent History Respiratory History: Asthma Endocrine Medical History: Hypothyroidism Musculoskeletal History: No Pertinent History GI Medical History: GERD, Gallbladder Disease, Other History: Other Psycho-Social History: Anxiety, Depression, Other Female Reproductive Disorders: Abnormal Uterine Bleeding, Menstrual Problems Other Medical History: ANEMIA, GASTRIC ULCER, PTSD - Past Surgical History Past Surgical History: Yes Neuro Surgical History: No Pertinent History Cardiac: No Pertinent History Respiratory: No Pertinent History Gastrointestinal: Appendectomy, Cholecystectomy Genitourinary: No Pertinent History Musculoskeletal: No Pertinent History Female Surgical History: Hysterectomy, Tubal Ligation, Other Other Surgical History: gastric bypass, lap band placed and removed first, g- tube placement and removal, BLADDER AND URETER REPAIR - Social History Smoking Status: Former smoker How long have you smoked: 3 years Exposure to second hand smoke: No Drug Use: none Patient Lives Alone: No Significant Family History: no pertinent family hx - Review of Systems Constitutional: No Symptoms Eyes: No Symptoms Ears, Nose, & Throat: No Symptoms Respiratory: No Symptoms Cardiac: No Symptoms Abdominal/Gastrointestinal: No Symptoms Genitourinary Symptoms: No Symptoms Musculoskeletal: No Symptoms Skin: No Symptoms Neurological: Headache (Mild neurolysed) Psychological: Anxiety, No Suicidal Ideations, No Homicidal Ideations, No Emotional Lability, No Hallucinations Endocrine: No Symptoms Hematologic/Lymphatic: No Symptoms Immunological/Allergic: No Symptoms All Other Systems: Reviewed and Negative - Nursing Vital Signs Nursing Vital Signs: Initial Vital Signs Temperature 98.0 F 04/06/23 20:45 Pulse Rate 65 04/06/23 20:45 Respiratory Rate 14 04/06/23 20:45 Blood Pressure 111/70 04/06/23 20:45 O2 Sat by Pulse Oximetry 100 04/06/23 20:45 Pain Scale Pain Intensity 6 - Physical Exam General Appearance: no apparent distress, alert, anxiety Eyes, Ears, Nose, Throat Exam: normal ENT inspection, moist mucous membranes Neck Exam: normal inspection, non-tender, supple, full range of motion Respiratory Exam: normal breath sounds, lungs clear, airway intact, No chest tenderness, No respiratory distress Cardiovascular Exam: regular rate/rhythm, normal heart sounds, normal peripheral pulses Gastrointestinal/Abdominal Exam: soft, normal bowel sounds, No tenderness Extremities Exam: normal inspection, normal range of motion, No evidence of injury Current Suicidality: denies suicide plan Neurological Exam: alert, normal mood/affect, director of epidemiology II-XII nml as tested, 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, anxious, depressed affect Appearance: appropriate appearance, appropriate insight, neat, no memory im pairment Behavior/Eye Contact/Speech: alert & cooperative, good eye contact Thoughts/Hallucinations: normal thought pattern, no apparent hallucination Skin Exam: normal color, warm, dry SpO2 Interpretation: normal O2 Delivery: Room Air - Course Nursing assessment & vital signs reviewed: Yes Ordered Tests: Active Orders 24 hr Category Date Time Status IV Insertion STAT Care 04/06/23 21:45 Active BMP Stat Lab 04/06/23 22:25 Completed CBC W DIFF Stat Lab 04/06/23 22:25 Completed CULTURE,URINE Stat Lab 04/06/23 22:25 Received UA W/RFX UR CULTURE Stat Lab 04/06/23 22:25 Completed Medication Summary Discontinued Medications Generic Name Dose Route Start Last Admin Trade Name Freq PRN Reason Stop Dose Admin Sodium Chloride 1,000 mls @ 999 mls/hr 04/06/23 21:45 04/06/23 22:59 Sodium Chloride 0.9% 1000 Ml IV 04/06/23 22:45 999 mls/hr .Q1H1M STA Administration Sodium Chloride Confirm 04/06/23 22:49 Sodium Chloride 0.9% 1000 Ml Administered 04/06/23 22:50 Dose 1,000 mls @ ud .ROUTE .STK-MED ONE Ceftriaxone Sodium/Dextrose 1 g in 50 mls @ 100 mls/hr 04/06/23 22:55 04/06/23 23:45 Rocephin 1 Gm-D5w 50 Ml Bag IV 04/06/23 23:24 100 ml/hr STAT STA 100 mls/hr Administration Ceftriaxone Sodium/Dextrose Confirm 04/06/23 23:40 Rocephin 1 Gm-D5w 50 Ml Bag Administered 04/06/23 23:41 Dose 1 g in 50 mls @ ud IV .STK-MED ONE Ondansetron HCl 4 mg 04/06/23 23:37 04/06/23 23:45 Ondansetron Hcl 4 Mg/2 Ml Vial IV 04/06/23 23:38 4 mg STAT ONE Administration Ondansetron HCl Confirm 04/06/23 23:40 Ondansetron Hcl 4 Mg/2 Ml Vial Administered 04/06/23 23:41 Dose 4 mg .ROUTE .K-MED ONE Lab/Rad Data: Laboratory Result Diagrams 04/06/23 22:25 04/06/23 22:25 Laboratory Results 04/06/23 04/06/23 04/06/23 Range/Units 22:25 22:25 22:25 WBC 6.6 (4.0-10.5) x10^3/uL RBC 3.37 L (4.1-5.4) x10^6/uL Hgb 11.5 L (12.0-16.0) g/dL Hct 35.1 (35-47) % MCV 104.2 H (78-100) fL MCH 34.1 H (26-32) pg MCHC 32.8 (32-36) g/dL RDW 13.2 (11.5-14.0) % Plt Count 116 L (150-450) x10^3/uL MPV 11.6 H (7.5-11.0) fL Gran % 63.2 (36.0-66.0) % Immature Gran % (Auto) 0.3 (0.00-0.4) % Nucleat RBC Rel Count 0.0 (0.00-0.1) % Eos # (Auto) 0.10 (0-0.5) x10^3/uL Immature Gran # (Auto) 0.02 (0.00-0.03) x10^3u/L Absolute Lymphs (auto) 1.86 (1.0-4.6) x10^3/uL Absolute Monos (auto) 0.40 (0.0-1.3) x10^3/uL Absolute Nucleated RBC 0.00 (0.00-0.01) x10^3u/L Lymphocytes % 28.4 (24.0-44.0) % Monocytes % 6.1 (0.0-12.0) % Eosinophils % 1.5 (0.00-5.0) % Basophils % 0.5 (0.0-0.4) % Absolute Granulocytes 4.14 (1.4-6.9) x10^3/uL Basophils # 0.03 (0-0.4) x10^3/uL Sodium 138 (137-145) mmol/L Potassium 3.8 (3.5-5.1) mmol/L Chloride 111 H (98-107) mmol/L Carbon Dioxide 21 L (22-30) mmol/L Anion Gap 9.6 (5-15) MEQ/L BUN 9 (7-17) mg/dL Creatinine 0.57 (0.52-1.04) mg/dL Estimated GFR 120.0 ML/MIN Glucose 86 (74-106) mg/dL Calcium 8.4 (8.4-10.2) mg/dL Urine Color Yellow (Yellow) Urine Appearance Cloudy A (Clear) Urine pH 6.0 (4.6-8.0) Ur Specific Nadeau 1.020 (1.005-1.030) Urine Protein Negative (Negative) Urine Glucose (UA) Negative (Negative) mg/dL Urine Ketones Trace A (Negative) Urine Blood Negative (Negative) Urine Nitrite Negative (Negative) Urine Bilirubin Negative (Negative) Urine Urobilinogen 1.0 A (0.2) mg/dL Ur Leukocyte Esterase Small A (Negative) U Hyaline Cast (Auto) NONE SEEN (0-2) /LPF Urine Microscopic RBC 0-2 (0-5) /HPF Urine Microscopic WBC 6-10 A (0-5) /HPF Ur Epithelial Cells Few (None Seen) /HPF Urine Bacteria Many A (None Seen) /HPF Urine Culture Reflexed YES (NO) - Progress Progress: improved, re-examined Progress Note: 04/06/23 22:06 This patient's medical issue is 1 of moderate complexity. Level complex in the workup performed is based on review the patient's past medical history, review the patient's medication list, review the patient's drug allergy list, history of present illness and physical findings on examination. Workup in this patient includes placement of an intravenous line, infusion normal saline solution, CBC, BMP, urinalysis. The patient drove herself into the hospital. I will provide her with intravenous dose of 1 mg Ativan as soon as her ride arrives. 04/07/23 00:00 I have interpreted the patient's labs. Patient does have a urinary tract infection. I am providing her with 1 g of Rocephin intravenously. Patient is nauseated and we will provide her 4 mg intravenous Zofran. Patient has a systolic blood pressure in the 90s. Her high was 100. She states that this is normal for her. However, I we will provide her with only 1 milligram of intravenous Ativan and no narcotic medications. Patient's mother is here to take the patient home. The mother does not want to wait longer. Patient will receive the intravenous Ativan only and wait the required time before being discharged to home. Counseled pt/family regarding: lab results, diagnosis, need for follow-up Medical Desision Making - Diagnostic Testing Diagnostic test were ordered, analyzed, and reviewed by me: Yes - Risk of complications Low Risk: Low risk of morbidity from additional dx testing or treatment The pt has a mod risk of morbidity or mortality based on: Need for prescription drug management - Departure Departure Disposition: Home Clinical Impression: Anxiety, Migraine headache, UTI (urinary tract infection) Condition: Stable Critical Care Time: No Referrals: MARCO SALVADOR MD [Primary Care Provider] - Follow up/PCP as directed Additional Instructions: Drink plenty of fluids. Take your medications as prescribed. Call your prescribing provider tomorrow, 04/07/2023 as well as your psychiatrist/psychologist for further evaluation and management including management of your outpatient medications. Prescriptions: Ondansetron ODT 4 MG [Zofran Odt 4 mg] 4 mg PO Q6H PRN PRN #10 tablet PRN Reason: Vomiting Cephalexin Mh 500 mg [Keflex 500 mg] 500 mg PO TID #21 cap
[2023-04-06 20:55] VITALS: TEMP 98; O2SAT 100
[2023-04-06] MEDS ORDERED: Sodium Chloride 0.9% 1000 ML 1,000 ML IV STA (21:45)
[2023-04-06 22:33] LABS: Appearance Cloudy (Clear); Bacteria Many /HPF (None Seen); Bilirubin Negative (Negative); Blood Negative (Negative); Epithelial Cells Few /HPF (None Seen); Glucose, Urine Negative (Negative); Hyaline Casts NONE SEEN /LPF (0-2); Ketones Trace (Negative); Leukocyte Esterase Small (Negative); Nitrite Negative (Negative); Protein,Urine Dip Negative (Negative); RBC 0-2 /HPF (0-5)
[2023-04-06 22:35] LABS: ADD URINE CULTURE? YES (NO)
[2023-04-06] MEDS ORDERED: Sodium Chloride 0.9% 1000 ML 1,000 ML ONE (22:49)
[2023-04-06 22:53] LABS: Absolute Neutrophil Ct (ANC) 4.14 x10^3/uL (1.4-6.9); BASOPHIL % 0.5 % (0.0-0.4); Basophil (Absolute #) 0.03 x10^3/uL (0-0.4); Eosinophil % 1.5 % (0.00-5.0); Hematocrit 35.1 % (35-47); Hemoglobin 11.5 g/dL (12.0-16.0); IMMATURE GRAN # 0.02 x10^3u/L (0.00-0.03); IMMATURE GRAN % 0.3 % (0.00-0.4); Lymphocyte (Absolute #) 1.86 x10^3/uL (1.0-4.6); Lymphocytes % 28.4 % (24.0-44.0); Mean Cell Volume 104.2 fL (78-100); Mean Corpuscular Hemoglobin 34.1 pg (26-32); Mean Corpuscular Hgb Concent. 32.8 g/dL (32-36); Mean Platelet Volume 11.6 fL (7.5-11.0); Monocytes % 6.1 % (0.0-12.0); Neutrophil % 63.2 % (36.0-66.0); Platelet Count 116 x10^3/uL (150-450); Red Blood Count 3.37 x10^6/uL (4.1-5.4); Red Cell Distribution Width 13.2 % (11.5-14.0); White Blood Count 6.6 x10^3/uL (4.0-10.5)
[2023-04-06] MEDS ORDERED: ROCEPHIN 1 Gm-D5w 50 ml Bag** 1 G/50 ML IVPB IV STA (22:55)
[2023-04-06 23:04] LABS: ANION GAP 9.6 MEQ/L (5-15); Calcium 8.4 mg/dL (8.4-10.2); Creatinine 1 0.57 mg/dL (0.52-1.04); Potassium 3.8 mmol/L (3.5-5.1)
[2023-04-06] MEDS ORDERED: Zofran 4 MG/2 ML VIAL IV ONE (23:37)
[2023-04-06] MEDS ORDERED: ROCEPHIN 1 Gm-D5w 50 ml Bag** 1 G/50 ML IVPB IV ONE (23:40)
[2023-04-06] MEDS ORDERED: Zofran 4 MG/2 ML VIAL ONE (23:40)
[2023-04-07] MEDS ORDERED: Ativan 2 MG/1 ML VIAL IV ONE
[2023-04-07] MEDS ORDERED: Ativan 2 MG/1 ML VIAL ONE (00:05)
[2023-04-07 00:06] VITALS: PULSE 60
[2023-04-07 00:12] VITALS: BP 114/69; RESP 16
== END 2023-04-07 00:15 | disposition home or self-care (01) ==
LOC: ED 20:28
DX: F41.9 Anxiety disorder, unspecified (principal); G43.909 Migraine, unspecified, not intractable, without status migrainosus; N39.0 Urinary tract infection, site not specified; Z79.899 Other long term (current) drug therapy
CPT/HCPCS: 36000; 36415; 80048; 81001; 85025; 87086; 96374; 96375; 99284; J0696; J2060; J2405

== ENCOUNTER 2023-04-08 17:26 | Emergency (ER) | payer MEDICARE ==
--- NOTE | 2023-04-08 18:12 | ERPHSYRPT ---
- History of Present Illness Source: patient Exam Limitations: no limitations Timing/Duration: week(s) (1.5) Head Pain Location: temporal (Left), parietal (Left) Severity of Pain-Max: moderate Severity of Pain-Current: moderate Recent Head Trauma: no recent headache/trauma, chronic headaches, occasional headaches Associated Symptoms: denies symptoms Previous symptoms: same symptoms as today, recently seen, recently treated Hx Tetanus, Diphtheria Vaccination/Date Given: Yes Hx Influenza Vaccination/Date Given: No (egg allergy) Hx Pneumococcal Vaccination/Date Given: No <TEJAS ALCANTARA - Last Filed: 04/08/23 18:46> <ABBIE NORIEGA - Last Filed: 04/08/23 20:07> - History of Present Illness Time Seen by Provider: 04/08/23 18:11 Physician History: This is a 38-year-old white female patient who has history of migraine headaches, seizure disorder, PTSD and severe anxiety. Patient used to be on Ativan and has changed to Klonopin. She states the Klonopin does not work for her as well as the Ativan. Patient has been seen in our emergency department for anxiety issues and today headache issue. She has been seen in our emergency room on 04/04/2023, 04/06/2023 and today. Patient states that she had a headache on the left side of her head for 1-1/2 weeks. Patient went to [facility] [place]. She had a 9 out of 10 headache. Patient received Phenergan and Toradol injection and that only decreased it down to 7 out of 10 pain level. Patient has not had a seizure in over 2 months. Patient has not seen her primary care provider recently. No acute trauma or injury (TEJAS ALCANTARA) Allergies/Adverse Reactions: Fish Containing Products Allergy (Intermediate, Verified 04/08/23 18:21) Nausea and Vomiting swelling everywhere shellfish derived Allergy (Intermediate, Verified 04/08/23 18:21) Nausea and Vomiting latex Allergy (Verified 04/08/23 18:21) nitrofurantoin [From Macrobid] Allergy (Verified 04/08/23 18:21) Sulfa (Sulfonamide Antibiotics) [Sulfa(Sulfonamide Antibiotics)] Allergy (Verified 04/08/23 18:21) Hives sulfamethoxazole [From Septra] Allergy (Verified 04/08/23 18:21) Rash trimethoprim [From Septra] Allergy (Verified 04/08/23 18:21) Rash furosemide [From Lasix] Adverse Reaction (Verified 04/08/23 18:21) Hives Iodinated Contrast Media Adverse Reaction (Verified 04/08/23 18:21) Vomiting NSAIDS (Non-Steroidal Anti-Inflamma Adverse Reaction (Verified 04/08/23 18:21) Rash can take IM but no oral med eggs Allergy (Uncoded 04/08/23 18:21) Rash nausea/vomiting Home Medications: Tizanidine HCl 4 mg [Zanaflex 4 MG] 4 mg PO QID 07/08/19 [History] Topiramate [Topamax] 200 mg PO BID 07/08/19 [History] PANTOPRAZOLE 40 mg Tablet [Protonix 40MG Tablet] 40 mg PO QPM 07/12/19 [History] Ergocalciferol (Vitamin D2) [Vitamin D2] 1 cap PO WEEKLY 10/06/19 [History] Mirtazapine 30 mg [Remeron 30 mg] 1 tab PO HS 11/16/22 [History] Prazosin HCl 1 cap PO HS 11/16/22 [History] Sertraline HCl [Zoloft] 2 tab PO DAILY 11/16/22 [History] clonazePAM [Klonopin] 1 tab PO TID 11/16/22 [History] Levetiracetam 250 MG [Keppra 250 MG] 500 mg PO BID 03/28/23 [History] Levothyroxine Sodium 25 mcg PO DAILY 03/28/23 [History] Hydroxyzine HCl 25 mg [Atarax 25 mg] 1 tab PO TID PRN 04/04/23 [History] Trifluoperazine HCl 1 mg PO DAILY 04/08/23 [History] Travel Risk - International Travel Have you traveled outside of the country in past 3 weeks: No - Coronavirus Screening Are you exhibiting any of the following symptoms?: No Close contact with a COVID-19 positive Pt in past 14-21 Days: No - Vaccine Status Have you recieved a Covid-19 vaccination: Yes Animal Husbandry 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: Moderna - Vaccination Dates Date of 2cond Vaccination (if applicable): September 2020 <TEJAS ALCANTARA CherylClement - Last Filed: 04/08/23 18:46> - Review of Systems Constitutional: No Symptoms Eyes: No Symptoms Ears, Nose, & Throat: No Symptoms Respiratory: No Symptoms Cardiac: No Symptoms Abdominal/Gastrointestinal: No Symptoms Genitourinary Symptoms: No Symptoms Musculoskeletal: No Symptoms Skin: No Symptoms Neurological: Headache (Left side) Psychological: No Symptoms Endocrine: No Symptoms Hematologic/Lymphatic: No Symptoms Immunological/Allergic: No Symptoms All Other Systems: Reviewed and Negative <TEJAS ALCANTARA - Last Filed: 04/08/23 18:46> - Past Medical History Pertinent Past Medical History: Yes Neurological History: Migraines, Seizures ENT History: No Pertinent History Cardiac History: No Pertinent History Respiratory History: Asthma Endocrine Medical History: Hypothyroidism Musculoskeletal History: No Pertinent History GI Medical History: GERD, Gallbladder Disease, Other History: Other Psycho-Social History: Anxiety, Depression, Other Female Reproductive Disorders: Abnormal Uterine Bleeding, Menstrual Problems Other Medical History: ANEMIA, GASTRIC ULCER, PTSD - Past Surgical History Past Surgical History: Yes Neuro Surgical History: No Pertinent History Cardiac: No Pertinent History Respiratory: No Pertinent History Gastrointestinal: Appendectomy, Cholecystectomy Genitourinary: No Pertinent History Musculoskeletal: No Pertinent History Female Surgical History: Hysterectomy, Tubal Ligation, Other Other Surgical History: gastric bypass, lap band placed and removed first, g- tube placement and removal, BLADDER AND URETER REPAIR - Social History Smoking Status: Former smoker How long have you smoked: 3 years Exposure to second hand smoke: No Drug Use: none Patient Lives Alone: No Significant Family History: no pertinent family hx <TEJAS ALCANTARA - Last Filed: 04/08/23 18:46> - Physical Exam General Appearance: no apparent distress, alert, anxiety Eye Exam: PERRL/EOMI, eyes nml inspection Ears, Nose, Throat Exam: normal ENT inspection, moist mucous membranes Neck Exam: normal inspection, non-tender, supple, full range of motion Respiratory Exam: normal breath sounds, lungs clear, airway intact, No chest tenderness, No respiratory distress Cardiovascular Exam: regular rate/rhythm, normal heart sounds, normal peripheral pulses Gastrointestinal/Abdominal Exam: soft, normal bowel sounds, No tenderness Back Exam: normal inspection, normal range of motion, No CVA tenderness, No vertebral tenderness Extremity Exam: normal inspection, normal range of motion, pelvis stable Mental Status Exam: alert, 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, cooperative resourcing consultant Exam: normal hearing, normal speech Coordination/Gait Exam: normal finger to nose, normal gait, normal cerebellar function Motor/Sensory Exam: no motor deficit, no sensory deficit Skin Exam: normal color, warm, dry Lymphatic Exam: No adenopathy SpO2 Interpretation: normal O2 Delivery: Room Air <TEJAS ALCANTARA - Last Filed: 04/08/23 18:46> - Nursing Vital Signs Nursing Vital Signs: Initial Vital Signs Temperature 97.3 F 04/08/23 18:13 Pulse Rate 54 L 04/08/23 18:13 Respiratory Rate 16 04/08/23 18:13 Blood Pressure 158/82 04/08/23 18:13 O2 Sat by Pulse Oximetry 100 04/08/23 18:13 Pain Scale Pain Intensity 5 - Course Nursing assessment & vital signs reviewed: Yes <TEJAS ALCANTARA - Last Filed: 04/08/23 18:46> Ordered Tests: Active Orders 24 hr Category Date Time Status HEAD WITHOUT CONTRAST [CT] Stat Exams 04/08/23 18:13 Taken Medication Summary Discontinued Medications Generic Name Dose Route Start Last Admin Trade Name Rubén PRN Reason Stop Dose Admin Acetaminophen 975 mg 04/08/23 19:38 04/08/23 19:57 Acetaminophen 325 Mg Tablet PO 04/08/23 19:39 975 mg STAT ONE Administration Acetaminophen Confirm 04/08/23 19:55 Acetaminophen 325 Mg Tablet Administered 04/08/23 19:56 Dose 975 mg .ROUTE .STK-MED ONE Droperidol 2.5 mg 04/08/23 19:52 04/08/23 19:57 Droperidol 5 Mg/2 Ml Vial IM 04/08/23 19:53 2.5 mg STAT ONE Administration Droperidol Confirm 04/08/23 19:55 Droperidol 5 Mg/2 Ml Vial Administered 04/08/23 19:56 Dose 5 mg .ROUTE .STK-MED ONE - Progress Air Movement: good Blood Culture(s) Obtained: No Antibiotics given: No <TEJAS ALCANTARA - Last Filed: 04/08/23 18:46> - Progress Counseled pt/family regarding: diagnosis, need for follow-up, rad results <ABBIE NORIEGA - Last Filed: 04/08/23 20:07> - Progress Progress Note: 04/08/23 18:38 Patient's medical issue is 1 of low complexity. Level complex in the workup performed is based on review of the patient's past medical history, review of the patient's medication list, review the patient's drug allergy list, history of present illness and physical findings on examination. The workup in this patient includes CT scan of the head without contrast. Patient had a significant workup on the 16th and on the 18th of this month. Transfer of care of this patient is to Dr. Abbie Noriega at shift change. He will follow-up on pending studies and make final disposition. 04/08/23 18:46 (TEJAS ALCANTARA) Patient endorsed to Dr. Noriega at approximately 7 PM. Patient evaluated by previous physician. Appropriate testing ordered. Dr. Noriega advised to follow-up on the pending CT. CT head completed. No acute intracranial pathology. Continue normal CT head observed. Patient received Toradol for pain control quick care. Patient given a dose of droperidol in our ED. No indication for further workup. Will discharge home. Patient agrees to follow-up with her primary care doctor within 48 hours for reevaluation. Portions of this note were created with voice recognition technology. There may be grammatical, spelling, punctuation or sound alike errors 04/08/23 20:06 (ABBIE NORIEGA) - Departure Departure Disposition: Home Critical Care Time: No <TEJAS ALCANTARA - Last Filed: 04/08/23 18:46> <ABBIE NORIEGA - Last Filed: 04/08/23 20:07> - Departure Clinical Impression: Headache Condition: Stable Referrals: MARCO SALVADOR MD [Primary Care Provider] - Follow up/PCP as directed Additional Instructions: Discharge/Care Plan ELENVICKI BOSS was seen on 04/08/23 in the Emergency Room. The patient was counseled regarding Diagnosis,Lab results, Imaging studies, need for follow up and when to return to the Emergency Room. Prescriptions given: Discharge Note I have spoken with the patient and/or caregivers. I have explained the patient's condition, diagnosis and treatment plan based on the information available to me at this time. I have answered the patient's and/or caregiver's questions and addressed any concerns. The patient and/or caregivers have as good understanding of the patient's diagnosis, condition and treatment plan as can be expected at this point. The vital signs have been stable. The patient's condition is stable and appropriate for discharge from the emergency department. The patient will pursue further outpatient evaluation with the primary care physician or other designated or consulting physician as outlined in the discharge instructions. The patient and/or caregivers are agreeable to this plan of care and follow-up instructions have been explained in detail. The patient and/or caregivers have received these instruction. The patient/and or caregivers are aware that any significant change in condition or worsening of symptoms should prompt an immediate return to this or the closest emergency department or call 911.
[2023-04-08 18:29] VITALS: RESP 16; TEMP 97.3
[2023-04-08] MEDS ORDERED: TYLENOL 325 MG PO ONE (19:38)
[2023-04-08] MEDS ORDERED: TYLENOL 325 MG ONE (19:55)
[2023-04-08 20:07] VITALS: BP 120/78; PULSE 59; O2SAT 99
--- NOTE | 2023-04-09 08:49 | XRAY ---
Indication: Headache. History of migraines. Multiple contiguous axial images obtained through the head without contrast. Comparison: February 10, 2020 Normal appearing brain parenchyma, ventricles, and bony calvarium. Visualized paranasal sinuses and mastoid air cells are clear. Impression: Continued normal CT head without contrast exam.
== END 2023-04-08 20:30 | disposition home or self-care (01) ==
LOC: ED 17:26
DX: R51.9 Headache, unspecified (principal); Z79.899 Other long term (current) drug therapy
CPT/HCPCS: 70450; 96372; 99283; A9270-GY

== ENCOUNTER 2023-05-04 10:18 | Emergency (ER) | payer MEDICARE ==
[2023-05-04] MEDS ORDERED: XYLOCAINE 1% HCL 20 ML MDV IJ ONE (10:19)
--- NOTE | 2023-05-04 10:33 | ERPHSYRPT ---
- History of Present Illness Time Seen by Provider: 05/04/23 10:33 Source: patient Exam Limitations: no limitations Physician History: This is a 38-year-old white female patient of Dr. Salvador who states she has been unable to urinate since the Thursday prior to today's evaluation. Patient has had a hysterectomy in the past, bilateral tubal ideation, gastric bypass nowak rgery as well as a bladder and ureteral repair. All these were done in the past. Recently, the prior to this evaluation, patient underwent a renal and urinary bladder biopsy as well as "relieving obstruction" at [facility] by a Dr. Maravilla. Patient states that the patient was placed on amoxicillin postoperatively. Patient has not been able to urinate since 05/01/2023. Patient has complaints of a lot of pelvic pain and pressure. She also noticed a blood clot present when she passed urine the last Thursday. Patient has been into our emergency department several times in the last 3 to 4 weeks. On 04/16/2023 patient had a BUN/creatinine of 10/0.64 and a GFR of 116.7. Patient states, post procedurally, the patient typically receives Levaquin or Cipro which she tolerates well. Patient has a history of migraine headaches, seizure disorder, PTSD, severe anxiety, gastroesophageal reflux disease and asthma. She has no chest pain and she has no shortness of breath. She has not had fevers. Timing/Duration: day(s) (3), worse Quality: aching, pressure Onset Location: suprapubic, pelvic pain Pain Radiation: none Severity of Pain-Max: moderate Severity of Pain-Current: moderate Sexual intercourse history: non-contributory Associated Symptoms: abdominal pain, other (Urinary retention), No fever, No chills Allergies/Adverse Reactions: Fish Containing Products Allergy (Intermediate, Verified 05/04/23 10:32) Nausea and Vomiting swelling everywhere shellfish derived Allergy (Intermediate, Verified 05/04/23 10:32) Nausea and Vomiting latex Allergy (Verified 05/04/23 10:32) nitrofurantoin [From Macrobid] Allergy (Verified 05/04/23 10:32) Sulfa (Sulfonamide Antibiotics) [Sulfa(Sulfonamide Antibiotics)] Allergy (Verified 05/04/23 10:32) Hives sulfamethoxazole [From Septra] Allergy (Verified 05/04/23 10:32) Rash trimethoprim [From Septra] Allergy (Verified 05/04/23 10:32) Rash furosemide [From Lasix] Adverse Reaction (Verified 05/04/23 10:32) Hives Iodinated Contrast Media Adverse Reaction (Verified 05/04/23 10:32) Vomiting NSAIDS (Non-Steroidal Anti-Inflamma Adverse Reaction (Verified 05/04/23 10:32) Rash can take IM but no oral med eggs Allergy (Uncoded 05/04/23 10:32) Rash nausea/vomiting Home Medications: Tizanidine HCl 4 mg [Zanaflex 4 MG] 4 mg PO QID 07/08/19 [History] Topiramate [Topamax] 200 mg PO BID 07/08/19 [History] PANTOPRAZOLE 40 mg Tablet [Protonix 40MG Tablet] 40 mg PO QPM 07/12/19 [History] Ergocalciferol (Vitamin D2) [Vitamin D2] 1 cap PO WEEKLY 10/06/19 [History] Mirtazapine 30 mg [Remeron 30 mg] 1 tab PO HS 11/16/22 [History] Prazosin HCl 1 cap PO HS 11/16/22 [History] Sertraline HCl [Zoloft] 2 tab PO DAILY 11/16/22 [History] clonazePAM [Klonopin] 1 tab PO TID 11/16/22 [History] Levetiracetam 250 MG [Keppra 250 MG] 500 mg PO BID 03/28/23 [History] Levothyroxine Sodium 25 mcg PO DAILY 03/28/23 [History] Hydroxyzine HCl 25 mg [Atarax 25 mg] 1 tab PO TID PRN 04/04/23 [History] Trifluoperazine HCl 1 mg PO DAILY 04/08/23 [History] Amoxicillin 250 mg PO BID 05/04/23 [History] Hx Tetanus, Diphtheria Vaccination/Date Given: Yes Hx Influenza Vaccination/Date Given: No (egg allergy) Hx Pneumococcal Vaccination/Date Given: No Travel Risk - International Travel Have you traveled outside of the country in past 3 weeks: No - Coronavirus Screening Are you exhibiting any of the following symptoms?: No Close contact with a COVID-19 positive Pt in past 14- Days: No - Vaccine Status Have you recieved a Covid-19 vaccination: 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 - Vaccination Dates Date of 2cond Vaccination (if applicable): September 2020 - Review of Systems Constitutional: No Symptoms Eyes: No Symptoms Ears, Nose, & Throat: No Symptoms Respiratory: No Symptoms Cardiac: No Symptoms Abdominal/Gastrointestinal: Abdominal Pain (Suprapubic and pelvic aching and pressure) Genitourinary Symptoms: Urinary Retention Musculoskeletal: No Symptoms Skin: No Symptoms Neurological: No Symptoms Psychological: No Symptoms Endocrine: No Symptoms Hematologic/Lymphatic: No Symptoms Immunological/Allergic: No Symptoms All Other Systems: Reviewed and Negative - Past Medical History Pertinent Past Medical History: Yes Neurological History: Migraines, Seizures ENT History: No Pertinent History Cardiac History: No Pertinent History Respiratory History: Asthma Endocrine Medical History: Hypothyroidism Musculoskeletal History: No Pertinent History GI Medical History: GERD, Gallbladder Disease, Other History: Other Psycho-Social History: Anxiety, Depression, Other Female Reproductive Disorders: Abnormal Uterine Bleeding, Menstrual Problems Other Medical History: ANEMIA, GASTRIC ULCER, PTSD - Past Surgical History Past Surgical History: Yes Neuro Surgical History: No Pertinent History Cardiac: No Pertinent History Respiratory: No Pertinent History Gastrointestinal: Appendectomy, Cholecystectomy Genitourinary: No Pertinent History Musculoskeletal: No Pertinent History Female Surgical History: Hysterectomy, Tubal Ligation, Other Other Surgical History: gastric bypass, lap band placed and removed first, g- tube placement and removal, BLADDER AND URETER REPAIR - Social History Smoking Status: Former smoker How long have you smoked: 3 years Exposure to second hand smoke: No Drug Use: none Patient Lives Alone: No Significant Family History: no pertinent family hx - Nursing Vital Signs Nursing Vital Signs: Initial Vital Signs Blood Pressure 102/63 05/04/23 10:34 O2 Sat by Pulse Oximetry 100 05/04/23 10:34 Pain Scale Pain Intensity 8 - Physical Exam General Appearance: no apparent distress, alert, anxiety Eye Exam: PERRL/EOMI, eyes nml inspection Ears, Nose, Throat Exam: normal ENT inspection, moist mucous membranes Neck Exam: normal inspection, non-tender, supple, full range of motion Respiratory Exam: normal breath sounds, lungs clear, airway intact, No chest tenderness, No respiratory distress Cardiovascular Exam: regular rate/rhythm, normal heart sounds, normal peripheral pulses Gastrointestinal/Abdomen Exam: soft, normal bowel sounds, tenderness (Prepubic region), guarding (Suprapubic region to palpation) Pelvic Exam: not done Rectal Exam: not done Back Exam: normal inspection, normal range of motion, No CVA tenderness, No vertebral tenderness Extremity Exam: normal inspection, normal range of motion, pelvis stable Neurologic Exam: alert, 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, cooperative, 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 as tested, normal mood/affect, nml cerebellar function, nml station & gait, sensation nml Skin Exam: normal color, warm, dry Lymphatic Exam: No adenopathy SpO2 Interpretation: normal O2 Delivery: Room Air - Course Nursing assessment & vital signs reviewed: Yes Ordered Tests: Active Orders 24 hr Category Date Time Status Cath for Specimen-Straight STAT Care 05/04/23 11:06 Active ABDOMEN AND PELVIS W/0 CONTRAS [CT] Stat Exams 05/04/23 11:21 Completed BMP Stat Lab 05/04/23 11:45 Completed CULTURE,URINE Stat Lab 05/04/23 11:16 Received UA W/RFX UR CULTURE Stat Lab 05/04/23 11:16 Completed Medication Summary Discontinued Medications Generic Name Dose Route Start Last Admin Trade Name Roryq PRN Reason Stop Dose Admin Droperidol 1.25 mg 05/04/23 12:23 05/04/23 12:36 Droperidol 5 Mg/2 Ml Vial IM 05/04/23 12:24 1.25 mg STAT ONE Administration Droperidol Confirm 05/04/23 12:33 Droperidol 5 Mg/2 Ml Vial Administered 05/04/23 12:34 Dose 5 mg .ROUTE .STK-MED ONE Lab/Rad Data: Laboratory Result Diagrams 05/04/23 11:45 Laboratory Results 05/04/23 05/04/23 Range/Units 11:45 11:16 Sodium 138 (137-145) mmol/L Potassium 3.7 (3.5-5.1) mmol/L Chloride 114 H (98-107) mmol/L Carbon Dioxide 21 L (22-30) mmol/L Anion Gap 6.9 (5-15) MEQ/L BUN 11 (7-17) mg/dL Creatinine 0.53 (0.52-1.04) mg/dL Estimated GFR 122.1 ML/MIN Glucose 87 (74-106) mg/dL Calcium 8.3 L (8.4-10.2) mg/dL Urine Color Yellow (Yellow) Urine Appearance Cloudy A (Clear) Urine pH 6.0 (4.6-8.0) Ur Specific [place] 1.025 (1.005-1.030) Urine Protein 30 (Negative) Urine Glucose (UA) Negative (Negative) mg/dL Urine Ketones Negative (Negative) Urine Blood Large A (Negative) Urine Nitrite Negative (Negative) Urine Bilirubin Negative (Negative) Urine Urobilinogen 1.0 A (0.2) mg/dL Ur Leukocyte Esterase Moderate A (Negative) U Hyaline Cast (Auto) None Seen (0-2) /LPF Urine Microscopic RBC 11-20 A (0-5) /HPF Urine Microscopic WBC 21-50 A (0-5) /HPF Ur Epithelial Cells Few (None Seen) /HPF Urine Bacteria Moderate A (None Seen) /HPF Urine Culture Reflexed ORDERED SEPARATELY (NO) - Progress Progress: re-examined Air Movement: good Progress Note: 05/04/23 11:25 This patient's medical issue is 1 of moderate complexity. The level of complexity and the workup performed is based on the rereview of the patient's past medical history, review of the patient's medication list, review of patient's drug allergy list, history of present illness and physical findings on examination. The workup in this patient includes CT scan of the abdomen pelvis without contrast, the urinalysis, BMP, straight Garcia catheterization. 05/04/23 12:27 I interpreted the patient's laboratory data results. There is no evidence of any acute or emergent medical issue based on the laboratory data results that have returned so far. We are awaiting the urinalysis results. If positive for infection we will place her on a different antibiotic than amoxicillin. CT scan of the abdomen and pelvis without contrast was interpreted by the rad iologist and I reviewed the impression. There is new urinary bladder intraluminal air bubble. Iatrogenic versus gas-forming infection. Remaining CT scan of the abdomen pelvis without contrast is negative. There is no free air and no free fluid. The presence of the air bubble is likely iatrogenic since the patient was catheterized 4 days ago and again today to obtain the urine specimen. I reviewed the impression with the patient. Blood Culture(s) Obtained: No Antibiotics given: Yes Counseled pt/family regarding: lab results, diagnosis, need for follow-up, rad results Medical Desision Making - Diagnostic Testing Diagnostic test were ordered, analyzed, and reviewed by me: Yes Radiological Interpretation: Reviewed by me, Teleradiologist Report - Risk of complications The pt has a mod risk of morbidity or mortality based on: Need for prescription drug management - Departure Departure Disposition: Home Clinical Impression: UTI (urinary tract infection) Condition: Stable Critical Care Time: No Referrals: MARCO SALVADOR MD [Primary Care Provider] - Follow up/PCP as directed Additional Instructions: Drink plenty of fluids. Call your urologist today, 05/04/2023, to make arranges for follow-up appointment with them in the next 3 to 5 days. Stop your amoxicillin and take your other antibiotics as prescribed. Prescriptions: Levofloxacin [Levaquin 500 MG Tablet] 500 mg PO DAILY #7 tablet Phenazopyridine HCl 200 mg [Pyridium 200 mg] 200 mg PO TID #6 tablet
[2023-05-04 10:49] VITALS: RESP 18; TEMP 98.4
[2023-05-04 12:01] LABS: ANION GAP 6.9 MEQ/L (5-15); Calcium 8.3 mg/dL (8.4-10.2); Creatinine 1 0.53 mg/dL (0.52-1.04); EST GLOMERULAR FILTRATION RATE 122.1 ML/MIN; Potassium 3.7 mmol/L (3.5-5.1)
--- NOTE | 2023-05-04 12:03 | XRAY ---
Indication: Pelvic pain. Multiple contiguous axial images obtained through the abdomen and pelvis without contrast. Comparison: March 28, 2023 Lung bases remain clear again with incidental small right base calcified granuloma. Heart not enlarged. Again previous gastric bypass surgery, appendectomy, and cholecystectomy. Noncontrasted stomach and bowel loops appear nonobstructed. Near empty urinary bladder demonstrates intraluminal air bubble either iatrogenic from recent catheterization versus gas-forming infection. No free fluid/air. Remaining liver, pancreas, spleen, adrenal glands, kidneys, ureters, bladder, uterus, and aorta are unremarkable for noncontrast exam. Osseous structures intact. Impression: 1. New urinary bladder intraluminal air bubble either iatrogenic versus gas-forming infection. 2. Remaining CT abdomen/pelvis without contrast exam continues to be negative.
[2023-05-04 12:25] LABS: Appearance Cloudy (Clear); Bilirubin Negative (Negative); Blood Large (Negative); Epithelial Cells Few /HPF (None Seen); Glucose, Urine Negative (Negative); Ketones Negative (Negative); Leukocyte Esterase Moderate (Negative); Nitrite Negative (Negative); Protein,Urine Dip 30 (Negative); Specific Gravity 1.025 (1.005-1.030); WBC 21-50 /HPF (0-5)
[2023-05-04 12:26] LABS: ADD URINE CULTURE? ORDERED SEPARATELY (NO); Bacteria Moderate /HPF (None Seen); Hyaline Casts None Seen /LPF (0-2)
[2023-05-04] MEDS ORDERED: Rocephin 1000 MG INJ IM ONE (12:36)
[2023-05-04] MEDS ORDERED: PYRIDIUM 200 MG PO ONE (12:37)
[2023-05-04] MEDS ORDERED: PYRIDIUM 200 MG ONE (12:49)
[2023-05-04] MEDS ORDERED: Rocephin 1000 MG INJ ONE (12:49)
[2023-05-04 15:19] VITALS: BP 99/58; PULSE 67
[2023-05-04 15:20] VITALS: O2SAT 100
== END 2023-05-04 13:07 | disposition home or self-care (01) ==
LOC: ED 10:18
DX: N39.0 Urinary tract infection, site not specified (principal); R33.9 Retention of urine, unspecified; R10.2 Pelvic and perineal pain; Z79.899 Other long term (current) drug therapy
CPT/HCPCS: 36415; 74176; 80048; 81001; 87077; 87086; 87186; 96372; 99284; P9612; J0696; A9270-GY

== ENCOUNTER 2023-05-22 20:01 | Emergency (ER) | payer MEDICARE ==
[2023-05-22 20:38] VITALS: TEMP 97.8; O2SAT 100
[2023-05-22] MEDS ORDERED: ZOFRAN ODT 4 MG PO ONE (21:40)
--- NOTE | 2023-05-22 21:42 | ERPHSYRPT ---
- History of Present Illness Time Seen by Provider: 05/22/23 21:30 Patient Subjective Stated Complaint: pt states she fell out of bed and hurt her rt side. Triage Nursing Assessment: pt alert and oriented, answers questions approp. pt ambulates into room from wating room with steady gait noted. respirations nonlabored. skin warm and dry. no bruising or redness noted. pupils equal and reactive. pt c/o pain in bilat feet. rt knee, rt arm from shoulder to fingers. rt ribs. and rt side of head. Physician History: 38 years old female, PMHx of seizures dis, Asthma, Hypothyroid, Anxiety. Presenting to the ER, C/O of falling of her bed tonight injuring her right side. She fell on hardwood floor. C/O , pain to her right forearm, right knee, right foot, ankle, left foot, and lower back. She also hit her head, but no LOC, no swelling or bleeding. She denies any neck pain. The patient is ambulatory , not in any distress. Denies chest pain ,SOB, she feels nauseous. The patient is well known to the ER Staff for her frequent ER visits. Allergies/Adverse Reactions: Fish Containing Products Allergy (Intermediate, Verified 05/22/23 20:39) Nausea and Vomiting swelling everywhere shellfish derived Allergy (Intermediate, Verified 05/22/23 20:39) Nausea and Vomiting Sulfa (Sulfonamide Antibiotics) [Sulfa(Sulfonamide Antibiotics)] Allergy (Intermediate, Verified 05/22/23 20:39) Hives tamsulosin [From Flomax] Allergy (Intermediate, Verified 05/22/23 20:39) Rash trimethoprim [From Septra] Allergy (Intermediate, Verified 05/22/23 20:39) Rash latex Allergy (Unknown, Verified 05/22/23 20:39) nitrofurantoin [From Macrobid] Allergy (Unknown, Verified 05/22/23 20:39) sulfamethoxazole [From Septra] Allergy (Verified 05/22/23 20:39) Rash furosemide [From Lasix] Adverse Reaction (Intermediate, Verified 05/22/23 20:39) Hives Iodinated Contrast Media Adverse Reaction (Intermediate, Verified 05/22/23 20:39) Vomiting NSAIDS (Non-Steroidal Anti-Inflamma Adverse Reaction (Intermediate, Verified 05/22/23 20:39) Rash can take IM but no oral med eggs Allergy (Intermediate, Uncoded 05/22/23 20:39) Rash nausea/vomiting Home Medications: Tizanidine HCl 4 mg [Zanaflex 4 MG] 4 mg PO QID 07/08/19 [History] Topiramate [Topamax] 200 mg PO BID 07/08/19 [History] PANTOPRAZOLE 40 mg Tablet [Protonix 40MG Tablet] 40 mg PO QPM 07/12/19 [History] Ergocalciferol (Vitamin D2) [Vitamin D2] 1 cap PO WEEKLY 10/06/19 [History] Mirtazapine 30 mg [Remeron 30 mg] 1 tab PO HS 11/16/22 [History] Prazosin HCl 1 cap PO HS 11/16/22 [History] Sertraline HCl [Zoloft] 2 tab PO DAILY 11/16/22 [History] clonazePAM [Klonopin] 1 tab PO TID 11/16/22 [History] Levetiracetam 250 MG [Keppra 250 MG] 500 mg PO BID 03/28/23 [History] Levothyroxine Sodium 25 mcg PO DAILY 03/28/23 [History] Hydroxyzine HCl 25 mg [Atarax 25 mg] 1 tab PO TID PRN 04/04/23 [History] Trifluoperazine HCl 1 mg PO DAILY 04/08/23 [History] Amoxicillin 250 mg PO BID 05/04/23 [History] Hx Tetanus, Diphtheria Vaccination/Date Given: Yes (2015) Hx Influenza Vaccination/Date Given: No (egg allergy) Hx Pneumococcal Vaccination/Date Given: No Travel Risk - International Travel Have you traveled outside of the country in past 3 weeks: No - Coronavirus Screening Are you exhibiting any of the following symptoms?: No Close contact with a COVID-19 positive Pt in past 14-21 Days: No - Vaccine Status Have you recieved a 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 - Vaccination Dates Date of 2cond Vaccination (if applicable): September 2020 - Review of Systems Constitutional: No Fever, No Chills Eyes: No Symptoms Ears, Nose, & Throat: No Symptoms Respiratory: No Cough, No Dyspnea Cardiac: No Chest Pain, No Edema, No Syncope Abdominal/Gastrointestinal: No Abdominal Pain, No Nausea, No Vomiting, No Diarrhea Genitourinary Symptoms: No Dysuria Musculoskeletal: Back Pain, Fall, Other (SP fall from bed onto floor, pain to both feet, lower back, right knee, right forearm), No Neck Pain Skin: No Rash Neurological: No Dizziness, No Focal Weakness, No Sensory Changes Psychological: No Symptoms Endocrine: No Symptoms All Other Systems: Reviewed and Negative - Past Medical History Pertinent Past Medical History: Yes Neurological History: Migraines, Seizures ENT History: No Pertinent History Cardiac History: No Pertinent History Respiratory History: Asthma Endocrine Medical History: Hypothyroidism Musculoskeletal History: No Pertinent History GI Medical History: GERD, Gallbladder Disease, Other History: Other Psycho-Social History: Anxiety, Depression, Other Female Reproductive Disorders: Abnormal Uterine Bleeding, Menstrual Problems Other Medical History: ANEMIA, GASTRIC ULCER, PTSD - Past Surgical History Past Surgical History: Yes Neuro Surgical History: No Pertinent History Cardiac: No Pertinent History Respiratory: No Pertinent History Gastrointestinal: Appendectomy, Cholecystectomy Genitourinary: No Pertinent History Musculoskeletal: No Pertinent History Female Surgical History: Hysterectomy, Tubal Ligation, Other Other Surgical History: gastric bypass 2010, lap band placed and removed first, g- tube placement and removal x2, BLADDER AND URETER REPAIR - Social History Smoking Status: Former smoker How long have you smoked: 3 years Exposure to second hand smoke: No Drug Use: none Patient Lives Alone: No Significant Family History: no pertinent family hx - Female History Hx Last Menstrual Period: hyster Hx Now: No Physical Exam - Nursing Vital Signs Nursing Vital Signs: Initial Vital Signs Temperature 97.8 F 05/22/23 20:23 Pulse Rate 49 L 05/22/23 20:23 Respiratory Rate 18 05/22/23 20:23 Blood Pressure 105/58 05/22/23 20:23 O2 Sat by Pulse Oximetry 100 05/22/23 20:23 Pain Scale Pain Intensity 8 - [place] Coma Score Best Eye Response ([place]): (4) open spontaneously Best Verbal Response (Radha): (5) oriented Best Motor Response ([place]): (6) obeys commands Radha Total: 15 - Physical Exam General Appearance: no apparent distress, alert Head Injury: no evidence of injury ENT Exam: airway nml, nml ext.inspection, No evidence of ENT injury Neck Exam: supple, trachea midline, normal inspection, focal neuro deficit, c- collar in place, No tenderness Respiratory/Chest Exam: normal breath sounds, No chest tenderness, No respiratory distress, No ecchymosis, No crepitus Cardiovascular Exam: normal heart sounds, regular rate/rhythm, normal peripheral pulses, No murmur, No edema, No JVD Gastrointestinal Exam: soft, No tenderness, No distention, No guarding Rectal Exam: deferred Back Exam: normal inspection, normal range of motion, other (No swelling, no bruises or deformity, lower lumbar tenderness, good ROM of the back. ), No vertebral tenderness Extremity Exam: normal inspection, normal range of motion, capillary refill <3 sec, pelvis stable, other (No swelling, no bruises or defromities to the extremities, good ROM at all joints, without any limitations. ), No joint swelling, No limited range of motion, No evidence of injury, No hip tenderness, No tenderness Neurologic Exam: alert, 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, cooperative, precipitation equipment tender II-XII nml as tested, sensation nml, No motor deficits, No disoriented Skin Exam: normal color, warm, dry SpO2 Interpretation: normal SpO2: 100 - Course Nursing assessment & vital signs reviewed: Yes Ordered Tests: Active Orders 24 hr Category Date Time Status Sling Application STAT Care 05/22/23 23:40 Completed ANKLE (2V) Stat Exams 05/22/23 21:40 Taken FOOT (MINIMUM 3 VIEWS) Stat Exams 05/22/23 21:37 Taken FOOT (MINIMUM 3 VIEWS) Stat Exams 05/22/23 21:38 Taken FOREARM Stat Exams 05/22/23 21:39 Taken KNEE (3 VIEWS) Stat Exams 05/22/23 21:41 Taken LUMBAR LIMITED (2 OR 3 VIEWS) Stat Exams 05/22/23 21:37 Taken Medication Summary Discontinued Medications Generic Name Dose Route Start Last Admin Trade Name Freq PRN Reason Stop Dose Admin Acetaminophen 1,000 mg 05/22/23 21:45 05/22/23 21:48 Acetaminophen 500 Mg Tablet PO 06/21/23 21:44 1,000 mg Q4H PRN PRN Administration HEADACHE Acetaminophen Confirm 05/22/23 21:47 Acetaminophen 500 Mg Tablet Administered 05/22/23 21:48 Dose 1,000 mg .ROUTE .STK-MED ONE Hydrocodone Bitart/Acetaminophen 1 tablet 05/22/23 23:37 05/22/23 23:43 Hydrocodone/Acetamin 10-325 Mg Tablet PO 05/22/23 23:38 1 tablet ONCE STA Administration Hydrocodone Bitart/Acetaminophen Confirm 05/22/23 23:41 Hydrocodone/Acetamin 10-325 Mg Tablet Administered 05/22/23 23:42 Dose 1 tablet .ROUTE .STK-MED ONE Ondansetron HCl 4 mg 05/22/23 21:40 05/22/23 21:48 Zofran 4 Mg/Udtablet Orally Disintegrating PO 05/22/23 21:41 4 mg STAT ONE Administration Ondansetron HCl Confirm 05/22/23 21:47 Zofran 4 Mg/Udtablet Orally Disintegrating Administered 05/22/23 21:48 Dose 4 mg .ROUTE .STK-MED ONE - Progress Progress Note: 05/22/23 21;30 38 years old female, PMHx of seizures dis, Asthma, Hypothyroid, Anxiety. Presenting to the ER, C/O of falling of her bed tonight injuring her right side. She fell on hardwood floor. C/O , pain to her right forearm, right knee, right foot, ankle, left foot, and lower back. She also hit her head, but no LOC, no swelling or bleeding. She denies any neck pain. The patient is ambulatory , not in any distress. Denies chest pain ,SOB, she feels nauseous. ER Course; Tylenol 1000 mg PO X1, Zofran 4mg ODT XRays of , LS spine, R.(Forearm, Knee, Foot, Ankle) Left foot. 05/22/23 23:00 Xrays are negative for any fracture. The patient is aware that these are preliminary readings, the radiologist will read them tomorrow, and she will be contacted for any reports discrepancy. Still C/O right forearm pain, she will be given [place] 10 mg , sling to her right forearm. DC home, accompanied by her mother. For the pain she can take Tylenol Follow-up with her family physician 2 to 3 days Apply ice to the injured parts. - Departure Departure Disposition: Home Clinical Impression: Contusion of forearm, right, Lumbar spine strain, Contusion of knee, right, High ankle sprain of right lower extremity, Contusion of foot, right Condition: Stable Critical Care Time: No Referrals: MARCO SALVADOR MD [Primary Care Provider] - Follow up/PCP as directed Instructions: Contusion (DC) Additional Instructions: Rest, Ice, elevation Tylenol 1000 mg , 4 times as needed Follow up with family MD in 2-3 days Follow up as needed
[2023-05-22] MEDS ORDERED: TYLENOL EXTRA STRENGTH 500 MG PO PRN (21:45)
[2023-05-22] MEDS ORDERED: ZOFRAN ODT 4 MG ONE (21:47)
[2023-05-22] MEDS ORDERED: TYLENOL EXTRA STRENGTH 500 MG ONE (21:47)
[2023-05-22] MEDS ORDERED: NORCO 10-325 MG PO STA (23:37)
[2023-05-22] MEDS ORDERED: NORCO 10-325 MG ONE (23:41)
[2023-05-23 00:02] VITALS: BP 122/81; PULSE 52; RESP 16
--- NOTE | 2023-05-23 07:52 | XRAY ---
Indication: Pain following fall. Comparison: December 21, 2021 2 view right forearm obtained. Again no bony, articular, or soft tissue abnormalities.
--- NOTE | 2023-05-23 07:54 | XRAY ---
Indication: Pain following fall. Comparison: September 27, 2017 3 view lumbar spine again demonstrates normal alignment with new L5-S1 disc space narrowing. Stable L5 spondylolysis without listhesis and upper abdomen suture material/surgical clips. No other bony, articular, or soft tissue abnormalities.
--- NOTE | 2023-05-23 07:56 | XRAY ---
Indication: Pain following fall. Comparison: December 15, 2021 3 view right knee obtained. Again no bony, articular, or soft tissue abnormalities.
--- NOTE | 2023-05-23 07:56 | XRAY ---
Indication: Pain following fall. Comparison: Mar 21, 2016 2 view right ankle obtained. Again no bony, articular, or soft tissue abnormalities.
--- NOTE | 2023-05-23 07:58 | XRAY ---
Indication: Pain following fall. Comparison: None 3 nonweightbearing views left foot obtained. No bony, articular, or soft tissue abnormalities.
--- NOTE | 2023-05-23 08:00 | XRAY ---
Indication: Pain following fall. Comparison: This is none 3 nonweightbearing views right foot demonstrates small 2nd cuneiform bone island. No other bony, articular, or soft tissue abnormalities.
== END 2023-05-22 23:55 | disposition home or self-care (01) ==
LOC: ED 20:01
DX: S39.012A Strain of muscle, fascia and tendon of lower back, initial encounter (principal); S93.401A Sprain of unspecified ligament of right ankle, initial encounter; S50.11XA Contusion of right forearm, initial encounter; S80.01XA Contusion of right knee, initial encounter; S90.31XA Contusion of right foot, initial encounter; W06.XXXA Fall from bed, initial encounter; Y92.003 Bedroom of unspecified non-institutional (private) residence as the place of occurrence of the external cause; M79.672 Pain in left foot; R11.0 Nausea; Z79.899 Other long term (current) drug therapy
CPT/HCPCS: 72100; 73090; 73562; 73600; 73630; 99283; Q0162; A9270-GY

== ENCOUNTER 2023-07-06 20:18 | Emergency (ER) | payer MEDICARE ==
[2012-04-19 19:06] VITALS: BP 140/66
--- NOTE | 2023-07-06 20:25 | ERPHSYRPT ---
- History of Present Illness Time Seen by Provider: 07/06/23 20:25 Source: patient Exam Limitations: no limitations Allergies/Adverse Reactions: Fish Containing Products Allergy (Intermediate, Verified 05/22/23 20:39) Nausea and Vomiting swelling everywhere shellfish derived Allergy (Intermediate, Verified 05/22/23 20:39) Nausea and Vomiting Sulfa (Sulfonamide Antibiotics) [Sulfa(Sulfonamide Antibiotics)] Allergy (Intermediate, Verified 05/22/23 20:39) Hives tamsulosin [From Flomax] Allergy (Intermediate, Verified 05/22/23 20:39) Rash trimethoprim [From Septra] Allergy (Intermediate, Verified 05/22/23 20:39) Rash latex Allergy (Unknown, Verified 05/22/23 20:39) nitrofurantoin [From Macrobid] Allergy (Unknown, Verified 05/22/23 20:39) sulfamethoxazole [From Septra] Allergy (Verified 05/22/23 20:39) Rash furosemide [From Lasix] Adverse Reaction (Intermediate, Verified 05/22/23 20:39) Hives Iodinated Contrast Media Adverse Reaction (Intermediate, Verified 05/22/23 20:39) Vomiting NSAIDS (Non-Steroidal Anti-Inflamma Adverse Reaction (Intermediate, Verified 05/22/23 20:39) Rash can take IM but no oral med eggs Allergy (Intermediate, Uncoded 05/22/23 20:39) Rash nausea/vomiting Home Medications: Tizanidine HCl 4 mg [Zanaflex 4 MG] 4 mg PO QID 07/08/19 [History] Topiramate [Topamax] 200 mg PO BID 07/08/19 [History] PANTOPRAZOLE 40 mg Tablet [Protonix 40MG Tablet] 40 mg PO QPM 07/12/19 [History] Ergocalciferol (Vitamin D2) [Vitamin D2] 1 cap PO WEEKLY 10/06/19 [History] Mirtazapine 30 mg [Remeron 30 mg] 1 tab PO HS 11/16/22 [History] Prazosin HCl 1 cap PO HS 11/16/22 [History] Sertraline HCl [Zoloft] 2 tab PO DAILY 11/16/22 [History] clonazePAM [Klonopin] 1 tab PO TID 11/16/22 [History] Levetiracetam 250 MG [Keppra 250 MG] 500 mg PO BID 03/28/23 [History] Levothyroxine Sodium 25 mcg PO DAILY 03/28/23 [History] Hydroxyzine HCl 25 mg [Atarax 25 mg] 1 tab PO TID PRN 04/04/23 [History] Trifluoperazine HCl 1 mg PO DAILY 04/08/23 [History] Amoxicillin 250 mg PO BID 05/04/23 [History] Hx Tetanus, Diphtheria Vaccination/Date Given: Yes (2016) Hx Influenza Vaccination/Date Given: No (egg allergy) Hx Pneumococcal Vaccination/Date Given: No Travel Risk - Vaccine Status Have you recieved a Covid-19 vaccination: Yes 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 - Vaccination Dates Date of 2cond Vaccination (if applicable): September 2020 - Past Medical History Pertinent Past Medical History: Yes Neurological History: Migraines, Seizures, Other ENT History: No Pertinent History Cardiac History: Arrhythmia Respiratory History: Asthma Endocrine Medical History: Hypothyroidism Musculoskeletal History: Other GI Medical History: GERD, Gallbladder Disease, Other History: Other Psycho-Social History: Anxiety, Depression, Other Female Reproductive Disorders: Abnormal Uterine Bleeding, Menstrual Problems Other Medical History: PMHX: ANXIETY, PTSD, HX FX LEFT ANKLE ABOUT 10 YEARS AGO AND LEFT FOREARM (NO SURGERY) CHILD. GERD, ANEMIA,. HX OF LAP BAND SURGERY WHICH HAD COMPLICATION AND WAS REMOVED THEN HAD FULL GASTRIC BYPASS. STATES DX WITH MALABSORPTION AND GASTRIC PARESIS. ALSO HX OF BLADDER SURGERY. - Past Surgical History Past Surgical History: Yes Neuro Surgical History: No Pertinent History Cardiac: No Pertinent History Respiratory: No Pertinent History Gastrointestinal: Appendectomy, Cholecystectomy Genitourinary: No Pertinent History Musculoskeletal: No Pertinent History Female Surgical History: Hysterectomy, Tubal Ligation, Other Other Surgical History: gastric bypass 2010, lap band placed and removed first, g- tube placement and removal x2, BLADDER AND URETER REPAIR Significant Family History: no pertinent family hx - Social History Smoking Status: Former smoker How long have you smoked: 3 years Exposure to second hand smoke: No Drug Use: none Patient Lives Alone: No - Departure Referrals: MARCO SALVADOR MD [Primary Care Provider] - Follow up/PCP as directed
== END 2023-07-07 00:35 | disposition left against medical advice (07) ==
LOC: ED 20:18
DX: Z53.21 Procedure and treatment not carried out due to patient leaving prior to being seen by health care provider (principal)

== ENCOUNTER 2023-07-07 07:54 | Emergency (ER) | payer MEDICARE ==
[2023-07-07 08:08] VITALS: PULSE 50; TEMP 97.5; O2SAT 100
--- NOTE | 2023-07-07 08:32 | ERPHSYRPT ---
- History of Present Illness Time Seen by Provider: 07/07/23 08:10 Source: patient Exam Limitations: no limitations Patient Subjective Stated Complaint: pt c/o of a migraine for the past 5 days Triage Nursing Assessment: Pt was brought to the ER by a family member, bradycardic, rates pain as 8/10, pulses normal, skin n/w/d, A&O x3, no difficulty breathing, walked into the ER without assistance Physician History: Patient is a 38-year-old female presents to our ED for evaluation of a migraine that started this morning.. Patient states she experiences chronic intermittent migraines. She also has cluster headaches. Patient's current headache sounds like a cluster headache which she has had in the past. Pain is localized to the left frontal area. Pain is associated with some eye discomfort and tearing. No trauma no fever no neck pain. No photophobia. No meningeal signs. Symptoms are constant. Patient rates her pain 8 out of 10. No associated chest pain or shortness of breath. No vomiting or diaphoresis. Patient voices no other complaints or concerns at this time. Portions of this note were created with voice recognition technology. There may be grammatical, spelling, punctuation or sound alike errors Timing/Duration: today Severity: moderate Modifying Factors: Improves With: nothing Associated Symptoms: denies symptoms Allergies/Adverse Reactions: Fish Containing Products Allergy (Intermediate, Verified 07/07/23 08:08) Nausea and Vomiting swelling everywhere shellfish derived Allergy (Intermediate, Verified 07/07/23 08:08) Nausea and Vomiting Sulfa (Sulfonamide Antibiotics) [Sulfa(Sulfonamide Antibiotics)] Allergy (Intermediate, Verified 07/07/23 08:08) Hives tamsulosin [From Flomax] Allergy (Intermediate, Verified 07/07/23 08:08) Rash trimethoprim [From Septra] Allergy (Intermediate, Verified 07/07/23 08:08) Rash latex Allergy (Unknown, Verified 07/07/23 08:08) nitrofurantoin [From Macrobid] Allergy (Unknown, Verified 07/07/23 08:08) sulfamethoxazole [From Septra] Allergy (Verified 07/07/23 08:08) Rash furosemide [From Lasix] Adverse Reaction (Intermediate, Verified 07/07/23 08:08) Hives Iodinated Contrast Media Adverse Reaction (Intermediate, Verified 07/07/23 08:08) Vomiting NSAIDS (Non-Steroidal Anti-Inflamma Adverse Reaction (Intermediate, Verified 07/07/23 08:08) Rash can take IM but no oral med eggs Allergy (Intermediate, Uncoded 07/07/23 08:08) Rash nausea/vomiting Home Medications: Tizanidine HCl 4 mg [Zanaflex 4 MG] 4 mg PO QID 07/08/19 [History] Topiramate [Topamax] 200 mg PO BID 07/08/19 [History] PANTOPRAZOLE 40 mg Tablet [Protonix 40MG Tablet] 40 mg PO QPM 07/12/19 [History] Ergocalciferol (Vitamin D2) [Vitamin D2] 1 cap PO WEEKLY 10/06/19 [History] Mirtazapine 30 mg [Remeron 30 mg] 1 tab PO HS 11/16/22 [History] Prazosin HCl 1 cap PO HS 11/16/22 [History] clonazePAM [Klonopin] 1 tab PO TID 11/16/22 [History] Levetiracetam 250 MG [Keppra 250 MG] 500 mg PO BID 03/28/23 [History] Levothyroxine Sodium 25 mcg PO DAILY 03/28/23 [History] Hydroxyzine HCl 25 mg [Atarax 25 mg] 1 tab PO TID PRN 04/04/23 [History] Trifluoperazine HCl 1 mg PO DAILY 04/08/23 [History] Fluoxetine HCl 40 mg PO DAILY 07/07/23 [History] Hx Tetanus, Diphtheria Vaccination/Date Given: Yes (2016) Hx Influenza Vaccination/Date Given: No (egg allergy) Hx Pneumococcal Vaccination/Date Given: No Travel Risk - International Travel Have you traveled outside of the country in past 3 weeks: No - Coronavirus Screening Are you exhibiting any of the following symptoms?: No Close contact with a COVID-19 positive Pt in past 14-21 Days: No - Vaccine Status Have you recieved a Covid-19 vaccination: Yes 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 - Vaccination Dates Date of 2cond Vaccination (if applicable): September 2020 - Review of Systems Constitutional: No Symptoms, No Fever, No Chills Eyes: No Symptoms Ears, Nose, & Throat: No Symptoms Respiratory: No Symptoms, No Cough, No Dyspnea Cardiac: No Symptoms, No Chest Pain, No Edema, No Syncope Abdominal/Gastrointestinal: No Symptoms, No Abdominal Pain, No Nausea, No Vomiting, No Diarrhea Genitourinary Symptoms: No Symptoms, No Dysuria Musculoskeletal: No Symptoms, No Back Pain, No Neck Pain Skin: No Symptoms, No Rash Neurological: No Symptoms, No Dizziness, No Focal Weakness, No Sensory Changes Psychological: No Symptoms Endocrine: No Symptoms Hematologic/Lymphatic: No Symptoms Immunological/Allergic: No Symptoms All Other Systems: Reviewed and Negative - Past Medical History Pertinent Past Medical History: Yes Neurological History: Migraines, Seizures, Other ENT History: No Pertinent History Cardiac History: Arrhythmia Respiratory History: Asthma Endocrine Medical History: Hypothyroidism Musculoskeletal History: Other GI Medical History: GERD, Gallbladder Disease, Other History: Other Psycho-Social History: Anxiety, Depression, Other Female Reproductive Disorders: Abnormal Uterine Bleeding, Menstrual Problems Other Medical History: PMHX: ANXIETY, PTSD, HX FX LEFT ANKLE ABOUT 10 YEARS AGO AND LEFT FOREARM (NO SURGERY) CHILD. GERD, ANEMIA,. HX OF LAP BAND SURGERY WHICH HAD COMPLICATION AND WAS REMOVED THEN HAD FULL GASTRIC BYPASS. STATES DX WITH MALABSORPTION AND GASTRIC PARESIS. ALSO HX OF BLADDER SURGERY. - Past Surgical History Past Surgical History: Yes Neuro Surgical History: No Pertinent History Cardiac: No Pertinent History Respiratory: No Pertinent History Gastrointestinal: Appendectomy, Cholecystectomy Genitourinary: No Pertinent History Musculoskeletal: No Pertinent History Female Surgical History: Hysterectomy, Tubal Ligation, Other Other Surgical History: gastric bypass 2010, lap band placed and removed first, g- tube placement and removal x2, BLADDER AND URETER REPAIR Significant Family History: no pertinent family hx - Female History Hx Now: No - Social History Smoking Status: Former smoker How long have you smoked: 3 years Exposure to second hand smoke: No Drug Use: none Patient Lives Alone: No - Nursing Vital Signs Nursing Vital Signs: Initial Vital Signs Temperature 97.5 F 07/07/23 07:59 Pulse Rate 50 L 07/07/23 07:59 Blood Pressure 107/69 07/07/23 07:59 O2 Sat by Pulse Oximetry 100 07/07/23 07:59 Pain Scale Pain Intensity 8 - Physical Exam General Appearance: no apparent distress, alert Eye Exam: PERRL/EOMI, eyes nml inspection Ears, Nose, Throat Exam: normal ENT inspection, TMs normal, pharynx normal, moist mucous membranes Neck Exam: normal inspection, non-tender, supple, full range of motion Respiratory Exam: normal breath sounds, lungs clear, airway intact, No respiratory distress Cardiovascular Exam: regular rate/rhythm, normal heart sounds, normal peripheral pulses Gastrointestinal/Abdomen Exam: soft, normal bowel sounds, No tenderness, No mass Back Exam: normal inspection, normal range of motion, No CVA tenderness, No vertebral tenderness Extremity Exam: normal inspection, normal range of motion, pelvis stable Neurologic Exam: alert, 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, cooperative, normal mood/affect, nml cerebellar function, nml station & gait, sensation nml, No motor deficits Skin Exam: normal color, warm, dry, No rash Lymphatic Exam: No adenopathy SpO2 Interpretation: normal SpO2: 100 O2 Delivery: Room Air - Course Nursing assessment & vital signs reviewed: Yes Ordered Tests: Active Orders 24 hr Category Date Time Status Oxygen-ED Only NON-REBREATHER 100% Care 07/07/23 08:08 Active HCG QUALITATIVE, URINE Stat Lab 07/07/23 Ordered UA W/RFX UR CULTURE Stat Lab 07/07/23 08:09 Ordered Medication Summary Discontinued Medications Generic Name Dose Route Start Last Admin Trade Name Freq PRN Reason Stop Dose Admin Ketamine HCl 2.5 mg 07/07/23 08:10 07/07/23 09:29 Ketamine Hcl 50 Mg/Ml IV 07/07/23 08:11 2.5 mg STAT ONE Administration Ketamine HCl Confirm 07/07/23 09:27 Ketamine Hcl 50 Mg/Ml Administered 07/07/23 09:28 Dose 50 mg .ROUTE .STK-MED ONE Prochlorperazine Edisylate 10 mg 07/07/23 08:08 07/07/23 09:29 Prochlorperazine Edisylate 10 Mg/2 Ml Vial IV 07/07/23 08:09 10 mg STAT ONE Administration Prochlorperazine Edisylate Confirm 07/07/23 09:27 Prochlorperazine Edisylate 10 Mg/2 Ml Vial Administered 07/07/23 09:28 Dose 10 mg .ROUTE .STK-MED ONE - Progress Progress: unchanged Progress Note: Patient received her medication. Patient then requested discharge as her ride will no longer be available if she does not leave at the present time. Patient will be discharged per her request. No significant improvement in her headache as she has just received her medications. Patient agrees to follow-up with a primary care doctor within 48 hours for evaluation. We were unable to monitor patient's response to management. We typically observe patient for period of time to determine if additional testing is necessary. Patient request to leave will preclude this from occurring which would limit management. Still leaving prematurely what place patient at risk for potential adverse outcome. Patient will leave AMA. Patient is of sound mind. Patient is appropriate to make informed and independent medical decisions. Patient understands that leaving AGAINST MEDICAL ADVICE can result in delayed diagnosis, increased risk of morbidity, mortality, short and long-term disability including . In spite of these risks, patient has decided to leave AGAINST MEDICAL ADVICE. Patient understands that she may return to our ED at any point if she reconsiders. Patient agrees to follow-up with her primary care doctor within 48 hours for reevaluation. Patient voices no other complaints or concerns at this time. We will release patient AGAINST MEDICAL ADVICE per their request. Portions of this note were created with voice recognition technology. There may be grammatical, spelling, punctuation or sound alike errors Complexity problem addressed is moderate acute complicated No critical care time Complexity data reviewed and analyzed is none. No specialized testing ordered. Diagnosis made based on history and physical exam. Risk of complication and or risk of morbidity/mortality of patient management is low Vital stable. Time spent to discharge patient is approximately 15 minutes. Plan of care established for shared decision making. No social determinants of health present impede follow-up. Portions of this note were created with voice recognition technology. There may be grammatical, spelling, punctuation or sound alike errors 07/07/23 09:40 07/07/23 09:43 Counseled pt/family regarding: diagnosis, need for follow-up - Departure Departure Disposition: AMA Clinical Impression: Migraine headache, Cluster headache Condition: Stable Critical Care Time: No Referrals: MARCO SALVADOR MD [Primary Care Provider] - Follow up/PCP as directed Additional Instructions: Discharge/Care Plan ELENVICKI BOSS was seen on 07/07/23 in the Emergency Room. The patient was counseled regarding Diagnosis,Lab results, Imaging studies, need for follow up and when to return to the Emergency Room. Prescriptions given: Discharge Note I have spoken with the patient and/or caregivers. I have explained the patient's condition, diagnosis and treatment plan based on the information available to me at this time. I have answered the patient's and/or caregiver's questions and addressed any concerns. The patient and/or caregivers have as good understanding of the patient's diagnosis, condition and treatment plan as can be expected at this point. The vital signs have been stable. The patient's condition is stable and appropriate for discharge from the emergency department. The patient will pursue further outpatient evaluation with the primary care physician or other designated or consulting physician as outlined in the discharge instructions. The patient and/or caregivers are agreeable to this plan of care and follow-up instructions have been explained in detail. The patient and/or caregivers have received these instruction. The patient/and or caregivers are aware that any significant change in condition or worsening of symptoms should prompt an immediate return to this or the closest emergency department or call 911.
[2023-07-07] MEDS ORDERED: Compazine 10 MG/2 ML ONE (09:27)
[2023-07-07] MEDS ORDERED: Ketamine HCl 50 MG/ML ONE (09:27)
[2023-07-07] MEDS: Ketamine HCl 50 MG/ML IV ONE (09:29)
[2023-07-07] MEDS: Compazine 10 MG/2 ML IV ONE (09:29)
[2023-07-07 09:38] VITALS: BP 105/67
== END 2023-07-07 09:52 | disposition left against medical advice (07) ==
LOC: ED 07:54
DX: G44.009 Cluster headache syndrome, unspecified, not intractable (principal); Z79.899 Other long term (current) drug therapy
CPT/HCPCS: 96374; 96375; 99283

== ENCOUNTER 2023-07-11 15:08 | Emergency (ER) | payer MEDICARE ==
[2023-07-11 15:55] VITALS: RESP 18; O2SAT 100
[2023-07-11 16:04] LABS: INFLUENZA A NEGATIVE (NEGATIVE); INFLUENZA B NEGATIVE (NEGATIVE); RESPIRATORY SYNCTIAL VIRUS NEGATIVE (NEGATIVE); SARS-CoV-2 Xpert Express NEGATIVE (NEGATIVE)
--- NOTE | 2023-07-11 16:49 | ERPHSYRPT ---
- History of Present Illness Time Seen by Provider: 07/11/23 16:46 Source: patient Exam Limitations: no limitations Patient Subjective Stated Complaint: Headache Triage Nursing Assessment: Patient ambulated back to ED and transferred self to bed. Patient A+O X3. Patient's skin pink, warm and dry. Patient complains of headache 8/10, nausea, sensitive to light and noise. Physician History: Patient complains of headache 8/10, nausea, sensitive to light and noise. Timing/Duration: today Quality: throbbing Head Pain Location: frontal Severity of Pain-Max: moderate Severity of Pain-Current: moderate Recent Head Trauma: frequent headaches Modifying Factors: Improves With: exposure to light Associated Symptoms: denies symptoms Previous symptoms: same symptoms as today Allergies/Adverse Reactions: Fish Containing Products Allergy (Intermediate, Verified 07/11/23 15:43) Nausea and Vomiting swelling everywhere shellfish derived Allergy (Intermediate, Verified 07/11/23 15:43) Nausea and Vomiting Sulfa (Sulfonamide Antibiotics) [Sulfa(Sulfonamide Antibiotics)] Allergy (Intermediate, Verified 07/11/23 15:43) Hives tamsulosin [From Flomax] Allergy (Intermediate, Verified 07/11/23 15:43) Rash trimethoprim [From Septra] Allergy (Intermediate, Verified 07/11/23 15:43) Rash latex Allergy (Unknown, Verified 07/11/23 15:43) nitrofurantoin [From Macrobid] Allergy (Unknown, Verified 07/11/23 15:43) sulfamethoxazole [From Septra] Allergy (Verified 07/11/23 15:43) Rash furosemide [From Lasix] Adverse Reaction (Intermediate, Verified 07/11/23 15:43) Hives Iodinated Contrast Media Adverse Reaction (Intermediate, Verified 07/11/23 15:43) Vomiting NSAIDS (Non-Steroidal Anti-Inflamma Adverse Reaction (Intermediate, Verified 07/11/23 15:43) Rash can take IM but no oral med eggs Allergy (Intermediate, Uncoded 07/11/23 15:43) Rash nausea/vomiting Home Medications: Tizanidine HCl 4 mg [Zanaflex 4 MG] 4 mg PO QID 07/08/19 [History] Topiramate [Topamax] 200 mg PO BID 07/08/19 [History] PANTOPRAZOLE 40 mg Tablet [Protonix 40MG Tablet] 40 mg PO QPM 07/12/19 [History] Ergocalciferol (Vitamin D2) [Vitamin D2] 1 cap PO WEEKLY 10/06/19 [History] Mirtazapine 30 mg [Remeron 30 mg] 1 tab PO HS 11/16/22 [History] Prazosin HCl 1 cap PO HS 11/16/22 [History] clonazePAM [Klonopin] 1 tab PO TID 11/16/22 [History] Levetiracetam 250 MG [Keppra 250 MG] 500 mg PO BID 03/28/23 [History] Levothyroxine Sodium 25 mcg PO DAILY 03/28/23 [History] Hydroxyzine HCl 25 mg [Atarax 25 mg] 1 tab PO TID PRN 04/04/23 [History] Trifluoperazine HCl 1 mg PO DAILY 04/08/23 [History] Fluoxetine HCl 40 mg PO DAILY 07/07/23 [History] Hx Tetanus, Diphtheria Vaccination/Date Given: Yes (2016) Hx Influenza Vaccination/Date Given: No (egg allergy) Hx Pneumococcal Vaccination/Date Given: No Immunizations Up to Date: Yes Travel Risk - International Travel Have you traveled outside of the country in past 3 weeks: No - Emerging Infectious Disease Are you exhibiting symptoms associated with any current EIDs: No - Review of Systems Constitutional: No Fever, No Chills Eyes: No Symptoms Ears, Nose, & Throat: No Symptoms Respiratory: No Cough, No Dyspnea Cardiac: No Chest Pain, No Edema, No Syncope Abdominal/Gastrointestinal: No Abdominal Pain, No Nausea, No Vomiting, No Diarrhea Genitourinary Symptoms: No Dysuria Musculoskeletal: No Back Pain, No Neck Pain Skin: No Rash Neurological: Headache, No Dizziness, No Focal Weakness, No Sensory Changes Psychological: No Symptoms Endocrine: No Symptoms All Other Systems: Reviewed and Negative - Past Medical History Pertinent Past Medical History: Yes Neurological History: Migraines, Seizures, Other ENT History: No Pertinent History Cardiac History: Arrhythmia Respiratory History: Asthma Endocrine Medical History: Hypothyroidism Musculoskeletal History: Other GI Medical History: GERD, Gallbladder Disease, Other History: Other Psycho-Social History: Anxiety, Depression, Other Female Reproductive Disorders: Abnormal Uterine Bleeding, Menstrual Problems Other Medical History: PMHX: ANXIETY, PTSD, HX FX LEFT ANKLE ABOUT 10 YEARS AGO AND LEFT FOREARM (NO SURGERY) CHILD. GERD, ANEMIA,. HX OF LAP BAND SURGERY WHICH HAD COMPLICATION AND WAS REMOVED THEN HAD FULL GASTRIC BYPASS. STATES DX WITH MALABSORPTION AND GASTRIC PARESIS. ALSO HX OF BLADDER SURGERY. - Past Surgical History Past Surgical History: Yes Neuro Surgical History: No Pertinent History Cardiac: No Pertinent History Respiratory: No Pertinent History Gastrointestinal: Appendectomy, Cholecystectomy Genitourinary: No Pertinent History Musculoskeletal: No Pertinent History Female Surgical History: Hysterectomy, Tubal Ligation, Other Other Surgical History: gastric bypass 2010, lap band placed and removed first, g- tube placement and removal x2, BLADDER AND URETER REPAIR Significant Family History: no pertinent family hx - Female History Hx Last Menstrual Period: ablation Hx Now: No - Social History Smoking Status: Former smoker How long have you smoked: 3 years Exposure to second hand smoke: No Drug Use: none Patient Lives Alone: No - Nursing Vital Signs Nursing Vital Signs: Initial Vital Signs Temperature 97.7 F 07/11/23 15:43 Pulse Rate 55 L 07/11/23 15:43 Respiratory Rate 18 07/11/23 15:43 Blood Pressure 114/76 07/11/23 15:43 O2 Sat by Pulse Oximetry 100 07/11/23 15:43 Pain Scale Pain Intensity 8 - Physical Exam General Appearance: no apparent distress Eye Exam: PERRL/EOMI Ears, Nose, Throat Exam: normal ENT inspection, moist mucous membranes Neck Exam: normal inspection, supple, full range of motion, No meningismus Respiratory Exam: normal breath sounds, lungs clear Cardiovascular Exam: regular rate/rhythm, normal heart sounds Gastrointestinal/Abdominal Exam: soft, No tenderness, No distention Back Exam: normal inspection, normal range of motion Mental Status Exam: alert, 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, 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 Exam: normal speech, PERRL, No facial droop Coordination/Gait Exam: normal cerebellar function Motor/Sensory Exam: no motor deficit, no sensory deficit Skin Exam: normal color, warm, dry, No rash SpO2: 100 - Course Nursing assessment & vital signs reviewed: Yes Ordered Tests: Medication Summary Discontinued Medications Generic Name Dose Route Start Last Admin Trade Name Freq PRN Reason Stop Dose Admin Droperidol 1.25 mg 07/11/23 16:32 07/11/23 17:28 Droperidol 5 Mg/2 Ml Vial IM 07/11/23 16:33 1.25 mg STAT ONE Administration Droperidol Confirm 07/11/23 17:25 Droperidol 5 Mg/2 Ml Vial Administered 07/11/23 17:26 Dose 5 mg .ROUTE .STK-MED ONE Ketorolac Tromethamine 60 mg 07/11/23 16:32 07/11/23 17:27 Ketorolac Tromethamine 30 Mg/Ml Inj IM 07/11/23 16:33 60 mg STAT ONE Administration Ketorolac Tromethamine Confirm 07/11/23 17:25 Ketorolac Tromethamine 30 Mg/Ml Inj Administered 07/11/23 17:26 Dose 60 mg .ROUTE .STK-MED ONE Lab/Rad Data: Laboratory Results 07/11/23 Range/Units 15:20 Influenza Type A Ag NEGATIVE (NEGATIVE) Influenza Type B Ag NEGATIVE (NEGATIVE) RSV (PCR) NEGATIVE (NEGATIVE) SARS-CoV-2 (PCR) NEGATIVE (NEGATIVE) - Progress Progress: improved Counseled pt/family regarding: need for follow-up Medical Desision Making - Diagnostic Testing Diagnostic test were ordered, analyzed, and reviewed by me: No - Risk of complications Minimal Risk: Minimal risk of morbidity - Departure Departure Disposition: Home Clinical Impression: Migraine headache Qualifiers: Migraine type: ophthalmoplegic Intractability: not intractable Qualified Code(s): G43.B0 - Ophthalmoplegic migraine, not intractable Condition: Stable Critical Care Time: No Referrals: MARCO SALVADOR MD [Primary Care Provider] - Follow up/PCP as directed Instructions: Headache, Adult (DC) Additional Instructions: Discharge/Care Plan JULIAN MYRICKJUAN DIEGO BOSS was seen on 07/11/23 in the Emergency Room. The patient was counseled regarding Diagnosis,Lab results, Imaging studies, need for follow up and when to return to the Emergency Room. Prescriptions given: Discharge Note I have spoken with the patient and/or caregivers. I have explained the patient's condition, diagnosis and treatment plan based on the information available to me at this time. I have answered the patient's and/or caregiver's questions and addressed any concerns. The patient and/or caregivers have as good understanding of the patient's diagnosis, condition and treatment plan as can be expected at this point. The vital signs have been stable. The patient's condition is stable and appropriate for discharge from the emergency department. The patient will pursue further outpatient evaluation with the primary care physician or other designated or consulting physician as outlined in the discharge instructions. The patient and/or caregivers are agreeable to this plan of care and follow-up instructions have been explained in detail. The patient and/or caregivers have received these instruction. The patient/and or caregivers are aware that any significant change in condition or worsening of symptoms should prompt an immediate return to this or the closest emergency department or call 911. ELENVICKI BOSS was seen on 07/11/23 n the Emergency Room. At that time you were treated for an emergent condition, during your visit Laboratory, Radiology and/or other procedures may have been ordered. It is very important that you follow-up with your Primary Care Physician MARCO SALVADOR within the next 24-48 hours to review your Emergency Room visit and the final results of testing that was ordered. Some test results such as Urine Cultures, Blood Cultures, and other cultures if ordered will not be finalized for 24-48 hours. If you do not have a Primary Care Provider please call the medical records department at [phone] ext [phone] to obtain a copy of your results or you may sign into our patient portal to obtain these results by visiting us @ [email or web address] and completing the following steps: 1. Click on the Patient Portal link 2. Click the Patient Self Enrollment Link to complete the enrollment form and entering your 3. Once the enrollment form is completed you will receive an email with a temporary ID and password at the email address you provided. 4. Next choose a user name and password. Your user name must be at least 4 c haracters long and your password must be at least 4 characters long. 5. Choose a security question from the list and provide your answer to the question. If you already have signed into the Health Portal you may access your Health Care Information 10/11 by the following steps: 1. Login to our website @ [email or web address] 2. Enter your original user name and password. FAQS The [facility] Health Portal is an online tool that contains your Lab Results, Radiology Reports, Visit History, Discharge Instructions and Health Summary Lab and Radiology Results will not be available for 72 hours on the portal. The Portal is a secure site, passwords are encryted and URLs are re-written so they cannot be copied and pasted. You and authorized family members are the only ones who can access your Portal. Also there is a timeout feature that protects your information if you leave the Portal page open. If you have technical difficulty please use the Contact Us link on the page this will allow you to submit any questions you have regarding the Portal or you may contact the Medical Record Department at [phone] ext [phone].
[2023-07-11] MEDS ORDERED: TORAdol 30 mg Injection ONE (17:25)
[2023-07-11] MEDS: TORAdol 30 mg Injection IM ONE (17:27)
[2023-07-11] MEDS: PERCOCET TABLET 5/325MG PO STA (19:20)
[2023-07-11] MEDS ORDERED: PERCOCET TABLET 5/325MG ONE (19:20)
[2023-07-11 19:25] VITALS: BP 120/70; PULSE 60; TEMP 98
== END 2023-07-11 19:25 | disposition home or self-care (01) ==
LOC: ED 15:08
DX: G43.B0 Ophthalmoplegic migraine, not intractable (principal); R11.0 Nausea; Z79.899 Other long term (current) drug therapy
CPT/HCPCS: 0241U; 96372; 99283; J1885; A9270-GY

== ENCOUNTER 2023-11-26 10:44 | Emergency (ER) | payer MEDICARE ==
[2023-11-26 11:16] VITALS: RESP 18; TEMP 98; O2SAT 100
[2023-11-26] MEDS ORDERED: Zofran 4 MG/2 ML VIAL ONE (11:37)
[2023-11-26] MEDS ORDERED: MORPHINE SULFATE 4 MG INJ ONE (11:37)
[2023-11-26] MEDS ORDERED: Sodium Chloride 0.9% 1000 ML 1,000 ML ONE (11:37)
--- NOTE | 2023-11-26 11:37 | ERPHSYRPT ---
- History of Present Illness Time Seen by Provider: 11/26/23 11:02 Historian: patient Exam Limitations: no limitations Patient Subjective Stated Complaint: pt here for abd pain, she has partial hysterectomy on 11/23 and had cervix,cyst taken out laporscopic. she states she h as one pain pill left, last bm today, no fever, some nausea, Triage Nursing Assessment: pt alert, walked in, resp easy, skin w/d/p. abd soft has 5 incision sites well approximated, no drainage or redness noted, abd binder on, abd tender to palpate Physician History: 38-year-old female with history of anxiety/depression/seizure disorder/PTSD/GERD/gastric bypass, appendectomy/cholecystectomy presented in the ER after she had a procedure done at [facility] with partial hysterectomy/cervix and some cyst removal 2 days ago presented in the ER with increasing pain in the lower abdomen despite taking her pain medications. Patient reports passing gas but does not have a bowel movement. No vomiting. Reports 9/10 intensity pain. Spoke with her primary surgeon and was recommended to have CT and workup done in the ER. Allergies/Adverse Reactions: Fish Containing Products Allergy (Intermediate, Verified 11/26/23 11:04) Nausea and Vomiting swelling everywhere shellfish derived Allergy (Intermediate, Verified 11/26/23 11:04) Nausea and Vomiting Sulfa (Sulfonamide Antibiotics) [Sulfa(Sulfonamide Antibiotics)] Allergy (Intermediate, Verified 11/26/23 11:04) Hives tamsulosin [From Flomax] Allergy (Intermediate, Verified 11/26/23 11:04) Rash trimethoprim [From Septra] Allergy (Intermediate, Verified 11/26/23 11:04) Rash latex Allergy (Unknown, Verified 11/26/23 11:04) nitrofurantoin [From Macrobid] Allergy (Unknown, Verified 11/26/23 11:04) sulfamethoxazole [From Septra] Allergy (Verified 11/26/23 11:04) Rash furosemide [From Lasix] Adverse Reaction (Intermediate, Verified 11/26/23 11:04) Hives Iodinated Contrast Media Adverse Reaction (Intermediate, Verified 11/26/23 11:04) Vomiting NSAIDS (Non-Steroidal Anti-Inflamma Adverse Reaction (Intermediate, Verified 11/26/23 11:04) Rash can take IM but no oral med eggs Allergy (Intermediate, Uncoded 11/26/23 11:04) Rash nausea/vomiting Home Medications: Tizanidine HCl 4 mg [Zanaflex 4 MG] 4 mg PO QID 07/08/19 [History] Topiramate [Topamax] 200 mg PO BID 07/08/19 [History] PANTOPRAZOLE 40 mg Tablet [Protonix 40MG Tablet] 40 mg PO QPM 07/12/19 [History] Ergocalciferol (Vitamin D2) [Vitamin D2] 1 cap PO WEEKLY 10/06/19 [History] Mirtazapine 30 mg [Remeron 30 mg] 1 tab PO HS 11/16/22 [History] Prazosin HCl 1 cap PO HS 11/16/22 [History] clonazePAM [Klonopin] 1 tab PO TID 11/16/22 [History] Levetiracetam 250 MG [Keppra 250 MG] 500 mg PO BID 03/28/23 [History] Levothyroxine Sodium 25 mcg PO DAILY 03/28/23 [History] Hydroxyzine HCl 25 mg [Atarax 25 mg] 1 tab PO TID PRN 04/04/23 [History] Fluoxetine HCl 40 mg PO DAILY 07/07/23 [History] Hx Tetanus, Diphtheria Vaccination/Date Given: Yes (2016) Hx Influenza Vaccination/Date Given: No (egg allergy) Hx Pneumococcal Vaccination/Date Given: No Immunizations Up to Date: Yes Travel Risk - International Travel Have you traveled outside of the country in past 3 weeks: No - Emerging Infectious Disease Are you exhibiting symptoms associated with any current EIDs: Yes Symptoms: Abdominal Pain - Review of Systems Constitutional: No Symptoms Eyes: No Symptoms Respiratory: No Symptoms Cardiac: No Symptoms Abdominal/Gastrointestinal: Abdominal Pain Genitourinary Symptoms: Dysuria Musculoskeletal: No Symptoms Skin: No Symptoms Neurological: No Symptoms Psychological: Anxiety, Depression Endocrine: No Symptoms Hematologic/Lymphatic: No Symptoms Immunological/Allergic: No Symptoms - Past Medical History Pertinent Past Medical History: Yes Neurological History: Migraines, Seizures, Other ENT History: No Pertinent History Cardiac History: Arrhythmia Respiratory History: Asthma Endocrine Medical History: Hypothyroidism Musculoskeletal History: Other GI Medical History: GERD, Gallbladder Disease, Other History: Other Psycho-Social History: Anxiety, Depression, Other Female Reproductive Disorders: Abnormal Uterine Bleeding, Menstrual Problems Other Medical History: PMHX: ANXIETY, PTSD, HX FX LEFT ANKLE ABOUT 10 YEARS AGO AND LEFT FOREARM (NO SURGERY) CHILD. GERD, ANEMIA,. HX OF LAP BAND SURGERY WHICH HAD COMPLICATION AND WAS REMOVED THEN HAD FULL GASTRIC BYPASS. STATES DX WITH MALABSORPTION AND GASTRIC PARESIS. ALSO HX OF BLADDER SURGERY. - Past Surgical History Past Surgical History: Yes Neuro Surgical History: No Pertinent History Cardiac: No Pertinent History Respiratory: No Pertinent History Gastrointestinal: Appendectomy, Cholecystectomy Genitourinary: No Pertinent History Musculoskeletal: No Pertinent History Female Surgical History: Hysterectomy, Tubal Ligation, Other Other Surgical History: gastric bypass 2010, lap band placed and removed first, g- tube placement and removal x2, BLADDER AND URETER REPAIR .2023 cervix remvoed with cysts Significant Family History: no pertinent family hx - Female History Hx Last Menstrual Period: none Hx Now: No - Social History Smoking Status: Former smoker How long have you smoked: 3 years Exposure to second hand smoke: No Drug Use: none Patient Lives Alone: No - Social Determinants of Health Will the patient participate in the screening: Yes Do you worry about a steady place to live?: No Do you have any problems with any of the following?: No known problems In the past 12 months,have you had to go without utilities?: No Transportation Issues: No Has anyone in your support network made you feel unsafe?: No Have you or anyone in your house had to go without enough: No - Nursing Vital Signs Nursing Vital Signs: Initial Vital Signs Temperature 98.0 F 11/26/23 11:16 Pulse Rate 53 L 11/26/23 11:16 Respiratory Rate 18 11/26/23 11:16 Blood Pressure 105/65 11/26/23 11:16 O2 Sat by Pulse Oximetry 100 11/26/23 11:16 Pain Scale Pain Intensity 6 - Physical Exam General Appearance: no apparent distress, alert Eye Exam: PERRL/EOMI Ears, Nose, Throat Exam: normal ENT inspection Neck Exam: normal inspection, full range of motion Respiratory Exam: normal breath sounds, lungs clear Cardiovascular Exam: regular rate/rhythm, normal heart sounds Gastrointestinal/Abdomen Exam: soft, normal bowel sounds, tenderness (Lower abdominal tenderness. No erythema around port/trocar insertion sites.) Back Exam: normal inspection, normal range of motion Extremity Exam: normal inspection, normal range of motion, pelvis stable Neurologic Exam: alert, 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, cooperative Skin Exam: normal color SpO2 Interpretation: normal SpO2: 100 O2 Delivery: Room Air Ordered Tests: Active Orders 24 hr Category Date Time Status IV Insertion STAT Care 11/26/23 11:32 Completed NPO (ED) STAT Care 11/26/23 11:32 Completed ABDOMEN AND PELVIS W/0 CONTRAS [CT] Stat Exams 11/26/23 11:33 Completed CBC W DIFF Stat Lab 11/26/23 11:50 Completed CMP Stat Lab 11/26/23 11:50 Completed CULTURE,URINE Stat Lab 11/26/23 11:35 Received Lactic Acid Stat Lab 11/26/23 11:50 Completed UA W/RFX UR CULTURE Stat Lab 11/26/23 11:35 Completed Medication Summary Discontinued Medications Generic Name Dose Route Start Last Admin Trade Name Freq PRN Reason Stop Dose Admin Sodium Chloride 1,000 mls @ 999 mls/hr 11/26/23 11:32 11/26/23 12:55 Sodium Chloride 0.9% 1000 Ml IV 11/26/23 12:32 Infused .Q1H1M STA Infusion Sodium Chloride Confirm 11/26/23 11:37 Sodium Chloride 0.9% 1000 Ml Administered 11/26/23 11:38 Dose 1,000 mls @ ud .ROUTE .STK-MED ONE Morphine Sulfate 4 mg 11/26/23 11:32 11/26/23 11:47 Morphine Sulfate 4 Mg/Ml Injection IV 11/26/23 11:33 4 mg STAT ONE Administration Morphine Sulfate Confirm 11/26/23 11:37 Morphine Sulfate 4 Mg/Ml Injection Administered 11/26/23 11:38 Dose 4 mg .ROUTE .STK-MED ONE Ondansetron HCl 4 mg 11/26/23 11:32 11/26/23 11:48 Ondansetron Hcl 4 Mg/2 Ml Vial IV 11/26/23 11:33 4 mg STAT ONE Administration Ondansetron HCl Confirm 11/26/23 11:37 Ondansetron Hcl 4 Mg/2 Ml Vial Administered 11/26/23 11:38 Dose 4 mg .ROUTE .STK-MED ONE Lab/Rad Data: Laboratory Result Diagrams 11/26/23 11:50 11/26/23 11:50 Laboratory Results 08/08/24 08/08/24 08/08/24 Range/Units 11:50 11:50 11:50 WBC 5.6 (3.98-10.04) x10^3/uL RBC 3.19 L (3.93-5.22) x10^6/uL Hgb 10.8 L (11.2-15.7) g/dL Hct 34.4 (34.1-44.9) % MCV 107.8 H (79.4-94.8) fL MCH 33.9 H (25.6-32.2) pg MCHC 31.4 L (32.2-35.5) g/dL RDW 13.6 (11.7-14.4) % Plt Count 115 L (182-369) x10^3/uL MPV 11.8 (9.4-12.3) fL Gran % 67.2 (34.0-71.1) % Immature Gran % (Auto) 0.4 (0.001-0.429) % Nucleat RBC Rel Count 0.0 (0.00-0.2) % Eos # (Auto) 0.12 (0.04-0.36) x10^3/uL Immature Gran # (Auto) 0.02 (0.001-0.031) x10^3u/L Absolute Lymphs (auto) 1.31 (1.18-3.74) x10^3/uL Absolute Monos (auto) 0.36 (0.24-0.86) x10^3/uL Absolute Nucleated RBC 0.00 (0.00-0.012) x10^3u/L Lymphocytes % 23.5 (19.3-51.7) % Monocytes % 6.5 (4.7-12.5) % Eosinophils % 2.2 (0.7-5.8) % Basophils % 0.2 (0.1-1.2) % Absolute Granulocytes 3.75 (1.56-6.13) x10^3/uL Basophils # 0.01 (0.01-0.08) x10^3/uL Sodium 139 (135-145) mmol/L Potassium 3.7 (3.5-5.1) mmol/L Chloride 108 H (98-107) mmol/L Carbon Dioxide 24 (22-30) mmol/L Anion Gap 10.9 (5-15) MEQ/L BUN 10 (7-17) mg/dL Creatinine 0.67 (0.52-1.04) mg/dL Estimated GFR 115.4 ML/MIN Glucose 86 (74-106) mg/dL Lactic Acid 1.4 (0.4-2.0) Calcium 8.8 (8.4-10.2) mg/dL Total Bilirubin 0.40 (0.2-1.3) mg/dL AST 31 (14-36) U/L ALT 19 (0-35) U/L Alkaline Phosphatase 44 (38-126) U/L Serum Total Protein 5.8 L (6.3-8.2) g/dL Albumin 3.5 (3.5-5.0) g/dL Urine Color (Yellow) Urine Appearance (Clear) Urine pH (4.6-8.0) Ur Specific [place] (1.005-1.030) Urine Protein (Negative) Urine Glucose (UA) (Negative) mg/dL Urine Ketones (Negative) Urine Blood (Negative) Urine Nitrite (Negative) Urine Bilirubin (Negative) Urine Urobilinogen (0.2) mg/dL Ur Leukocyte Esterase (Negative) U Hyaline Cast (Auto) (0-2) /LPF Urine Microscopic RBC (0-5) /HPF Urine Microscopic WBC (0-5) /HPF Ur Epithelial Cells (None Seen) /HPF Urine Bacteria (None Seen) /HPF Urine Yeast (Budding) (None Seen) /HPF Urine Culture Reflexed (NO) 11/26/23 Range/Units 11:35 WBC (3.98-10.04) x10^3/uL RBC (3.93-5.22) x10^6/uL Hgb (11.2-15.7) g/dL Hct (34.1-44.9) % MCV (79.4-94.8) fL MCH (25.6-32.2) pg MCHC (32.2-35.5) g/dL RDW (11.7-14.4) % Plt Count (182-369) x10^3/uL MPV (9.4-12.3) fL Gran % (34.0-71.1) % Immature Gran % (Auto) (0.001-0.429) % Nucleat RBC Rel Count (0.00-0.2) % Eos # (Auto) (0.04-0.36) x10^3/uL Immature Gran # (Auto) (0.001-0.031) x10^3u/L Absolute Lymphs (auto) (1.18-3.74) x10^3/uL Absolute Monos (auto) (0.24-0.86) x10^3/uL Absolute Nucleated RBC (0.00-0.012) x10^3u/L Lymphocytes % (19.3-51.7) % Monocytes % (4.7-12.5) % Eosinophils % (0.7-5.8) % Basophils % (0.1-1.2) % Absolute Granulocytes (1.56-6.13) x10^3/uL Basophils # (0.01-0.08) x10^3/uL Sodium (135-145) mmol/L Potassium (3.5-5.1) mmol/L Chloride (98-107) mmol/L Carbon Dioxide (22-30) mmol/L Anion Gap (5-15) MEQ/L BUN (7-17) mg/dL Creatinine (0.52-1.04) mg/dL Estimated GFR ML/MIN Glucose (74-106) mg/dL Lactic Acid (0.4-2.0) Calcium (8.4-10.2) mg/dL Total Bilirubin (0.2-1.3) mg/dL AST (14-36) U/L ALT (0-35) U/L Alkaline Phosphatase (38-126) U/L Serum Total Protein (6.3-8.2) g/dL Albumin (3.5-5.0) g/dL Urine Color Dark Yellow A (Yellow) Urine Appearance Cloudy A (Clear) Urine pH 5.5 (4.6-8.0) Ur Specific [place] >=1.030 A (1.005-1.030) Urine Protein Negative (Negative) Urine Glucose (UA) Negative (Negative) mg/dL Urine Ketones Trace A (Negative) Urine Blood Moderate A (Negative) Urine Nitrite Negative (Negative) Urine Bilirubin Negative (Negative) Urine Urobilinogen 1.0 A (0.2) mg/dL Ur Leukocyte Esterase Negative (Negative) U Hyaline Cast (Auto) 3-5 A (0-2) /LPF Urine Microscopic RBC 21-50 A (0-5) /HPF Urine Microscopic WBC 0-2 (0-5) /HPF Ur Epithelial Cells Moderate A (None Seen) /HPF Urine Bacteria Moderate A (None Seen) /HPF Urine Yeast (Budding) Few A (None Seen) /HPF Urine Culture Reflexed YES (NO) - Progress Progress: improved, pain not gone completely, re-examined Progress Note: 11/26/23 13:45 38-year-old with recent laparoscopic partial hysterectomy/cystectomy and part of cervicectomy by Dr. Marti Witt at [facility] is evaluated in the ER for lower abdominal pain. Patient has no vomiting. Did not have any bowel movement. Abdominal exam is soft with bowel sounds. She is given fluids and symptomatic treatment for pain, on reevaluation her pain is better. Workup showed normal white count, fairly unremarkable chemistries. No UTI. CT abdomen pelvis shows changes consistent with recent surgical intervention and no acute inflammatory/infectious process. Does have diffuse fecal stasis. Recommended increase hydration, stool softener. I have discussed with Dr. Marti Witt, reviewed history, workup and agreed with discharge and outpatient follow-up. Patient is advised to call Dr. Witt's office to see if they can send more pain medication if he needed. I had recommended taking Tylenol and avoiding narcotics to help with constipation. I have shared the results of workup and discussion with Dr. Witt with the patient which she understands and agrees. Discussed signs symptoms of worsening needing return to ER which he seems understanding. Stable for discharge. 11/26/23 13:50 Counseled pt/family regarding: lab results, diagnosis, need for follow-up, rad results Medical Desision Making - Discussion of managment Care discussed with:: specialist ([facility] Dr. Marti Witt at [place]) Reviewed:: Test results Agreed on:: Treatment plan, need for follow-up Will see patient: In office - Diagnostic Testing Diagnostic test were ordered, analyzed, and reviewed by me: Yes Radiological Interpretation: Reviewed by me - Risk of complications The pt has a mod risk of morbidity or mortality based on: Need for prescription drug management - Departure Departure Disposition: Home Clinical Impression: Postoperative abdominal pain, Constipation Condition: Stable Critical Care Time: No Referrals: MARCO SALVADOR MD [Primary Care Provider] - Follow up with PCP 1 day Instructions: Severe Abdominal Pain, Adult (DC) Additional Instructions: Take daily MiraLAX and stool softener. follow-up with your primary care and Dr. Witt for reevaluation. Call for appointment and also for to see if you can get more pain medication sent from her office to your pharmacy. Return to ER for intractable pain/vomiting/fever chills etc.
[2023-11-26] MEDS: MORPHINE SULFATE 4 MG INJ IV ONE (11:47)
[2023-11-26] MEDS: Sodium Chloride 0.9% 1000 ML 1,000 ML IV STA (11:48)
[2023-11-26] MEDS: Zofran 4 MG/2 ML VIAL IV ONE (11:48)
[2023-11-26 11:55] LABS: Absolute Neutrophil Ct (ANC) 3.75 x10^3/uL (1.56-6.13); BASOPHIL % 0.2 % (0.1-1.2); Basophil (Absolute #) 0.01 x10^3/uL (0.01-0.08); Eosinophil % 2.2 % (0.7-5.8); Eosinophil (Absolute #) 0.12 x10^3/uL (0.04-0.36); Hematocrit 34.4 % (34.1-44.9); Hemoglobin 10.8 g/dL (11.2-15.7); IMMATURE GRAN # 0.02 x10^3u/L (0.001-0.031); IMMATURE GRAN % 0.4 % (0.001-0.429); Lymphocyte (Absolute #) 1.31 x10^3/uL (1.18-3.74); Lymphocytes % 23.5 % (19.3-51.7); Mean Cell Volume 107.8 fL (79.4-94.8); Mean Corpuscular Hemoglobin 33.9 pg (25.6-32.2); Mean Corpuscular Hgb Concent. 31.4 g/dL (32.2-35.5); Mean Platelet Volume 11.8 fL (9.4-12.3); Monocyte (Absolute #) 0.36 x10^3/uL (0.24-0.86); Monocytes % 6.5 % (4.7-12.5); Neutrophil % 67.2 % (34.0-71.1); Platelet Count 115 x10^3/uL (182-369); Red Blood Count 3.19 x10^6/uL (3.93-5.22); Red Cell Distribution Width 13.6 % (11.7-14.4); White Blood Count 5.6 x10^3/uL (3.98-10.04)
[2023-11-26 12:06] LABS: ALBUMIN 3.5 g/dL (3.5-5.0); ANION GAP 10.9 MEQ/L (5-15); BILIRUBIN,TOTAL 0.4 mg/dL (0.2-1.3); Calcium 8.8 mg/dL (8.4-10.2); Creatinine 1 0.67 mg/dL (0.52-1.04); EST GLOMERULAR FILTRATION RATE 115.4 ML/MIN; Potassium 3.7 mmol/L (3.5-5.1); Total Protein 5.8 g/dL (6.3-8.2)
[2023-11-26 12:07] LABS: Appearance Cloudy (Clear); Bilirubin Negative (Negative); Blood Moderate (Negative); Epithelial Cells Moderate /HPF (None Seen); Glucose, Urine Negative (Negative); Ketones Trace (Negative); Leukocyte Esterase Negative (Negative); Nitrite Negative (Negative); Ph 5.5 (4.6-8.0); Protein,Urine Dip Negative (Negative); RBC 21-50 /HPF (0-5); Specific Gravity >=1.030 (1.005-1.030); WBC 0-2 /HPF (0-5)
[2023-11-26 12:10] LABS: ADD URINE CULTURE? YES (NO); Bacteria Moderate /HPF (None Seen); Budding Yeast Few /HPF (None Seen)
--- NOTE | 2023-11-26 12:57 | XRAY ---
Indication: Abdominal pain. Status post partial hysterectomy. Multiple contiguous axial images obtained through abdomen and pelvis without contrast. Comparison: May 04, 2023 Lung bases remain clear again with incidental tiny right base calcific granuloma. Heart not enlarged. New left mid abdominal wall subcutaneous air collection and diffuse abdominal/pelvic free air all presumed postoperative. Again gastric bypass surgery, appendectomy, cholecystectomy. Noncontrasted stomach and bowel loops appear nonobstructed. There is now moderate diffuse scattered colonic fecal debris throughout. No free air. Remaining liver, pancreas, spleen, adrenal glands, kidneys, ureters, bladder, and aorta are unremarkable for noncontrast exam. Osseous structures intact. Impression: 1. New left abdominal wall subcutaneous air and new diffuse abdominal/pelvic free air all presumed postoperative. 2. New diffuse fecal stasis.
[2023-11-26 14:05] VITALS: BP 96/55; PULSE 68
== END 2023-11-26 14:05 | disposition home or self-care (01) ==
LOC: ED 10:44
DX: G89.18 Other acute postprocedural pain (principal); R10.30 Lower abdominal pain, unspecified; K59.00 Constipation, unspecified; Z79.899 Other long term (current) drug therapy
CPT/HCPCS: 36000; 36415; 74176; 80053; 81001; 83605; 85025; 87086; 96360; 96374; 96375; 99284; J2270; J2405

== ENCOUNTER 2024-02-06 10:09 | Emergency (ER) | payer MEDICARE ==
[2024-02-06] MEDS ORDERED: TORAdol 30 mg Injection ONE (10:44)
[2024-02-06] MEDS: TORAdol 30 mg Injection IM ONE (10:50)
--- NOTE | 2024-02-06 10:54 | ERPHSYRPT ---
- History of Present Illness Time Seen by Provider: 02/06/24 10:50 Source: patient Exam Limitations: no limitations Patient Subjective Stated Complaint: SOBIA HAD A MIGRAINE FOR ALMOST 2 WEEKS. Triage Nursing Assessment: PATIENT REPORTS THAT SHE HAS BEEN EXPERIENCING A MIGRAINE HEADACHE OVER THE LAST 2 WEEKS. PATIENT RATING PAIN 10/10 AT THIS TIME. PATIENT REPORTS FEELING NAUSEATED AND THAT SHE VOMITTED ONCE PRIOR TO COMING TO THE ER. PATIENT REPORTS THAT SHE HAS BEEN HAVING INTERMITTENT DIZZY SPELLS BUT DENIES IT AT THIS TIME. PATIENT ALSO EXPERIENCING LIGHT SENSITIVITY BUT DENIES ANY VISUAL COMPLICATIONS. PATIENT A&O X 4 AND ABLE TO AMBULATE PER SELF. Physician History: Patient is 38-year-old female with significant past medical history of chronic migraine for which patient has a multiple ER visits. She has been on multiple medication to prevent the migraine. She started having another migraine episode 2 weeks ago and has not relieved by any other means so she came to the emergency room. She is complaining of nausea and vomiting. She denies any fever chills. Timing/Duration: week(s) (Two weeks) Quality: throbbing Head Pain Location: global Severity of Pain-Max: moderate Severity of Pain-Current: severe Recent Head Trauma: frequent headaches, chronic headaches Modifying Factors: Improves With: exposure to light Associated Symptoms: nausea/vomiting, sensitive to light, No fever/chills, No nasal congestion, No speech problems, No stiff neck, No vision changes, No visual disturbance Previous symptoms: same symptoms as today Allergies/Adverse Reactions: Fish Containing Products Allergy (Intermediate, Verified 11/26/23 11:04) Nausea and Vomiting swelling everywhere shellfish derived Allergy (Intermediate, Verified 11/26/23 11:04) Nausea and Vomiting Sulfa (Sulfonamide Antibiotics) [Sulfa(Sulfonamide Antibiotics)] Allergy (Intermediate, Verified 11/26/23 11:04) Hives tamsulosin [From Flomax] Allergy (Intermediate, Verified 11/26/23 11:04) Rash trimethoprim [From Septra] Allergy (Intermediate, Verified 11/26/23 11:04) Rash latex Allergy (Unknown, Verified 11/26/23 11:04) nitrofurantoin [From Macrobid] Allergy (Unknown, Verified 11/26/23 11:04) sulfamethoxazole [From Septra] Allergy (Verified 11/26/23 11:04) Rash furosemide [From Lasix] Adverse Reaction (Intermediate, Verified 11/26/23 11:04) Hives Iodinated Contrast Media Adverse Reaction (Intermediate, Verified 11/26/23 11:04) Vomiting NSAIDS (Non-Steroidal Anti-Inflamma Adverse Reaction (Intermediate, Verified 11/26/23 11:04) Rash can take IM but no oral med eggs Allergy (Intermediate, Uncoded 11/26/23 11:04) Rash nausea/vomiting Home Medications: Tizanidine HCl 4 mg [Zanaflex 4 MG] 4 mg PO QID 07/08/19 [History] Topiramate [Topamax] 200 mg PO BID 07/08/19 [History] PANTOPRAZOLE 40 mg Tablet [Protonix 40MG Tablet] 40 mg PO QPM 07/12/19 [History] Ergocalciferol (Vitamin D2) [Vitamin D2] 1 cap PO WEEKLY 10/06/19 [History] Mirtazapine 30 mg [Remeron 30 mg] 1 tab PO HS 11/16/22 [History] Prazosin HCl 1 cap PO HS 11/16/22 [History] clonazePAM [Klonopin] 1 tab PO TID 11/16/22 [History] Levetiracetam 250 MG [Keppra 250 MG] 500 mg PO BID 03/28/23 [History] Levothyroxine Sodium 25 mcg PO DAILY 03/28/23 [History] Hydroxyzine HCl 25 mg [Atarax 25 mg] 1 tab PO TID PRN 04/04/23 [History] Fluoxetine HCl 40 mg PO DAILY 07/07/23 [History] Hx Tetanus, Diphtheria Vaccination/Date Given: Yes (2016) Hx Influenza Vaccination/Date Given: No (egg allergy) Hx Pneumococcal Vaccination/Date Given: No Travel Risk - International Travel Have you traveled outside of the country in past 3 weeks: No - Emerging Infectious Disease Are you exhibiting symptoms associated with any current EIDs: No Symptoms: Abdominal Pain - Review of Systems Constitutional: No Symptoms Eyes: No Symptoms Ears, Nose, & Throat: No Symptoms Respiratory: No Symptoms Cardiac: No Symptoms Abdominal/Gastrointestinal: Nausea, Vomiting Genitourinary Symptoms: No Symptoms Musculoskeletal: No Symptoms Skin: No Symptoms Neurological: Headache Psychological: No Symptoms Endocrine: No Symptoms Hematologic/Lymphatic: No Symptoms Immunological/Allergic: No Symptoms - Past Medical History Pertinent Past Medical History: Yes Neurological History: Migraines, Seizures, Other ENT History: No Pertinent History Cardiac History: Arrhythmia Respiratory History: Asthma Endocrine Medical History: Hypothyroidism Musculoskeletal History: Other GI Medical History: GERD, Gallbladder Disease, Other History: Other Psycho-Social History: Anxiety, Depression, Other Female Reproductive Disorders: Abnormal Uterine Bleeding, Menstrual Problems Other Medical History: PMHX: ANXIETY, PTSD, HX FX LEFT ANKLE ABOUT 10 YEARS AGO AND LEFT FOREARM (NO SURGERY) CHILD. GERD, ANEMIA,. HX OF LAP BAND SURGERY WHICH HAD COMPLICATION AND WAS REMOVED THEN HAD FULL GASTRIC BYPASS. STATES DX WITH MALABSORPTION AND GASTRIC PARESIS. ALSO HX OF BLADDER SURGERY. - Past Surgical History Past Surgical History: Yes Neuro Surgical History: No Pertinent History Cardiac: No Pertinent History Respiratory: No Pertinent History Gastrointestinal: Appendectomy, Cholecystectomy Genitourinary: No Pertinent History Musculoskeletal: No Pertinent History Female Surgical History: Hysterectomy, Tubal Ligation, Other Other Surgical History: gastric bypass 2010, lap band placed and removed first, g- tube placement and removal x2, BLADDER AND URETER REPAIR .2023 cervix remvoed with cysts. PARTIAL HYSTERECTOMY, ENDOMETRIOSIS, BENIGN UTERINE TUMOR. HPV NOVEMBER 24 2023 Significant Family History: no pertinent family hx - Female History Hx Last Menstrual Period: none Hx Now: No - Social History Smoking Status: Never smoker How long have you smoked: 3 years Exposure to second hand smoke: No Drug Use: none Patient Lives Alone: No - Social Determinants of Health Will the patient participate in the screening: Yes Do you worry about a steady place to live?: No Do you have any problems with any of the following?: No known problems In the past 12 months,have you had to go without utilities?: No Transportation Issues: No Has anyone in your support network made you feel unsafe?: No Have you or anyone in your house had to go without enough: No - Nursing Vital Signs Nursing Vital Signs: Initial Vital Signs Temperature 97.3 F 02/06/24 10:21 Pulse Rate 68 02/06/24 10:21 Respiratory Rate 17 02/06/24 10:21 Blood Pressure 104/66 02/06/24 10:21 O2 Sat by Pulse Oximetry 100 02/06/24 10:21 Pain Scale Pain Intensity 8 - Physical Exam General Appearance: no apparent distress Eye Exam: PERRL/EOMI Ears, Nose, Throat Exam: normal ENT inspection, moist mucous membranes Neck Exam: normal inspection, supple, full range of motion, No meningismus Respiratory Exam: normal breath sounds, lungs clear Cardiovascular Exam: regular rate/rhythm, normal heart sounds Gastrointestinal/Abdominal Exam: soft, No tenderness, No distention Back Exam: normal inspection, normal range of motion Mental Status Exam: alert, 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, 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 Exam: normal speech, PERRL, No facial droop Coordination/Gait Exam: normal gait, normal cerebellar function Motor/Sensory Exam: no motor deficit, no sensory deficit Skin Exam: normal color, warm, dry, No rash SpO2: 100 - Course Nursing assessment & vital signs reviewed: Yes Ordered Tests: Medication Summary Discontinued Medications Generic Name Dose Route Start Last Admin Trade Name Roryq PRN Reason Stop Dose Admin Droperidol 1.25 mg 02/06/24 10:36 02/06/24 10:50 Droperidol 5 Mg/2 Ml Vial IM 02/06/24 10:37 1.25 mg STAT ONE Administration Droperidol Confirm 02/06/24 10:44 Droperidol 5 Mg/2 Ml Vial Administered 02/06/24 10:45 Dose 5 mg .ROUTE .STK-MED ONE Ketorolac Tromethamine 60 mg 02/06/24 10:36 02/06/24 10:50 Ketorolac Tromethamine 30 Mg/Ml Inj IM 02/06/24 10:37 60 mg STAT ONE Administration Ketorolac Tromethamine Confirm 02/06/24 10:44 Ketorolac Tromethamine 30 Mg/Ml Inj Administered 02/06/24 10:45 Dose 60 mg .ROUTE .STK-MED ONE - Progress Progress: improved Air Movement: good Counseled pt/family regarding: diagnosis, need for follow-up Medical Desision Making - Independent Historian Additional History obtained from: Mother - Diagnostic Testing Diagnostic test were ordered, analyzed, and reviewed by me: No - Risk of complications Minimal Risk: Minimal risk of morbidity - Departure Clinical Impression: Migraine headache Qualifiers: Migraine type: chronic migraine (15 or more days per month) with aura Status migrainosus presence: without status migrainosus Intractability: intractable Qualified Code(s): G43.E19 - Chronic migraine with aura, intractable, without status migrainosus Condition: Stable Critical Care Time: No Referrals: MARCO SALVADOR MD [Primary Care Provider] - Follow up/PCP as directed Instructions: Headache, Adult (DC), Migraine in adults Additional Instructions: HEADACHE 1. After discharge from the emergency department, you should rest at home in a cool, dark, quiet place for 12-24 hours. 2. If any of the following signs or symptoms are noticed, you should be re- evaluated right away: A. Visual changes B. Stiff Neck C. Change in quality or location of pain D. Fever E. Recurrent vomiting 3. If pain medications were prescribed or given, they may cause drowsiness. Discharge/Care Plan VICKI MYRICK was seen on 02/06/24 in the Emergency Room. The patient was counseled regarding Diagnosis,Lab results, Imaging studies, need for follow up and when to return to the Emergency Room. Prescriptions given: Discharge Note I have spoken with the patient and/or caregivers. I have explained the patient's condition, diagnosis and treatment plan based on the information available to me at this time. I have answered the patient's and/or caregiver's questions and addressed any concerns. The patient and/or caregivers have as good understanding of the patient's diagnosis, condition and treatment plan as can be expected at this point. The vital signs have been stable. The patient's condition is stable and appropriate for discharge from the emergency department. The patient will pursue further outpatient evaluation with the primary care physician or other designated or consulting physician as outlined in the discharge instructions. The patient and/or caregivers are agreeable to this plan of care and follow-up instructions have been explained in detail. The patient and/or caregivers have received these instruction. The patient/and or caregivers are aware that any significant change in condition or worsening of symptoms should prompt an immediate return to this or the closest emergency department or call 911. VICKI MYRICK was seen on 02/06/24 n the Emergency Room. At that time you were treated for an emergent condition, during your visit Laboratory, Radiology and/or other procedures may have been ordered. It is very important that you f ollow-up with your Primary Care Physician MARCO SALVADOR within the next 24-48 hours to review your Emergency Room visit and the final results of testing that was ordered. Some test results such as Urine Cultures, Blood Cultures, and other cultures if ordered will not be finalized for 24-48 hours. If you do not have a Primary Care Provider please call the medical records department at [phone] to obtain a copy of your results or you may sign into our patient portal to obtain these results by visiting us @ [email or web address] and completing the following steps: 1. Click on the Patient Portal link 2. Click the Patient Self Enrollment Link to complete the enrollment form and entering your 3. Once the enrollment form is completed you will receive an email with a temporary ID and password at the email address you provided. 4. Next choose a user name and password. Your user name must be at least 4 ch aracters long and your password must be at least 4 characters long. 5. Choose a security question from the list and provide your answer to the question. If you already have signed into the Health Portal you may access your Health Care Information 10/11 by the following steps: 1. Login to our website @ [email or web address] 2. Enter your original user name and password. FAQS The [facility] Health Portal is an online tool that contains your Lab Results, Radiology Reports, Visit History, Discharge Instructions and Health Summary Lab and Radiology Results will not be available for 72 hours on the portal. The Portal is a secure site, passwords are encryted and URLs are re-written so they cannot be copied and pasted. You and authorized family members are the only ones who can access your Portal. Also there is a timeout feature that protects your information if you leave the Portal page open. If you have technical difficulty please use the Contact Us link on the page this will allow you to submit any questions you have regarding the Portal or you may contact the Medical Record Department at [phone] ext [phone].
[2024-02-06 10:55] VITALS: TEMP 97
[2024-02-06 11:18] VITALS: BP 102/50; PULSE 60; RESP 18
[2024-02-06 11:49] VITALS: O2SAT 100
== END 2024-02-06 12:13 | disposition home or self-care (01) ==
LOC: ED 10:09
DX: G43.E19 Chronic migraine with aura, intractable, without status migrainosus (principal); R11.2 Nausea with vomiting, unspecified; Z79.899 Other long term (current) drug therapy
CPT/HCPCS: 96372; 99283; J1885

== ENCOUNTER 2024-03-07 14:14 | Emergency (ER) | payer MEDICARE ==
[2024-03-07 15:52] VITALS: O2SAT 100
[2024-03-07 16:00] LABS: Appearance Cloudy (Clear); Bacteria Many /HPF (None Seen); Bilirubin Negative (Negative); Blood Moderate (Negative); Epithelial Cells Rare /HPF (None Seen); Glucose, Urine Negative (Negative); Hyaline Casts NONE SEEN /LPF (0-2); Ketones Negative (Negative); Leukocyte Esterase Moderate (Negative); Nitrite Positive (Negative); Protein,Urine Dip Negative (Negative); RBC 0-2 /HPF (0-5); Specific Gravity 1.025 (1.005-1.030); Urobilinogen 0.2 mg/dL (0.2); WBC 21-50 /HPF (0-5)
[2024-03-07 16:22] LABS: Absolute Neutrophil Ct (ANC) 1.95 x10^3/uL (1.56-6.13); BASOPHIL % 0.8 % (0.1-1.2); Basophil (Absolute #) 0.03 x10^3/uL (0.01-0.08); Eosinophil (Absolute #) 0.07 x10^3/uL (0.04-0.36); Hematocrit 34.5 % (34.1-44.9); Hemoglobin 11.3 g/dL (11.2-15.7); IMMATURE GRAN # 0.01 x10^3u/L (0.001-0.031); IMMATURE GRAN % 0.3 % (0.001-0.429); Lymphocyte (Absolute #) 1.28 x10^3/uL (1.18-3.74); Mean Cell Volume 100.9 fL (79.4-94.8); Mean Corpuscular Hgb Concent. 32.8 g/dL (32.2-35.5); Mean Platelet Volume 11.5 fL (9.4-12.3); Monocyte (Absolute #) 0.22 x10^3/uL (0.24-0.86); Monocytes % 6.2 % (4.7-12.5); Neutrophil % 54.7 % (34.0-71.1); Platelet Count 127 x10^3/uL (182-369); Red Blood Count 3.42 x10^6/uL (3.93-5.22); Red Cell Distribution Width 12.9 % (11.7-14.4); White Blood Count 3.6 x10^3/uL (3.98-10.04)
[2024-03-07 16:31] LABS: ALBUMIN 3.5 g/dL (3.5-5.0); BILIRUBIN,TOTAL 0.3 mg/dL (0.2-1.3); Calcium 8.7 mg/dL (8.4-10.2); Creatinine 1 0.63 mg/dL (0.52-1.04); EST GLOMERULAR FILTRATION RATE 117.1 ML/MIN; Potassium 4.2 mmol/L (3.5-5.1); Total Protein 5.9 g/dL (6.3-8.2)
--- NOTE | 2024-03-07 17:00 | ERPHSYRPT ---
- History of Present Illness Time Seen by Provider: 03/07/24 16:45 Source: patient Exam Limitations: clinical condition Patient Subjective Stated Complaint: C/O left flank pain for a few weeks that has become worse today Triage Nursing Assessment: Patient ambulated back to ER without difficulties. She is alert and oriented. No SOB. SKin tone normal. Urine specimen obtained and is straw yellow. Timing/Duration: today Severity: mild Modifying Factors: Improves With: nothing Associated Symptoms: denies symptoms Allergies/Adverse Reactions: Fish Containing Products Allergy (Intermediate, Verified 03/07/24 15:39) Nausea and Vomiting swelling everywhere shellfish derived Allergy (Intermediate, Verified 03/07/24 15:39) Nausea and Vomiting Sulfa (Sulfonamide Antibiotics) [Sulfa(Sulfonamide Antibiotics)] Allergy ( Intermediate, Verified 03/07/24 15:39) Hives tamsulosin [From Flomax] Allergy (Intermediate, Verified 03/07/24 15:39) Rash trimethoprim [From Septra] Allergy (Intermediate, Verified 03/07/24 15:39) Rash latex Allergy (Unknown, Verified 03/07/24 15:39) nitrofurantoin [From Macrobid] Allergy (Unknown, Verified 03/07/24 15:39) sulfamethoxazole [From Septra] Allergy (Verified 03/07/24 15:39) Rash furosemide [From Lasix] Adverse Reaction (Intermediate, Verified 03/07/24 15:39) Hives Iodinated Contrast Media Adverse Reaction (Intermediate, Verified 03/07/24 15:39) Vomiting NSAIDS (Non-Steroidal Anti-Inflamma Adverse Reaction (Intermediate, Verified 03/07/24 15:39) Rash can take IM but no oral med eggs Allergy (Intermediate, Uncoded 03/07/24 15:39) Rash nausea/vomiting Home Medications: Tizanidine HCl 4 mg [Zanaflex 4 MG] 4 mg PO QID 07/08/19 [History] Topiramate [Topamax] 200 mg PO BID 07/08/19 [History] PANTOPRAZOLE 40 mg Tablet [Protonix 40MG Tablet] 40 mg PO QPM 07/12/19 [History] Ergocalciferol (Vitamin D2) [Vitamin D2] 1 cap PO WEEKLY 10/06/19 [History] Mirtazapine 30 mg [Remeron 30 mg] 1 tab PO HS 11/16/22 [History] Prazosin HCl 1 cap PO HS 11/16/22 [History] clonazePAM [Klonopin] 1 tab PO TID 11/16/22 [History] Levetiracetam 250 MG [Keppra 250 MG] 500 mg PO BID 03/28/23 [History] Levothyroxine Sodium 25 mcg PO DAILY 03/28/23 [History] Hydroxyzine HCl 25 mg [Atarax 25 mg] 1 tab PO TID PRN 04/04/23 [History] Fluoxetine HCl 20 ml PO DAILY 03/07/24 [History] Hx Tetanus, Diphtheria Vaccination/Date Given: Yes (2016) Hx Influenza Vaccination/Date Given: No (egg allergy) Hx Pneumococcal Vaccination/Date Given: No Travel Risk - International Travel Have you traveled outside of the country in past 3 weeks: No - Emerging Infectious Disease Are you exhibiting symptoms associated with any current EIDs: No Symptoms: Abdominal Pain - Review of Systems Eyes: No Symptoms Ears, Nose, & Throat: No Symptoms Respiratory: No Symptoms Cardiac: No Symptoms Abdominal/Gastrointestinal: Other (pelvic pain) Genitourinary Symptoms: No Symptoms Musculoskeletal: No Symptoms Skin: No Symptoms Neurological: No Symptoms Psychological: No Symptoms Endocrine: No Symptoms Hematologic/Lymphatic: No Symptoms Immunological/Allergic: No Symptoms - Past Medical History Pertinent Past Medical History: Yes Neurological History: Migraines, Seizures, Other ENT History: No Pertinent History Cardiac History: Arrhythmia Respiratory History: Asthma Endocrine Medical History: Hypothyroidism Musculoskeletal History: Other GI Medical History: GERD, Gallbladder Disease, Other History: Other Psycho-Social History: Anxiety, Depression, Other Female Reproductive Disorders: Abnormal Uterine Bleeding, Endometriosis, Menstrual Problems Other Medical History: PTSD, ANEMIA - Past Surgical History Past Surgical History: Yes Neuro Surgical History: No Pertinent History Cardiac: No Pertinent History Respiratory: No Pertinent History Gastrointestinal: Appendectomy, Cholecystectomy, Other Genitourinary: No Pertinent History Musculoskeletal: No Pertinent History Female Surgical History: Hysterectomy, Tubal Ligation, Other Other Surgical History: gastric bypass 2010, lap band placed and removed first, g- tube placement and removal x2, BLADDER AND URETER REPAIR .2023 cervix remvoed with cysts Significant Family History: no pertinent family hx - Female History Hx Last Menstrual Period: none Hx Now: No (hysterectomy) - Social History Smoking Status: Former smoker How long have you smoked: 3 years Exposure to second hand smoke: No Drug Use: none Patient Lives Alone: No - Social Determinants of Health Will the patient participate in the screening: Yes Do you worry about a steady place to live?: No Do you have any problems with any of the following?: No known problems In the past 12 months,have you had to go without utilities?: No Transportation Issues: No Has anyone in your support network made you feel unsafe?: No Have you or anyone in your house had to go without enough: No - Nursing Vital Signs Nursing Vital Signs: Initial Vital Signs Pulse Rate 50 L 03/07/24 15:37 Respiratory Rate 16 03/07/24 15:37 Blood Pressure 123/75 03/07/24 15:37 O2 Sat by Pulse Oximetry 100 03/07/24 15:37 Pain Scale Pain Intensity 8 - Physical Exam General Appearance: no apparent distress Eye Exam: PERRL/EOMI, eyes nml inspection Ears, Nose, Throat Exam: normal ENT inspection Neck Exam: normal inspection Respiratory Exam: normal breath sounds Cardiovascular Exam: regular rate/rhythm Gastrointestinal/Abdomen Exam: soft, tenderness (patient has tenderness in the llq) Pelvic Exam: deferred (per patient requests ) Neurologic Exam: alert, 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 SpO2: 100 Ordered Tests: Active Orders 24 hr Category Date Time Status ABDOMEN AND PELVIS W/0 CONTRAS [CT] Stat Exams 03/07/24 16:01 Ordered PELVIS TRANS VAGINAL [US] Stat Exams 03/07/24 16:57 Ordered CBC W DIFF Stat Lab 03/07/24 16:15 Completed CMP Stat Lab 03/07/24 16:15 Completed CULTURE,URINE Stat Lab 03/07/24 15:46 Received UA W/RFX UR CULTURE Stat Lab 03/07/24 15:46 Completed Medication Summary Discontinued Medications Generic Name Dose Route Start Last Admin Trade Name Freq PRN Reason Stop Dose Admin Ceftriaxone Sodium 1,000 mg 03/07/24 17:35 Ceftriaxone Sodium 1000 Mg Inj Vial IM 03/07/24 17:36 STAT ONE Lab/Rad Data: Laboratory Result Diagrams 03/07/24 16:15 03/07/24 16:15 Laboratory Results 03/07/24 03/07/24 03/07/24 Range/Units 16:15 16:15 15:46 WBC 3.6 L (3.98-10.04) x10^3/uL RBC 3.42 L (3.93-5.22) x10^6/uL Hgb 11.3 (11.2-15.7) g/dL Hct 34.5 (34.1-44.9) % MCV 100.9 H (79.4-94.8) fL MCH 33.0 H (25.6-32.2) pg MCHC 32.8 (32.2-35.5) g/dL RDW 12.9 (11.7-14.4) % Plt Count 127 L (182-369) x10^3/uL MPV 11.5 (9.4-12.3) fL Gran % 54.7 (34.0-71.1) % Immature Gran % (Auto) 0.3 (0.001-0.429) % Nucleat RBC Rel Count 0.0 (0.00-0.2) % Eos # (Auto) 0.07 (0.04-0.36) x10^3/uL Immature Gran # (Auto) 0.01 (0.001-0.031) x10^3u/L Absolute Lymphs (auto) 1.28 (1.18-3.74) x10^3/uL Absolute Monos (auto) 0.22 L (0.24-0.86) x10^3/uL Absolute Nucleated RBC 0.00 (0.00-0.012) x10^3u/L Lymphocytes % 36.0 (19.3-51.7) % Monocytes % 6.2 (4.7-12.5) % Eosinophils % 2.0 (0.7-5.8) % Basophils % 0.8 (0.1-1.2) % Absolute Granulocytes 1.95 (1.56-6.13) x10^3/uL Basophils # 0.03 (0.01-0.08) x10^3/uL Sodium 138 (135-145) mmol/L Potassium 4.2 (3.5-5.1) mmol/L Chloride 112 H (98-107) mmol/L Carbon Dioxide 19 L (22-30) mmol/L Anion Gap 12.0 (5-15) MEQ/L BUN 12 (7-17) mg/dL Creatinine 0.63 (0.52-1.04) mg/dL Estimated GFR 117.1 ML/MIN Glucose 91 (74-106) mg/dL Calcium 8.7 (8.4-10.2) mg/dL Total Bilirubin 0.30 (0.2-1.3) mg/dL AST 23 (14-36) U/L ALT 18 (0-35) U/L Alkaline Phosphatase 45 (38-126) U/L Serum Total Protein 5.9 L (6.3-8.2) g/dL Albumin 3.5 (3.5-5.0) g/dL Urine Color Yellow (Yellow) Urine Appearance Cloudy A (Clear) Urine pH 6.0 (4.6-8.0) Ur Specific [place] 1.025 (1.005-1.030) Urine Protein Negative (Negative) Urine Glucose (UA) Negative (Negative) mg/dL Urine Ketones Negative (Negative) Urine Blood Moderate A (Negative) Urine Nitrite Positive A (Negative) Urine Bilirubin Negative (Negative) Urine Urobilinogen 0.2 (0.2) mg/dL Ur Leukocyte Esterase Moderate A (Negative) U Hyaline Cast (Auto) NONE SEEN (0-2) /LPF Urine Microscopic RBC 0-2 (0-5) /HPF Urine Microscopic WBC 21-50 A (0-5) /HPF Ur Epithelial Cells Rare (None Seen) /HPF Urine Bacteria Many A (None Seen) /HPF Urine Culture Reflexed YES (NO) - Progress Progress Note: weakness on exam patient was updated with the results of her labs and her us and Ultrasound she was informed of the need for Abdominal and pelvic CT she refuses, All risk and benefits explained she is of sound medical decision- making capability. She was informed of the need for follow-up with her primary care provider and general surgeon - she will receive one dose of rocephin and norco and will be discharged home with macrobid 03/07/24 17:53 Medical Desision Making - Discussion of managment Agreed on:: need for follow-up - Departure Departure Disposition: Home Clinical Impression: Pelvic pain Condition: Stable Critical Care Time: No Referrals: MARCO SALVADOR MD [Primary Care Provider] - Follow up/PCP as directed Prescriptions: Ciprofloxacin [Cipro 500 MG] 500 mg PO BID #14 tablet
[2024-03-07 17:10] VITALS: PULSE 60
[2024-03-07] MEDS ORDERED: XYLOCAINE 1% HCL 20 ML MDV ONE (18:02)
[2024-03-07] MEDS ORDERED: Rocephin 1000 MG INJ ONE (18:02)
[2024-03-07] MEDS ORDERED: NORCO 5/325 MG ONE (18:02)
[2024-03-07] MEDS: Rocephin 1000 MG INJ IM ONE (18:03)
[2024-03-07] MEDS: NORCO 5/325 MG PO ONE (18:03)
[2024-03-07 18:13] VITALS: BP 102/56; RESP 18
[2024-03-07 18:15] LABS: Slide Review 1 YES
--- NOTE | 2024-03-08 08:29 | XRAY ---
Indication: Pelvic pain. Partial hysterectomy. Cysts. Two-dimensional transvaginal pelvic sonogram performed. Comparison: June 30, 2023 Ureter now surgically absent. Right ovary not seen. Left ovary measures 2.9 x 1.9 x 2.8 cm and demonstrate normal perfusion and follicular cysts. 2.5 cm dominant ovary cyst. No suspicious solid adnexal mass or free fluid. Comment: Preliminary report was given.
== END 2024-03-07 18:13 | disposition home or self-care (01) ==
LOC: ED 14:14
DX: R10.2 Pelvic and perineal pain (principal)
CPT/HCPCS: 36415; 76830; 80053; 81001; 85025; 87077; 87086; 87186; 96372; 99283; 99285; J0696; A9270-GY

== ENCOUNTER 2024-06-11 10:49 | Emergency (ER) | payer MEDICARE ==
[2024-06-11 11:15] VITALS: TEMP 98.2
--- NOTE | 2024-06-11 11:30 | ERPHSYRPT ---
- History of Present Illness Time Seen by Provider: 06/11/24 11:15 Historian: patient, family Exam Limitations: no limitations Patient Subjective Stated Complaint: C/O nausea and vomiting for a week. Indicates last vomited yesterday. No vomiting today, just nauseated today. Not eating well. Triage Nursing Assessment: Patient ambulated back to ER. She is alert and oriented; flat affect. No SOB. No cough. WALKER WNL. Denies abdominal pain but states "I have some cramping sometimes." Physician History: This is a 39-year-old white female patient brought to the emergency department by family by private vehicle with a complaint of nausea vomiting and bodyaches as well as headache. Patient has a history of chronic migraine headaches. Her primary care provider is Dr. Salvador. She denies diarrhea. She denies chest pain. She denies shortness of breath. Patient also has a history of seizure disorder, PTSD and severe anxiety. Timing/Duration: week(s) (1) Activities at Onset: none Quality: cramping (Mild intermittent) Abdominal Pain Onset Location: generalized abdomen (Mild) Pain Radiation: no radiation Associated Symptoms: headache, loss of appetite, nausea, vomiting, weakness, No chest pain, No diarrhea, No shortness of breath Previous symptoms: no prior history, no recent treatment Allergies/Adverse Reactions: Fish Containing Products Allergy (Intermediate, Verified 06/11/24 11:01) Nausea and Vomiting swelling everywhere shellfish derived Allergy (Intermediate, Verified 06/11/24 11:01) Nausea and Vomiting Sulfa (Sulfonamide Antibiotics) [Sulfa(Sulfonamide Antibiotics)] Allergy (Intermediate, Verified 06/11/24 11:01) Hives tamsulosin [From Flomax] Allergy (Intermediate, Verified 06/11/24 11:01) Rash trimethoprim [From Septra] Allergy (Intermediate, Verified 06/11/24 11:01) Rash latex Allergy (Unknown, Verified 06/11/24 11:01) nitrofurantoin [From Macrobid] Allergy (Unknown, Verified 06/11/24 11:01) sulfamethoxazole [From Septra] Allergy (Verified 06/11/24 11:01) Rash furosemide [From Lasix] Adverse Reaction (Intermediate, Verified 06/11/24 11:01) Hives Iodinated Contrast Media Adverse Reaction (Intermediate, Verified 06/11/24 11:01) Vomiting NSAIDS (Non-Steroidal Anti-Inflamma Adverse Reaction (Intermediate, Verified 06/11/24 11:01) Rash can take IM but no oral med eggs Allergy (Intermediate, Uncoded 06/11/24 11:01) Rash nausea/vomiting Home Medications: Tizanidine HCl 4 mg [Zanaflex 4 MG] 4 mg PO QID 07/08/19 [History] Topiramate [Topamax] 200 mg PO BID 07/08/19 [History] PANTOPRAZOLE 40 mg Tablet [Protonix 40MG Tablet] 40 mg PO QPM 07/12/19 [History] Ergocalciferol (Vitamin D2) [Vitamin D2] 1 cap PO WEEKLY 10/06/19 [History] Mirtazapine 30 mg [Remeron 30 mg] 1 tab PO HS 11/16/22 [History] Prazosin HCl 1 cap PO HS 11/16/22 [History] clonazePAM [Klonopin] 1 tab PO TID 11/16/22 [History] Levetiracetam 250 MG [Keppra 250 MG] 500 mg PO BID 03/28/23 [History] Levothyroxine Sodium 25 mcg PO DAILY 03/28/23 [History] Hydroxyzine HCl 25 mg [Atarax 25 mg] 1 tab PO TID PRN 04/04/23 [History] Fluoxetine HCl 20 ml PO DAILY 03/07/24 [History] Buprenorphine 1 patch TOP WEEKLY 06/11/24 [History] Hx Tetanus, Diphtheria Vaccination/Date Given: Yes Hx Influenza Vaccination/Date Given: No Hx Pneumococcal Vaccination/Date Given: No Immunizations Up to Date: Yes Travel Risk - International Travel Have you traveled outside of the country in past 3 weeks: No - Emerging Infectious Disease Are you exhibiting symptoms associated with any current EIDs: Yes Symptoms: Headaches/Body Aches/, Vomitting - Review of Systems Constitutional: Weakness Eyes: No Symptoms Ears, Nose, & Throat: No Symptoms Respiratory: No Symptoms Cardiac: No Symptoms, No Chest Pain Abdominal/Gastrointestinal: Nausea, Vomiting, Appetite Changes, No Diarrhea Genitourinary Symptoms: No Symptoms Musculoskeletal: Arthralgias, Myalgias Skin: No Symptoms Neurological: No Symptoms Psychological: No Symptoms Endocrine: No Symptoms Hematologic/Lymphatic: No Symptoms Immunological/Allergic: No Symptoms All Other Systems: Reviewed and Negative - Past Medical History Pertinent Past Medical History: Yes Neurological History: Migraines, Seizures, Other ENT History: No Pertinent History Cardiac History: Arrhythmia Respiratory History: Asthma Endocrine Medical History: Hypothyroidism Musculoskeletal History: Other GI Medical History: GERD, Gallbladder Disease, Other History: Other Psycho-Social History: Anxiety, Depression, Other Female Reproductive Disorders: Abnormal Uterine Bleeding, Endometriosis, Menstrual Problems Other Medical History: PTSD, ANEMIA - Past Surgical History Past Surgical History: Yes Neuro Surgical History: No Pertinent History Cardiac: No Pertinent History Respiratory: No Pertinent History Gastrointestinal: Appendectomy, Cholecystectomy, Other Genitourinary: No Pertinent History Musculoskeletal: No Pertinent History Female Surgical History: Hysterectomy, Tubal Ligation, Other Other Surgical History: gastric bypass 2010, lap band placed and removed first, g- tube placement and removal x2, BLADDER AND URETER REPAIR .2023 cervix removed Significant Family History: no pertinent family hx - Female History Hx Last Menstrual Period: none Hx Now: No (hysterectomy) - Social History Smoking Status: Former smoker Exposure to second hand smoke: No Drug Use: none - Social Determinants of Health Will the patient participate in the screening: Yes Do you worry about a steady place to live?: No Do you have any problems with any of the following?: No known problems In the past 12 months,have you had to go without utilities?: No Transportation Issues: No Has anyone in your support network made you feel unsafe?: No Have you or anyone in your house had to go w/o enough food: No - Nursing Vital Signs Nursing Vital Signs: Initial Vital Signs Temperature 98.2 F 06/11/24 11:00 Pulse Rate 72 06/11/24 11:00 Respiratory Rate 18 06/11/24 11:00 Blood Pressure 103/76 06/11/24 11:00 O2 Sat by Pulse Oximetry 99 06/11/24 11:00 Pain Scale Pain Intensity 8 - Physical Exam General Appearance: no apparent distress, alert, anxiety, thin Eye Exam: PERRL/EOMI, eyes nml inspection Ears, Nose, Throat Exam: normal ENT inspection, moist mucous membranes Neck Exam: normal inspection, non-tender, supple, full range of motion Respiratory Exam: normal breath sounds, lungs clear, airway intact, No chest tenderness, No respiratory distress Cardiovascular Exam: regular rate/rhythm, normal heart sounds, normal peripheral pulses Gastrointestinal/Abdomen Exam: soft, normal bowel sounds, No tenderness, No guarding Pelvic Exam: not done Rectal Exam: not done Back Exam: normal inspection, normal range of motion, No CVA tenderness, No vertebral tenderness Extremity Exam: normal inspection, normal range of motion, pelvis stable Neurologic Exam: alert, 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, cooperative, fashion illustrator II-XII nml as tested, nml cerebellar function, nml station & gait, sensation nml Skin Exam: normal color, warm, dry Lymphatic Exam: No adenopathy SpO2 Interpretation: normal SpO2: 99 O2 Delivery: Room Air - Course Nursing assessment & vital signs reviewed: Yes EKG Interpreted by Me: RATE (64), Sinus Rhythm, NORMAL AXIS, NORMAL INTERVALS, NORMAL QRS, Other (no ischemia. qtc 435) Ordered Tests: Active Orders 24 hr Category Date Time Status EKG-ER Only STAT Care 06/11/24 11:23 Active IV Insertion STAT Care 06/11/24 11:23 Active Pulse Oximetry (ED) STAT Care 06/11/24 11:23 Active BLOOD CULTURE Stat Lab 06/11/24 11:58 Received CBC W DIFF Stat Lab 06/11/24 11:40 Completed CMP Stat Lab 06/11/24 11:40 Completed CULTURE,URINE Stat Lab 06/11/24 11:43 Received Lactic Acid Stat Lab 06/11/24 11:40 Completed MONO SCREEN Stat Lab 06/11/24 11:40 Completed UA W/RFX UR CULTURE Stat Lab 06/11/24 11:43 Completed Medication Summary Generic Name Dose Route Start Last Admin Trade Name Freq PRN Reason Stop Dose Admin Lactated Ringer's 1,000 mls @ 999 mls/hr 06/11/24 12:19 06/11/24 12:38 Lactated Ringers IV 06/11/24 13:19 999 mls/hr .Q1H1M ONE Administration Discontinued Medications Generic Name Dose Route Start Last Admin Trade Name Freq PRN Reason Stop Dose Admin Droperidol 0.625 mg 06/11/24 11:25 06/11/24 11:54 Droperidol 5 Mg/2 Ml Vial IV 06/11/24 11:26 0.625 mg STAT ONE Administration Droperidol Confirm 06/11/24 11:54 Droperidol 5 Mg/2 Ml Vial Administered 06/11/24 11:55 Dose 5 mg .ROUTE .STK-MED ONE Sodium Chloride 1,000 mls @ 999 mls/hr 06/11/24 11:23 06/11/24 11:55 Sodium Chloride 0.9% 1000 Ml IV 06/11/24 12:23 999 mls/hr .Q1H1M STA Administration Sodium Chloride Confirm 06/11/24 11:54 Sodium Chloride 0.9% 1000 Ml Administered 06/11/24 11:55 Dose 1,000 mls @ ud .ROUTE .STK-MED ONE Lactated Ringer's Confirm 06/11/24 12:36 Lactated Ringers Administered 06/11/24 12:37 Dose 1,000 mls @ ud IV .STK-MED ONE Lab/Rad Data: Laboratory Result Diagrams 06/11/24 11:40 06/11/24 11:40 Laboratory Results 06/11/24 06/11/24 06/11/24 Range/Units 12:00 11:43 11:40 WBC (3.98-10.04) x10^3/uL RBC (3.93-5.22) x10^6/uL Hgb (11.2-15.7) g/dL Hct (34.1-44.9) % MCV (79.4-94.8) fL MCH (25.6-32.2) pg MCHC (32.2-35.5) g/dL RDW (11.7-14.4) % Plt Count (182-369) x10^3/uL MPV (9.4-12.3) fL Gran % (34.0-71.1) % Immature Gran % (Auto) (0.001-0.429) % Nucleat RBC Rel Count (0.00-0.2) % Eos # (Auto) (0.04-0.36) x10^3/uL Immature Gran # (Auto) (0.001-0.031) x10^3u/L Absolute Lymphs (auto) (1.18-3.74) x10^3/uL Absolute Monos (auto) (0.24-0.86) x10^3/uL Absolute Nucleated RBC (0.00-0.012) x10^3u/L Lymphocytes % (19.3-51.7) % Monocytes % (4.7-12.5) % Eosinophils % (0.7-5.8) % Basophils % (0.1-1.2) % Absolute Granulocytes (1.56-6.13) x10^3/uL Basophils # (0.01-0.08) x10^3/uL Sodium (135-145) mmol/L Potassium (3.5-5.1) mmol/L Chloride (98-107) mmol/L Carbon Dioxide (22-30) mmol/L Anion Gap (5-15) MEQ/L BUN (7-17) mg/dL Creatinine (0.52-1.04) mg/dL Estimated GFR ML/MIN Glucose (74-106) mg/dL Lactic Acid (0.4-2.0) Calcium (8.4-10.2) mg/dL Total Bilirubin (0.2-1.3) mg/dL AST (14-36) U/L ALT (0-35) U/L Alkaline Phosphatase (38-126) U/L Serum Total Protein (6.3-8.2) g/dL Albumin (3.5-5.0) g/dL Urine Color Dark Yellow A (Yellow) Urine Appearance Cloudy A (Clear) Urine pH 5.5 (4.6-8.0) Ur Specific Beryl 1.025 (1.005-1.030) Urine Protein Trace A (Negative) Urine Glucose (UA) Negative (Negative) mg/dL Urine Ketones 15 A (Negative) Urine Blood Negative (Negative) Urine Nitrite Negative (Negative) Urine Bilirubin Small A (Negative) Urine Urobilinogen 1.0 A (0.2) mg/dL Ur Leukocyte Esterase Negative (Negative) U Hyaline Cast (Auto) NONE SEEN (0-2) /LPF Urine Microscopic RBC 0-2 (0-5) /HPF Urine Microscopic WBC 3-5 (0-5) /HPF Ur Epithelial Cells Moderate A (None Seen) /HPF Urine Bacteria Many A (None Seen) /HPF Urine Culture Reflexed YES (NO) Monoscreen NEGATIVE (NEGATIVE) Influenza Type A Ag NEGATIVE (NEGATIVE) Influenza Type B Ag NEGATIVE (NEGATIVE) RSV (PCR) NEGATIVE (NEGATIVE) SARS-CoV-2 (PCR) POSITIVE A (NEGATIVE) 06/11/24 06/11/24 06/11/24 Range/Units 11:40 11:40 11:40 WBC 3.8 L (3.98-10.04) x10^3/uL RBC 3.93 (3.93-5.22) x10^6/uL Hgb 12.6 (11.2-15.7) g/dL Hct 37.4 (34.1-44.9) % MCV 95.2 H (79.4-94.8) fL MCH 32.1 (25.6-32.2) pg MCHC 33.7 (32.2-35.5) g/dL RDW 12.2 (11.7-14.4) % Plt Count 142 L (182-369) x10^3/uL MPV 12.0 (9.4-12.3) fL Gran % 29.1 L (34.0-71.1) % Immature Gran % (Auto) 0.3 (0.001-0.429) % Nucleat RBC Rel Count 0.0 (0.00-0.2) % Eos # (Auto) 0.17 (0.04-0.36) x10^3/uL Immature Gran # (Auto) 0.01 (0.001-0.031) x10^3u/L Absolute Lymphs (auto) 2.23 (1.18-3.74) x10^3/uL Absolute Monos (auto) 0.28 (0.24-0.86) x10^3/uL Absolute Nucleated RBC 0.00 (0.00-0.012) x10^3u/L Lymphocytes % 58.5 H (19.3-51.7) % Monocytes % 7.3 (4.7-12.5) % Eosinophils % 4.5 (0.7-5.8) % Basophils % 0.3 (0.1-1.2) % Absolute Granulocytes 1.11 L (1.56-6.13) x10^3/uL Basophils # 0.01 (0.01-0.08) x10^3/uL Sodium 140 (135-145) mmol/L Potassium 3.3 L (3.5-5.1) mmol/L Chloride 105 (98-107) mmol/L Carbon Dioxide 21 L (22-30) mmol/L Anion Gap 17.3 H (5-15) MEQ/L BUN 8 (7-17) mg/dL Creatinine 0.61 (0.52-1.04) mg/dL Estimated GFR 117.3 ML/MIN Glucose 90 (74-106) mg/dL Lactic Acid 2.3 H (0.4-2.0) Calcium 8.6 (8.4-10.2) mg/dL Total Bilirubin 0.70 (0.2-1.3) mg/dL AST 31 (14-36) U/L ALT 17 (0-35) U/L Alkaline Phosphatase 51 (38-126) U/L Serum Total Protein 7.0 (6.3-8.2) g/dL Albumin 4.4 (3.5-5.0) g/dL Urine Color (Yellow) Urine Appearance (Clear) Urine pH (4.6-8.0) Ur Specific Beryl (1.005-1.030) Urine Protein (Negative) Urine Glucose (UA) (Negative) mg/dL Urine Ketones (Negative) Urine Blood (Negative) Urine Nitrite (Negative) Urine Bilirubin (Negative) Urine Urobilinogen (0.2) mg/dL Ur Leukocyte Esterase (Negative) U Hyaline Cast (Auto) (0-2) /LPF Urine Microscopic RBC (0-5) /HPF Urine Microscopic WBC (0-5) /HPF Ur Epithelial Cells (None Seen) /HPF Urine Bacteria (None Seen) /HPF Urine Culture Reflexed (NO) Monoscreen (NEGATIVE) Influenza Type A Ag (NEGATIVE) Influenza Type B Ag (NEGATIVE) RSV (PCR) (NEGATIVE) SARS-CoV-2 (PCR) (NEGATIVE) - Progress Progress: improved, re-examined Progress Note: 06/11/24 11:29 My medical decision making and the assignment of moderate complexity to this patient's medical issue today is based on review of the patient's past medical history, review the patient's medication list, reviewed patient drug allergy list, history present illness and physical findings on examination. The workup in this patient includes placement of a intravenous line, infusion of droperidol, infusion of normal saline solution, CBC, CMP, lactic acid level, amylase, lipase, urinalysis, viral swabs, monotest and blood cultures. Differential diagnosis includes but is not limited to urinary tract infection, dehydration, electrolyte abnormalities, viral illness 06/11/24 12:50 I interpreted the patient's laboratory data results. Based on the laboratory data results, the patient and tested positive for COVID-19 infection. She also has mild hypokalemia, and dehydration. Counseled pt/family regarding: lab results, diagnosis, need for follow-up Medical Desision Making - Independent Historian Additional History obtained from: Family - Diagnostic Testing Diagnostic test were ordered, analyzed, and reviewed by me: Yes - Risk of complications Low Risk: Low risk of morbidity from additional dx testing or treatment - Departure Departure Disposition: Home Clinical Impression: COVID-19 virus infection, Dehydration, Hypokalemia Condition: Stable Critical Care Time: No Referrals: MARCO SALVADOR MD [Primary Care Provider] - Follow up/PCP as directed Additional Instructions: Drink plenty of clear liquids. Advance your diet slowly once you are taking clear liquids and well. Avoid fatty greasy spicy foods. Take all your other medications as prescribed. Prescriptions: Ondansetron ODT 4 MG [Zofran Odt 4 mg] 4 mg PO Q6H PRN PRN #10 tablet PRN Reason: Vomiting
[2024-06-11] MEDS ORDERED: Sodium Chloride 0.9% 1000 ML 1,000 ML ONE (11:54)
[2024-06-11] MEDS: Inapsine 5 MG/2 ML IV ONE (11:54)
[2024-06-11] MEDS ORDERED: Inapsine 5 MG/2 ML ONE (11:54)
[2024-06-11] MEDS: Sodium Chloride 0.9% 1000 ML 1,000 ML IV STA (11:55)
[2024-06-11 12:05] LABS: Absolute Neutrophil Ct (ANC) 1.11 x10^3/uL (1.56-6.13); BASOPHIL % 0.3 % (0.1-1.2); Basophil (Absolute #) 0.01 x10^3/uL (0.01-0.08); Eosinophil % 4.5 % (0.7-5.8); Eosinophil (Absolute #) 0.17 x10^3/uL (0.04-0.36); Hematocrit 37.4 % (34.1-44.9); Hemoglobin 12.6 g/dL (11.2-15.7); IMMATURE GRAN # 0.01 x10^3u/L (0.001-0.031); IMMATURE GRAN % 0.3 % (0.001-0.429); Lymphocyte (Absolute #) 2.23 x10^3/uL (1.18-3.74); Lymphocytes % 58.5 % (19.3-51.7); Mean Cell Volume 95.2 fL (79.4-94.8); Mean Corpuscular Hemoglobin 32.1 pg (25.6-32.2); Mean Corpuscular Hgb Concent. 33.7 g/dL (32.2-35.5); Monocyte (Absolute #) 0.28 x10^3/uL (0.24-0.86); Monocytes % 7.3 % (4.7-12.5); Neutrophil % 29.1 % (34.0-71.1); Platelet Count 142 x10^3/uL (182-369); Red Blood Count 3.93 x10^6/uL (3.93-5.22); Red Cell Distribution Width 12.2 % (11.7-14.4); White Blood Count 3.8 x10^3/uL (3.98-10.04)
[2024-06-11 12:18] LABS: ALBUMIN 4.4 g/dL (3.5-5.0); ANION GAP 17.3 MEQ/L (5-15); BILIRUBIN,TOTAL 0.7 mg/dL (0.2-1.3); Calcium 8.6 mg/dL (8.4-10.2); Creatinine 1 0.61 mg/dL (0.52-1.04); EST GLOMERULAR FILTRATION RATE 117.3 ML/MIN; Potassium 3.3 mmol/L (3.5-5.1)
[2024-06-11 12:35] LABS: Appearance Cloudy (Clear); Bacteria Many /HPF (None Seen); Bilirubin Small (Negative); Blood Negative (Negative); Epithelial Cells Moderate /HPF (None Seen); Glucose, Urine Negative (Negative); Hyaline Casts NONE SEEN /LPF (0-2); Ketones 15 (Negative); Leukocyte Esterase Negative (Negative); Nitrite Negative (Negative); Ph 5.5 (4.6-8.0); Protein,Urine Dip Trace (Negative); RBC 0-2 /HPF (0-5); Specific Gravity 1.025 (1.005-1.030)
[2024-06-11] MEDS ORDERED: Lactated Ringers 1,000 ML IV ONE (12:36)
[2024-06-11] MEDS: Lactated Ringers 1,000 ML IV ONE (12:38)
[2024-06-11 12:42] LABS: INFLUENZA A NEGATIVE (NEGATIVE); INFLUENZA B NEGATIVE (NEGATIVE); RESPIRATORY SYNCTIAL VIRUS NEGATIVE (NEGATIVE)
[2024-06-11 12:48] LABS: SARS-CoV-2 Xpert Express POSITIVE (NEGATIVE)
[2024-06-11] MEDS ORDERED: Klor Con ONE (12:57)
[2024-06-11] MEDS: Klor Con PO ONE (12:59)
[2024-06-11 13:04] VITALS: O2SAT 100
[2024-06-11 14:46] VITALS: BP 98/66; PULSE 59; RESP 19
== END 2024-06-11 15:06 | disposition home or self-care (01) ==
LOC: ED 10:49
DX: U07.1 COVID-19 (principal); E86.0 Dehydration; E87.6 Hypokalemia; R11.2 Nausea with vomiting, unspecified; M79.10 Myalgia, unspecified site; R51.9 Headache, unspecified; Z79.891 Long term (current) use of opiate analgesic; Z79.899 Other long term (current) drug therapy
CPT/HCPCS: 0241U; 36415; 80053; 81001; 83605; 85025; 86308; 87040; 87086; 93005; 94760; 96361; 96374; 99284; J1790; A9270-GY

== ENCOUNTER 2024-08-03 16:42 | Emergency (ER) | payer MEDICARE ==
[2024-08-03 17:05] VITALS: TEMP 99.4
[2024-08-03] MEDS ORDERED: Zofran 4 MG/2 ML VIAL ONE (19:29)
--- NOTE | 2024-08-03 19:29 | ERPHSYRPT ---
- History of Present Illness Time Seen by Provider: 08/03/24 19:24 Source: patient Exam Limitations: no limitations Patient Subjective Stated Complaint: pt c/o of upper abdominal pain that radiates to her back Triage Nursing Assessment: Pt was brought to the ER by her mother, vitals wnl, pain of 9/10, pt appears dehydrated and malnurished, pt went to eye doctor today due to eye pain and unable to see, pt was told that she her eyes "ripped" due to malnutrition and placed a contact bandaid on the left one and states that half of that eye sees black and the other half is blurry and then the right eye is blurry, pt states that she called her bariactic surgeon and was told to come to the ER and be placed on TPN, face is sunken in, pulses normal, reports that it is hard to take a deep breath because it hurts in her abdomen and back Physician History: Patient is a 39-year-old female presents to our ED for evaluation of epigastric pain that radiates towards the left into her back. Patient advises that she had gastric bypass in 2010. Patient states that she has had an accelerated amount of weight loss over the past several months. Patient is currently down to 100 pounds. Patient feels weak. Patient advised that she has been having eye pain and blurred vision however she did follow-up with a implant coordinator who advised her that she had bilateral corneal abrasions. Patient currently being treated with eyedrop antibiotic. Patient reports her bariatric surgeon is at [facility]. Her doctor's name is Rancho patient's pain described as an ache that is moderate in intensity. Pain worse with palpation to the epigastrium. Pain improved with rest. Patient has a history of a gastric ulcer and states her symptoms are similar. Patient denies obvious bleeding. She voices no other complaints or concerns at this time. Portions of this note were created with voice recognition technology. There may be grammatical, spelling, punctuation or sound alike errors Timing/Duration: today, worse Severity: moderate Modifying Factors: Improves With: other (Palpation) Associated Symptoms: denies symptoms Allergies/Adverse Reactions: Fish Containing Products Allergy (Intermediate, Verified 08/03/24 17:05) Nausea and Vomiting swelling everywhere shellfish derived Allergy (Intermediate, Verified 08/03/24 17:05) Nausea and Vomiting Sulfa (Sulfonamide Antibiotics) [Sulfa(Sulfonamide Antibiotics)] Allergy (Intermediate, Verified 08/03/24 17:05) Hives tamsulosin [From Flomax] Allergy (Intermediate, Verified 08/03/24 17:05) Rash trimethoprim [From Septra] Allergy (Intermediate, Verified 08/03/24 17:05) Rash latex Allergy (Unknown, Verified 08/03/24 17:05) nitrofurantoin [From Macrobid] Allergy (Unknown, Verified 08/03/24 17:05) sulfamethoxazole [From Septra] Allergy (Verified 08/03/24 17:05) Rash furosemide [From Lasix] Adverse Reaction (Intermediate, Verified 08/03/24 17:05) Hives Iodinated Contrast Media Adverse Reaction (Intermediate, Verified 08/03/24 17:05) Vomiting NSAIDS (Non-Steroidal Anti-Inflamma Adverse Reaction (Intermediate, Verified 08/03/24 17:05) Rash can take IM but no oral med eggs Allergy (Intermediate, Uncoded 08/03/24 17:05) Rash nausea/vomiting Home Medications: Tizanidine HCl 4 mg [Zanaflex 4 MG] 4 mg PO QID 07/08/19 [History] Topiramate [Topamax] 200 mg PO BID 07/08/19 [History] PANTOPRAZOLE 40 mg Tablet [Protonix 40MG Tablet] 40 mg PO QPM 07/12/19 [History] Ergocalciferol (Vitamin D2) [Vitamin D2] 1 cap PO WEEKLY 10/06/19 [History] Mirtazapine 30 mg [Remeron 30 mg] 1 tab PO HS 11/16/22 [History] Prazosin HCl 1 cap PO HS 11/16/22 [History] clonazePAM [Klonopin] 1 tab PO TID 11/16/22 [History] Levetiracetam 250 MG [Keppra 250 MG] 500 mg PO BID 03/28/23 [History] Levothyroxine Sodium 25 mcg PO DAILY 03/28/23 [History] Hydroxyzine HCl 25 mg [Atarax 25 mg] 1 tab PO TID PRN 04/04/23 [History] Fluoxetine HCl 20 ml PO DAILY 03/07/24 [History] Atomoxetine HCl 40 mg PO DAILY 08/03/24 [History] Tizanidine HCl 4 mg [Zanaflex 4 MG] 4 mg PO Q8H 08/03/24 [History] Hx Tetanus, Diphtheria Vaccination/Date Given: Yes Hx Influenza Vaccination/Date Given: No Hx Pneumococcal Vaccination/Date Given: No Travel Risk - International Travel Have you traveled outside of the country in past 3 weeks: No - Emerging Infectious Disease Are you exhibiting symptoms associated with any current EIDs: Yes Symptoms: Abdominal Pain - Review of Systems Constitutional: No Symptoms, No Fever, No Chills Eyes: No Symptoms Ears, Nose, & Throat: No Symptoms Respiratory: No Symptoms, No Cough, No Dyspnea Cardiac: No Symptoms, No Chest Pain, No Edema, No Syncope Abdominal/Gastrointestinal: No Symptoms, No Abdominal Pain, No Nausea, No Vomiting, No Diarrhea Genitourinary Symptoms: No Symptoms, No Dysuria Musculoskeletal: No Symptoms, No Back Pain, No Neck Pain Skin: No Symptoms, No Rash Neurological: No Symptoms, No Dizziness, No Focal Weakness, No Sensory Changes Psychological: No Symptoms Endocrine: No Symptoms Hematologic/Lymphatic: No Symptoms Immunological/Allergic: No Symptoms All Other Systems: Reviewed and Negative - Past Medical History Pertinent Past Medical History: Yes Neurological History: Migraines, Seizures, Other ENT History: No Pertinent History Cardiac History: Arrhythmia Respiratory History: Asthma Endocrine Medical History: Hypothyroidism Musculoskeletal History: Other GI Medical History: GERD, Gallbladder Disease, Other History: Other Psycho-Social History: Anxiety, Depression, Other Female Reproductive Disorders: Abnormal Uterine Bleeding, Endometriosis, Menstrual Problems Other Medical History: PTSD, ANEMIA - Past Surgical History Past Surgical History: Yes Neuro Surgical History: No Pertinent History Cardiac: No Pertinent History Respiratory: No Pertinent History Gastrointestinal: Appendectomy, Cholecystectomy, Other Genitourinary: No Pertinent History Musculoskeletal: No Pertinent History Female Surgical History: Hysterectomy, Tubal Ligation, Other Other Surgical History: gastric bypass 2010, lap band placed and removed first, g- tube placement and removal x2, BLADDER AND URETER REPAIR .2023 cervix removed Significant Family History: no pertinent family hx - Female History Hx Last Menstrual Period: none Hx Now: No - Social History Smoking Status: Former smoker Exposure to second hand smoke: No Drug Use: none - Social Determinants of Health Will the patient participate in the screening: Yes Do you worry about a steady place to live?: No Do you have any problems with any of the following?: No known problems In the past 12 months,have you had to go without utilities?: No Transportation Issues: No Has anyone in your support network made you feel unsafe?: No Have you or anyone in your house had to go w/o enough food: No - Nursing Vital Signs Nursing Vital Signs: Initial Vital Signs Temperature 99.4 F 08/03/24 16:53 Pulse Rate 99 H 08/03/24 16:53 Respiratory Rate 13 08/03/24 16:53 Blood Pressure 136/95 08/03/24 16:53 O2 Sat by Pulse Oximetry 99 08/03/24 16:53 Pain Scale Pain Intensity 2 - Physical Exam General Appearance: no apparent distress, alert, cachetic Eye Exam: PERRL/EOMI, eyes nml inspection Ears, Nose, Throat Exam: normal ENT inspection, moist mucous membranes Neck Exam: normal inspection, full range of motion Respiratory Exam: normal breath sounds, lungs clear, No respiratory distress Cardiovascular Exam: regular rate/rhythm, normal heart sounds, normal peripheral pulses Gastrointestinal/Abdomen Exam: soft, normal bowel sounds, tenderness (Epigastric tenderness to palpation), No mass Back Exam: normal inspection, normal range of motion, No CVA tenderness, No vertebral tenderness Extremity Exam: normal inspection, normal range of motion, pelvis stable Neurologic Exam: alert, 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, cooperative, normal mood/affect, sensation nml, No motor deficits Skin Exam: normal color, warm, dry, No rash Lymphatic Exam: No adenopathy SpO2 Interpretation: normal SpO2: 100 O2 Delivery: Room Air - Course Nursing assessment & vital signs reviewed: Yes - CT Exams Abdomen/Pelvis CT Interpretation: Tele-radiologist Report (Normal abdomen and pelvis CAT scan) Ordered Tests: Active Orders 24 hr Category Date Time Status IV Insertion STAT Care 08/03/24 19:24 Completed Telemetry q4h Care 08/03/24 21:45 Completed ABDOMEN AND PELVIS W/0 CONTRAS [CT] Stat Exams 08/03/24 19:29 Taken CBC W DIFF Stat Lab 08/03/24 19:41 Completed CMP Stat Lab 08/03/24 19:41 Completed CULTURE,URINE Stat Lab 08/03/24 19:32 Received HCG QUALITATIVE, URINE Stat Lab 08/03/24 19:32 Completed LIPASE Stat Lab 08/03/24 19:41 Completed TROPONIN Q4H Lab 08/03/24 19:41 Completed TROPONIN Q4H Lab 08/03/24 23:10 Completed UA W/RFX UR CULTURE Stat Lab 08/03/24 19:32 Completed Medication Summary Discontinued Medications Generic Name Dose Route Start Last Admin Trade Name Freq PRN Reason Stop Dose Admin Sodium Chloride 1,000 mls @ 250 mls/hr 08/03/24 19:30 08/04/24 00:27 Sodium Chloride 0.9% 1000 Ml IV 09/02/24 19:29 250 mls/hr .Q4H ARMANDO Administration Ceftriaxone Sodium 1 gm in 100 mls @ 200 mls/hr 08/03/24 21:44 08/03/24 22:21 Rocephin 1 Gm / 100 Ml Nacl IV 08/03/24 22:13 Infused STAT ONE Infusion Magnesium Sulfate/Dextrose 100 mls @ 100 mls/hr 08/03/24 21:45 08/03/24 23:38 Magnesium 1 Gm / 100 Ml D5w IV 08/03/24 23:44 Infused Q1H ARMANDO Infusion Potassium Chloride 20 meq in 100 mls @ 50 mls/hr 08/03/24 21:45 08/04/24 00:35 Potassium Chloride 20 Meq In Water 100ml IV 08/04/24 01:44 50 mls/hr Q2H ARMANDO Administration Ceftriaxone Sodium Confirm 08/03/24 21:50 Rocephin 1 Gm / 100 Ml Nacl Administered 08/03/24 21:51 Dose 1 gm in 100 mls @ ud IV .STK-MED ONE Sodium Chloride Confirm 08/03/24 19:30 Sodium Chloride 0.9% 1000 Ml Administered 08/03/24 19:31 Dose 1,000 mls @ ud .ROUTE .STK-MED ONE Sodium Chloride Confirm 08/04/24 00:25 Sodium Chloride 0.9% 1000 Ml Administered 08/04/24 00:26 Dose 1,000 mls @ ud .ROUTE .STK-MED ONE Magnesium Sulfate/Dextrose Confirm 08/03/24 22:29 Magnesium 1 Gm / 100 Ml D5w Administered 08/03/24 22:30 Dose 100 mls @ ud IV .STK-MED ONE Magnesium Sulfate/Dextrose Confirm 08/03/24 23:07 Magnesium 1 Gm / 100 Ml D5w Administered 08/03/24 23:08 Dose 100 mls @ ud IV .STK-MED ONE Potassium Chloride Confirm 08/03/24 22:29 Potassium Chloride 20 Meq In Water 100ml Administered 08/03/24 22:30 Dose 100 mls @ ud IV .STK-MED ONE Potassium Chloride Confirm 08/04/24 00:29 Potassium Chloride 20 Meq In Water 100ml Administered 08/04/24 00:30 Dose 100 mls @ ud IV .STK-MED ONE Morphine Sulfate 2 mg 08/03/24 19:27 08/03/24 19:31 Morphine Sulfate 2 Mg/Ml Inj IV 08/03/24 19:28 2 mg STAT ONE Administration Morphine Sulfate Confirm 08/03/24 19:30 Morphine Sulfate 2 Mg/Ml Inj Administered 08/03/24 19:31 Dose 2 mg .ROUTE .STK-MED ONE Morphine Sulfate 2 mg 08/03/24 21:12 08/03/24 21:19 Morphine Sulfate 2 Mg/Ml Inj IV 08/03/24 21:13 2 mg STAT ONE Administration Morphine Sulfate Confirm 08/03/24 21:16 Morphine Sulfate 2 Mg/Ml Inj Administered 08/03/24 21:17 Dose 2 mg .ROUTE .STK-MED ONE Morphine Sulfate 4 mg 08/03/24 23:17 08/03/24 23:36 Morphine Sulfate 4 Mg/Ml Injection IV 08/03/24 23:18 4 mg STAT ONE Administration Morphine Sulfate Confirm 08/03/24 23:36 Morphine Sulfate 4 Mg/Ml Injection Administered 08/03/24 23:37 Dose 4 mg .ROUTE .STK-MED ONE Ondansetron HCl 4 mg 08/03/24 19:27 08/03/24 19:31 Ondansetron Hcl 4 Mg/2 Ml Vial IV 08/03/24 19:28 4 mg STAT ONE Administration Ondansetron HCl Confirm 08/03/24 19:29 Ondansetron Hcl 4 Mg/2 Ml Vial Administered 08/03/24 19:30 Dose 4 mg .ROUTE .STK-MED ONE Lab/Rad Data: Laboratory Result Diagrams 08/03/24 19:41 08/03/24 19:41 Laboratory Results 08/03/24 08/03/24 08/03/24 Range/Units 23:10 19:41 19:41 WBC (3.98-10.04) x10^3/uL RBC (3.93-5.22) x10^6/uL Hgb (11.2-15.7) g/dL Hct (34.1-44.9) % MCV (79.4-94.8) fL MCH (25.6-32.2) pg MCHC (32.2-35.5) g/dL RDW (11.7-14.4) % Plt Count (182-369) x10^3/uL MPV (9.4-12.3) fL Gran % (34.0-71.1) % Immature Gran % (Auto) (0.001-0.429) % Nucleat RBC Rel Count (0.00-0.2) % Eos # (Auto) (0.04-0.36) x10^3/uL Immature Gran # (Auto) (0.001-0.031) x10^3u/L Absolute Lymphs (auto) (1.18-3.74) x10^3/uL Absolute Monos (auto) (0.24-0.86) x10^3/uL Absolute Nucleated RBC (0.00-0.012) x10^3u/L Lymphocytes % (19.3-51.7) % Monocytes % (4.7-12.5) % Eosinophils % (0.7-5.8) % Basophils % (0.1-1.2) % Absolute Granulocytes (1.56-6.13) x10^3/uL Basophils # (0.01-0.08) x10^3/uL Sodium 138 (135-145) mmol/L Potassium 3.3 L (3.5-5.1) mmol/L Chloride 103 (98-107) mmol/L Carbon Dioxide 21 L (22-30) mmol/L Anion Gap 16.9 H (5-15) MEQ/L BUN 9 (7-17) mg/dL Creatinine 0.67 (0.52-1.04) mg/dL Estimated GFR 114.7 ML/MIN Glucose 83 (74-106) mg/dL Calcium 8.7 (8.4-10.2) mg/dL Total Bilirubin 0.70 (0.2-1.3) mg/dL AST 23 (14-36) U/L ALT 15 (0-35) U/L Alkaline Phosphatase 48 (38-126) U/L Troponin I < 0.012 0.017 (0.000-0.033) ng/mL Serum Total Protein 6.5 (6.3-8.2) g/dL Albumin 4.4 (3.5-5.0) g/dL Lipase 350 H (23-300) U/L Urine Color (Yellow) Urine Appearance (Clear) Urine pH (4.6-8.0) Ur Specific Jeannette (1.005-1.030) Urine Protein (Negative) Urine Glucose (UA) (Negative) mg/dL Urine Ketones (Negative) Urine Blood (Negative) Urine Nitrite (Negative) Urine Bilirubin (Negative) Urine Urobilinogen (0.2) mg/dL Ur Leukocyte Esterase (Negative) U Hyaline Cast (Auto) (0-2) /LPF Urine Microscopic RBC (0-5) /HPF Urine Microscopic WBC (0-5) /HPF Ur Epithelial Cells (None Seen) /HPF Urine Bacteria (None Seen) /HPF Urine Culture Reflexed (NO) Urine HCG, Qual (NEGATIVE) 08/03/24 08/03/24 08/03/24 Range/Units 19:41 19:32 19:32 WBC 5.5 (3.98-10.04) x10^3/uL RBC 4.04 (3.93-5.22) x10^6/uL Hgb 12.8 (11.2-15.7) g/dL Hct 38.5 (34.1-44.9) % MCV 95.3 H (79.4-94.8) fL MCH 31.7 (25.6-32.2) pg MCHC 33.2 (32.2-35.5) g/dL RDW 13.0 (11.7-14.4) % Plt Count 128 L (182-369) x10^3/uL MPV 12.0 (9.4-12.3) fL Gran % 66.4 (34.0-71.1) % Immature Gran % (Auto) 0.4 (0.001-0.429) % Nucleat RBC Rel Count 0.0 (0.00-0.2) % Eos # (Auto) 0.06 (0.04-0.36) x10^3/uL Immature Gran # (Auto) 0.02 (0.001-0.031) x10^3u/L Absolute Lymphs (auto) 1.42 (1.18-3.74) x10^3/uL Absolute Monos (auto) 0.32 (0.24-0.86) x10^3/uL Absolute Nucleated RBC 0.00 (0.00-0.012) x10^3u/L Lymphocytes % 25.9 (19.3-51.7) % Monocytes % 5.8 (4.7-12.5) % Eosinophils % 1.1 (0.7-5.8) % Basophils % 0.4 (0.1-1.2) % Absolute Granulocytes 3.64 (1.56-6.13) x10^3/uL Basophils # 0.02 (0.01-0.08) x10^3/uL Sodium (135-145) mmol/L Potassium (3.5-5.1) mmol/L Chloride (98-107) mmol/L Carbon Dioxide (22-30) mmol/L Anion Gap (5-15) MEQ/L BUN (7-17) mg/dL Creatinine (0.52-1.04) mg/dL Estimated GFR ML/MIN Glucose (74-106) mg/dL Calcium (8.4-10.2) mg/dL Total Bilirubin (0.2-1.3) mg/dL AST (14-36) U/L ALT (0-35) U/L Alkaline Phosphatase (38-126) U/L Troponin I (0.000-0.033) ng/mL Serum Total Protein (6.3-8.2) g/dL Albumin (3.5-5.0) g/dL Lipase (23-300) U/L Urine Color Yellow (Yellow) Urine Appearance Clear (Clear) Urine pH 5.5 (4.6-8.0) Ur Specific Jeannette 1.015 (1.005-1.030) Urine Protein Negative (Negative) Urine Glucose (UA) Negative (Negative) mg/dL Urine Ketones Trace A (Negative) Urine Blood Trace (Negative) Urine Nitrite Positive A (Negative) Urine Bilirubin Negative (Negative) Urine Urobilinogen 1.0 A (0.2) mg/dL Ur Leukocyte Esterase Negative (Negative) U Hyaline Cast (Auto) NONE SEEN (0-2) /LPF Urine Microscopic RBC 3-5 (0-5) /HPF Urine Microscopic WBC 0-2 (0-5) /HPF Ur Epithelial Cells Few (None Seen) /HPF Urine Bacteria Many A (None Seen) /HPF Urine Culture Reflexed YES (NO) Urine HCG, Qual NEGATIVE (NEGATIVE) - Progress Progress: improved Progress Note: Patient accepted at [facility] in [facility]. Patient accepted by nurse practitioner Vero Underwood who works with patient's physician Dr. Vickers patient was accepted for transfer at 10 PM. 08/03/24 22:04 39-year-old female presents to our ED for evaluation of abdominal pain and excessive weight loss. Patient is cachectic appearing weighing 100 pounds. Physical exam reveals epigastric pain. Workup reveals elevated lipase likely secondary to pancreatitis. UTI diagnosed as well. Hypokalemia antibiotics administered. Potassium replacement administered as well. Patient transferred to [facility] in [facility] per her request. Portions of this note were created with voice recognition technology. There may be grammatical, spelling, punctuation or sound alike errors Complexity of problems addressed is moderate acute complicated. No critical care time. Complexity of data reviewed and analyzed is extensive. Test ordered test reviewed results analyzed and correlated clinically with history and physical exam. Risk of complication and or risk of morbidity/mortality of patient management is high. Patient requires transfer to higher level of care. Vital stable. Time spent to transfer patient is approximately 20 minutes. Plan of care established via shared decision making. No social determinants of health present to impede follow-up. Portions of this note were created with voice recognition technology. There may be grammatical, spelling, punctuation or sound alike errors 08/04/24 06:48 Counseled pt/family regarding: lab results, diagnosis, rad results - Departure Departure Disposition: Transfer Clinical Impression: Hypokalemia, UTI (urinary tract infection), Abdominal pain, Pancreatitis, Elevated lipase, Weight loss Condition: Stable Critical Care Time: No Referrals: MARCO SALVADOR MD [Primary Care Provider] - Follow up/PCP as directed
[2024-08-03] MEDS ORDERED: MORPHINE SULFATE 2 MG INJ ONE ×2 (19:30→21:16)
[2024-08-03] MEDS ORDERED: Sodium Chloride 0.9% 1000 ML 1,000 ML ONE (19:30)
[2024-08-03] MEDS: Zofran 4 MG/2 ML VIAL IV ONE (19:31)
[2024-08-03] MEDS: MORPHINE SULFATE 2 MG INJ IV ONE ×2 (19:31→21:19)
[2024-08-03] MEDS: Sodium Chloride 0.9% 1000 ML 1,000 ML IV SCH (19:32)
[2024-08-03 19:46] LABS: Absolute Neutrophil Ct (ANC) 3.64 x10^3/uL (1.56-6.13); BASOPHIL % 0.4 % (0.1-1.2); Basophil (Absolute #) 0.02 x10^3/uL (0.01-0.08); Eosinophil % 1.1 % (0.7-5.8); Eosinophil (Absolute #) 0.06 x10^3/uL (0.04-0.36); Hematocrit 38.5 % (34.1-44.9); Hemoglobin 12.8 g/dL (11.2-15.7); IMMATURE GRAN # 0.02 x10^3u/L (0.001-0.031); IMMATURE GRAN % 0.4 % (0.001-0.429); Lymphocyte (Absolute #) 1.42 x10^3/uL (1.18-3.74); Lymphocytes % 25.9 % (19.3-51.7); Mean Cell Volume 95.3 fL (79.4-94.8); Mean Corpuscular Hemoglobin 31.7 pg (25.6-32.2); Mean Corpuscular Hgb Concent. 33.2 g/dL (32.2-35.5); Monocyte (Absolute #) 0.32 x10^3/uL (0.24-0.86); Monocytes % 5.8 % (4.7-12.5); Neutrophil % 66.4 % (34.0-71.1); Platelet Count 128 x10^3/uL (182-369); Red Blood Count 4.04 x10^6/uL (3.93-5.22); White Blood Count 5.5 x10^3/uL (3.98-10.04)
[2024-08-03 19:49] LABS: HCG URINE TEST NEGATIVE (NEGATIVE)
[2024-08-03 19:53] LABS: Appearance Clear (Clear); Bacteria Many /HPF (None Seen); Bilirubin Negative (Negative); Blood Trace (Negative); Epithelial Cells Few /HPF (None Seen); Glucose, Urine Negative (Negative); Hyaline Casts NONE SEEN /LPF (0-2); Ketones Trace (Negative); Leukocyte Esterase Negative (Negative); Nitrite Positive (Negative); Ph 5.5 (4.6-8.0); Protein,Urine Dip Negative (Negative); Specific Gravity 1.015 (1.005-1.030); WBC 0-2 /HPF (0-5)
[2024-08-03 19:59] LABS: ALBUMIN 4.4 g/dL (3.5-5.0); ANION GAP 16.9 MEQ/L (5-15); BILIRUBIN,TOTAL 0.7 mg/dL (0.2-1.3); Calcium 8.7 mg/dL (8.4-10.2); Creatinine 1 0.67 mg/dL (0.52-1.04); EST GLOMERULAR FILTRATION RATE 114.7 ML/MIN; Potassium 3.3 mmol/L (3.5-5.1); Total Protein 6.5 g/dL (6.3-8.2)
[2024-08-03] MEDS ORDERED: ROCEPHIN 1 GM / 100 ML NaCl 1 GM/100 ML IVPB IV ONE (21:50)
[2024-08-03] MEDS: ROCEPHIN 1 GM / 100 ML NaCl 1 GM/100 ML IVPB IV ONE (21:51)
[2024-08-03] MEDS ORDERED: POTASSIUM CHLORIDE 20 mEq IN WATER 100ML 100 ML IV ONE (22:29)
[2024-08-03] MEDS ORDERED: Magnesium 1 Gm / 100 Ml D5W*** 100 ML IV ONE ×2 (22:29→23:07)
[2024-08-03] MEDS: POTASSIUM CHLORIDE 20 mEq IN WATER 100ML 20 MEQ/100 ML BAG IV SCH (22:32)
[2024-08-03] MEDS: Magnesium 1 Gm / 100 Ml D5W*** 100 ML IV SCH (22:33)
[2024-08-03] MEDS ORDERED: MORPHINE SULFATE 4 MG INJ ONE (23:36)
[2024-08-03] MEDS: MORPHINE SULFATE 4 MG INJ IV ONE (23:36)
[2024-08-04] MEDS ORDERED: Sodium Chloride 0.9% 1000 ML 1,000 ML ONE (00:25)
[2024-08-04] MEDS ORDERED: POTASSIUM CHLORIDE 20 mEq IN WATER 100ML 100 ML IV ONE (00:29)
[2024-08-04 01:07] VITALS: BP 115/75; PULSE 87; RESP 12
[2024-08-04 06:51] VITALS: O2SAT 100
--- NOTE | 2024-08-04 07:42 | XRAY ---
Indication: Pain. Multiple contiguous axial images obtained through the abdomen and pelvis without contrast. Comparison: November 26, 2023 Lung bases remain clear again with incidental right base calcified granuloma. Heart not enlarged. Noncontrasted stomach and bowel loops appear nonobstructed. Again gastric bypass surgery, appendectomy, and cholecystectomy. No free fluid/air. Remaining liver, pancreas, spleen, adrenal glands, kidneys, ureters, bladder, and aorta are unremarkable for noncontrast exam. Osseous structures intact. No ventral or inguinal hernias. Impression: Negative CT abdomen/pelvis without contrast exam.
== END 2024-08-04 01:00 | disposition short-term general hospital (02) ==
LOC: ED 16:42
DX: E87.6 Hypokalemia (principal); N39.0 Urinary tract infection, site not specified; R10.13 Epigastric pain; K85.90 Acute pancreatitis without necrosis or infection, unspecified; R74.8 Abnormal levels of other serum enzymes; R63.4 Abnormal weight loss; Z79.899 Other long term (current) drug therapy; Z98.84 Bariatric surgery status
CPT/HCPCS: 36415; 74176; 80053; 81001; 81025; 83690; 84484; 85025; 87086; 96361; 96365; 96366; 96367; 96368; 96374; 96375; 96376; 99285; J0696; J2270; J2405; J3475; J3480